=== PATIENT | female | born 1970 | race African-American/Black ===

== ENCOUNTER 2017-07-31 16:23 | Emergency (ER) | payer OTHER ==
[~2017-07-31] VITALS: Ht 165.1 cm; Wt 72.0 kg
[~2017-07-31 16:23] MED LIST: AMIT25TA9 PO; ASPI-1158 PO; ATOR10TA PO; BENA20TA77 PO; GABA-533 PO; INSU3INS6 SUBCUT; PROT40 PO; TRAM150C25 PO
[2017-07-31 22:09] LABS: BASOPHILS % 0.9 % (0.0-2.0); EOSINOPHILS % 1.7 % (0.0-5.0); HEMATOCRIT. 33.5 % (36.0-48.0); HEMOGLOBIN. 11.6 g/dL (12.0-16.0); LYMPHOCYTES % 57.1 % (20.0-50.0); MEAN CORPUSCULAR VOLUME 86.6 fL (81.0-99.0); MEAN PLATELET VOLUME 7.4 fl (7.4-10.4); MONOCYTES % 3.8 % (2.0-8.0); NEUTROPHILS % 36.5 % (40.0-76.0); PLATELET 377 x1000/uL (130-400); RED BLOOD CELL COUNT 3.86 mill/uL (4.2-5.4); RED CELL DISTRIBUTION WIDTH 12.1 % (11.6-14.6)
[2017-07-31 22:12] LABS: CLARITY URINE CLEAR (CLEAR); COLOR URINE YELLOW (YELLOW); KETONES URINE NEGATIVE (NEGATIVE); LEUKOCYTE ESTERASE URINE NEGATIVE (NEGATIVE); NITRITE URINE NEGATIVE (NEGATIVE); OCCULT BLOOD URINE 1+ (NEGATIVE); PH URINE 5.5 (4.5-8.0); PROTEIN URINE TRACE (NEGATIVE); SPECIFIC GRAVITY URINE 1.032 (1.005-1.030); UROBILINOGEN URINE 0.2 E.U./dL (0.2-1.0)
[2017-07-31 22:14] LABS: CHLORIDE 94 mEq/L (98-107)
[2017-07-31 22:19] LABS: ETHANOL BLOOD < 10 mg/dL
[2017-07-31 22:23] LABS: BETA HYDROXYBUTYRATE 0.2 mMol/L (0.0-0.3)
[2017-07-31 22:29] LABS: *AMPHETAMINES SCREEN URINE NEGATIVE (NEGATIVE); *BARBITURATES SCREEN URINE NEGATIVE (NEGATIVE); *BENZODIAZEPINES SCREEN URINE NEGATIVE (NEGATIVE); *COCAINE SCREEN URINE NEGATIVE (NEGATIVE); CANNABINOID URINE SCREEN NEGATIVE (NEGATIVE); METHADONE URINE SCREEN NEGATIVE (NEGATIVE); OPIATES URINE SCREEN NEGATIVE (NEGATIVE); PHENCYCLIDINE URINE SCREEN NEGATIVE (NEGATIVE)
[2017-07-31] MEDS ORDERED: SODIUM CHLORIDE 0.9% 1,000 ML IV ONE (22:45)
[2017-07-31] MEDS ORDERED: INSULIN REGULAR (HUMULIN R) 300UNITS/3ML SUBCUT ONE (22:45)
[2017-08-01] MEDS ORDERED: CLONIDINE 0.2MG TABLET PO ONE (01:45)
[2017-08-01] MEDS ORDERED: IBUPROFEN 600MG TABLET PO ONE (01:45)
[2017-08-01 03:00] VITALS: BP 180/80
== END 2017-08-01 03:00 | disposition home or self-care (01) ==
LOC: ER 18:44
DX: E11.65 Type 2 diabetes mellitus with hyperglycemia (principal); M79.671 Pain in right foot; R26.2 Difficulty in walking, not elsewhere classified; R05 Cough; I10 Essential (primary) hypertension; Z79.4 Long term (current) use of insulin; Z79.82 Long term (current) use of aspirin; Z79.899 Other long term (current) drug therapy
CPT/HCPCS: 36415; 70450; 71045; 80053; 80305; 81003; 82010; 82962; 85025; 96360; 96372; 99285; G0482; J1815; J7030; Z7610

== ENCOUNTER 2017-11-09 07:19 | Inpatient (IN) | payer OTHER ==
[~2017-11-09] VITALS: Ht 165.1 cm; Wt 77.6 kg
[~2017-11-09 07:19] MED LIST changes: -BENA20TA77 PO
[2017-11-09] MEDS ORDERED: MORPHINE SULFATE 4 MG/ML CPJ (NOT FOR IM USE) IV STA (08:19)
[2017-11-09] MEDS ORDERED: ONDANSETRON HCL 4MG/2ML VIAL IV STA (08:19)
[2017-11-09 08:45] LABS: BASOPHILS % 0.7 % (0.0-2.0); EOSINOPHILS % 0.3 % (0.0-5.0); HEMATOCRIT. 37.6 % (36.0-48.0); HEMOGLOBIN. 12.8 g/dL (12.0-16.0); LYMPHOCYTES % 32.8 % (20.0-50.0); MEAN CORPUSCULAR HEMOGLOBIN 29.6 pg (28.0-32.0); MEAN CORPUSCULAR VOLUME 86.7 fL (81.0-99.0); MEAN PLATELET VOLUME 7.4 fl (7.4-10.4); MONOCYTES % 3.9 % (2.0-8.0); NEUTROPHILS % 62.3 % (40.0-76.0); PLATELET 355 x1000/uL (130-400); RED BLOOD CELL COUNT 4.34 mill/uL (4.2-5.4); RED CELL DISTRIBUTION WIDTH 13.4 % (11.6-14.6)
[2017-11-09 08:51] LABS: CHLORIDE 98 mEq/L (98-107)
[2017-11-09 08:54] LABS: PARTIAL THROMBOPLASTIN TIME 23.4 sec (23.4-31.0); PROTHROMBIN TIME 10.8 sec (9.4-11.6)
[2017-11-09 09:05] LABS: CLARITY URINE CLEAR (CLEAR); COLOR URINE YELLOW (YELLOW); KETONES URINE 2+ (NEGATIVE); LEUKOCYTE ESTERASE URINE NEGATIVE (NEGATIVE); NITRITE URINE NEGATIVE (NEGATIVE); OCCULT BLOOD URINE 3+ (NEGATIVE); PH URINE 6.5 (4.5-8.0); PROTEIN URINE 3+ (NEGATIVE); SPECIFIC GRAVITY URINE 1.025 (1.005-1.030); UROBILINOGEN URINE 0.2 E.U./dL (0.2-1.0)
[2017-11-09] MEDS ORDERED: IOHEXOL-300 100 ML BOTTLE ONE (10:46)
[2017-11-09] MEDS ORDERED: LEVOFLOXACIN 500MG PREMIX 100 ML IV ONE (11:15)
[2017-11-09] MEDS ORDERED: METRONIDAZOLE 500 MG PREMIX 100 ML IV ONE (11:15)
[2017-11-09] MEDS ORDERED: HYDROCODONE/ACETAMINOPHEN 5/325MG TABLET PO PRN (11:45)
[2017-11-09] MEDS ORDERED: AMITRIPTYLINE 25MG TABLET PO PRN (11:45)
[2017-11-09] MEDS ORDERED: DEXTROSE 50% WATER 50ML SYRINGE IV PRN (11:45)
[2017-11-09] MEDS ORDERED: NIFEDIPINE XL 30MG TAB PO SCH (11:59)
[2017-11-09] MEDS: CLONIDINE 0.1MG TABLET PO PRN (12:12)
[2017-11-09] MEDS ORDERED: LABETALOL 5MG/ML SYR 20 MG/4 ML SYRINGE IV NR (14:15)
[2017-11-09 16:00] VITALS: BP 117/94
[2017-11-09 16:15] VITALS: BP 117/94
[2017-11-09] MEDS ORDERED: METOCLOPRAMIDE HCL 10MG/2ML VIAL IV SCH (18:00)
[2017-11-09] MEDS: BLOOD SUGAR DIAGNOSTIC STRIP TEST SCH ×2 (18:12→23:00)
[2017-11-09] MEDS: INSULIN LISPRO 100 UNITS/ML SUBCUT SCH ×2 (18:36→23:09)
[2017-11-09 20:00] VITALS: BP 146/83
[2017-11-09] MEDS: ATORVASTATIN CALCIUM 10MG TABLET PO SCH (22:55)
[2017-11-09] MEDS: NIFEDIPINE XL 60MG TAB PO SCH (22:56)
[2017-11-09] MEDS: HYDRALAZINE HCL 50MG TABLET PO SCH (22:57)
[2017-11-09] MEDS: ACETAMINOPHEN 325MG TABLET PO PRN (23:05)
[2017-11-10 04:00] VITALS: BP 121/74
[2017-11-10] MEDS: HYDRALAZINE HCL 50MG TABLET PO SCH ×3 (06:01→21:29)
[2017-11-10] MEDS: ONDANSETRON HCL 4MG/2ML VIAL IV PRN ×2 (06:09→15:58)
[2017-11-10 07:00] LABS: BASOPHILS % 0.3 % (0.0-2.0); EOSINOPHILS % 1.2 % (0.0-5.0); HEMATOCRIT. 34.8 % (36.0-48.0); HEMOGLOBIN. 11.9 g/dL (12.0-16.0); LYMPHOCYTES % 45.1 % (20.0-50.0); MEAN CORPUSCULAR HEMOGLOBIN 29.3 pg (28.0-32.0); MEAN CORPUSCULAR VOLUME 86.1 fL (81.0-99.0); MEAN PLATELET VOLUME 7.7 fl (7.4-10.4); MONOCYTES % 7.5 % (2.0-8.0); NEUTROPHILS % 45.9 % (40.0-76.0); PLATELET 350 x1000/uL (130-400); RED BLOOD CELL COUNT 4.04 mill/uL (4.2-5.4); RED CELL DISTRIBUTION WIDTH 13.2 % (11.6-14.6)
[2017-11-10] MEDS: BLOOD SUGAR DIAGNOSTIC STRIP TEST SCH ×4 (07:20→21:32)
[2017-11-10 08:00] VITALS: BP 142/80
[2017-11-10] MEDS: INSULIN LISPRO 100 UNITS/ML SUBCUT SCH ×4 (08:42→21:44)
[2017-11-10] MEDS: PANTOPRAZOLE 40MG DR TABLET PO SCH (08:58)
[2017-11-10] MEDS: NIFEDIPINE XL 60MG TAB PO SCH ×2 (08:58→21:30)
[2017-11-10 11:21] VITALS: BP 131/68
[2017-11-10] MEDS: MORPHINE SULFATE 4 MG/ML CPJ (NOT FOR IM USE) IV PRN ×2 (11:24→21:16)
[2017-11-10] MEDS: GABAPENTIN 400MG CAPSULE PO PRN (11:29)
[2017-11-10] MEDS ORDERED: POTASSIUM CHLORIDE INJ 40 MEQ in DEXT 5% WATER 500 ML IV ONE (12:45)
[2017-11-10] MEDS: DEXT 5%/0.45% NACL 1000ML 1,000 ML IV SCH ×2 (15:58→23:05)
[2017-11-10 16:00] VITALS: BP 140/77
[2017-11-10] MEDS: KCL 20MEQ/100ML PREMIX 100 ML IV SCH ×2 (16:02→18:13)
[2017-11-10 20:00] VITALS: BP 108/65
[2017-11-10] MEDS: ATORVASTATIN CALCIUM 10MG TABLET PO SCH (21:28)
[2017-11-11] VITALS: BP 110/66
[2017-11-11] MEDS: ONDANSETRON HCL 4MG/2ML VIAL IV PRN (03:29)
[2017-11-11 04:00] VITALS: BP 106/63
[2017-11-11] MEDS: HYDRALAZINE HCL 50MG TABLET PO SCH ×3 (06:00→22:25)
[2017-11-11] MEDS: BLOOD SUGAR DIAGNOSTIC STRIP TEST SCH ×4 (07:48→21:00)
[2017-11-11 08:30] VITALS: BP 120/61
[2017-11-11] MEDS: INSULIN LISPRO 100 UNITS/ML SUBCUT SCH ×4 (08:34→20:51)
[2017-11-11] MEDS: PANTOPRAZOLE 40MG DR TABLET PO SCH (08:36)
[2017-11-11] MEDS: NIFEDIPINE XL 60MG TAB PO SCH ×2 (08:36→20:50)
[2017-11-11] MEDS: DEXT 5%/0.45% NACL 1000ML 1,000 ML IV SCH ×2 (08:37→20:51)
[2017-11-11 12:46] LABS: CREATINE KINASE 57 IU/L (26-192)
[2017-11-11] MEDS: METOCLOPRAMIDE HCL 10MG/2ML VIAL IV SCH ×2 (13:31→18:33)
[2017-11-11 20:00] VITALS: BP 128/66
[2017-11-11] MEDS: ATORVASTATIN CALCIUM 10MG TABLET PO SCH (20:50)
[2017-11-11] MEDS ORDERED: INSULIN GLARGINE UD 100 UNITS/ML SYR SUBCUT SCH (22:00)
[2017-11-12] VITALS: BP 125/57
[2017-11-12] MEDS: METOCLOPRAMIDE HCL 10MG/2ML VIAL IV SCH ×5 (00:22→23:44)
[2017-11-12 04:00] VITALS: BP 135/73
[2017-11-12] MEDS: DEXT 5%/0.45% NACL 1000ML 1,000 ML IV SCH ×3 (04:57→23:44)
[2017-11-12] MEDS: HYDRALAZINE HCL 50MG TABLET PO SCH ×3 (05:48→22:04)
[2017-11-12 06:45] LABS: BASOPHILS % 0.2 % (0.0-2.0); EOSINOPHILS % 0.2 % (0.0-5.0); HEMATOCRIT. 30.6 % (36.0-48.0); HEMOGLOBIN. 10.5 g/dL (12.0-16.0); LYMPHOCYTES % 27.4 % (20.0-50.0); MEAN CORPUSCULAR VOLUME 87.4 fL (81.0-99.0); MEAN PLATELET VOLUME 7.6 fl (7.4-10.4); MONOCYTES % 6.8 % (2.0-8.0); NEUTROPHILS % 65.4 % (40.0-76.0); PLATELET 354 x1000/uL (130-400); RED BLOOD CELL COUNT 3.51 mill/uL (4.2-5.4); RED CELL DISTRIBUTION WIDTH 13.1 % (11.6-14.6)
[2017-11-12 07:47] LABS: PHOSPHORUS 4.3 mg/dL (2.5-4.9)
[2017-11-12] MEDS: BLOOD SUGAR DIAGNOSTIC STRIP TEST SCH ×4 (07:56→20:44)
[2017-11-12 08:00] VITALS: BP 144/78
[2017-11-12] MEDS ORDERED: SODIUM BICARBONATE 4% (2.4MEQ) 5ML VIAL IV ONE (09:10)
[2017-11-12] MEDS ORDERED: LIDOCAINE HCL/PF 1% 10 MG/ML 5ML VIAL ONE (09:10)
[2017-11-12] MEDS: FAMOTIDINE 20MG TABLET PO SCH (11:21)
[2017-11-12] MEDS: NIFEDIPINE XL 60MG TAB PO SCH ×2 (11:21→20:44)
[2017-11-12] MEDS: INSULIN LISPRO 100 UNITS/ML SUBCUT SCH ×6 (11:25→20:45)
[2017-11-12] MEDS: GABAPENTIN 400MG CAPSULE PO PRN (11:28)
[2017-11-12 12:00] VITALS: BP 133/73
[2017-11-12 12:22] LABS: INR 1.1; PROTHROMBIN TIME 11.1 sec (9.4-11.6)
[2017-11-12 12:39] LABS: HEPATITIS B SURFACE AB < 3.1 mIU/mL
[2017-11-12 12:49] LABS: HEPATITIS B SURFACE ANTIGEN NEGATIVE
[2017-11-12 13:18] LABS: HEPATITIS B CORE AB IGM NEGATIVE
[2017-11-12 13:19] LABS: HEPATITIS A AB IGM NEGATIVE (NEGATIVE)
[2017-11-12 16:00] VITALS: BP 140/79
[2017-11-12] MEDS: MORPHINE SULFATE 4 MG/ML CPJ (NOT FOR IM USE) IV PRN (17:52)
[2017-11-12 20:00] VITALS: BP 137/76
[2017-11-12] MEDS: ATORVASTATIN CALCIUM 10MG TABLET PO SCH (20:43)
[2017-11-12] MEDS: INSULIN GLARGINE UD 100 UNITS/ML SYR SUBCUT SCH (22:07)
[2017-11-13 04:00] VITALS: BP 125/62
[2017-11-13] MEDS: ACETAMINOPHEN 325MG TABLET PO PRN (05:33)
[2017-11-13] MEDS: METOCLOPRAMIDE HCL 10MG/2ML VIAL IV SCH ×4 (06:11→23:01)
[2017-11-13] MEDS: HYDRALAZINE HCL 50MG TABLET PO SCH ×3 (06:12→21:03)
[2017-11-13 07:29] LABS: BASOPHILS % 0.2 % (0.0-2.0); EOSINOPHILS % 0.2 % (0.0-5.0); HEMATOCRIT. 30.2 % (36.0-48.0); HEMOGLOBIN. 10.2 g/dL (12.0-16.0); LYMPHOCYTES % 31.8 % (20.0-50.0); MEAN CORPUSCULAR HEMOGLOBIN 29.6 pg (28.0-32.0); MEAN PLATELET VOLUME 7.6 fl (7.4-10.4); MONOCYTES % 7.8 % (2.0-8.0); PLATELET 307 x1000/uL (130-400); RED BLOOD CELL COUNT 3.43 mill/uL (4.2-5.4); RED CELL DISTRIBUTION WIDTH 13.2 % (11.6-14.6)
[2017-11-13] MEDS: BLOOD SUGAR DIAGNOSTIC STRIP TEST SCH ×4 (07:40→21:02)
[2017-11-13 08:00] VITALS: BP 131/76
[2017-11-13 08:32] LABS: PHOSPHORUS 3.2 mg/dL (2.5-4.9)
[2017-11-13] MEDS: NIFEDIPINE XL 60MG TAB PO SCH ×2 (08:42→20:53)
[2017-11-13] MEDS: FAMOTIDINE 20MG TABLET PO SCH (08:42)
[2017-11-13] MEDS: INSULIN LISPRO 100 UNITS/ML SUBCUT SCH ×7 (08:50→21:00)
[2017-11-13 12:00] VITALS: BP 123/70
[2017-11-13] MEDS ORDERED: BISACODYL 10MG SUPP PR PRN (13:15)
[2017-11-13] MEDS ORDERED: NA PHOS,M-B/NA PHOS,DI-BA ENEMA 118ML PR PRN (13:15)
[2017-11-13] MEDS: DEXT 5%/0.45% NACL 1000ML 1,000 ML IV SCH (13:37)
[2017-11-13 16:00] VITALS: BP 135/79
[2017-11-13] MEDS ORDERED: SORBITOL 70% SOLN 30ML PO NR ×2 (16:00→20:00)
[2017-11-13 17:06] LABS: ANTI-NUCLEAR ANTIBODIES DIRECT Negative (Negative)
[2017-11-13 20:00] VITALS: BP 130/70
[2017-11-13] MEDS: ONDANSETRON HCL 4MG/2ML VIAL IV PRN (20:14)
[2017-11-13] MEDS: MORPHINE SULFATE 4 MG/ML CPJ (NOT FOR IM USE) IV PRN (20:14)
[2017-11-13] MEDS: ATORVASTATIN CALCIUM 10MG TABLET PO SCH (20:53)
[2017-11-13] MEDS: INSULIN GLARGINE UD 100 UNITS/ML SYR SUBCUT SCH (21:03)
[2017-11-14] VITALS: BP 140/80
[2017-11-14 04:00] VITALS: BP 136/75
[2017-11-14] MEDS: HYDRALAZINE HCL 50MG TABLET PO SCH (06:00)
[2017-11-14] MEDS: BLOOD SUGAR DIAGNOSTIC STRIP TEST SCH ×4 (06:03→21:05)
[2017-11-14] MEDS: INSULIN LISPRO 100 UNITS/ML SUBCUT SCH ×6 (06:03→21:05)
[2017-11-14] MEDS: METOCLOPRAMIDE HCL 10MG/2ML VIAL IV SCH ×4 (06:07→23:59)
[2017-11-14] MEDS: FAMOTIDINE 20MG TABLET PO SCH (06:07)
[2017-11-14 06:15] LABS: COMPLEMENT C3 124 mg/dL (82-167)
[2017-11-14 06:36] LABS: BASOPHILS % 0.5 % (0.0-2.0); EOSINOPHILS % 0.2 % (0.0-5.0); HEMATOCRIT. 30.8 % (36.0-48.0); HEMOGLOBIN. 10.5 g/dL (12.0-16.0); LYMPHOCYTES % 27.6 % (20.0-50.0); MEAN CORPUSCULAR HEMOGLOBIN 30.1 pg (28.0-32.0); MEAN PLATELET VOLUME 7.7 fl (7.4-10.4); NEUTROPHILS % 65.7 % (40.0-76.0); PLATELET 331 x1000/uL (130-400); RED BLOOD CELL COUNT 3.49 mill/uL (4.2-5.4)
[2017-11-14 06:40] LABS: PARTIAL THROMBOPLASTIN TIME 24.7 sec (23.4-31.0); PROTHROMBIN TIME 10.8 sec (9.4-11.6)
[2017-11-14] MEDS ORDERED: NA PHOS,M-B/NA PHOS,DI-BA ENEMA 118ML PR NR (07:00)
[2017-11-14 08:00] VITALS: BP 157/83
[2017-11-14] MEDS: NIFEDIPINE XL 60MG TAB PO SCH ×2 (08:54→21:04)
[2017-11-14] MEDS ORDERED: POTASSIUM CHLORIDE 20MEQ TABLET SR PO NR (09:30)
[2017-11-14 12:00] VITALS: BP 161/83
[2017-11-14] MEDS ORDERED: MIDAZOLAM HCL 5 MG/5 ML VIAL ONE (12:11)
[2017-11-14] MEDS ORDERED: FENTANYL CITRATE/PF 50MCG/ML 2ML VIAL ONE (12:11)
[2017-11-14] MEDS ORDERED: SIMETHICONE 40 MG/0.6 ML 30ML ONE (12:11)
[2017-11-14] MEDS: HYDRALAZINE HCL 25MG TABLET PO SCH ×2 (13:58→21:05)
[2017-11-14] MEDS: GABAPENTIN 400MG CAPSULE PO PRN (14:05)
[2017-11-14] MEDS: DEXT 5%/0.45% NACL 1000ML 1,000 ML IV SCH (15:28)
[2017-11-14 16:00] VITALS: BP 169/84
[2017-11-14] MEDS: ACETAMINOPHEN 325MG TABLET PO PRN (18:05)
[2017-11-14] MEDS: CLONIDINE 0.1MG TABLET PO PRN (18:44)
[2017-11-14 20:00] VITALS: BP 162/84
[2017-11-14] MEDS: ATORVASTATIN CALCIUM 10MG TABLET PO SCH (21:04)
[2017-11-14] MEDS: INSULIN GLARGINE UD 100 UNITS/ML SYR SUBCUT SCH (21:06)
[2017-11-14 22:43] LABS: CLARITY URINE CLEAR (CLEAR); COLOR URINE YELLOW (YELLOW); KETONES URINE NEGATIVE (NEGATIVE); LEUKOCYTE ESTERASE URINE NEGATIVE (NEGATIVE); NITRITE URINE NEGATIVE (NEGATIVE); OCCULT BLOOD URINE NEGATIVE (NEGATIVE); PH URINE 7.5 (4.5-8.0); PROTEIN URINE 2+ (NEGATIVE); SPECIFIC GRAVITY URINE 1.011 (1.005-1.030); UROBILINOGEN URINE 0.2 E.U./dL (0.2-1.0)
[2017-11-15] VITALS: BP 122/65
[2017-11-15 03:57] VITALS: BP 116/69
[2017-11-15] MEDS: HYDRALAZINE HCL 25MG TABLET PO SCH ×3 (05:48→22:00)
[2017-11-15] MEDS: METOCLOPRAMIDE HCL 10MG/2ML VIAL IV SCH ×3 (05:48→18:01)
[2017-11-15] MEDS: ACETAMINOPHEN 325MG TABLET PO PRN (06:01)
[2017-11-15 06:08] LABS: BASOPHILS % 0.5 % (0.0-2.0); EOSINOPHILS % 1.7 % (0.0-5.0); HEMATOCRIT. 30.2 % (36.0-48.0); HEMOGLOBIN. 10.6 g/dL (12.0-16.0); LYMPHOCYTES % 46.5 % (20.0-50.0); MEAN CORPUSCULAR HEMOGLOBIN 30.3 pg (28.0-32.0); MEAN CORPUSCULAR VOLUME 86.5 fL (81.0-99.0); MONOCYTES % 8.1 % (2.0-8.0); NEUTROPHILS % 43.2 % (40.0-76.0); PLATELET 330 x1000/uL (130-400); RED CELL DISTRIBUTION WIDTH 12.9 % (11.6-14.6)
[2017-11-15] MEDS: BLOOD SUGAR DIAGNOSTIC STRIP TEST SCH ×4 (07:40→21:09)
[2017-11-15 08:00] VITALS: BP 132/76
[2017-11-15] MEDS: DEXT 5%/0.45% NACL 1000ML 1,000 ML IV SCH ×2 (08:00→18:00)
[2017-11-15] MEDS: INSULIN LISPRO 100 UNITS/ML SUBCUT SCH ×4 (08:10→21:00)
[2017-11-15] MEDS: GABAPENTIN 400MG CAPSULE PO PRN ×2 (09:28→14:53)
[2017-11-15] MEDS: NIFEDIPINE XL 60MG TAB PO SCH ×2 (09:29→21:09)
[2017-11-15] MEDS: FAMOTIDINE 20MG TABLET PO SCH (09:30)
[2017-11-15 12:00] VITALS: BP 132/82
[2017-11-15] MEDS ORDERED: POTASSIUM CHLORIDE 20MEQ TABLET SR PO NR (14:00)
[2017-11-15 16:00] VITALS: BP 150/85
[2017-11-15 20:00] VITALS: BP 113/67
[2017-11-15] MEDS: ATORVASTATIN CALCIUM 10MG TABLET PO SCH (21:09)
[2017-11-15] MEDS: INSULIN GLARGINE UD 100 UNITS/ML SYR SUBCUT SCH (21:12)
[2017-11-16] VITALS: BP 116/71
[2017-11-16] MEDS: DEXT 5%/0.45% NACL 1000ML 1,000 ML IV SCH (03:59)
[2017-11-16 04:00] VITALS: BP 139/85
[2017-11-16] MEDS: HYDRALAZINE HCL 25MG TABLET PO SCH ×2 (05:43→14:40)
[2017-11-16] MEDS: METOCLOPRAMIDE HCL 10MG/2ML VIAL IV SCH ×4 (05:44→18:00)
[2017-11-16] MEDS: ACETAMINOPHEN 325MG TABLET PO PRN (05:47)
[2017-11-16] MEDS: GABAPENTIN 400MG CAPSULE PO PRN (05:47)
[2017-11-16] MEDS: BLOOD SUGAR DIAGNOSTIC STRIP TEST SCH ×3 (07:40→16:34)
[2017-11-16 08:00] VITALS: BP 151/86
[2017-11-16] MEDS: NIFEDIPINE XL 60MG TAB PO SCH (08:54)
[2017-11-16] MEDS: FAMOTIDINE 20MG TABLET PO SCH (08:54)
[2017-11-16] MEDS: INSULIN LISPRO 100 UNITS/ML SUBCUT SCH ×3 (08:55→18:34)
[2017-11-16 12:00] VITALS: BP 129/65
[2017-11-16] MEDS ORDERED: NIFE60TA64 PO (12:42)
[2017-11-16] MEDS ORDERED: HYDR-4134 PO (12:42)
[2017-11-16] MEDS ORDERED: LANTUSUD SUBCUT (12:42)
[2017-11-16 14:51] VITALS: BP 126/95
[2017-11-16 16:14] VITALS: BP 126/68
== END 2017-11-16 19:03 | disposition home or self-care (01) | DRG 248 ==
LOC: ER 07:19 → 6EST 12:00 → ENRESERV 12:20 → 6EST 18:00 → 7WST 11-11 14:31
PROVIDERS: ADMIT Family Medicine; ATTEND Family Medicine
PROC: 5A1D70Z Performance of Urinary Filtration, Intermittent, Less than 6 Hours Per Day (ICD-10-PCS; principal; 2017-11-12)
PROC: 02HV33Z Insertion of Infusion Device into Superior Vena Cava, Percutaneous Approach (ICD-10-PCS; 2017-11-12)
PROC: B5181ZA Fluoroscopy of Superior Vena Cava using Low Osmolar Contrast, Guidance (ICD-10-PCS; 2017-11-12)
PROC: 5A1D70Z Performance of Urinary Filtration, Intermittent, Less than 6 Hours Per Day (ICD-10-PCS; 2017-11-14)
DX: A04.9 Bacterial intestinal infection, unspecified (principal); N17.1 Acute kidney failure with acute cortical necrosis; I13.2 Hypertensive heart and chronic kidney disease with heart failure and with stage 5 chronic kidney disease, or end stage renal disease; K31.84 Gastroparesis; E11.21 Type 2 diabetes mellitus with diabetic nephropathy; E11.40 Type 2 diabetes mellitus with diabetic neuropathy, unspecified; E44.1 Mild protein-calorie malnutrition; I50.32 Chronic diastolic (congestive) heart failure; E11.22 Type 2 diabetes mellitus with diabetic chronic kidney disease; K21.9 Gastro-esophageal reflux disease without esophagitis; E11.43 Type 2 diabetes mellitus with diabetic autonomic (poly)neuropathy; E78.5 Hyperlipidemia, unspecified; E86.0 Dehydration; D25.9 Leiomyoma of uterus, unspecified; E87.6 Hypokalemia; N18.6 End stage renal disease; K76.0 Fatty (change of) liver, not elsewhere classified; D64.9 Anemia, unspecified; Z82.49 Family history of ischemic heart disease and other diseases of the circulatory system; Z83.3 Family history of diabetes mellitus; Z90.49 Acquired absence of other specified parts of digestive tract; Z99.2 Dependence on renal dialysis
CPT/HCPCS: 36415; 36556; 71045; 74177; 76770; 76937; 77001; 80048; 80053; 80076; 81003; 82150; 82550; 82962; 83036; 83690; 83735; 83880; 84100; 84145; 84484; 85025; 85610; 85730; 86038; 86160; 86705; 86706; 86709; 86803; 87040; 87340; 88305; C1752; C1893; J1642; J1815; J1956; J2250; J2270; J2405; J2765; J3010; J3480; J3490; J7030; J7040; Q9967; A4315

== ENCOUNTER 2018-08-14 13:04 | Emergency (ER) | payer OTHER ==
[~2018-08-14] VITALS: Ht 165.1 cm; Wt 68.0 kg
[~2018-08-14 13:04] MED LIST changes: +HYDR-4134 PO; -INSU3INS6 SUBCUT; +LANTUSUD SUBCUT; +NIFE60TA64 PO
[2018-08-14 13:11] VITALS: BP 164/98
[2018-08-14] MEDS ORDERED: CARV6.2548 PO (13:18)
== END 2018-08-14 16:14 | disposition left against medical advice (07) ==
LOC: ER 13:04
DX: Z53.21 Procedure and treatment not carried out due to patient leaving prior to being seen by health care provider (principal); R07.9 Chest pain, unspecified; R55 Syncope and collapse
CPT/HCPCS: 82962; 93005

== ENCOUNTER 2018-08-14 16:06 | Emergency (ER) | payer OTHER ==
[~2018-08-14] VITALS: Ht 165.1 cm; Wt 68.0 kg
[~2018-08-14 16:06] MED LIST changes: +CARV6.2548 PO
[2018-08-14 16:15] VITALS: BP 168/92
== END 2018-08-14 19:45 | disposition left against medical advice (07) ==
LOC: ER 16:06
DX: Z53.21 Procedure and treatment not carried out due to patient leaving prior to being seen by health care provider (principal)

== ENCOUNTER 2018-09-12 21:20 | Inpatient (IN) | payer OTHER ==
[~2018-09-12] VITALS: Ht 165.1 cm; Wt 73.1 kg
[2018-09-13] MEDS ORDERED: ONDANSETRON HCL 4MG/2ML INJ IV STA (00:44)
[2018-09-13 01:05] LABS: BASOPHILS % 0.8 % (0.0-2.0); EOSINOPHILS % 0.1 % (0.0-5.0); HEMATOCRIT. 32.6 % (36.0-48.0); HEMOGLOBIN. 10.8 g/dL (12.0-16.0); LYMPHOCYTES % 12.4 % (20.0-50.0); MEAN CORPUSCULAR HEMOGLOBIN 29.2 pg (28.0-32.0); MEAN CORPUSCULAR VOLUME 87.8 fL (81.0-99.0); MONOCYTES % 3.7 % (2.0-8.0); PLATELET 352 x1000/uL (130-400); RED BLOOD CELL COUNT 3.71 mill/uL (4.2-5.4); RED CELL DISTRIBUTION WIDTH 13.3 % (11.6-14.6)
[2018-09-13 01:10] LABS: CHLORIDE 104 mEq/L (98-107)
[2018-09-13] MEDS ORDERED: METOCLOPRAMIDE HCL 10MG TABLET PO ONE (01:30)
[2018-09-13] MEDS ORDERED: ASPIRIN 325MG EC TABLET PO NR (02:00)
[2018-09-13 02:24] LABS: CLARITY URINE CLOUDY (CLEAR); COLOR URINE YELLOW (YELLOW); KETONES URINE 2+ (NEGATIVE); LEUKOCYTE ESTERASE URINE 1+ (NEGATIVE); NITRITE URINE NEGATIVE (NEGATIVE); OCCULT BLOOD URINE 3+ (NEGATIVE); PH URINE 5.5 (4.5-8.0); PROTEIN URINE 3+ (NEGATIVE); SPECIFIC GRAVITY URINE 1.022 (1.005-1.030); UROBILINOGEN URINE 0.2 E.U./dL (0.2-1.0)
[2018-09-13] MEDS: SODIUM CHLORIDE 0.9% 1,000 ML IV NR ×2 (02:52→17:46)
[2018-09-13] MEDS ORDERED: CEFTRIAXONE 1 G PREMIX 50 ML IV NR (06:00)
[2018-09-13] MEDS ORDERED: CEFTRIAXONE 1 G PREMIX 50 ML IV ONE (12:15)
[2018-09-13] MEDS ORDERED: LORAZEPAM 0.5MG TABLET PO PRN (12:15)
[2018-09-13] MEDS ORDERED: ONDANSETRON HCL 4MG/2ML INJ IV PRN (12:15)
[2018-09-13] MEDS ORDERED: GABA-290 MT (12:58)
[2018-09-13] MEDS ORDERED: COR3 MT (12:59)
[2018-09-13] MEDS ORDERED: ALBU6.7H INH (13:06)
[2018-09-13] MEDS ORDERED: HYDR-4134 MT (13:06)
[2018-09-13 13:12] VITALS: BP 189/108
[2018-09-13] MEDS ORDERED: DULA0.75 SQ (14:00)
[2018-09-13] MEDS ORDERED: DILTIAZEM HCL 5MG/ML 5ML VIAL IV PRN (14:00)
[2018-09-13 14:24] LABS: *AMPHETAMINES SCREEN URINE NEGATIVE (NEGATIVE); *BARBITURATES SCREEN URINE NEGATIVE (NEGATIVE); *BENZODIAZEPINES SCREEN URINE NEGATIVE (NEGATIVE); *COCAINE SCREEN URINE NEGATIVE (NEGATIVE); METHADONE URINE SCREEN NEGATIVE (NEGATIVE); OPIATES URINE SCREEN NEGATIVE (NEGATIVE)
[2018-09-13 14:25] LABS: CANNABINOID URINE SCREEN NEGATIVE (NEGATIVE); PHENCYCLIDINE URINE SCREEN NEGATIVE (NEGATIVE)
[2018-09-13] MEDS: PANTOPRAZOLE SODIUM 40 MG/VIAL IV SCH ×2 (15:28→21:04)
[2018-09-13] MEDS: HYDRALAZINE HCL 25MG TABLET PO SCH ×2 (15:29→21:05)
[2018-09-13] MEDS: NIFEDIPINE XL 60MG TAB PO SCH (15:29)
[2018-09-13] MEDS: CARVEDILOL 6.25 MG TABLET PO SCH (15:35)
[2018-09-13 15:50] LABS: INR 1.1; PROTHROMBIN TIME 11.1 sec (9.6-11.0)
[2018-09-13 16:11] LABS: FERRITIN 164 ng/mL (10-291)
[2018-09-13 16:13] LABS: PHOSPHORUS 4.1 mg/dL (2.5-4.9)
[2018-09-13 16:15] VITALS: BP 170/92
[2018-09-13 16:18] LABS: CREATINE KINASE MB FRACTION 1.3 ng/mL (0.5-3.6)
[2018-09-13 16:23] LABS: HEPATITIS B SURFACE ANTIGEN NEGATIVE
[2018-09-13 16:32] LABS: VITAMIN B12 SERUM 972 pg/mL (211-911)
[2018-09-13 16:38] VITALS: BP 112/64
[2018-09-13 16:51] LABS: HEPATITIS A AB IGM NEGATIVE (NEGATIVE)
[2018-09-13] MEDS ORDERED: DEXTROSE 50% WATER 50ML SYRINGE IV PRN (19:30)
[2018-09-13 20:05] VITALS: BP 108/60
[2018-09-13] MEDS: BLOOD SUGAR DIAGNOSTIC STRIP TEST SCH (21:00)
[2018-09-13] MEDS: INSULIN LISPRO 100 UNITS/ML SUBCUT SCH (21:04)
[2018-09-13] MEDS: AMITRIPTYLINE 25MG TABLET PO SCH (21:04)
[2018-09-13] MEDS: INSULIN GLARGINE UD 100 UNITS/ML SYR SUBCUT SCH (21:05)
[2018-09-13] MEDS ORDERED: INSULIN GLARGINE UD 100 UNITS/ML SYR SUBCUT SCH (22:00)
[2018-09-14] VITALS (7 sets, daily range): BP systolic 87–125; BP diastolic 47–70
[2018-09-14] MEDS: HYDRALAZINE HCL 25MG TABLET PO SCH (05:33)
[2018-09-14] MEDS: BLOOD SUGAR DIAGNOSTIC STRIP TEST SCH ×4 (06:02→20:55)
[2018-09-14] MEDS: CEFTRIAXONE 1 G PREMIX 50 ML IV SCH (06:02)
[2018-09-14 07:02] LABS: BASOPHILS % 0.3 % (0.0-2.0); EOSINOPHILS % 1.1 % (0.0-5.0); HEMATOCRIT. 28.2 % (36.0-48.0); HEMOGLOBIN. 9.4 g/dL (12.0-16.0); LYMPHOCYTES % 34.5 % (20.0-50.0); MEAN CORPUSCULAR HEMOGLOBIN 29.1 pg (28.0-32.0); MEAN CORPUSCULAR VOLUME 86.9 fL (81.0-99.0); MONOCYTES % 9.1 % (2.0-8.0); PLATELET 320 x1000/uL (130-400); RED BLOOD CELL COUNT 3.24 mill/uL (4.2-5.4); RED CELL DISTRIBUTION WIDTH 12.9 % (11.6-14.6)
[2018-09-14] MEDS: INSULIN LISPRO 100 UNITS/ML SUBCUT SCH ×4 (07:50→20:54)
[2018-09-14] MEDS: CARVEDILOL 6.25 MG TABLET PO SCH (08:29)
[2018-09-14] MEDS: NIFEDIPINE XL 60MG TAB PO SCH (08:30)
[2018-09-14] MEDS: PANTOPRAZOLE SODIUM 40 MG/VIAL IV SCH ×2 (08:30→20:44)
[2018-09-14] MEDS: INSULIN GLARGINE UD 100 UNITS/ML SYR SUBCUT SCH ×2 (11:26→21:14)
[2018-09-14] MEDS: SODIUM CHLORIDE 0.45% 1,000 ML IV SCH ×2 (11:31→20:45)
[2018-09-14] MEDS: HYDRALAZINE HCL 50MG TABLET PO SCH ×2 (14:00→21:11)
[2018-09-14] MEDS: AMITRIPTYLINE 25MG TABLET PO SCH (20:44)
[2018-09-15] VITALS: BP 97/59
[2018-09-15 04:00] VITALS: BP 130/70
[2018-09-15] MEDS: HYDRALAZINE HCL 50MG TABLET PO SCH (05:55)
[2018-09-15] MEDS: CEFTRIAXONE 1 G PREMIX 50 ML IV SCH (06:09)
[2018-09-15 06:44] LABS: BASOPHILS % 0.6 % (0.0-2.0); EOSINOPHILS % 3.4 % (0.0-5.0); HEMOGLOBIN. 9.2 g/dL (12.0-16.0); LYMPHOCYTES % 39.8 % (20.0-50.0); MEAN CORPUSCULAR HEMOGLOBIN 29.2 pg (28.0-32.0); MEAN CORPUSCULAR VOLUME 86.4 fL (81.0-99.0); MEAN PLATELET VOLUME 8.4 fl (7.4-10.4); MONOCYTES % 7.9 % (2.0-8.0); NEUTROPHILS % 48.3 % (40.0-76.0); PLATELET 292 x1000/uL (130-400); RED BLOOD CELL COUNT 3.13 mill/uL (4.2-5.4); RED CELL DISTRIBUTION WIDTH 13.1 % (11.6-14.6)
[2018-09-15] MEDS: BLOOD SUGAR DIAGNOSTIC STRIP TEST SCH ×2 (07:02→12:54)
[2018-09-15] MEDS: INSULIN LISPRO 100 UNITS/ML SUBCUT SCH ×2 (07:03→12:50)
[2018-09-15 08:00] VITALS: BP 142/79
[2018-09-15] MEDS: CARVEDILOL 6.25 MG TABLET PO SCH (09:33)
[2018-09-15] MEDS: PANTOPRAZOLE SODIUM 40 MG/VIAL IV SCH ×2 (09:33→21:02)
[2018-09-15] MEDS: NIFEDIPINE XL 60MG TAB PO SCH (09:33)
[2018-09-15] MEDS: SODIUM CHLORIDE 0.45% 1,000 ML IV SCH ×2 (09:34→21:18)
[2018-09-15] MEDS: GUAIFENESIN-DM 200MG-20MG/10ML UDC PO PRN ×2 (10:43→21:13)
[2018-09-15] MEDS: INSULIN GLARGINE UD 100 UNITS/ML SYR SUBCUT SCH ×2 (10:49→21:39)
[2018-09-15] MEDS: IPRATROPIUM/ALBUTEROL 0.5-3(2.5)MG/3ML NEB INH PRN ×2 (10:56→14:34)
[2018-09-15 12:00] VITALS: BP 130/76
[2018-09-15 16:00] VITALS: BP 125/71
[2018-09-15 20:00] VITALS: BP 125/66
[2018-09-15] MEDS: AMITRIPTYLINE 25MG TABLET PO SCH (21:02)
[2018-09-15] MEDS: CARVEDILOL 12.5MG TABLET PO SCH (21:04)
[2018-09-16] VITALS: BP 168/100
[2018-09-16 04:00] VITALS: BP 118/71
[2018-09-16] MEDS: SODIUM CHLORIDE 0.45% 1,000 ML IV SCH ×3 (05:55→23:27)
[2018-09-16 06:25] LABS: BASOPHILS % 0.5 % (0.0-2.0); EOSINOPHILS % 2.3 % (0.0-5.0); HEMATOCRIT. 27.5 % (36.0-48.0); HEMOGLOBIN. 9.3 g/dL (12.0-16.0); LYMPHOCYTES % 40.4 % (20.0-50.0); MEAN CORPUSCULAR HEMOGLOBIN 29.1 pg (28.0-32.0); MEAN CORPUSCULAR VOLUME 86.1 fL (81.0-99.0); MEAN PLATELET VOLUME 7.9 fl (7.4-10.4); MONOCYTES % 9.3 % (2.0-8.0); NEUTROPHILS % 47.5 % (40.0-76.0); PLATELET 316 x1000/uL (130-400); RED BLOOD CELL COUNT 3.19 mill/uL (4.2-5.4); RED CELL DISTRIBUTION WIDTH 12.9 % (11.6-14.6)
[2018-09-16] MEDS: INSULIN LISPRO 100 UNITS/ML SUBCUT SCH ×4 (07:50→20:45)
[2018-09-16 08:00] VITALS: BP 106/61
[2018-09-16] MEDS: BLOOD SUGAR DIAGNOSTIC STRIP TEST SCH ×4 (08:14→20:45)
[2018-09-16] MEDS ORDERED: POTASSIUM CHLORIDE 20MEQ TABLET SR PO NR (08:30)
[2018-09-16] MEDS: CEFTRIAXONE 1 G PREMIX 50 ML IV SCH (08:39)
[2018-09-16] MEDS: PANTOPRAZOLE SODIUM 40 MG/VIAL IV SCH ×2 (08:39→21:14)
[2018-09-16] MEDS: CARVEDILOL 12.5MG TABLET PO SCH ×2 (08:49→21:14)
[2018-09-16] MEDS: NIFEDIPINE XL 60MG TAB PO SCH (08:50)
[2018-09-16] MEDS: INSULIN GLARGINE UD 100 UNITS/ML SYR SUBCUT SCH ×2 (10:29→21:15)
[2018-09-16 12:00] VITALS: BP 119/70
[2018-09-16 16:00] VITALS: BP 154/77
[2018-09-16 20:13] VITALS: BP 169/91
[2018-09-16] MEDS: AMITRIPTYLINE 25MG TABLET PO SCH (21:14)
[2018-09-16] MEDS ORDERED: HYDROCODONE/ACETAMINOPHEN 5/325MG TABLET PO PRN (23:30)
[2018-09-16] MEDS ORDERED: ACETAMINOPHEN 325MG TABLET PO PRN (23:30)
[2018-09-17] VITALS (7 sets, daily range): BP systolic 116–169; BP diastolic 65–90
[2018-09-17] MEDS: IPRATROPIUM/ALBUTEROL 0.5-3(2.5)MG/3ML NEB INH PRN (01:39)
[2018-09-17 05:13] LABS: HIV SCREEN 4G Non Reactive (Non Reactive)
[2018-09-17 06:24] LABS: BASOPHILS % 0.5 % (0.0-2.0); EOSINOPHILS % 2.4 % (0.0-5.0); HEMATOCRIT. 26.7 % (36.0-48.0); HEMOGLOBIN. 8.9 g/dL (12.0-16.0); LYMPHOCYTES % 49.4 % (20.0-50.0); MEAN CORPUSCULAR HEMOGLOBIN 28.7 pg (28.0-32.0); MEAN CORPUSCULAR VOLUME 86.4 fL (81.0-99.0); MEAN PLATELET VOLUME 7.6 fl (7.4-10.4); MONOCYTES % 11.4 % (2.0-8.0); NEUTROPHILS % 36.3 % (40.0-76.0); PLATELET 360 x1000/uL (130-400); RED BLOOD CELL COUNT 3.09 mill/uL (4.2-5.4); RED CELL DISTRIBUTION WIDTH 12.8 % (11.6-14.6)
[2018-09-17] MEDS: BLOOD SUGAR DIAGNOSTIC STRIP TEST SCH ×4 (06:25→21:18)
[2018-09-17] MEDS: CEFTRIAXONE 1 G PREMIX 50 ML IV SCH (06:25)
[2018-09-17] MEDS: INSULIN LISPRO 100 UNITS/ML SUBCUT SCH ×4 (07:50→21:00)
[2018-09-17] MEDS: CARVEDILOL 12.5MG TABLET PO SCH (09:17)
[2018-09-17] MEDS: PANTOPRAZOLE SODIUM 40 MG/VIAL IV SCH ×2 (09:18→21:19)
[2018-09-17] MEDS: NIFEDIPINE XL 60MG TAB PO SCH (09:18)
[2018-09-17] MEDS: SODIUM CHLORIDE 0.45% 1,000 ML IV SCH ×2 (09:18→18:31)
[2018-09-17] MEDS: INSULIN GLARGINE UD 100 UNITS/ML SYR SUBCUT SCH ×2 (09:29→21:19)
[2018-09-17] MEDS: GUAIFENESIN-DM 200MG-20MG/10ML UDC PO PRN (12:21)
[2018-09-17] MEDS: CARVEDILOL 25MG TABLET PO SCH (21:19)
[2018-09-17] MEDS: AMITRIPTYLINE 25MG TABLET PO SCH (21:19)
[2018-09-18 04:01] VITALS: BP 118/61
[2018-09-18] MEDS: SODIUM CHLORIDE 0.45% 1,000 ML IV SCH (04:37)
[2018-09-18] MEDS: CEFTRIAXONE 1 G PREMIX 50 ML IV SCH (06:13)
[2018-09-18] MEDS: BLOOD SUGAR DIAGNOSTIC STRIP TEST SCH ×2 (06:33→12:20)
[2018-09-18 07:22] LABS: BASOPHILS % 0.6 % (0.0-2.0); EOSINOPHILS % 2.1 % (0.0-5.0); HEMATOCRIT. 26.1 % (36.0-48.0); HEMOGLOBIN. 8.7 g/dL (12.0-16.0); LYMPHOCYTES % 48.5 % (20.0-50.0); MEAN CORPUSCULAR HEMOGLOBIN 28.9 pg (28.0-32.0); MEAN CORPUSCULAR VOLUME 86.8 fL (81.0-99.0); MEAN PLATELET VOLUME 7.9 fl (7.4-10.4); MONOCYTES % 9.5 % (2.0-8.0); NEUTROPHILS % 39.3 % (40.0-76.0); PLATELET 371 x1000/uL (130-400); RED BLOOD CELL COUNT 3.01 mill/uL (4.2-5.4); RED CELL DISTRIBUTION WIDTH 13.4 % (11.6-14.6)
[2018-09-18] MEDS: INSULIN LISPRO 100 UNITS/ML SUBCUT SCH ×2 (07:50→12:50)
[2018-09-18 08:00] VITALS: BP 166/90
[2018-09-18] MEDS: PANTOPRAZOLE SODIUM 40 MG/VIAL IV SCH (09:36)
[2018-09-18] MEDS: CARVEDILOL 25MG TABLET PO SCH (09:36)
[2018-09-18] MEDS: NIFEDIPINE XL 60MG TAB PO SCH (09:37)
[2018-09-18] MEDS: INSULIN GLARGINE UD 100 UNITS/ML SYR SUBCUT SCH (09:46)
[2018-09-18 13:46] VITALS: BP 145/73
== END 2018-09-18 14:44 | disposition home or self-care (01) | DRG 720 ==
LOC: ER 21:20 → 6WST 09-13 01:56 → ENRESERV 09-13 11:05
PROVIDERS: ADMIT Internal Medicine; ATTEND Internal Medicine
DX: A41.9 Sepsis, unspecified organism (principal); N17.0 Acute kidney failure with tubular necrosis; K92.0 Hematemesis; E11.22 Type 2 diabetes mellitus with diabetic chronic kidney disease; I95.9 Hypotension, unspecified; E87.5 Hyperkalemia; E11.40 Type 2 diabetes mellitus with diabetic neuropathy, unspecified; I13.0 Hypertensive heart and chronic kidney disease with heart failure and stage 1 through stage 4 chronic kidney disease, or unspecified chronic kidney disease; I50.32 Chronic diastolic (congestive) heart failure; E11.65 Type 2 diabetes mellitus with hyperglycemia; D50.9 Iron deficiency anemia, unspecified; N39.0 Urinary tract infection, site not specified; K76.0 Fatty (change of) liver, not elsewhere classified; D18.09 Hemangioma of other sites; E78.5 Hyperlipidemia, unspecified; G47.00 Insomnia, unspecified; K91.1 Postgastric surgery syndromes; Y83.8 Other surgical procedures as the cause of abnormal reaction of the patient, or of later complication, without mention of misadventure at the time of the procedure; N18.3 Chronic kidney disease, stage 3 (moderate); R79.1 Abnormal coagulation profile; R74.0 Nonspecific elevation of levels of transaminase and lactic acid dehydrogenase [LDH]; R18.8 Other ascites; R80.9 Proteinuria, unspecified; R82.4 Acetonuria; R81 Glycosuria; I27.21 Secondary pulmonary arterial hypertension; J20.8 Acute bronchitis due to other specified organisms; I08.3 Combined rheumatic disorders of mitral, aortic and tricuspid valves; Y92.89 Other specified places as the place of occurrence of the external cause; Z79.4 Long term (current) use of insulin; Z79.82 Long term (current) use of aspirin; Z98.51 Tubal ligation status; Z79.899 Other long term (current) drug therapy; Z90.49 Acquired absence of other specified parts of digestive tract
CPT/HCPCS: 36415; 71045; 76700; 78582; 80048; 80061; 80076; 80305; 81025; 82550; 82553; 82607; 82728; 82746; 82962; 83036; 83540; 83550; 83735; 83880; 84100; 84132; 84443; 84484; 84702; 85379; 86705; 86709; 86803; 87340; 87389; 93005; 93306; 94640; 96365; 99285; A9558; C9113; J0696; J1815; J2405; J3490; J7620; J8597

== ENCOUNTER 2019-02-12 16:33 | Inpatient (IN) | payer MEDICAID ==
[~2019-02-12] VITALS: Ht 165.1 cm; Wt 64.0 kg
[~2019-02-12 16:33] MED LIST changes: +ALBU6.7H INH; -CARV6.2548 PO; +COR3 PO; +DOCU250C14 PO; +DULA0.75 SQ; +GABA-290 MT; -GABA-533 PO; +METO5TAB94 MT; +SUCR1TAB30 PO
[2019-02-12] MEDS ORDERED: ENALAPRIL 2.5MG/2ML VIAL 2ML IV ONE (17:15)
[2019-02-12] MEDS ORDERED: ONDANSETRON HCL 4MG/2ML INJ IV STA (17:27)
[2019-02-12] MEDS ORDERED: MORPHINE SULFATE 4 MG/ML CPJ (NOT FOR IM USE) IV STA (17:27)
[2019-02-12] MEDS ORDERED: FAMOTIDINE 20MG/2ML VIAL IV STA (17:27)
[2019-02-12] MEDS ORDERED: LABETALOL 5MG/ML SYR 20 MG/4 ML SYRINGE IV ONE (17:30)
[2019-02-12 17:56] LABS: HEMATOCRIT. 30.8 % (36.0-48.0); HEMOGLOBIN. 10.2 g/dL (12.0-16.0); MEAN CORPUSCULAR HEMOGLOBIN 28.3 pg (28.0-32.0); MEAN CORPUSCULAR VOLUME 84.9 fL (81.0-99.0); MEAN PLATELET VOLUME 7.3 fl (7.4-10.4); RED BLOOD CELL COUNT 3.63 mill/uL (4.2-5.4); RED CELL DISTRIBUTION WIDTH 17.7 % (11.6-14.6)
[2019-02-12 18:03] LABS: CHLORIDE 111 mEq/L (98-107)
[2019-02-12 18:06] LABS: HCG SCREEN NEGATIVE
[2019-02-12 18:35] LABS: PLATELET 357 x1000/uL (130-400)
[2019-02-12 18:38] LABS: PLATELET ESTIMATE NORMAL
[2019-02-12 18:54] LABS: COLOR URINE YELLOW (YELLOW); KETONES URINE TRACE (NEGATIVE); LEUKOCYTE ESTERASE URINE 1+ (NEGATIVE); NITRITE URINE NEGATIVE (NEGATIVE); OCCULT BLOOD URINE TRACE (NEGATIVE); PH URINE 6.5 (4.5-8.0); PROTEIN URINE 3+ (NEGATIVE); SPECIFIC GRAVITY URINE 1.016 (1.005-1.030); UROBILINOGEN URINE 0.2 E.U./dL (0.2-1.0)
[2019-02-12 18:55] LABS: CLARITY URINE HAZY (CLEAR)
[2019-02-12 19:07] LABS: *AMPHETAMINES SCREEN URINE NEGATIVE (NEGATIVE); *BARBITURATES SCREEN URINE NEGATIVE (NEGATIVE); *BENZODIAZEPINES SCREEN URINE NEGATIVE (NEGATIVE); *COCAINE SCREEN URINE NEGATIVE (NEGATIVE)
[2019-02-12 19:08] LABS: CANNABINOID URINE SCREEN NEGATIVE (NEGATIVE); METHADONE URINE SCREEN NEGATIVE (NEGATIVE); OPIATES URINE SCREEN NEGATIVE (NEGATIVE); PHENCYCLIDINE URINE SCREEN NEGATIVE (NEGATIVE)
[2019-02-12] MEDS ORDERED: HYDRALAZINE 20MG/ML VIAL IV ONE (20:15)
[2019-02-12] MEDS ORDERED: CEFTRIAXONE 1 G PREMIX 50 ML IV SCH (21:45)
[2019-02-12] MEDS ORDERED: IPRATROPIUM/ALBUTEROL 0.5-3(2.5)MG/3ML NEB NEB PRN (21:45)
[2019-02-12] MEDS ORDERED: ACETAMINOPHEN 325MG TABLET PO PRN (21:45)
[2019-02-12] MEDS ORDERED: ONDANSETRON HCL 4MG/2ML INJ IV PRN (21:45)
[2019-02-12 23:30] VITALS: BP 194/106
[2019-02-13] MEDS: MORPHINE SULFATE 2 MG/ML CPJ (NOT FOR IM USE) IV PRN ×4 (00:43→21:12)
[2019-02-13] MEDS: HYDRALAZINE 20MG/ML VIAL IV PRN ×3 (01:08→15:58)
[2019-02-13 01:41] LABS: CREATINE KINASE MB FRACTION 1.6 ng/mL (0.5-3.6)
[2019-02-13] MEDS: SODIUM CHLORIDE 0.9% 1,000 ML IV SCH ×2 (01:57→15:39)
[2019-02-13] MEDS: CEFTRIAXONE 1 G PREMIX 50 ML IV SCH (01:57)
[2019-02-13] MEDS ORDERED: DEXTROSE 50% WATER 50ML SYRINGE IV PRN (04:15)
[2019-02-13 06:00] VITALS: BP 177/85
[2019-02-13] MEDS: OMEPRAZOLE 20MG CAPSULE EXTENDED RELEASE PO SCH (06:03)
[2019-02-13] MEDS: BLOOD SUGAR DIAGNOSTIC STRIP TEST SCH ×4 (06:27→21:11)
[2019-02-13 07:22] LABS: BASOPHILS % 0.5 % (0.0-2.0); HEMATOCRIT. 27.2 % (36.0-48.0); HEMOGLOBIN. 9.1 g/dL (12.0-16.0); LYMPHOCYTES % 30.9 % (20.0-50.0); MEAN CORPUSCULAR HEMOGLOBIN 28.2 pg (28.0-32.0); MEAN CORPUSCULAR VOLUME 84.6 fL (81.0-99.0); MEAN PLATELET VOLUME 7.1 fl (7.4-10.4); MONOCYTES % 6.8 % (2.0-8.0); NEUTROPHILS % 60.8 % (40.0-76.0); PLATELET 339 x1000/uL (130-400); RED BLOOD CELL COUNT 3.21 mill/uL (4.2-5.4); RED CELL DISTRIBUTION WIDTH 17.2 % (11.6-14.6)
[2019-02-13 07:42] LABS: CHLORIDE 112 mEq/L (98-107)
[2019-02-13] MEDS: INSULIN LISPRO 100 UNITS/ML SUBCUT SCH ×4 (07:50→21:00)
[2019-02-13 07:56] LABS: CREATINE KINASE 133 IU/L (26-192)
[2019-02-13 07:57] LABS: CREATINE KINASE MB FRACTION 1.4 ng/mL (0.5-3.6)
[2019-02-13 08:33] VITALS: BP 176/90
[2019-02-13] MEDS: ENOXAPARIN 40MG/0.4ML SYR SUBCUT SCH (09:43)
[2019-02-13 11:48] VITALS: BP 141/104
[2019-02-13] MEDS ORDERED: AMITRIPTYLINE 25MG TABLET PO PRN (15:45)
[2019-02-13 15:46] VITALS: BP 211/109
[2019-02-13] MEDS ORDERED: POTASSIUM CHLORIDE INJ 40 MEQ in DEXT 5% WATER 250 ML IV SCH (17:00)
[2019-02-13] MEDS: SUCRALFATE 1G TABLET PO SCH ×2 (17:31→19:10)
[2019-02-13] MEDS: METOCLOPRAMIDE HCL 10MG/2ML VIAL IV SCH ×2 (17:47→21:11)
[2019-02-13] MEDS: HYDRALAZINE HCL 25MG TABLET PO SCH (21:10)
[2019-02-13] MEDS: ATORVASTATIN CALCIUM 10MG TABLET PO SCH (21:10)
[2019-02-13] MEDS: CARVEDILOL 3.125 MG TABLET PO SCH (21:10)
[2019-02-13] MEDS: NIFEDIPINE XL 60MG TAB PO SCH (21:11)
[2019-02-13] MEDS: INSULIN GLARGINE UD 100 UNITS/ML SYR SUBCUT SCH (21:12)
[2019-02-13] MEDS ORDERED: METOCLOPRAMIDE HCL 10MG/2ML VIAL IV SCH (22:00)
[2019-02-13] MEDS ORDERED: MAGNESIUM 2 G PREMIX 50 ML IV NR (23:59)
[2019-02-14 00:07] VITALS: BP 165/85
[2019-02-14] MEDS: METHYLPREDNISOLONE SOD SUCC 40 MG/ML VIAL IV SCH ×2 (00:07→22:33)
[2019-02-14] MEDS: ALBUMIN HUMAN 12.5GM/50ML (25%) IV SCH ×4 (00:07→18:10)
[2019-02-14] MEDS: MESALAMINE 400 MG CAPSULE.DR PO SCH ×4 (00:07→18:10)
[2019-02-14] MEDS: DEXT 5%/0.45% NACL 1000ML 1,000 ML IV SCH ×2 (00:08→22:33)
[2019-02-14] MEDS: CEFTRIAXONE 1 G PREMIX 50 ML IV SCH (01:59)
[2019-02-14 04:00] VITALS: BP 164/89
[2019-02-14] MEDS: HYDRALAZINE HCL 25MG TABLET PO SCH ×3 (05:32→22:33)
[2019-02-14] MEDS: SUCRALFATE 1G TABLET PO SCH ×4 (06:20→21:52)
[2019-02-14] MEDS: OMEPRAZOLE 20MG CAPSULE EXTENDED RELEASE PO SCH (06:20)
[2019-02-14] MEDS: BLOOD SUGAR DIAGNOSTIC STRIP TEST SCH ×4 (06:21→21:35)
[2019-02-14] MEDS ORDERED: FUROSEMIDE 20MG/2ML VIAL IVP SCH (06:30)
[2019-02-14 07:05] LABS: CHLORIDE 110 mEq/L (98-107)
[2019-02-14 07:11] LABS: TOTAL IRON BINDING CAPACITY 245 ug/dL (250-450)
[2019-02-14 07:17] LABS: HEMATOCRIT. 28.4 % (36.0-48.0); HEMOGLOBIN. 9.9 g/dL (12.0-16.0); MEAN CORPUSCULAR HEMOGLOBIN 29.4 pg (28.0-32.0); MEAN CORPUSCULAR VOLUME 84.3 fL (81.0-99.0); MEAN PLATELET VOLUME 7.1 fl (7.4-10.4); PLATELET 341 x1000/uL (130-400); RED BLOOD CELL COUNT 3.37 mill/uL (4.2-5.4); RED CELL DISTRIBUTION WIDTH 17.1 % (11.6-14.6)
[2019-02-14 07:18] LABS: C REACTIVE PROTEIN QUANT 2.9 mg/L (0.0-3.0)
[2019-02-14 08:22] VITALS: BP 90/62
[2019-02-14] MEDS: NIFEDIPINE XL 60MG TAB PO SCH ×2 (09:00→21:52)
[2019-02-14] MEDS: ASPIRIN 81MG EC TABLET PO SCH (09:32)
[2019-02-14] MEDS: CARVEDILOL 3.125 MG TABLET PO SCH ×2 (09:33→21:52)
[2019-02-14] MEDS: INSULIN LISPRO 100 UNITS/ML SUBCUT SCH ×4 (09:56→21:00)
[2019-02-14] MEDS: ENOXAPARIN 40MG/0.4ML SYR SUBCUT SCH (09:59)
[2019-02-14 11:57] VITALS: BP 131/66
[2019-02-14] MEDS: MORPHINE SULFATE 2 MG/ML CPJ (NOT FOR IM USE) IV PRN (12:36)
[2019-02-14 13:57] LABS: PLATELET ESTIMATE NORMAL
[2019-02-14 16:15] VITALS: BP 127/64
[2019-02-14] MEDS: FERROUS SULFATE 325MG TABLET PO SCH (18:20)
[2019-02-14] MEDS ORDERED: DIPHENHYDRAMINE 50MG/ML VIAL IV PRN (18:45)
[2019-02-14 20:00] VITALS: BP 116/59
[2019-02-14] MEDS: ATORVASTATIN CALCIUM 10MG TABLET PO SCH (21:52)
[2019-02-14] MEDS: INSULIN GLARGINE UD 100 UNITS/ML SYR SUBCUT SCH (22:34)
[2019-02-15] VITALS: BP 114/62
[2019-02-15] MEDS: MORPHINE SULFATE 2 MG/ML CPJ (NOT FOR IM USE) IV PRN ×2 (01:49→12:46)
[2019-02-15] MEDS: CEFTRIAXONE 1 G PREMIX 50 ML IV SCH (03:03)
[2019-02-15] MEDS: HYDRALAZINE HCL 25MG TABLET PO SCH ×2 (05:44→14:16)
[2019-02-15] MEDS: BLOOD SUGAR DIAGNOSTIC STRIP TEST SCH ×4 (07:20→21:00)
[2019-02-15 08:00] VITALS: BP 120/66
[2019-02-15 08:24] LABS: BASOPHILS % 0.1 % (0.0-2.0); HEMATOCRIT. 26.9 % (36.0-48.0); HEMOGLOBIN. 8.9 g/dL (12.0-16.0); LYMPHOCYTES % 23.1 % (20.0-50.0); MEAN CORPUSCULAR HEMOGLOBIN 28.2 pg (28.0-32.0); MEAN CORPUSCULAR VOLUME 84.9 fL (81.0-99.0); MEAN PLATELET VOLUME 7.4 fl (7.4-10.4); NEUTROPHILS % 74.8 % (40.0-76.0); PLATELET 317 x1000/uL (130-400); RED BLOOD CELL COUNT 3.16 mill/uL (4.2-5.4); RED CELL DISTRIBUTION WIDTH 17.2 % (11.6-14.6)
[2019-02-15 08:26] LABS: CHLORIDE 107 mEq/L (98-107)
[2019-02-15 08:35] LABS: PHOSPHORUS 4.1 mg/dL (2.5-4.9)
[2019-02-15 08:37] LABS: CREATINE KINASE 76 IU/L (26-192)
[2019-02-15] MEDS: NIFEDIPINE XL 60MG TAB PO SCH ×2 (09:40→21:00)
[2019-02-15] MEDS: MESALAMINE 400 MG CAPSULE.DR PO SCH ×3 (09:40→18:31)
[2019-02-15] MEDS: OMEPRAZOLE 20MG CAPSULE EXTENDED RELEASE PO SCH (09:40)
[2019-02-15] MEDS: ASPIRIN 81MG EC TABLET PO SCH (09:41)
[2019-02-15] MEDS: CARVEDILOL 3.125 MG TABLET PO SCH ×2 (09:41→22:10)
[2019-02-15] MEDS: FERROUS SULFATE 325MG TABLET PO SCH ×3 (09:41→18:31)
[2019-02-15] MEDS: SUCRALFATE 1G TABLET PO SCH ×4 (09:42→22:55)
[2019-02-15] MEDS: ENOXAPARIN 40MG/0.4ML SYR SUBCUT SCH (09:43)
[2019-02-15] MEDS: INSULIN LISPRO 100 UNITS/ML SUBCUT SCH ×3 (09:44→17:50)
[2019-02-15] MEDS: SODIUM CHLORIDE 0.9% 1,000 ML IV SCH (12:55)
[2019-02-15] MEDS ORDERED: TRAMADOL 50MG TABLET PO PRN (14:45)
[2019-02-15] MEDS: HYDROCODONE/APAP 7.5/325MG 1 TAB TABLET PO PRN ×2 (16:00→22:57)
[2019-02-15 20:26] VITALS: BP 104/62
[2019-02-15] MEDS: INSULIN GLARGINE UD 100 UNITS/ML SYR SUBCUT SCH (22:30)
[2019-02-15] MEDS: ATORVASTATIN CALCIUM 10MG TABLET PO SCH (22:57)
[2019-02-15] MEDS: HYDRALAZINE 20MG/ML VIAL IV PRN (23:04)
[2019-02-16 00:33] VITALS: BP 112/61
[2019-02-16 04:00] VITALS: BP 118/64
[2019-02-16 06:26] LABS: PHOSPHORUS 3.6 mg/dL (2.5-4.9)
[2019-02-16 06:36] LABS: BASOPHILS % 0.2 % (0.0-2.0); EOSINOPHILS % 0.1 % (0.0-5.0); HEMATOCRIT. 28.2 % (36.0-48.0); HEMOGLOBIN. 9.4 g/dL (12.0-16.0); LYMPHOCYTES % 21.3 % (20.0-50.0); MEAN CORPUSCULAR HEMOGLOBIN 28.2 pg (28.0-32.0); MEAN CORPUSCULAR VOLUME 84.1 fL (81.0-99.0); MEAN PLATELET VOLUME 7.4 fl (7.4-10.4); MONOCYTES % 1.5 % (2.0-8.0); NEUTROPHILS % 76.9 % (40.0-76.0); PLATELET 350 x1000/uL (130-400); RED BLOOD CELL COUNT 3.35 mill/uL (4.2-5.4); RED CELL DISTRIBUTION WIDTH 17.2 % (11.6-14.6)
[2019-02-16] MEDS: BLOOD SUGAR DIAGNOSTIC STRIP TEST SCH ×2 (07:20→12:11)
[2019-02-16 08:00] VITALS: BP 134/68
[2019-02-16] MEDS: SUCRALFATE 1G TABLET PO SCH ×2 (08:35→12:26)
[2019-02-16] MEDS: CARVEDILOL 3.125 MG TABLET PO SCH (08:35)
[2019-02-16] MEDS: MESALAMINE 400 MG CAPSULE.DR PO SCH ×2 (08:35→12:26)
[2019-02-16] MEDS: FERROUS SULFATE 325MG TABLET PO SCH ×2 (08:36→12:26)
[2019-02-16] MEDS: OMEPRAZOLE 20MG CAPSULE EXTENDED RELEASE PO SCH (08:36)
[2019-02-16] MEDS: NIFEDIPINE XL 60MG TAB PO SCH (08:36)
[2019-02-16] MEDS: ASPIRIN 81MG EC TABLET PO SCH (08:37)
[2019-02-16] MEDS: INSULIN LISPRO 100 UNITS/ML SUBCUT SCH ×2 (08:43→12:11)
[2019-02-16] MEDS ORDERED: ENOXAPARIN 30MG/0.3ML SYR SUBCUT SCH (09:00)
[2019-02-16] MEDS ORDERED: P20 MT (09:55)
[2019-02-16] MEDS ORDERED: MESA400C PO (09:55)
[2019-02-16 12:00] VITALS: BP 112/61
[2019-02-16] MEDS ORDERED: PRED5TAB MT (12:22)
[2019-02-16] MEDS ORDERED: PRED10TA MT (12:22)
[2019-02-16] MEDS: SODIUM CHLORIDE 0.9% 1,000 ML IV SCH (12:28)
[2019-02-16 13:41] VITALS: BP_SYST 112; BP_SYST 129; BP_DIAS 61; BP_DIAS 69
[2019-02-16] MEDS: HYDROCODONE/APAP 7.5/325MG 1 TAB TABLET PO PRN (13:51)
[2019-02-16 15:00] VITALS: BP 129/69
[2019-02-16] MEDS: HYDRALAZINE HCL 25MG TABLET PO SCH (15:02)
== END 2019-02-16 16:01 | disposition home or self-care (01) | DRG 245 ==
LOC: ER 16:33 → 6WST 18:39 → EDBEDREQ 18:43 → EDBEDREQTM 18:43 → ENRESERV 20:34
PROVIDERS: ADMIT Internal Medicine; ATTEND Nurse Practitioner Family
DX: K50.90 Crohn's disease, unspecified, without complications (principal); E11.22 Type 2 diabetes mellitus with diabetic chronic kidney disease; I27.20 Pulmonary hypertension, unspecified; E44.0 Moderate protein-calorie malnutrition; K31.84 Gastroparesis; E11.43 Type 2 diabetes mellitus with diabetic autonomic (poly)neuropathy; I13.0 Hypertensive heart and chronic kidney disease with heart failure and stage 1 through stage 4 chronic kidney disease, or unspecified chronic kidney disease; I50.9 Heart failure, unspecified; E86.0 Dehydration; D64.9 Anemia, unspecified; E87.6 Hypokalemia; N18.3 Chronic kidney disease, stage 3 (moderate); E78.5 Hyperlipidemia, unspecified; K31.9 Disease of stomach and duodenum, unspecified; N39.0 Urinary tract infection, site not specified; R59.0 Localized enlarged lymph nodes; D25.9 Leiomyoma of uterus, unspecified; K52.9 Noninfective gastroenteritis and colitis, unspecified; I16.0 Hypertensive urgency; G89.29 Other chronic pain; Z79.899 Other long term (current) drug therapy; Z79.4 Long term (current) use of insulin; Z79.82 Long term (current) use of aspirin; Z90.49 Acquired absence of other specified parts of digestive tract; Z83.3 Family history of diabetes mellitus; Z82.49 Family history of ischemic heart disease and other diseases of the circulatory system; Z98.51 Tubal ligation status; Z68.23 Body mass index [BMI] 23.0-23.9, adult
CPT/HCPCS: 36415; 71045; 76770; 80048; 80305; 81003; 82550; 82553; 82728; 82962; 83540; 83550; 83735; 83880; 84100; 84484; 84703; 85651; 86140; 93005; 93970; 99291; J0360; J0696; J1200; J1650; J1815; J1940; J2270; J2405; J2765; J2920; J3475; J3480; J3490; J7030; J7060; P9047

== ENCOUNTER 2019-02-24 14:41 | Inpatient (IN) | payer MEDICAID ==
[~2019-02-24] VITALS: Ht 165.1 cm; Wt 59.4 kg
[~2019-02-24 14:41] MED LIST changes: +MESA400C PO; +PRED10TA MT; +PRED5TAB MT
[2019-02-24] MEDS ORDERED: ONDANSETRON HCL 4MG/2ML INJ IV STA (15:51)
[2019-02-24] MEDS ORDERED: SODIUM CHLORIDE 0.9% 1,000 ML IV ONE (15:51)
[2019-02-24] MEDS ORDERED: MORPHINE SULFATE 4 MG/ML CPJ (NOT FOR IM USE) IV STA (15:51)
[2019-02-24 16:27] LABS: EOSINOPHILS % 0.2 % (0.0-5.0); HEMATOCRIT. 30.1 % (36.0-48.0); HEMOGLOBIN. 10.1 g/dL (12.0-16.0); LYMPHOCYTES % 33.9 % (20.0-50.0); MEAN CORPUSCULAR VOLUME 83.3 fL (81.0-99.0); MEAN PLATELET VOLUME 7.5 fl (7.4-10.4); MONOCYTES % 8.2 % (2.0-8.0); NEUTROPHILS % 56.7 % (40.0-76.0); PLATELET 382 x1000/uL (130-400); RED BLOOD CELL COUNT 3.62 mill/uL (4.2-5.4); RED CELL DISTRIBUTION WIDTH 16.8 % (11.6-14.6)
[2019-02-24 16:27] LABS: CLARITY URINE TURBID (CLEAR); COLOR URINE YELLOW (YELLOW); KETONES URINE 1+ (NEGATIVE); LEUKOCYTE ESTERASE URINE 2+ (NEGATIVE); NITRITE URINE NEGATIVE (NEGATIVE); OCCULT BLOOD URINE 2+ (NEGATIVE); PROTEIN URINE 4+ (NEGATIVE); SPECIFIC GRAVITY URINE 1.021 (1.005-1.030); UROBILINOGEN URINE 0.2 E.U./dL (0.2-1.0)
[2019-02-24] MEDS ORDERED: LABETALOL 5MG/ML SYR 20 MG/4 ML SYRINGE IV ONE (16:30)
[2019-02-24 16:33] LABS: CHLORIDE 107 mEq/L (98-107); INR 1.1; PROTHROMBIN TIME 11.6 sec (9.6-11.0)
[2019-02-24] MEDS ORDERED: LORAZEPAM 0.5MG TABLET PO PRN (20:15)
[2019-02-24] MEDS ORDERED: IPRATROPIUM/ALBUTEROL 0.5-3(2.5)MG/3ML NEB HHN PRN (20:15)
[2019-02-24] MEDS ORDERED: DOCUSATE SODIUM 100MG CAPSULE PO PRN (20:15)
[2019-02-24] MEDS ORDERED: ACETAMINOPHEN 325MG TABLET PO PRN (20:15)
[2019-02-24] MEDS: AMLODIPINE 10MG TABLET PO SCH (20:43)
[2019-02-24 21:19] LABS: *AMPHETAMINES SCREEN URINE NEGATIVE (NEGATIVE); *BARBITURATES SCREEN URINE NEGATIVE (NEGATIVE); *BENZODIAZEPINES SCREEN URINE NEGATIVE (NEGATIVE); *COCAINE SCREEN URINE NEGATIVE (NEGATIVE)
[2019-02-24 21:20] LABS: CANNABINOID URINE SCREEN NEGATIVE (NEGATIVE); METHADONE URINE SCREEN NEGATIVE (NEGATIVE); OPIATES URINE SCREEN NEGATIVE (NEGATIVE); PHENCYCLIDINE URINE SCREEN NEGATIVE (NEGATIVE)
[2019-02-24 22:00] VITALS: BP 188/113
[2019-02-24 22:05] VITALS: BP 200/107
[2019-02-24] MEDS: CLONIDINE 0.1MG TABLET PO PRN (22:16)
[2019-02-24] MEDS: HYDROCODONE/ACETAMINOPHEN 5/325MG TABLET PO PRN (22:16)
[2019-02-25] VITALS: BP 184/98
[2019-02-25] MEDS ORDERED: DEXTROSE 50% WATER 50ML SYRINGE IV PRN (01:45)
[2019-02-25 04:00] VITALS: BP 156/82
[2019-02-25 06:45] LABS: BASOPHILS % 0.8 % (0.0-2.0); EOSINOPHILS % 0.8 % (0.0-5.0); HEMATOCRIT. 26.3 % (36.0-48.0); HEMOGLOBIN. 8.8 g/dL (12.0-16.0); LYMPHOCYTES % 39.9 % (20.0-50.0); MEAN PLATELET VOLUME 7.4 fl (7.4-10.4); MONOCYTES % 10.2 % (2.0-8.0); NEUTROPHILS % 48.3 % (40.0-76.0); PLATELET 289 x1000/uL (130-400); RED BLOOD CELL COUNT 3.13 mill/uL (4.2-5.4); RED CELL DISTRIBUTION WIDTH 16.7 % (11.6-14.6)
[2019-02-25] MEDS: BLOOD SUGAR DIAGNOSTIC STRIP TEST SCH ×4 (06:54→21:48)
[2019-02-25] MEDS: INSULIN LISPRO 100 UNITS/ML SUBCUT SCH ×4 (07:50→21:50)
[2019-02-25] MEDS: AMLODIPINE 10MG TABLET PO SCH (08:40)
[2019-02-25] MEDS: HYDROCODONE/ACETAMINOPHEN 5/325MG TABLET PO PRN ×3 (08:41→21:47)
[2019-02-25] MEDS: ONDANSETRON HCL 4MG/2ML INJ IV PRN (08:42)
[2019-02-25 12:00] VITALS: BP 165/92
[2019-02-25] MEDS: CLONIDINE 0.1MG TABLET PO PRN (12:53)
[2019-02-25] MEDS: SODIUM CHLORIDE 0.9% 1,000 ML IV SCH (14:37)
[2019-02-25 16:00] VITALS: BP 141/86
[2019-02-25 20:00] VITALS: BP 145/76
[2019-02-26] VITALS: BP 134/78
[2019-02-26 04:00] VITALS: BP 172/93
[2019-02-26] MEDS: CLONIDINE 0.1MG TABLET PO PRN (06:47)
[2019-02-26] MEDS: SODIUM CHLORIDE 0.9% 1,000 ML IV SCH (06:48)
[2019-02-26] MEDS: BLOOD SUGAR DIAGNOSTIC STRIP TEST SCH ×4 (06:48→21:27)
[2019-02-26] MEDS: INSULIN LISPRO 100 UNITS/ML SUBCUT SCH ×4 (07:50→21:00)
[2019-02-26 08:00] VITALS: BP 169/80
[2019-02-26] MEDS: AMLODIPINE 10MG TABLET PO SCH (08:45)
[2019-02-26 12:00] VITALS: BP 174/85
[2019-02-26 15:56] LABS: BASOPHILS % 0.8 % (0.0-2.0); EOSINOPHILS % 1.2 % (0.0-5.0); HEMATOCRIT. 26.6 % (36.0-48.0); HEMOGLOBIN. 8.9 g/dL (12.0-16.0); LYMPHOCYTES % 28.4 % (20.0-50.0); MEAN CORPUSCULAR HEMOGLOBIN 27.7 pg (28.0-32.0); MEAN CORPUSCULAR VOLUME 83.2 fL (81.0-99.0); MEAN PLATELET VOLUME 7.4 fl (7.4-10.4); MONOCYTES % 7.1 % (2.0-8.0); NEUTROPHILS % 62.5 % (40.0-76.0); PLATELET 306 x1000/uL (130-400)
[2019-02-26 16:00] VITALS: BP 159/88
[2019-02-26] MEDS: HYDROCODONE/ACETAMINOPHEN 5/325MG TABLET PO PRN ×2 (18:40→23:45)
[2019-02-26 20:00] VITALS: BP 157/88
[2019-02-26] MEDS: NITROFURANTOIN 100MG M/M CAPSULE PO SCH (21:28)
[2019-02-27] VITALS: BP 144/80
[2019-02-27 04:00] VITALS: BP 151/82
[2019-02-27] MEDS: BLOOD SUGAR DIAGNOSTIC STRIP TEST SCH ×3 (07:20→18:19)
[2019-02-27 07:52] VITALS: BP 155/83
[2019-02-27] MEDS: INSULIN LISPRO 100 UNITS/ML SUBCUT SCH ×3 (08:52→17:50)
[2019-02-27] MEDS: NITROFURANTOIN 100MG M/M CAPSULE PO SCH (08:53)
[2019-02-27] MEDS: AMLODIPINE 10MG TABLET PO SCH (08:54)
[2019-02-27 11:38] VITALS: BP 164/86
[2019-02-27] MEDS: SODIUM CHLORIDE 0.9% 1,000 ML IV SCH (12:19)
[2019-02-27 15:32] VITALS: BP 170/93
[2019-02-27] MEDS: ONDANSETRON HCL 4MG/2ML INJ IV PRN (18:25)
[2019-02-27 18:44] VITALS: BP 168/88
[2019-02-27] MEDS: CLONIDINE 0.1MG TABLET PO PRN (19:05)
== END 2019-02-27 19:10 | disposition home or self-care (01) | DRG 245 ==
LOC: ER 14:41 → 6WST 18:05 → EDBEDREQ 18:08 → ENRESERV 20:33
PROVIDERS: ADMIT Internal Medicine; ATTEND Internal Medicine
DX: K50.90 Crohn's disease, unspecified, without complications (principal); E11.22 Type 2 diabetes mellitus with diabetic chronic kidney disease; N17.9 Acute kidney failure, unspecified; E11.65 Type 2 diabetes mellitus with hyperglycemia; I50.9 Heart failure, unspecified; N18.3 Chronic kidney disease, stage 3 (moderate); I13.0 Hypertensive heart and chronic kidney disease with heart failure and stage 1 through stage 4 chronic kidney disease, or unspecified chronic kidney disease; E11.43 Type 2 diabetes mellitus with diabetic autonomic (poly)neuropathy; B95.5 Unspecified streptococcus as the cause of diseases classified elsewhere; K31.84 Gastroparesis; N39.0 Urinary tract infection, site not specified; D64.9 Anemia, unspecified; E78.5 Hyperlipidemia, unspecified; Z79.4 Long term (current) use of insulin; Z79.899 Other long term (current) drug therapy; Z90.49 Acquired absence of other specified parts of digestive tract; Z98.51 Tubal ligation status; Z79.82 Long term (current) use of aspirin
CPT/HCPCS: 36415; 71045; 74176; 80048; 80305; 81003; 82962; 83605; 83880; 84484; 87186; 93005; 99285; J1815; J2270; J2405; J3490; J7030

== ENCOUNTER 2019-03-02 17:08 | Inpatient (IN) | payer MEDICAID ==
[~2019-03-02] VITALS: Ht 165.1 cm; Wt 64.4 kg
[2019-03-02] MEDS ORDERED: METOCLOPRAMIDE HCL 10MG/2ML VIAL IV STA (19:05)
[2019-03-02] MEDS ORDERED: SODIUM CHLORIDE 0.9% 1,000 ML IV ONE ×2 (19:05→22:30)
[2019-03-02] MEDS ORDERED: ONDANSETRON HCL 4MG/2ML INJ IV STA (19:05)
[2019-03-02 19:19] LABS: BASOPHILS % 0.5 % (0.0-2.0); EOSINOPHILS % 0.6 % (0.0-5.0); HEMATOCRIT. 29.7 % (36.0-48.0); HEMOGLOBIN. 9.8 g/dL (12.0-16.0); MEAN CORPUSCULAR HEMOGLOBIN 27.6 pg (28.0-32.0); MEAN CORPUSCULAR VOLUME 83.5 fL (81.0-99.0); MEAN PLATELET VOLUME 7.6 fl (7.4-10.4); MONOCYTES % 4.2 % (2.0-8.0); NEUTROPHILS % 67.7 % (40.0-76.0); PLATELET 362 x1000/uL (130-400); RED BLOOD CELL COUNT 3.56 mill/uL (4.2-5.4); RED CELL DISTRIBUTION WIDTH 16.8 % (11.6-14.6)
[2019-03-02 19:26] LABS: CHLORIDE 107 mEq/L (98-107)
[2019-03-02 19:28] LABS: CLARITY URINE CLEAR (CLEAR); COLOR URINE YELLOW (YELLOW); KETONES URINE 1+ (NEGATIVE); LEUKOCYTE ESTERASE URINE NEGATIVE (NEGATIVE); NITRITE URINE NEGATIVE (NEGATIVE); OCCULT BLOOD URINE 1+ (NEGATIVE); PROTEIN URINE 3+ (NEGATIVE); SPECIFIC GRAVITY URINE 1.016 (1.005-1.030); UROBILINOGEN URINE 0.2 E.U./dL (0.2-1.0)
[2019-03-02] MEDS ORDERED: KETOROLAC 15MG/ML VIAL IV ONE (22:30)
[2019-03-02] MEDS ORDERED: LABETALOL HCL 20MG/4ML CARPUJECT IV ONE (22:30)
[2019-03-02] MEDS ORDERED: PROCHLORPERAZINE 10MG/2ML VIAL IM ONE (22:30)
[2019-03-03] VITALS (7 sets, daily range): BP systolic 105–180; BP diastolic 57–98
[2019-03-03] MEDS ORDERED: LABETALOL HCL 20MG/4ML CARPUJECT IV ONE (00:15)
[2019-03-03] MEDS ORDERED: HYDRALAZINE 20MG/ML VIAL IV ONE (01:15)
[2019-03-03] MEDS ORDERED: ONDANSETRON HCL 4MG/2ML INJ IV PRN (04:45)
[2019-03-03] MEDS: HYDRALAZINE 20MG/ML VIAL IV PRN ×2 (05:22→12:09)
[2019-03-03] MEDS: HYDROCODONE/ACETAMINOPHEN 5/325MG TABLET PO PRN (05:23)
[2019-03-03 05:54] LABS: BASOPHILS % 0.4 % (0.0-2.0); EOSINOPHILS % 0.1 % (0.0-5.0); HEMATOCRIT. 25.4 % (36.0-48.0); HEMOGLOBIN. 8.6 g/dL (12.0-16.0); LYMPHOCYTES % 15.8 % (20.0-50.0); MEAN CORPUSCULAR HEMOGLOBIN 28.3 pg (28.0-32.0); MEAN CORPUSCULAR VOLUME 83.4 fL (81.0-99.0); MEAN PLATELET VOLUME 7.1 fl (7.4-10.4); NEUTROPHILS % 78.7 % (40.0-76.0); PLATELET 284 x1000/uL (130-400); RED BLOOD CELL COUNT 3.04 mill/uL (4.2-5.4); RED CELL DISTRIBUTION WIDTH 16.8 % (11.6-14.6)
[2019-03-03] MEDS: CLONIDINE 0.1MG TABLET PO PRN (07:00)
[2019-03-03] MEDS ORDERED: POTASSIUM CHLORIDE 20MEQ TABLET SR PO SCH (07:30)
[2019-03-03] MEDS ORDERED: DEXTROSE 50% WATER 50ML SYRINGE IV PRN (07:30)
[2019-03-03] MEDS ORDERED: INSULIN GLARGINE UD 100 UNITS/ML SYR SUBCUT ONE (08:00)
[2019-03-03] MEDS: CARVEDILOL 3.125 MG TABLET PO SCH ×2 (08:17→21:00)
[2019-03-03] MEDS: ASPIRIN 81MG EC TABLET PO SCH (08:18)
[2019-03-03] MEDS: PANTOPRAZOLE 40MG DR TABLET PO SCH (08:18)
[2019-03-03] MEDS: NIFEDIPINE XL 60MG TAB PO SCH ×2 (08:18→21:00)
[2019-03-03] MEDS: PREDNISONE 5MG TABLET PO SCH (08:18)
[2019-03-03] MEDS: INSULIN LISPRO 100 UNITS/ML SUBCUT SCH ×4 (08:21→21:00)
[2019-03-03] MEDS: BLOOD SUGAR DIAGNOSTIC STRIP TEST SCH ×3 (12:03→20:23)
[2019-03-03] MEDS: SUCRALFATE 1G TABLET PO SCH ×3 (12:08→21:31)
[2019-03-03] MEDS: METOCLOPRAMIDE HCL 10MG/2ML VIAL IV SCH ×2 (12:09→17:06)
[2019-03-03] MEDS: MESALAMINE 400 MG CAPSULE.DR PO SCH ×2 (12:51→17:45)
[2019-03-03] MEDS ORDERED: FUROSEMIDE 40MG TABLET PO SCH (13:30)
[2019-03-03] MEDS: GABAPENTIN 300MG CAPSULE PO SCH ×2 (14:02→21:31)
[2019-03-03] MEDS: HYDRALAZINE HCL 25MG TABLET PO SCH ×2 (14:02→21:21)
[2019-03-03] MEDS: ATORVASTATIN CALCIUM 10MG TABLET PO SCH (21:31)
[2019-03-03] MEDS: INSULIN GLARGINE UD 100 UNITS/ML SYR SUBCUT SCH (21:34)
[2019-03-04] VITALS: BP 123/68
[2019-03-04] MEDS: METOCLOPRAMIDE HCL 10MG/2ML VIAL IV SCH ×4 (00:47→18:04)
[2019-03-04 04:00] VITALS: BP 106/58
[2019-03-04] MEDS: HYDRALAZINE HCL 25MG TABLET PO SCH (05:08)
[2019-03-04] MEDS: GABAPENTIN 300MG CAPSULE PO SCH ×3 (05:44→21:07)
[2019-03-04] MEDS: SUCRALFATE 1G TABLET PO SCH ×4 (05:45→21:07)
[2019-03-04] MEDS: BLOOD SUGAR DIAGNOSTIC STRIP TEST SCH ×4 (06:03→21:00)
[2019-03-04] MEDS: INSULIN LISPRO 100 UNITS/ML SUBCUT SCH ×4 (06:22→21:00)
[2019-03-04 06:24] LABS: BASOPHILS % 0.5 % (0.0-2.0); EOSINOPHILS % 1.2 % (0.0-5.0); HEMATOCRIT. 25.9 % (36.0-48.0); HEMOGLOBIN. 8.7 g/dL (12.0-16.0); LYMPHOCYTES % 54.4 % (20.0-50.0); MEAN CORPUSCULAR HEMOGLOBIN 28.2 pg (28.0-32.0); MEAN CORPUSCULAR VOLUME 84.3 fL (81.0-99.0); MEAN PLATELET VOLUME 6.9 fl (7.4-10.4); NEUTROPHILS % 35.9 % (40.0-76.0); PLATELET 250 x1000/uL (130-400); RED BLOOD CELL COUNT 3.07 mill/uL (4.2-5.4); RED CELL DISTRIBUTION WIDTH 16.8 % (11.6-14.6)
[2019-03-04 08:00] VITALS: BP_SYST 111; BP_SYST 113; BP_DIAS 53; BP_DIAS 70
[2019-03-04] MEDS: ASPIRIN 81MG EC TABLET PO SCH (08:47)
[2019-03-04] MEDS: PANTOPRAZOLE 40MG DR TABLET PO SCH (08:47)
[2019-03-04] MEDS: PREDNISONE 5MG TABLET PO SCH (08:47)
[2019-03-04] MEDS: MESALAMINE 400 MG CAPSULE.DR PO SCH ×3 (08:47→18:04)
[2019-03-04] MEDS: CARVEDILOL 3.125 MG TABLET PO SCH (08:49)
[2019-03-04] MEDS: NIFEDIPINE XL 60MG TAB PO SCH (08:50)
[2019-03-04 12:00] VITALS: BP 123/68
[2019-03-04 16:00] VITALS: BP 162/80
[2019-03-04 16:21] LABS: CREATINE KINASE 92 IU/L (26-192)
[2019-03-04 20:00] VITALS: BP 157/84
[2019-03-04] MEDS: ATORVASTATIN CALCIUM 10MG TABLET PO SCH (21:07)
[2019-03-04] MEDS: INSULIN GLARGINE UD 100 UNITS/ML SYR SUBCUT SCH (21:10)
[2019-03-05] VITALS: BP 176/95
[2019-03-05] MEDS: METOCLOPRAMIDE HCL 10MG/2ML VIAL IV SCH ×4 (00:16→18:28)
[2019-03-05] MEDS: LABETALOL 5MG/ML SYR 20 MG/4 ML SYRINGE IV PRN ×2 (01:36→13:14)
[2019-03-05 04:00] VITALS: BP 170/94
[2019-03-05] MEDS: BLOOD SUGAR DIAGNOSTIC STRIP TEST SCH ×4 (06:03→21:44)
[2019-03-05] MEDS: GABAPENTIN 300MG CAPSULE PO SCH ×3 (06:17→21:45)
[2019-03-05] MEDS: INSULIN LISPRO 100 UNITS/ML SUBCUT SCH ×4 (06:18→21:00)
[2019-03-05] MEDS: MESALAMINE 400 MG CAPSULE.DR PO SCH ×3 (06:18→18:28)
[2019-03-05] MEDS: SUCRALFATE 1G TABLET PO SCH ×4 (06:18→21:45)
[2019-03-05 07:26] LABS: BASOPHILS % 0.4 % (0.0-2.0); EOSINOPHILS % 1.5 % (0.0-5.0); HEMATOCRIT. 26.1 % (36.0-48.0); HEMOGLOBIN. 8.8 g/dL (12.0-16.0); LYMPHOCYTES % 50.6 % (20.0-50.0); MEAN CORPUSCULAR HEMOGLOBIN 28.2 pg (28.0-32.0); MEAN CORPUSCULAR VOLUME 83.8 fL (81.0-99.0); MEAN PLATELET VOLUME 7.2 fl (7.4-10.4); MONOCYTES % 7.8 % (2.0-8.0); NEUTROPHILS % 39.7 % (40.0-76.0); PLATELET 269 x1000/uL (130-400); RED BLOOD CELL COUNT 3.12 mill/uL (4.2-5.4); RED CELL DISTRIBUTION WIDTH 16.7 % (11.6-14.6)
[2019-03-05 08:00] VITALS: BP 167/92
[2019-03-05] MEDS ORDERED: POTASSIUM CHLORIDE 20MEQ TABLET SR PO NR (09:00)
[2019-03-05] MEDS: ASPIRIN 81MG EC TABLET PO SCH (10:16)
[2019-03-05] MEDS: FAMOTIDINE 20MG TABLET PO SCH (10:16)
[2019-03-05] MEDS: PREDNISONE 5MG TABLET PO SCH (10:16)
[2019-03-05 12:00] VITALS: BP 173/92
[2019-03-05 16:00] VITALS: BP 177/93
[2019-03-05] MEDS ORDERED: HYDRALAZINE 20MG/ML VIAL IV NR (17:00)
[2019-03-05 20:00] VITALS: BP 144/74
[2019-03-05] MEDS: ATORVASTATIN CALCIUM 10MG TABLET PO SCH (21:45)
[2019-03-05] MEDS: INSULIN GLARGINE UD 100 UNITS/ML SYR SUBCUT SCH (21:46)
[2019-03-05] MEDS: HYDROCODONE/ACETAMINOPHEN 5/325MG TABLET PO PRN (21:49)
[2019-03-06] VITALS (9 sets, daily range): BP systolic 120–177; BP diastolic 73–96
[2019-03-06] MEDS: METOCLOPRAMIDE HCL 10MG/2ML VIAL IV SCH ×4 (03:48→17:01)
[2019-03-06] MEDS: GABAPENTIN 300MG CAPSULE PO SCH ×2 (06:24→13:07)
[2019-03-06] MEDS: MESALAMINE 400 MG CAPSULE.DR PO SCH ×3 (06:24→16:57)
[2019-03-06] MEDS: BLOOD SUGAR DIAGNOSTIC STRIP TEST SCH ×3 (06:25→16:25)
[2019-03-06] MEDS: SUCRALFATE 1G TABLET PO SCH ×3 (06:25→16:57)
[2019-03-06] MEDS: INSULIN LISPRO 100 UNITS/ML SUBCUT SCH ×3 (06:25→16:25)
[2019-03-06 06:29] LABS: HEMATOCRIT. 25.8 % (36.0-48.0); HEMOGLOBIN. 8.6 g/dL (12.0-16.0); MEAN CORPUSCULAR HEMOGLOBIN 28.1 pg (28.0-32.0); MEAN CORPUSCULAR VOLUME 84.3 fL (81.0-99.0); MEAN PLATELET VOLUME 7.3 fl (7.4-10.4); PLATELET 274 x1000/uL (130-400); RED BLOOD CELL COUNT 3.06 mill/uL (4.2-5.4); RED CELL DISTRIBUTION WIDTH 16.7 % (11.6-14.6)
[2019-03-06] MEDS ORDERED: NIFEDIPINE XL 60MG TAB PO SCH (09:00)
[2019-03-06] MEDS ORDERED: CARVEDILOL 6.25 MG TABLET PO SCH (09:00)
[2019-03-06] MEDS: PREDNISONE 5MG TABLET PO SCH (09:08)
[2019-03-06] MEDS: ASPIRIN 81MG EC TABLET PO SCH (09:08)
[2019-03-06] MEDS: FAMOTIDINE 20MG TABLET PO SCH (09:08)
[2019-03-06] MEDS ORDERED: POTASSIUM CHLORIDE 20MEQ TABLET SR PO NR (09:30)
[2019-03-06 10:18] LABS: PLATELET ESTIMATE NORMAL
[2019-03-06] MEDS: CLONIDINE 0.1MG TABLET PO PRN (13:04)
[2019-03-06] MEDS ORDERED: HYDRALAZINE HCL 25MG TABLET PO SCH (14:00)
== END 2019-03-06 19:06 | disposition home or self-care (01) | DRG 48 ==
LOC: ER 17:08 → EDBEDREQ 22:25 → EDBEDREQTM 22:25 → ENRESERV 23:16 → CANRESERV 23:16 → EDBEDREQSVC 03-03 00:11 → EDBEDREQTM 03-03 00:19 → EDBEDREQDT 03-03 00:19 → ENRESERV 03-03 00:27 → 5WST 03-03 01:57
PROVIDERS: ADMIT Internal Medicine; ATTEND Internal Medicine
DX: E11.43 Type 2 diabetes mellitus with diabetic autonomic (poly)neuropathy (principal); N17.0 Acute kidney failure with tubular necrosis; E11.22 Type 2 diabetes mellitus with diabetic chronic kidney disease; I27.20 Pulmonary hypertension, unspecified; I13.0 Hypertensive heart and chronic kidney disease with heart failure and stage 1 through stage 4 chronic kidney disease, or unspecified chronic kidney disease; I95.9 Hypotension, unspecified; I50.22 Chronic systolic (congestive) heart failure; K50.90 Crohn's disease, unspecified, without complications; K31.84 Gastroparesis; N18.3 Chronic kidney disease, stage 3 (moderate); G47.00 Insomnia, unspecified; R00.0 Tachycardia, unspecified; R80.9 Proteinuria, unspecified; R31.9 Hematuria, unspecified; I35.1 Nonrheumatic aortic (valve) insufficiency; D64.9 Anemia, unspecified; E78.5 Hyperlipidemia, unspecified; E87.6 Hypokalemia; I16.1 Hypertensive emergency; Z87.440 Personal history of urinary (tract) infections; Z90.49 Acquired absence of other specified parts of digestive tract; Z98.51 Tubal ligation status; Z79.4 Long term (current) use of insulin; Z79.899 Other long term (current) drug therapy; Z79.82 Long term (current) use of aspirin
CPT/HCPCS: 36415; 76770; 80048; 81003; 82550; 82570; 82962; 83036; 84156; 93005; 96374; 99285; J0360; J0780; J1815; J1885; J2405; J2765; J3490; J7030; J7512

== ENCOUNTER 2019-04-26 19:44 | Inpatient (IN) | payer MEDICAID ==
[~2019-04-26] VITALS: Ht 165.1 cm; Wt 66.7 kg
[~2019-04-26 19:44] MED LIST changes: -AMIT25TA9 PO; -COR3 PO; -DULA0.75 SQ; +FURO-152 MT; +HYDR-4134 MT; +INSU100C6 SQ; +NIFE60TA64 MT; -NIFE60TA64 PO; +POTA-9 MT; -PRED10TA MT; -PRED5TAB MT; -TRAM150C25 PO
[2019-04-26 21:13] LABS: CHLORIDE 114 mEq/L (98-107)
[2019-04-26 21:20] LABS: BASOPHILS % 0.6 % (0.0-2.0); HEMATOCRIT. 29.2 % (36.0-48.0); HEMOGLOBIN. 9.4 g/dL (12.0-16.0); LYMPHOCYTES % 17.5 % (20.0-50.0); MEAN CORPUSCULAR HEMOGLOBIN 27.5 pg (28.0-32.0); MEAN CORPUSCULAR VOLUME 86.1 fL (81.0-99.0); MEAN PLATELET VOLUME 7.5 fl (7.4-10.4); MONOCYTES % 2.8 % (2.0-8.0); NEUTROPHILS % 79.1 % (40.0-76.0); PLATELET 378 x1000/uL (130-400); RED CELL DISTRIBUTION WIDTH 17.6 % (11.6-14.6)
[2019-04-26] MEDS ORDERED: ONDANSETRON HCL 4MG/2ML INJ IV STA (21:27)
[2019-04-26] MEDS ORDERED: SODIUM CHLORIDE 0.9% 1,000 ML IV ONE (21:27)
[2019-04-26] MEDS ORDERED: ASPIRIN 325MG EC TABLET PO ONE (23:30)
[2019-04-27] MEDS ORDERED: ACETAMINOPHEN 325MG TABLET PO PRN (02:00)
[2019-04-27] MEDS ORDERED: ONDANSETRON HCL 4MG/2ML INJ IV PRN (02:00)
[2019-04-27] MEDS ORDERED: MAGNESIUM/ALUMINUM HYDROXIDE/SIMETHICONE 30ML UDC PO PRN (02:00)
[2019-04-27] MEDS: CLONIDINE 0.1MG TABLET PO PRN ×2 (02:11→08:39)
[2019-04-27] MEDS: SODIUM CHLORIDE 0.9% 1,000 ML IV SCH ×2 (02:25→10:10)
[2019-04-27] MEDS ORDERED: HYDRALAZINE 20MG/ML VIAL IV ONE (05:30)
[2019-04-27 06:03] LABS: CREATINE KINASE 216 IU/L (26-192)
[2019-04-27] MEDS: HYDROCODONE/ACETAMINOPHEN 5/325MG TABLET PO PRN ×2 (07:30→17:34)
[2019-04-27] MEDS ORDERED: ASPIRIN 81MG EC TABLET PO SCH (09:00)
[2019-04-27 09:10] VITALS: BP 200/100
[2019-04-27 12:00] VITALS: BP 199/115
[2019-04-27] MEDS ORDERED: DEXTROSE 50% WATER 50ML SYRINGE IV PRN (12:30)
[2019-04-27 12:35] LABS: CLARITY URINE CLEAR (CLEAR); COLOR URINE YELLOW (YELLOW); KETONES URINE TRACE (NEGATIVE); LEUKOCYTE ESTERASE URINE TRACE (NEGATIVE); NITRITE URINE NEGATIVE (NEGATIVE); OCCULT BLOOD URINE 1+ (NEGATIVE); PH URINE 5.5 (4.5-8.0); PROTEIN URINE 3+ (NEGATIVE); SPECIFIC GRAVITY URINE 1.019 (1.005-1.030); UROBILINOGEN URINE 0.2 E.U./dL (0.2-1.0)
[2019-04-27 12:54] LABS: *AMPHETAMINES SCREEN URINE NEGATIVE (NEGATIVE)
[2019-04-27 12:55] LABS: *BARBITURATES SCREEN URINE NEGATIVE (NEGATIVE); *BENZODIAZEPINES SCREEN URINE NEGATIVE (NEGATIVE); *COCAINE SCREEN URINE NEGATIVE (NEGATIVE); METHADONE URINE SCREEN NEGATIVE (NEGATIVE); OPIATES URINE SCREEN NEGATIVE (NEGATIVE); PHENCYCLIDINE URINE SCREEN NEGATIVE (NEGATIVE)
[2019-04-27 12:56] LABS: CANNABINOID URINE SCREEN NEGATIVE (NEGATIVE)
[2019-04-27] MEDS ORDERED: MAGNESIUM 2 G PREMIX 50 ML IV NR (13:00)
[2019-04-27] MEDS: SUCRALFATE 1G TABLET PO SCH ×3 (13:32→21:49)
[2019-04-27] MEDS: METOCLOPRAMIDE HCL 5MG TABLET PO SCH ×3 (13:32→21:49)
[2019-04-27] MEDS: MESALAMINE 400 MG CAPSULE.DR PO SCH ×2 (13:33→17:34)
[2019-04-27] MEDS: NIFEDIPINE XL 60MG TAB PO SCH (13:33)
[2019-04-27] MEDS: PANTOPRAZOLE 40MG DR TABLET PO SCH (13:33)
[2019-04-27] MEDS: INSULIN LISPRO 100 UNITS/ML SUBCUT SCH ×5 (13:36→21:00)
[2019-04-27] MEDS: INSULIN GLARGINE UD 100 UNITS/ML SYR SUBCUT SCH ×2 (13:38→22:00)
[2019-04-27] MEDS: BLOOD SUGAR DIAGNOSTIC STRIP TEST SCH ×3 (13:39→21:00)
[2019-04-27] MEDS: HYDRALAZINE HCL 25MG TABLET PO SCH ×2 (13:49→21:49)
[2019-04-27] MEDS: GABAPENTIN 300MG CAPSULE PO SCH ×2 (13:49→21:49)
[2019-04-27 16:00] VITALS: BP 161/89
[2019-04-27 20:00] VITALS: BP 108/66
[2019-04-28] VITALS: BP 91/55
[2019-04-28 04:00] VITALS: BP 106/61
[2019-04-28] MEDS: HYDRALAZINE HCL 25MG TABLET PO SCH ×3 (06:00→21:28)
[2019-04-28] MEDS: SUCRALFATE 1G TABLET PO SCH ×4 (06:15→21:28)
[2019-04-28] MEDS: GABAPENTIN 300MG CAPSULE PO SCH ×3 (06:15→21:28)
[2019-04-28] MEDS: BLOOD SUGAR DIAGNOSTIC STRIP TEST SCH ×4 (06:16→21:08)
[2019-04-28] MEDS: INSULIN LISPRO 100 UNITS/ML SUBCUT SCH ×7 (07:20→21:29)
[2019-04-28 07:24] LABS: HEMATOCRIT. 27.1 % (36.0-48.0); HEMOGLOBIN. 8.7 g/dL (12.0-16.0); MEAN CORPUSCULAR HEMOGLOBIN 27.5 pg (28.0-32.0); MEAN CORPUSCULAR VOLUME 85.9 fL (81.0-99.0); MEAN PLATELET VOLUME 7.5 fl (7.4-10.4); PLATELET 348 x1000/uL (130-400); RED BLOOD CELL COUNT 3.16 mill/uL (4.2-5.4); RED CELL DISTRIBUTION WIDTH 17.5 % (11.6-14.6)
[2019-04-28 08:00] VITALS: BP 107/67
[2019-04-28] MEDS: NIFEDIPINE XL 60MG TAB PO SCH (09:00)
[2019-04-28] MEDS: PANTOPRAZOLE 40MG DR TABLET PO SCH (09:20)
[2019-04-28] MEDS: METOCLOPRAMIDE HCL 5MG TABLET PO SCH ×4 (09:20→21:28)
[2019-04-28] MEDS: MESALAMINE 400 MG CAPSULE.DR PO SCH ×3 (09:21→18:38)
[2019-04-28 10:26] LABS: PLATELET ESTIMATE NORMAL
[2019-04-28 12:00] VITALS: BP 144/84
[2019-04-28 16:00] VITALS: BP 102/56
[2019-04-28 20:14] VITALS: BP 122/64
[2019-04-28] MEDS: MORPHINE SULFATE 2 MG/ML CPJ (NOT FOR IM USE) IV PRN (20:18)
[2019-04-28] MEDS: INSULIN GLARGINE UD 100 UNITS/ML SYR SUBCUT SCH (21:29)
[2019-04-29] VITALS: BP 113/68
[2019-04-29] MEDS: MORPHINE SULFATE 2 MG/ML CPJ (NOT FOR IM USE) IV PRN ×3 (00:25→21:01)
[2019-04-29 04:00] VITALS: BP 105/66
[2019-04-29] MEDS: HYDRALAZINE HCL 25MG TABLET PO SCH ×3 (05:39→21:01)
[2019-04-29] MEDS: GABAPENTIN 300MG CAPSULE PO SCH ×3 (05:40→21:00)
[2019-04-29] MEDS: BLOOD SUGAR DIAGNOSTIC STRIP TEST SCH ×4 (06:20→20:32)
[2019-04-29] MEDS: SUCRALFATE 1G TABLET PO SCH ×4 (06:20→21:00)
[2019-04-29] MEDS: INSULIN LISPRO 100 UNITS/ML SUBCUT SCH ×7 (07:08→20:32)
[2019-04-29 08:00] VITALS: BP 90/57
[2019-04-29] MEDS: METOCLOPRAMIDE HCL 5MG TABLET PO SCH ×4 (09:11→21:00)
[2019-04-29] MEDS: PANTOPRAZOLE 40MG DR TABLET PO SCH (09:11)
[2019-04-29] MEDS: NIFEDIPINE XL 60MG TAB PO SCH ×2 (09:11→09:13)
[2019-04-29] MEDS: MESALAMINE 400 MG CAPSULE.DR PO SCH ×3 (09:12→18:41)
[2019-04-29 11:39] LABS: BASOPHILS % 0.4 % (0.0-2.0); EOSINOPHILS % 1.6 % (0.0-5.0); HEMATOCRIT. 29.6 % (36.0-48.0); HEMOGLOBIN. 9.3 g/dL (12.0-16.0); LYMPHOCYTES % 38.2 % (20.0-50.0); MEAN CORPUSCULAR HEMOGLOBIN 27.3 pg (28.0-32.0); MEAN CORPUSCULAR VOLUME 86.6 fL (81.0-99.0); MEAN PLATELET VOLUME 7.5 fl (7.4-10.4); MONOCYTES % 8.8 % (2.0-8.0); PLATELET 368 x1000/uL (130-400); RED BLOOD CELL COUNT 3.41 mill/uL (4.2-5.4); RED CELL DISTRIBUTION WIDTH 17.9 % (11.6-14.6)
[2019-04-29 12:00] VITALS: BP 117/77
[2019-04-29 15:35] VITALS: BP 134/74
[2019-04-29] MEDS: DOCUSATE SODIUM 100MG CAPSULE PO PRN (18:41)
[2019-04-29 20:00] VITALS: BP 145/84
[2019-04-29] MEDS: INSULIN GLARGINE UD 100 UNITS/ML SYR SUBCUT SCH (21:01)
[2019-04-30] VITALS: BP 148/85
[2019-04-30] MEDS: MORPHINE SULFATE 2 MG/ML CPJ (NOT FOR IM USE) IV PRN ×3 (02:04→20:56)
[2019-04-30 04:00] VITALS: BP 148/76
[2019-04-30] MEDS: GABAPENTIN 300MG CAPSULE PO SCH ×3 (06:00→20:59)
[2019-04-30] MEDS: HYDRALAZINE HCL 25MG TABLET PO SCH ×3 (06:00→20:58)
[2019-04-30] MEDS: SUCRALFATE 1G TABLET PO SCH ×4 (06:22→20:58)
[2019-04-30] MEDS: BLOOD SUGAR DIAGNOSTIC STRIP TEST SCH ×4 (06:22→21:20)
[2019-04-30 07:34] LABS: BASOPHILS % 0.3 % (0.0-2.0); EOSINOPHILS % 1.7 % (0.0-5.0); HEMATOCRIT. 27.3 % (36.0-48.0); HEMOGLOBIN. 8.8 g/dL (12.0-16.0); LYMPHOCYTES % 22.2 % (20.0-50.0); MEAN CORPUSCULAR HEMOGLOBIN 27.5 pg (28.0-32.0); MEAN CORPUSCULAR VOLUME 85.4 fL (81.0-99.0); MEAN PLATELET VOLUME 7.5 fl (7.4-10.4); MONOCYTES % 6.9 % (2.0-8.0); NEUTROPHILS % 68.9 % (40.0-76.0); PLATELET 348 x1000/uL (130-400); RED CELL DISTRIBUTION WIDTH 17.5 % (11.6-14.6)
[2019-04-30] MEDS: INSULIN LISPRO 100 UNITS/ML SUBCUT SCH ×4 (07:46→21:20)
[2019-04-30 08:00] VITALS: BP 173/103
[2019-04-30] MEDS: MESALAMINE 400 MG CAPSULE.DR PO SCH ×3 (08:16→17:31)
[2019-04-30] MEDS: CLONIDINE 0.1MG TABLET PO PRN ×2 (08:17→15:33)
[2019-04-30] MEDS: METOCLOPRAMIDE HCL 5MG TABLET PO SCH ×4 (09:03→20:58)
[2019-04-30] MEDS: PANTOPRAZOLE 40MG DR TABLET PO SCH (09:03)
[2019-04-30 09:08] LABS: SACCHAROMYCES CEREVISIAE IGG 40.7 Units (0.0-24.9); SACCHAROMYCES CEREVISIAE IGM 39.6 Units (0.0-24.9)
[2019-04-30] MEDS: DOCUSATE SODIUM 100MG CAPSULE PO PRN (09:43)
[2019-04-30] MEDS: SODIUM CHLORIDE 0.45% 1,000 ML IV SCH (10:29)
[2019-04-30] MEDS ORDERED: NIFEDIPINE XL 60MG TAB PO NR (10:30)
[2019-04-30 12:30] VITALS: BP 178/88
[2019-04-30] MEDS: HYDRALAZINE 20MG/ML VIAL IV PRN (12:48)
[2019-04-30] MEDS: CITRIC ACID/SODIUM CITRATE SOLN 30ML UDC PO SCH ×2 (13:34→16:56)
[2019-04-30 16:23] VITALS: BP 154/84
[2019-04-30] MEDS: INSULIN GLARGINE UD 100 UNITS/ML SYR SUBCUT SCH (21:24)
[2019-05-01] VITALS: BP 143/98
[2019-05-01] MEDS: MORPHINE SULFATE 2 MG/ML CPJ (NOT FOR IM USE) IV PRN ×4 (01:07→21:56)
[2019-05-01 04:00] VITALS: BP 155/79
[2019-05-01] MEDS: GABAPENTIN 300MG CAPSULE PO SCH ×3 (05:44→21:55)
[2019-05-01] MEDS: SUCRALFATE 1G TABLET PO SCH ×4 (05:44→21:54)
[2019-05-01] MEDS: HYDRALAZINE HCL 25MG TABLET PO SCH ×3 (05:44→21:54)
[2019-05-01] MEDS: INSULIN LISPRO 100 UNITS/ML SUBCUT SCH ×4 (07:50→21:00)
[2019-05-01] MEDS: BLOOD SUGAR DIAGNOSTIC STRIP TEST SCH ×4 (07:50→21:54)
[2019-05-01 08:00] VITALS: BP 150/75
[2019-05-01] MEDS: METOCLOPRAMIDE HCL 5MG TABLET PO SCH ×4 (08:30→21:55)
[2019-05-01] MEDS: NIFEDIPINE XL 60MG TAB PO SCH (08:31)
[2019-05-01] MEDS: PANTOPRAZOLE 40MG DR TABLET PO SCH (08:31)
[2019-05-01] MEDS: CITRIC ACID/SODIUM CITRATE SOLN 30ML UDC PO SCH ×3 (08:31→17:21)
[2019-05-01] MEDS: MESALAMINE 400 MG CAPSULE.DR PO SCH ×3 (08:31→17:20)
[2019-05-01 09:15] LABS: BASOPHILS % 0.5 % (0.0-2.0); HEMATOCRIT. 28.6 % (36.0-48.0); HEMOGLOBIN. 9.2 g/dL (12.0-16.0); LYMPHOCYTES % 34.9 % (20.0-50.0); MEAN CORPUSCULAR HEMOGLOBIN 27.3 pg (28.0-32.0); MEAN PLATELET VOLUME 7.6 fl (7.4-10.4); MONOCYTES % 8.4 % (2.0-8.0); NEUTROPHILS % 53.2 % (40.0-76.0); PLATELET 356 x1000/uL (130-400); RED BLOOD CELL COUNT 3.37 mill/uL (4.2-5.4); RED CELL DISTRIBUTION WIDTH 17.6 % (11.6-14.6)
[2019-05-01 12:00] VITALS: BP 143/85
[2019-05-01 14:07] LABS: ATYPICAL pANCA <1:20 titer (Neg:<1:20)
[2019-05-01] MEDS: SODIUM CHLORIDE 0.45% 1,000 ML IV SCH (15:05)
[2019-05-01 16:00] VITALS: BP_SYST 143; BP_SYST 144; BP_DIAS 75; BP_DIAS 78
[2019-05-01 20:00] VITALS: BP 142/74
[2019-05-01] MEDS: INSULIN GLARGINE UD 100 UNITS/ML SYR SUBCUT SCH (21:55)
[2019-05-02] VITALS: BP 135/68
[2019-05-02] MEDS: SODIUM CHLORIDE 0.45% 1,000 ML IV SCH ×2 (02:02→22:00)
[2019-05-02 04:00] VITALS: BP 124/63
[2019-05-02] MEDS: GABAPENTIN 300MG CAPSULE PO SCH ×3 (05:25→21:16)
[2019-05-02] MEDS: HYDRALAZINE HCL 25MG TABLET PO SCH ×3 (05:26→21:16)
[2019-05-02] MEDS: SUCRALFATE 1G TABLET PO SCH ×4 (06:18→21:16)
[2019-05-02] MEDS: BLOOD SUGAR DIAGNOSTIC STRIP TEST SCH ×5 (06:33→21:17)
[2019-05-02 06:55] LABS: BASOPHILS % 0.3 % (0.0-2.0); EOSINOPHILS % 2.8 % (0.0-5.0); HEMATOCRIT. 26.7 % (36.0-48.0); HEMOGLOBIN. 8.7 g/dL (12.0-16.0); LYMPHOCYTES % 35.8 % (20.0-50.0); MEAN CORPUSCULAR HEMOGLOBIN 27.8 pg (28.0-32.0); MEAN CORPUSCULAR VOLUME 84.9 fL (81.0-99.0); MEAN PLATELET VOLUME 7.4 fl (7.4-10.4); MONOCYTES % 8.8 % (2.0-8.0); NEUTROPHILS % 52.3 % (40.0-76.0); PLATELET 362 x1000/uL (130-400); RED BLOOD CELL COUNT 3.15 mill/uL (4.2-5.4); RED CELL DISTRIBUTION WIDTH 17.7 % (11.6-14.6)
[2019-05-02] MEDS: INSULIN LISPRO 100 UNITS/ML SUBCUT SCH ×4 (07:50→21:16)
[2019-05-02 08:38] VITALS: BP 143/66
[2019-05-02] MEDS: MESALAMINE 400 MG CAPSULE.DR PO SCH ×3 (09:31→17:57)
[2019-05-02] MEDS: CITRIC ACID/SODIUM CITRATE SOLN 30ML UDC PO SCH ×3 (09:31→17:56)
[2019-05-02] MEDS: NIFEDIPINE XL 60MG TAB PO SCH (09:32)
[2019-05-02] MEDS: METOCLOPRAMIDE HCL 5MG TABLET PO SCH ×4 (09:32→21:16)
[2019-05-02] MEDS: PANTOPRAZOLE 40MG DR TABLET PO SCH (09:32)
[2019-05-02] MEDS: MORPHINE SULFATE 2 MG/ML CPJ (NOT FOR IM USE) IV PRN ×3 (09:33→23:43)
[2019-05-02 12:15] VITALS: BP 159/77
[2019-05-02 16:09] VITALS: BP 143/68
[2019-05-02 20:00] VITALS: BP 126/69
[2019-05-02] MEDS: INSULIN GLARGINE UD 100 UNITS/ML SYR SUBCUT SCH (21:53)
[2019-05-03] VITALS: BP 127/69
[2019-05-03 04:00] VITALS: BP 137/66
[2019-05-03] MEDS: MORPHINE SULFATE 2 MG/ML CPJ (NOT FOR IM USE) IV PRN ×3 (04:28→17:43)
[2019-05-03] MEDS: HYDRALAZINE HCL 25MG TABLET PO SCH ×3 (06:06→21:08)
[2019-05-03] MEDS: BLOOD SUGAR DIAGNOSTIC STRIP TEST SCH ×4 (06:06→20:33)
[2019-05-03] MEDS: GABAPENTIN 300MG CAPSULE PO SCH ×3 (06:06→21:06)
[2019-05-03] MEDS: SUCRALFATE 1G TABLET PO SCH ×4 (06:06→21:07)
[2019-05-03] MEDS: INSULIN LISPRO 100 UNITS/ML SUBCUT SCH ×4 (07:43→20:33)
[2019-05-03 08:00] VITALS: BP 143/68
[2019-05-03] MEDS: CITRIC ACID/SODIUM CITRATE SOLN 30ML UDC PO SCH ×3 (09:31→17:35)
[2019-05-03] MEDS: PANTOPRAZOLE 40MG DR TABLET PO SCH (09:31)
[2019-05-03] MEDS: NIFEDIPINE XL 60MG TAB PO SCH (09:31)
[2019-05-03] MEDS: MESALAMINE 400 MG CAPSULE.DR PO SCH ×3 (09:31→17:35)
[2019-05-03] MEDS: METOCLOPRAMIDE HCL 5MG TABLET PO SCH ×4 (09:32→21:06)
[2019-05-03 12:00] VITALS: BP 140/74
[2019-05-03] MEDS: IPRATROPIUM/ALBUTEROL 0.5-3(2.5)MG/3ML NEB NEB PRN (12:52)
[2019-05-03 16:00] VITALS: BP 142/72
[2019-05-03] MEDS: SODIUM CHLORIDE 0.45% 1,000 ML IV SCH (17:35)
[2019-05-03 17:45] LABS: INR 1.1; PROTHROMBIN TIME 10.9 sec (9.6-11.0)
[2019-05-03 20:46] VITALS: BP 114/67
[2019-05-03] MEDS: INSULIN GLARGINE UD 100 UNITS/ML SYR SUBCUT SCH (21:08)
[2019-05-04 00:35] VITALS: BP 117/68
[2019-05-04] MEDS: IPRATROPIUM/ALBUTEROL 0.5-3(2.5)MG/3ML NEB NEB PRN (03:51)
[2019-05-04 04:00] VITALS: BP 132/77
[2019-05-04] MEDS: BLOOD SUGAR DIAGNOSTIC STRIP TEST SCH ×4 (05:37→20:32)
[2019-05-04] MEDS: HYDRALAZINE HCL 25MG TABLET PO SCH ×3 (05:42→21:05)
[2019-05-04] MEDS: SUCRALFATE 1G TABLET PO SCH ×4 (05:43→20:30)
[2019-05-04] MEDS: GABAPENTIN 300MG CAPSULE PO SCH ×3 (05:43→21:05)
[2019-05-04 07:21] LABS: EOSINOPHILS % 2.2 % (0.0-5.0); HEMATOCRIT. 27.3 % (36.0-48.0); HEMOGLOBIN. 8.6 g/dL (12.0-16.0); LYMPHOCYTES % 27.8 % (20.0-50.0); MEAN CORPUSCULAR VOLUME 85.4 fL (81.0-99.0); MEAN PLATELET VOLUME 7.3 fl (7.4-10.4); MONOCYTES % 11.1 % (2.0-8.0); NEUTROPHILS % 57.9 % (40.0-76.0); PLATELET 423 x1000/uL (130-400); RED CELL DISTRIBUTION WIDTH 17.8 % (11.6-14.6)
[2019-05-04] MEDS: INSULIN LISPRO 100 UNITS/ML SUBCUT SCH ×4 (07:50→20:31)
[2019-05-04] MEDS: MESALAMINE 400 MG CAPSULE.DR PO SCH ×3 (07:50→16:35)
[2019-05-04 08:33] VITALS: BP 149/74
[2019-05-04] MEDS: NIFEDIPINE XL 60MG TAB PO SCH ×2 (08:53→13:38)
[2019-05-04] MEDS: CITRIC ACID/SODIUM CITRATE SOLN 30ML UDC PO SCH ×3 (08:53→16:35)
[2019-05-04] MEDS: PANTOPRAZOLE 40MG DR TABLET PO SCH ×2 (08:53→13:38)
[2019-05-04] MEDS: METOCLOPRAMIDE HCL 5MG TABLET PO SCH ×4 (08:53→20:30)
[2019-05-04] MEDS ORDERED: SODIUM BICARBONATE 4% (2.4MEQ) 5ML VIAL IV ONE (09:55)
[2019-05-04 11:40] VITALS: BP 169/95
[2019-05-04] MEDS ORDERED: FUROSEMIDE 40MG/4ML VIAL IVP SCH (14:15)
[2019-05-04] MEDS ORDERED: SODIUM CHLORIDE 0.45% 1,000 ML IV SCH (15:30)
[2019-05-04 20:00] VITALS: BP 155/88
[2019-05-04] MEDS: MORPHINE SULFATE 2 MG/ML CPJ (NOT FOR IM USE) IV PRN (20:30)
[2019-05-04 20:32] VITALS: BP 142/81
[2019-05-04] MEDS: INSULIN GLARGINE UD 100 UNITS/ML SYR SUBCUT SCH (21:31)
[2019-05-05] VITALS: BP 144/88
[2019-05-05] MEDS: MORPHINE SULFATE 2 MG/ML CPJ (NOT FOR IM USE) IV PRN ×4 (00:02→20:57)
[2019-05-05 04:00] VITALS: BP 150/85
[2019-05-05] MEDS: GABAPENTIN 300MG CAPSULE PO SCH ×3 (05:53→22:23)
[2019-05-05] MEDS: SUCRALFATE 1G TABLET PO SCH ×4 (05:54→20:55)
[2019-05-05] MEDS: HYDRALAZINE HCL 25MG TABLET PO SCH ×3 (05:54→22:24)
[2019-05-05] MEDS: BLOOD SUGAR DIAGNOSTIC STRIP TEST SCH ×4 (05:54→20:50)
[2019-05-05 06:08] LABS: BASOPHILS % 0.5 % (0.0-2.0); EOSINOPHILS % 2.3 % (0.0-5.0); HEMATOCRIT. 26.3 % (36.0-48.0); HEMOGLOBIN. 8.4 g/dL (12.0-16.0); MEAN CORPUSCULAR HEMOGLOBIN 27.1 pg (28.0-32.0); MEAN CORPUSCULAR VOLUME 85.3 fL (81.0-99.0); MEAN PLATELET VOLUME 7.3 fl (7.4-10.4); MONOCYTES % 12.3 % (2.0-8.0); NEUTROPHILS % 56.9 % (40.0-76.0); PLATELET 410 x1000/uL (130-400); RED BLOOD CELL COUNT 3.09 mill/uL (4.2-5.4); RED CELL DISTRIBUTION WIDTH 17.9 % (11.6-14.6)
[2019-05-05] MEDS: INSULIN LISPRO 100 UNITS/ML SUBCUT SCH ×4 (07:50→20:56)
[2019-05-05 08:00] VITALS: BP 159/80
[2019-05-05] MEDS: FUROSEMIDE 40MG/4ML VIAL IVP SCH (09:41)
[2019-05-05] MEDS: CITRIC ACID/SODIUM CITRATE SOLN 30ML UDC PO SCH (09:41)
[2019-05-05] MEDS: METOCLOPRAMIDE HCL 5MG TABLET PO SCH ×4 (09:42→20:55)
[2019-05-05] MEDS: PANTOPRAZOLE 40MG DR TABLET PO SCH (09:42)
[2019-05-05] MEDS: MESALAMINE 400 MG CAPSULE.DR PO SCH ×3 (09:42→18:05)
[2019-05-05] MEDS: NIFEDIPINE XL 60MG TAB PO SCH (09:42)
[2019-05-05 12:00] VITALS: BP 144/61
[2019-05-05 16:00] VITALS: BP 141/89
[2019-05-05 20:51] VITALS: BP 140/84
[2019-05-05] MEDS: INSULIN GLARGINE UD 100 UNITS/ML SYR SUBCUT SCH (22:24)
[2019-05-06 00:34] VITALS: BP 133/70
[2019-05-06 04:00] VITALS: BP 132/75
[2019-05-06] MEDS: HYDRALAZINE HCL 25MG TABLET PO SCH (05:59)
[2019-05-06] MEDS: GABAPENTIN 300MG CAPSULE PO SCH ×3 (05:59→21:38)
[2019-05-06] MEDS: BLOOD SUGAR DIAGNOSTIC STRIP TEST SCH ×4 (06:36→21:39)
[2019-05-06] MEDS: SUCRALFATE 1G TABLET PO SCH ×4 (06:52→21:38)
[2019-05-06] MEDS: INSULIN LISPRO 100 UNITS/ML SUBCUT SCH ×4 (07:50→21:40)
[2019-05-06 08:00] VITALS: BP 159/92
[2019-05-06 08:18] LABS: BASOPHILS % 0.5 % (0.0-2.0); HEMOGLOBIN. 8.5 g/dL (12.0-16.0); LYMPHOCYTES % 18.3 % (20.0-50.0); MEAN CORPUSCULAR HEMOGLOBIN 26.8 pg (28.0-32.0); MEAN CORPUSCULAR VOLUME 85.4 fL (81.0-99.0); MEAN PLATELET VOLUME 7.2 fl (7.4-10.4); MONOCYTES % 11.5 % (2.0-8.0); NEUTROPHILS % 68.7 % (40.0-76.0); PLATELET 420 x1000/uL (130-400); RED BLOOD CELL COUNT 3.16 mill/uL (4.2-5.4); RED CELL DISTRIBUTION WIDTH 17.6 % (11.6-14.6)
[2019-05-06] MEDS: PANTOPRAZOLE 40MG DR TABLET PO SCH (09:26)
[2019-05-06] MEDS: METOCLOPRAMIDE HCL 5MG TABLET PO SCH ×4 (09:26→21:38)
[2019-05-06] MEDS: NIFEDIPINE XL 60MG TAB PO SCH (09:26)
[2019-05-06] MEDS: FUROSEMIDE 40MG/4ML VIAL IVP SCH (09:27)
[2019-05-06] MEDS: MESALAMINE 400 MG CAPSULE.DR PO SCH ×3 (09:27→18:09)
[2019-05-06] MEDS: MORPHINE SULFATE 2 MG/ML CPJ (NOT FOR IM USE) IV PRN ×2 (11:23→21:44)
[2019-05-06] MEDS ORDERED: DIPHENHYDRAMINE 50MG/ML VIAL IV NR (11:30)
[2019-05-06] MEDS ORDERED: METHYLPREDNISOLONE SOD SUCC 125 MG/2 ML VIAL IV NR (11:30)
[2019-05-06 12:00] VITALS: BP 167/86
[2019-05-06] MEDS ORDERED: HYDRALAZINE HCL 50MG TABLET PO NR (14:00)
[2019-05-06 16:00] VITALS: BP 150/80
[2019-05-06 20:23] VITALS: BP 160/84
[2019-05-06] MEDS: HYDRALAZINE HCL 100MG TABLET PO SCH (21:41)
[2019-05-06] MEDS: INSULIN GLARGINE UD 100 UNITS/ML SYR SUBCUT SCH (22:24)
[2019-05-07 00:36] VITALS: BP 125/66
[2019-05-07 04:00] VITALS: BP 155/80
[2019-05-07 06:28] LABS: BASOPHILS % 0.1 % (0.0-2.0); HEMATOCRIT. 24.8 % (36.0-48.0); HEMOGLOBIN. 8.1 g/dL (12.0-16.0); LYMPHOCYTES % 10.8 % (20.0-50.0); MEAN CORPUSCULAR HEMOGLOBIN 27.2 pg (28.0-32.0); MEAN CORPUSCULAR VOLUME 83.7 fL (81.0-99.0); MEAN PLATELET VOLUME 7.4 fl (7.4-10.4); MONOCYTES % 2.6 % (2.0-8.0); NEUTROPHILS % 86.5 % (40.0-76.0); PLATELET 404 x1000/uL (130-400); RED BLOOD CELL COUNT 2.96 mill/uL (4.2-5.4); RED CELL DISTRIBUTION WIDTH 17.4 % (11.6-14.6)
[2019-05-07] MEDS: GABAPENTIN 300MG CAPSULE PO SCH ×3 (06:48→21:25)
[2019-05-07] MEDS: SUCRALFATE 1G TABLET PO SCH ×4 (06:48→21:26)
[2019-05-07] MEDS: BLOOD SUGAR DIAGNOSTIC STRIP TEST SCH ×4 (06:48→21:24)
[2019-05-07] MEDS: HYDRALAZINE HCL 100MG TABLET PO SCH ×3 (06:48→21:25)
[2019-05-07 08:00] VITALS: BP 160/89
[2019-05-07] MEDS ORDERED: DIPHENHYDRAMINE 50MG/ML VIAL IV PRN (09:00)
[2019-05-07] MEDS: CLONIDINE 0.1MG TABLET PO SCH ×2 (10:15→18:35)
[2019-05-07] MEDS: MESALAMINE 400 MG CAPSULE.DR PO SCH ×3 (10:17→17:57)
[2019-05-07] MEDS: PANTOPRAZOLE 40MG DR TABLET PO SCH (10:18)
[2019-05-07] MEDS: CLONIDINE 0.1MG TABLET PO PRN (10:19)
[2019-05-07] MEDS: METOCLOPRAMIDE HCL 5MG TABLET PO SCH ×4 (10:20→21:25)
[2019-05-07] MEDS: METHYLPREDNISOLONE SOD SUCC 40 MG/ML VIAL IV SCH ×2 (10:21→17:57)
[2019-05-07] MEDS: FUROSEMIDE 40MG/4ML VIAL IVP SCH (10:21)
[2019-05-07] MEDS: INSULIN LISPRO 100 UNITS/ML SUBCUT SCH ×4 (10:24→21:23)
[2019-05-07 12:00] VITALS: BP 145/80
[2019-05-07 16:00] VITALS: BP 155/84
[2019-05-07 20:00] VITALS: BP 154/94
[2019-05-07] MEDS: INSULIN GLARGINE UD 100 UNITS/ML SYR SUBCUT SCH (21:24)
[2019-05-07] MEDS: MORPHINE SULFATE 2 MG/ML CPJ (NOT FOR IM USE) IV PRN (21:38)
[2019-05-08] VITALS (7 sets, daily range): BP systolic 150–206; BP diastolic 70–112
[2019-05-08] MEDS: METHYLPREDNISOLONE SOD SUCC 40 MG/ML VIAL IV SCH ×3 (01:16→18:43)
[2019-05-08] MEDS: CLONIDINE 0.1MG TABLET PO PRN ×2 (01:17→20:41)
[2019-05-08] MEDS: HYDRALAZINE HCL 100MG TABLET PO SCH ×3 (06:46→21:27)
[2019-05-08] MEDS: GABAPENTIN 300MG CAPSULE PO SCH ×3 (06:46→21:24)
[2019-05-08] MEDS: SUCRALFATE 1G TABLET PO SCH ×4 (06:46→21:25)
[2019-05-08] MEDS: INSULIN LISPRO 100 UNITS/ML SUBCUT SCH ×4 (06:51→22:07)
[2019-05-08] MEDS: BLOOD SUGAR DIAGNOSTIC STRIP TEST SCH ×4 (06:52→21:52)
[2019-05-08 07:33] LABS: BASOPHILS % 0.2 % (0.0-2.0); HEMOGLOBIN. 8.8 g/dL (12.0-16.0); LYMPHOCYTES % 8.9 % (20.0-50.0); MEAN CORPUSCULAR HEMOGLOBIN 27.5 pg (28.0-32.0); MEAN CORPUSCULAR VOLUME 83.9 fL (81.0-99.0); MEAN PLATELET VOLUME 7.5 fl (7.4-10.4); NEUTROPHILS % 89.9 % (40.0-76.0); PLATELET 428 x1000/uL (130-400); RED BLOOD CELL COUNT 3.21 mill/uL (4.2-5.4); RED CELL DISTRIBUTION WIDTH 17.3 % (11.6-14.6)
[2019-05-08] MEDS: METOCLOPRAMIDE HCL 5MG TABLET PO SCH ×4 (09:08→21:25)
[2019-05-08] MEDS: PANTOPRAZOLE 40MG DR TABLET PO SCH (09:08)
[2019-05-08] MEDS: MESALAMINE 400 MG CAPSULE.DR PO SCH ×3 (09:08→18:43)
[2019-05-08] MEDS: CLONIDINE 0.1MG TABLET PO SCH (09:09)
[2019-05-08] MEDS: MORPHINE SULFATE 2 MG/ML CPJ (NOT FOR IM USE) IV PRN ×2 (10:05→20:41)
[2019-05-08] MEDS ORDERED: CLONIDINE 0.2MG TABLET PO SCH (10:45)
[2019-05-08] MEDS: HYDRALAZINE 20MG/ML VIAL IV PRN (12:21)
[2019-05-08] MEDS: FUROSEMIDE 40MG/4ML VIAL IVP SCH ×2 (14:50→21:25)
[2019-05-08] MEDS: IPRATROPIUM/ALBUTEROL 0.5-3(2.5)MG/3ML NEB NEB PRN (15:07)
[2019-05-08] MEDS ORDERED: NA PHOS,M-B/NA PHOS,DI-BA ENEMA 118ML PR PRN (16:15)
[2019-05-08] MEDS ORDERED: SORBITOL 70% SOLN 30ML PO NR (16:15)
[2019-05-08] MEDS ORDERED: FUROSEMIDE 40MG/4ML VIAL IVP SCH (17:15)
[2019-05-08] MEDS: CLONIDINE 0.2MG TABLET PO SCH (21:25)
[2019-05-08] MEDS: INSULIN GLARGINE UD 100 UNITS/ML SYR SUBCUT SCH (22:07)
[2019-05-09] VITALS (7 sets, daily range): BP systolic 186–202; BP diastolic 84–98
[2019-05-09] MEDS: HYDRALAZINE 20MG/ML VIAL IV PRN ×4 (00:10→18:57)
[2019-05-09] MEDS: METHYLPREDNISOLONE SOD SUCC 40 MG/ML VIAL IV SCH ×3 (02:13→17:16)
[2019-05-09] MEDS: CLONIDINE 0.2MG TABLET PO SCH ×2 (05:45→12:55)
[2019-05-09] MEDS: HYDRALAZINE HCL 100MG TABLET PO SCH ×2 (05:45→12:55)
[2019-05-09] MEDS: GABAPENTIN 300MG CAPSULE PO SCH ×2 (05:45→12:56)
[2019-05-09] MEDS: BLOOD SUGAR DIAGNOSTIC STRIP TEST SCH ×3 (07:03→17:04)
[2019-05-09] MEDS: FUROSEMIDE 40MG/4ML VIAL IVP SCH ×2 (07:04→17:16)
[2019-05-09] MEDS: SUCRALFATE 1G TABLET PO SCH ×3 (07:05→17:16)
[2019-05-09 07:16] LABS: HEMATOCRIT. 28.6 % (36.0-48.0); HEMOGLOBIN. 9.4 g/dL (12.0-16.0); MEAN CORPUSCULAR HEMOGLOBIN 27.7 pg (28.0-32.0); MEAN CORPUSCULAR VOLUME 84.3 fL (81.0-99.0); MEAN PLATELET VOLUME 7.7 fl (7.4-10.4); PLATELET 447 x1000/uL (130-400); RED BLOOD CELL COUNT 3.39 mill/uL (4.2-5.4); RED CELL DISTRIBUTION WIDTH 17.3 % (11.6-14.6)
[2019-05-09] MEDS: MESALAMINE 400 MG CAPSULE.DR PO SCH ×3 (08:37→17:16)
[2019-05-09] MEDS: PANTOPRAZOLE 40MG DR TABLET PO SCH (08:37)
[2019-05-09] MEDS: METOCLOPRAMIDE HCL 5MG TABLET PO SCH ×3 (08:37→17:16)
[2019-05-09] MEDS: INSULIN LISPRO 100 UNITS/ML SUBCUT SCH ×3 (08:38→17:31)
[2019-05-09] MEDS: MORPHINE SULFATE 2 MG/ML CPJ (NOT FOR IM USE) IV PRN (08:43)
[2019-05-09 12:15] LABS: PLATELET ESTIMATE SLIGHTLY INCREASED
[2019-05-09] MEDS ORDERED: CLONIDINE 0.2MG TABLET PO NR (16:00)
[2019-05-09] MEDS: CLONIDINE 0.1MG TABLET PO PRN (20:03)
== END 2019-05-09 20:40 | DRG 469 ==
LOC: ER 22:11 → 6WST 23:15 → ENRESERV 04-27 02:34 → 6WST 04-27 09:40
PROVIDERS: ADMIT Internal Medicine; ATTEND Internal Medicine
DX: N17.9 Acute kidney failure, unspecified (principal); J96.00 Acute respiratory failure, unspecified whether with hypoxia or hypercapnia; I50.43 Acute on chronic combined systolic (congestive) and diastolic (congestive) heart failure; J91.8 Pleural effusion in other conditions classified elsewhere; E11.22 Type 2 diabetes mellitus with diabetic chronic kidney disease; E83.42 Hypomagnesemia; I08.3 Combined rheumatic disorders of mitral, aortic and tricuspid valves; E11.65 Type 2 diabetes mellitus with hyperglycemia; I13.0 Hypertensive heart and chronic kidney disease with heart failure and stage 1 through stage 4 chronic kidney disease, or unspecified chronic kidney disease; E87.2 Acidosis; N18.3 Chronic kidney disease, stage 3 (moderate); R18.8 Other ascites; E11.43 Type 2 diabetes mellitus with diabetic autonomic (poly)neuropathy; I27.20 Pulmonary hypertension, unspecified; I16.1 Hypertensive emergency; R16.0 Hepatomegaly, not elsewhere classified; K76.0 Fatty (change of) liver, not elsewhere classified; D64.9 Anemia, unspecified; E78.5 Hyperlipidemia, unspecified; E87.6 Hypokalemia; J44.9 Chronic obstructive pulmonary disease, unspecified; N39.0 Urinary tract infection, site not specified; K31.89 Other diseases of stomach and duodenum; K31.84 Gastroparesis; I25.118 Atherosclerotic heart disease of native coronary artery with other forms of angina pectoris; K21.9 Gastro-esophageal reflux disease without esophagitis; I42.9 Cardiomyopathy, unspecified; K50.90 Crohn's disease, unspecified, without complications; K59.00 Constipation, unspecified; T78.3XXA Angioneurotic edema, initial encounter; Z79.4 Long term (current) use of insulin; Z79.899 Other long term (current) drug therapy; Z90.49 Acquired absence of other specified parts of digestive tract; Z98.51 Tubal ligation status
CPT/HCPCS: 36415; 71045; 74018; 76604; 76705; 80048; 80061; 80305; 81003; 82270; 82550; 82553; 82570; 82962; 83735; 83880; 84156; 84443; 84484; 86141; 86256; 86671; 87015; 87045; 87427; 87449; 87804; 89055; 92610; 93005; 93970; 93971; 97162; 99285; C1893; J0360; J1200; J1815; J1940; J2270; J2405; J2920; J2930; J3475; J3490; J7030; J7040; J7620; J8597

== ENCOUNTER 2019-07-10 14:04 | Inpatient (IN) | payer MEDICAID ==
[~2019-07-10] VITALS: Ht 165.1 cm; Wt 68.9 kg
[~2019-07-10 14:04] MED LIST changes: -ALBU6.7H INH; +ALBU6.7H11 INH; +COR6 PO; -GABA-290 MT; +GABA-529 PO; -HYDR-4134 MT; -HYDR-4134 PO; +HYDR-4135 PO; -NIFE60TA64 MT
[2019-07-10 15:46] LABS: BASOPHILS % 0.7 % (0.0-2.0); EOSINOPHILS % 0.6 % (0.0-5.0); HEMATOCRIT. 26.3 % (36.0-48.0); HEMOGLOBIN. 8.4 g/dL (12.0-16.0); LYMPHOCYTES % 31.3 % (20.0-50.0); MEAN CORPUSCULAR VOLUME 84.6 fL (81.0-99.0); MONOCYTES % 6.5 % (2.0-8.0); NEUTROPHILS % 60.9 % (40.0-76.0); PLATELET 330 x1000/uL (130-400); RED CELL DISTRIBUTION WIDTH 19.6 % (11.6-14.6)
[2019-07-10 15:51] LABS: CHLORIDE 111 mEq/L (98-107)
[2019-07-10 15:55] LABS: ETHANOL BLOOD < 10 mg/dL
[2019-07-10 16:02] LABS: CLARITY URINE CLEAR (CLEAR); COLOR URINE YELLOW (YELLOW); KETONES URINE NEGATIVE (NEGATIVE); LEUKOCYTE ESTERASE URINE NEGATIVE (NEGATIVE); NITRITE URINE NEGATIVE (NEGATIVE); OCCULT BLOOD URINE 1+ (NEGATIVE); PH URINE 5.5 (4.5-8.0); PROTEIN URINE 4+ (NEGATIVE)
[2019-07-10 16:20] LABS: *AMPHETAMINES SCREEN URINE NEGATIVE (NEGATIVE); *BARBITURATES SCREEN URINE NEGATIVE (NEGATIVE)
[2019-07-10 16:21] LABS: *BENZODIAZEPINES SCREEN URINE NEGATIVE (NEGATIVE); *COCAINE SCREEN URINE NEGATIVE (NEGATIVE); CANNABINOID URINE SCREEN NEGATIVE (NEGATIVE); METHADONE URINE SCREEN NEGATIVE (NEGATIVE); OPIATES URINE SCREEN NEGATIVE (NEGATIVE)
[2019-07-10 16:22] LABS: PHENCYCLIDINE URINE SCREEN NEGATIVE (NEGATIVE)
[2019-07-11] MEDS ORDERED: ONDANSETRON HCL 4MG/2ML INJ IV ONE (00:15)
[2019-07-11] MEDS ORDERED: MORPHINE SULFATE 4 MG/ML CPJ (NOT FOR IM USE) IV ONE (00:15)
[2019-07-11] MEDS ORDERED: CLONIDINE 0.2MG TABLET PO ONE (00:15)
[2019-07-11] MEDS ORDERED: FUROSEMIDE 20MG/2ML VIAL IVP ONE (02:45)
[2019-07-11] MEDS ORDERED: HYDRALAZINE 20MG/ML VIAL IV ONE (03:00)
[2019-07-11] MEDS ORDERED: DIPHENHYDRAMINE 50MG/ML VIAL IV PRN (07:45)
[2019-07-11] MEDS ORDERED: ONDANSETRON HCL 4MG/2ML INJ IV PRN (07:45)
[2019-07-11] MEDS ORDERED: HYDRALAZINE 20MG/ML VIAL IV PRN ×2 (08:30→10:04)
[2019-07-11] MEDS: CLONIDINE 0.1MG TABLET PO PRN ×2 (08:33→21:11)
[2019-07-11 10:00] VITALS: BP 153/91
[2019-07-11] MEDS: MORPHINE SULFATE 2 MG/ML CPJ (NOT FOR IM USE) IV PRN ×2 (11:06→21:51)
[2019-07-11 11:45] VITALS: BP 153/91
[2019-07-11] MEDS: SODIUM CHLORIDE 0.9% 1,000 ML IV SCH (12:36)
[2019-07-11 16:00] VITALS: BP 145/78
[2019-07-11] MEDS ORDERED: ALBUTEROL 6.7GM HFA INHALER INH SCH (17:00)
[2019-07-11] MEDS ORDERED: ALBUTEROL (0.083%) 2.5MG/3ML NEB HHN PRN (17:30)
[2019-07-11] MEDS: DOCUSATE SODIUM 250MG CAPSULE PO SCH (18:00)
[2019-07-11] MEDS: INSULIN LISPRO 100 UNITS/ML SUBCUT SCH ×2 (18:28→22:28)
[2019-07-11] MEDS: METOCLOPRAMIDE HCL 5MG TABLET PO SCH ×2 (18:30→21:10)
[2019-07-11] MEDS: SUCRALFATE 1G TABLET PO SCH ×2 (18:30→21:10)
[2019-07-11] MEDS: MESALAMINE 400 MG CAPSULE.DR PO SCH (18:30)
[2019-07-11 20:00] VITALS: BP 181/96
[2019-07-11] MEDS: CARVEDILOL 6.25 MG TABLET PO SCH (21:10)
[2019-07-11] MEDS: HYDRALAZINE HCL 50MG TABLET PO SCH (21:10)
[2019-07-11] MEDS: GABAPENTIN 100MG CAPSULE PO SCH (21:10)
[2019-07-11] MEDS: BLOOD SUGAR DIAGNOSTIC STRIP TEST SCH (21:11)
[2019-07-11] MEDS: ATORVASTATIN CALCIUM 10MG TABLET PO SCH (21:13)
[2019-07-11] MEDS ORDERED: LOPERAMIDE HCL 2MG CAPSULE PO PRN (21:15)
[2019-07-11] MEDS ORDERED: INSULIN GLARGINE UD 100 UNITS/ML SYR SUBCUT SCH (22:00)
[2019-07-12] VITALS: BP 136/78
[2019-07-12 04:00] VITALS: BP 146/77
[2019-07-12] MEDS: MORPHINE SULFATE 2 MG/ML CPJ (NOT FOR IM USE) IV PRN ×2 (04:37→17:24)
[2019-07-12] MEDS: HYDRALAZINE HCL 50MG TABLET PO SCH ×3 (05:21→22:06)
[2019-07-12] MEDS: BLOOD SUGAR DIAGNOSTIC STRIP TEST SCH ×4 (05:22→21:00)
[2019-07-12] MEDS: GABAPENTIN 100MG CAPSULE PO SCH ×3 (05:22→22:05)
[2019-07-12] MEDS: INSULIN LISPRO 100 UNITS/ML SUBCUT SCH ×8 (05:28→21:00)
[2019-07-12 07:06] LABS: BASOPHILS % 0.5 % (0.0-2.0); EOSINOPHILS % 1.7 % (0.0-5.0); HEMOGLOBIN. 8.7 g/dL (12.0-16.0); LYMPHOCYTES % 32.2 % (20.0-50.0); MEAN CORPUSCULAR HEMOGLOBIN 27.5 pg (28.0-32.0); MEAN CORPUSCULAR VOLUME 85.3 fL (81.0-99.0); MEAN PLATELET VOLUME 7.4 fl (7.4-10.4); NEUTROPHILS % 57.6 % (40.0-76.0); PLATELET 315 x1000/uL (130-400); RED BLOOD CELL COUNT 3.17 mill/uL (4.2-5.4); RED CELL DISTRIBUTION WIDTH 19.4 % (11.6-14.6)
[2019-07-12 07:22] LABS: CHLORIDE 110 mEq/L (98-107)
[2019-07-12 07:29] LABS: LDL CHOLESTEROL 37 mg/dL (5-100)
[2019-07-12 07:31] LABS: HDL CHOLESTEROL 41 mg/dL (40-59)
[2019-07-12 08:00] VITALS: BP 138/77
[2019-07-12] MEDS: DOCUSATE SODIUM 250MG CAPSULE PO SCH ×2 (09:00→17:00)
[2019-07-12] MEDS: SODIUM CHLORIDE 0.9% 1,000 ML IV SCH (09:55)
[2019-07-12] MEDS: ASPIRIN 81MG EC TABLET PO SCH (09:58)
[2019-07-12] MEDS: SUCRALFATE 1G TABLET PO SCH ×3 (09:58→17:30)
[2019-07-12] MEDS: PANTOPRAZOLE 40MG DR TABLET PO SCH (09:58)
[2019-07-12] MEDS: MESALAMINE 400 MG CAPSULE.DR PO SCH ×3 (09:59→17:29)
[2019-07-12] MEDS: FUROSEMIDE 20MG TABLET PO SCH (09:59)
[2019-07-12] MEDS: POTASSIUM CHLORIDE 10MEQ TABLET SR PO SCH (09:59)
[2019-07-12] MEDS: METOCLOPRAMIDE HCL 5MG TABLET PO SCH ×4 (09:59→22:04)
[2019-07-12] MEDS: CARVEDILOL 6.25 MG TABLET PO SCH ×2 (10:00→22:04)
[2019-07-12 12:00] VITALS: BP 126/73
[2019-07-12 16:00] VITALS: BP 136/84
[2019-07-12] MEDS: DEXTROSE 50% WATER 50ML SYRINGE IV PRN (17:12)
[2019-07-12 20:00] VITALS: BP 142/72
[2019-07-12] MEDS: INSULIN GLARGINE UD 100 UNITS/ML SYR SUBCUT SCH (22:00)
[2019-07-12] MEDS: ATORVASTATIN CALCIUM 10MG TABLET PO SCH (22:04)
[2019-07-13] VITALS: BP 134/76
[2019-07-13] MEDS: SUCRALFATE 1G TABLET PO SCH ×5 (00:41→20:18)
[2019-07-13] MEDS: MORPHINE SULFATE 2 MG/ML CPJ (NOT FOR IM USE) IV PRN ×2 (01:44→20:05)
[2019-07-13] MEDS: SODIUM CHLORIDE 0.9% 1,000 ML IV SCH ×2 (03:00→23:00)
[2019-07-13 04:00] VITALS: BP 137/77
[2019-07-13] MEDS: HYDRALAZINE HCL 50MG TABLET PO SCH ×3 (05:38→21:28)
[2019-07-13] MEDS: GABAPENTIN 100MG CAPSULE PO SCH ×3 (05:39→21:28)
[2019-07-13] MEDS: DEXTROSE 50% WATER 50ML SYRINGE IV PRN (05:46)
[2019-07-13] MEDS: BLOOD SUGAR DIAGNOSTIC STRIP TEST SCH ×4 (05:51→20:18)
[2019-07-13] MEDS: INSULIN LISPRO 100 UNITS/ML SUBCUT SCH ×7 (05:52→20:18)
[2019-07-13 08:00] VITALS: BP 117/56
[2019-07-13] MEDS: PANTOPRAZOLE 40MG DR TABLET PO SCH (08:59)
[2019-07-13] MEDS: METOCLOPRAMIDE HCL 5MG TABLET PO SCH ×4 (08:59→20:06)
[2019-07-13] MEDS: DOCUSATE SODIUM 250MG CAPSULE PO SCH ×2 (09:00→16:11)
[2019-07-13] MEDS: ASPIRIN 81MG EC TABLET PO SCH (09:04)
[2019-07-13] MEDS: POTASSIUM CHLORIDE 10MEQ TABLET SR PO SCH (09:04)
[2019-07-13] MEDS: MESALAMINE 400 MG CAPSULE.DR PO SCH ×3 (09:05→17:13)
[2019-07-13] MEDS: FUROSEMIDE 20MG TABLET PO SCH (09:05)
[2019-07-13] MEDS: CARVEDILOL 6.25 MG TABLET PO SCH ×2 (09:06→20:06)
[2019-07-13] MEDS: INSULIN GLARGINE UD 100 UNITS/ML SYR SUBCUT SCH ×2 (09:11→21:28)
[2019-07-13 11:35] VITALS: BP 123/68
[2019-07-13 15:36] VITALS: BP 126/72
[2019-07-13 16:28] LABS: TOTAL IRON BINDING CAPACITY 371 ug/dL (250-450)
[2019-07-13 17:02] LABS: FOLIC ACID (FOLATE) SERUM 18.4 ng/mL (>5.38)
[2019-07-13 20:00] VITALS: BP 151/82
[2019-07-13] MEDS: ATORVASTATIN CALCIUM 10MG TABLET PO SCH (20:18)
[2019-07-14] VITALS: BP 157/84
[2019-07-14 04:00] VITALS: BP 164/87
[2019-07-14] MEDS: HYDRALAZINE HCL 50MG TABLET PO SCH ×2 (06:03→13:21)
[2019-07-14] MEDS: GABAPENTIN 100MG CAPSULE PO SCH ×3 (06:03→21:35)
[2019-07-14 06:22] LABS: BASOPHILS % 0.4 % (0.0-2.0); EOSINOPHILS % 1.6 % (0.0-5.0); HEMATOCRIT. 28.4 % (36.0-48.0); HEMOGLOBIN. 9.1 g/dL (12.0-16.0); LYMPHOCYTES % 35.6 % (20.0-50.0); MEAN CORPUSCULAR HEMOGLOBIN 27.2 pg (28.0-32.0); MEAN CORPUSCULAR VOLUME 84.9 fL (81.0-99.0); MEAN PLATELET VOLUME 7.4 fl (7.4-10.4); MONOCYTES % 9.6 % (2.0-8.0); NEUTROPHILS % 52.8 % (40.0-76.0); PLATELET 325 x1000/uL (130-400); RED BLOOD CELL COUNT 3.34 mill/uL (4.2-5.4); RED CELL DISTRIBUTION WIDTH 19.4 % (11.6-14.6)
[2019-07-14] MEDS: BLOOD SUGAR DIAGNOSTIC STRIP TEST SCH ×4 (07:00→21:00)
[2019-07-14] MEDS: INSULIN LISPRO 100 UNITS/ML SUBCUT SCH ×7 (07:40→21:00)
[2019-07-14 07:47] VITALS: BP 167/89
[2019-07-14] MEDS: DOCUSATE SODIUM 250MG CAPSULE PO SCH ×2 (08:05→16:29)
[2019-07-14] MEDS: PANTOPRAZOLE 40MG DR TABLET PO SCH (08:14)
[2019-07-14] MEDS: FUROSEMIDE 20MG TABLET PO SCH (08:14)
[2019-07-14] MEDS: METOCLOPRAMIDE HCL 5MG TABLET PO SCH ×4 (08:14→21:34)
[2019-07-14] MEDS: ASPIRIN 81MG EC TABLET PO SCH (08:14)
[2019-07-14] MEDS: SUCRALFATE 1G TABLET PO SCH ×4 (08:14→21:45)
[2019-07-14] MEDS: MESALAMINE 400 MG CAPSULE.DR PO SCH ×3 (08:14→17:29)
[2019-07-14] MEDS: CARVEDILOL 6.25 MG TABLET PO SCH ×2 (08:14→21:36)
[2019-07-14] MEDS: INSULIN GLARGINE UD 100 UNITS/ML SYR SUBCUT SCH ×2 (09:40→22:08)
[2019-07-14 11:30] VITALS: BP 152/71
[2019-07-14] MEDS: MORPHINE SULFATE 2 MG/ML CPJ (NOT FOR IM USE) IV PRN ×2 (11:40→22:24)
[2019-07-14 16:17] VITALS: BP 154/70
[2019-07-14] MEDS: SODIUM CHLORIDE 0.9% 1,000 ML IV SCH (18:20)
[2019-07-14 20:00] VITALS: BP 175/92
[2019-07-14] MEDS: ATORVASTATIN CALCIUM 10MG TABLET PO SCH (21:33)
[2019-07-14] MEDS: HYDRALAZINE HCL 100MG TABLET PO SCH (21:36)
[2019-07-15] VITALS: BP 159/79
[2019-07-15 04:00] VITALS: BP 177/85
[2019-07-15] MEDS: HYDRALAZINE HCL 100MG TABLET PO SCH ×2 (05:43→13:33)
[2019-07-15] MEDS: CLONIDINE 0.1MG TABLET PO PRN (05:43)
[2019-07-15] MEDS: GABAPENTIN 100MG CAPSULE PO SCH ×2 (05:44→13:33)
[2019-07-15] MEDS: BLOOD SUGAR DIAGNOSTIC STRIP TEST SCH ×2 (07:05→13:15)
[2019-07-15] MEDS: SUCRALFATE 1G TABLET PO SCH ×2 (07:11→12:02)
[2019-07-15 07:15] LABS: BASOPHILS % 0.3 % (0.0-2.0); EOSINOPHILS % 1.2 % (0.0-5.0); HEMATOCRIT. 27.9 % (36.0-48.0); HEMOGLOBIN. 8.9 g/dL (12.0-16.0); LYMPHOCYTES % 32.7 % (20.0-50.0); MEAN PLATELET VOLUME 7.2 fl (7.4-10.4); MONOCYTES % 10.1 % (2.0-8.0); NEUTROPHILS % 55.7 % (40.0-76.0); PLATELET 348 x1000/uL (130-400); RED BLOOD CELL COUNT 3.32 mill/uL (4.2-5.4); RED CELL DISTRIBUTION WIDTH 19.4 % (11.6-14.6)
[2019-07-15 08:00] VITALS: BP 129/63
[2019-07-15] MEDS: INSULIN LISPRO 100 UNITS/ML SUBCUT SCH ×4 (08:10→13:10)
[2019-07-15] MEDS: FUROSEMIDE 20MG TABLET PO SCH (09:06)
[2019-07-15] MEDS: ASPIRIN 81MG EC TABLET PO SCH (09:06)
[2019-07-15] MEDS: MESALAMINE 400 MG CAPSULE.DR PO SCH ×2 (09:06→13:25)
[2019-07-15] MEDS: PANTOPRAZOLE 40MG DR TABLET PO SCH (09:06)
[2019-07-15] MEDS: DOCUSATE SODIUM 250MG CAPSULE PO SCH (09:06)
[2019-07-15] MEDS: METOCLOPRAMIDE HCL 5MG TABLET PO SCH ×2 (09:06→13:26)
[2019-07-15] MEDS: CARVEDILOL 6.25 MG TABLET PO SCH (09:07)
[2019-07-15] MEDS: MORPHINE SULFATE 2 MG/ML CPJ (NOT FOR IM USE) IV PRN (09:45)
[2019-07-15] MEDS: INSULIN GLARGINE UD 100 UNITS/ML SYR SUBCUT SCH (10:34)
[2019-07-15 12:00] VITALS: BP 150/84
[2019-07-15] MEDS ORDERED: SODIUM POLYSTYRENE SULFONATE 15 G/60 ML BOT PO NR (12:00)
[2019-07-15] MEDS: DEXTROSE 50% WATER 50ML SYRINGE IV PRN (12:03)
[2019-07-15] MEDS ORDERED: INSU100C6 SQ (14:22)
[2019-07-15] MEDS ORDERED: LANTUSUD SUBCUT (14:22)
[2019-07-15] MEDS ORDERED: INSU100V40 SUBCUT (14:32)
[2019-07-15] MEDS ORDERED: INSU100I28 SQ (14:32)
[2019-07-15 15:52] VITALS: BP 159/77
[2019-07-15 22:18] LABS: HEPATITIS B SURFACE ANTIGEN NEGATIVE
[2019-07-15 22:43] LABS: HEPATITIS A AB IGM NEGATIVE (NEGATIVE)
[2019-07-24] MEDS ORDERED: HYDR-4135 MT (00:28)
[2019-08-11] MEDS ORDERED: FURO40TA5 MT (11:25)
[2019-11-03] MEDS ORDERED: FLUC100T PO (14:30)
[2019-11-03] MEDS ORDERED: HYDR-4001 MT (15:32)
== END 2019-07-15 17:36 | disposition home or self-care (01) | DRG 245 ==
LOC: ER 14:04 → 7WST 07-11 02:51 → ENRESERV 07-11 08:16
PROVIDERS: ADMIT Internal Medicine; ATTEND Internal Medicine
DX: K50.90 Crohn's disease, unspecified, without complications (principal); I50.23 Acute on chronic systolic (congestive) heart failure; N17.9 Acute kidney failure, unspecified; J91.8 Pleural effusion in other conditions classified elsewhere; E11.22 Type 2 diabetes mellitus with diabetic chronic kidney disease; E83.42 Hypomagnesemia; I27.20 Pulmonary hypertension, unspecified; E11.65 Type 2 diabetes mellitus with hyperglycemia; K31.84 Gastroparesis; E11.43 Type 2 diabetes mellitus with diabetic autonomic (poly)neuropathy; K31.9 Disease of stomach and duodenum, unspecified; I13.0 Hypertensive heart and chronic kidney disease with heart failure and stage 1 through stage 4 chronic kidney disease, or unspecified chronic kidney disease; D25.9 Leiomyoma of uterus, unspecified; I16.0 Hypertensive urgency; I35.1 Nonrheumatic aortic (valve) insufficiency; R16.0 Hepatomegaly, not elsewhere classified; R18.8 Other ascites; E80.6 Other disorders of bilirubin metabolism; I20.8 Other forms of angina pectoris; E87.1 Hypo-osmolality and hyponatremia; D50.9 Iron deficiency anemia, unspecified; E78.5 Hyperlipidemia, unspecified; K76.0 Fatty (change of) liver, not elsewhere classified; N18.9 Chronic kidney disease, unspecified; Z90.49 Acquired absence of other specified parts of digestive tract; Z79.4 Long term (current) use of insulin; Z79.899 Other long term (current) drug therapy; Z98.51 Tubal ligation status; Z79.82 Long term (current) use of aspirin
CPT/HCPCS: 36415; 71045; 74176; 76700; 80048; 80053; 80061; 80305; 80320; 81003; 82270; 82607; 82728; 82746; 82962; 83540; 83550; 84484; 85025; 86705; 86709; 86803; 87340; 93005; 93970; 96374; 99291; J0360; J1815; J1940; J2270; J2405; J8597; G0480

== ENCOUNTER 2019-08-18 11:59 | Emergency (ER) | payer MEDICAID ==
[~2019-08-18] VITALS: Ht 165.1 cm; Wt 80.0 kg
[~2019-08-18 11:59] MED LIST changes: -FURO-152 MT; +FURO40TA5 MT; -INSU100C6 SQ; +INSU100V40 SUBCUT
[2019-08-18] MEDS ORDERED: ONDANSETRON HCL 4MG/2ML INJ IV STA (12:41)
[2019-08-18] MEDS ORDERED: MORPHINE SULFATE 4 MG/ML CPJ (NOT FOR IM USE) IV STA (12:41)
[2019-08-18 13:07] LABS: BASOPHILS % 0.9 % (0.0-2.0); EOSINOPHILS % 0.3 % (0.0-5.0); HEMATOCRIT. 24.7 % (36.0-48.0); HEMOGLOBIN. 7.8 g/dL (12.0-16.0); LYMPHOCYTES % 31.6 % (20.0-50.0); MEAN CORPUSCULAR HEMOGLOBIN 26.7 pg (28.0-32.0); MEAN CORPUSCULAR VOLUME 84.8 fL (81.0-99.0); MEAN PLATELET VOLUME 7.4 fl (7.4-10.4); MONOCYTES % 11.5 % (2.0-8.0); NEUTROPHILS % 55.7 % (40.0-76.0); PLATELET 368 x1000/uL (130-400); RED BLOOD CELL COUNT 2.91 mill/uL (4.2-5.4); RED CELL DISTRIBUTION WIDTH 20.9 % (11.6-14.6)
[2019-08-18 13:15] LABS: CHLORIDE 111 mEq/L (98-107); INR 1.2
[2019-08-18 14:09] VITALS: BP 188/92
== END 2019-08-18 14:17 | disposition home or self-care (01) ==
LOC: ER 11:59
DX: R10.32 Left lower quadrant pain (principal); R19.7 Diarrhea, unspecified; R30.0 Dysuria
CPT/HCPCS: 36415; 74176; 80053; 83690; 85025; 85610; 96374; 96375; 99284; J2270; J2405

== ENCOUNTER 2019-08-27 15:33 | Inpatient (IN) | payer MEDICAID ==
[~2019-08-27] VITALS: Ht 165.1 cm; Wt 73.0 kg
[2019-08-27] MEDS ORDERED: KETOROLAC 30MG/ML VIAL IV STA (17:07)
[2019-08-27] MEDS ORDERED: FAMOTIDINE 20MG/2ML VIAL IV STA (17:07)
[2019-08-27] MEDS ORDERED: MORPHINE SULFATE 4 MG/ML CPJ (NOT FOR IM USE) IV STA (17:07)
[2019-08-27] MEDS ORDERED: ONDANSETRON HCL 4MG/2ML INJ IV STA (17:07)
[2019-08-27] MEDS ORDERED: SODIUM CHLORIDE 0.9% 1,000 ML IV ONE (17:07)
[2019-08-27 17:47] LABS: BASOPHILS % 0.4 % (0.0-2.0); EOSINOPHILS % 0.5 % (0.0-5.0); HEMATOCRIT. 28.2 % (36.0-48.0); HEMOGLOBIN. 8.7 g/dL (12.0-16.0); LYMPHOCYTES % 21.6 % (20.0-50.0); MEAN CORPUSCULAR HEMOGLOBIN 26.2 pg (28.0-32.0); MEAN CORPUSCULAR VOLUME 84.4 fL (81.0-99.0); MEAN PLATELET VOLUME 7.2 fl (7.4-10.4); MONOCYTES % 7.2 % (2.0-8.0); NEUTROPHILS % 70.3 % (40.0-76.0); PLATELET 408 x1000/uL (130-400); RED BLOOD CELL COUNT 3.34 mill/uL (4.2-5.4); RED CELL DISTRIBUTION WIDTH 21.4 % (11.6-14.6)
[2019-08-27 17:50] LABS: CHLORIDE 111 mEq/L (98-107)
[2019-08-27 17:53] LABS: INR 1.3; PROTHROMBIN TIME 13.9 sec (9.6-11.0)
[2019-08-27 17:54] LABS: ETHANOL BLOOD < 10 mg/dL
[2019-08-27] MEDS ORDERED: NITROGLYCERIN OINT 1GM/INCH UDPKT TD ONE (20:00)
[2019-08-27] MEDS ORDERED: HYDRALAZINE 20MG/ML VIAL IV PRN ×2 (21:30→21:45)
[2019-08-27 21:37] LABS: CLARITY URINE CLOUDY (CLEAR); COLOR URINE DK YELLOW (YELLOW); KETONES URINE NEGATIVE (NEGATIVE); LEUKOCYTE ESTERASE URINE NEGATIVE (NEGATIVE); NITRITE URINE NEGATIVE (NEGATIVE); OCCULT BLOOD URINE TRACE (NEGATIVE); PH URINE 5.5 (4.5-8.0); PROTEIN URINE 3+ (NEGATIVE); SPECIFIC GRAVITY URINE 1.022 (1.005-1.030)
[2019-08-27] MEDS: MORPHINE SULFATE 2 MG/ML CPJ (NOT FOR IM USE) IV PRN (21:43)
[2019-08-27] MEDS: ONDANSETRON HCL 4MG/2ML INJ IV PRN (21:44)
[2019-08-27 21:56] LABS: *AMPHETAMINES SCREEN URINE NEGATIVE (NEGATIVE); *BARBITURATES SCREEN URINE NEGATIVE (NEGATIVE); *BENZODIAZEPINES SCREEN URINE NEGATIVE (NEGATIVE); *COCAINE SCREEN URINE NEGATIVE (NEGATIVE)
[2019-08-27 21:57] LABS: CANNABINOID URINE SCREEN NEGATIVE (NEGATIVE); METHADONE URINE SCREEN NEGATIVE (NEGATIVE); OPIATES URINE SCREEN PRESUMTIVE POSITIVE (NEGATIVE); PHENCYCLIDINE URINE SCREEN NEGATIVE (NEGATIVE)
[2019-08-27] MEDS ORDERED: ACETAMINOPHEN 325MG TABLET PO PRN (23:00)
[2019-08-27] MEDS ORDERED: IPRATROPIUM/ALBUTEROL 0.5-3(2.5)MG/3ML NEB NEB PRN (23:00)
[2019-08-27] MEDS ORDERED: ONDANSETRON HCL 4MG/2ML INJ IV PRN (23:00)
[2019-08-27] MEDS ORDERED: MAGNESIUM/ALUMINUM HYDROXIDE/SIMETHICONE 30ML UDC PO PRN (23:00)
[2019-08-27 23:27] VITALS: BP 155/78
[2019-08-28] VITALS: BP 170/90
[2019-08-28] MEDS ORDERED: CEFTRIAXONE 1 G PREMIX 50 ML IV SCH
[2019-08-28] MEDS: CLONIDINE 0.1MG TABLET PO PRN (01:04)
[2019-08-28] MEDS: METRONIDAZOLE 500 MG PREMIX 100 ML IV SCH ×2 (01:05→08:23)
[2019-08-28] MEDS: MORPHINE SULFATE 2 MG/ML CPJ (NOT FOR IM USE) IV PRN ×4 (02:23→22:48)
[2019-08-28] MEDS ORDERED: DEXTROSE 50% WATER 50ML SYRINGE IV PRN (03:00)
[2019-08-28 04:00] VITALS: BP 135/77
[2019-08-28 06:27] LABS: LDL CHOLESTEROL 29 mg/dL (5-100)
[2019-08-28 06:29] LABS: HDL CHOLESTEROL 36 mg/dL (40-59)
[2019-08-28 06:30] LABS: CREATINE KINASE MB FRACTION 3.3 ng/mL (0.5-3.6)
[2019-08-28 06:33] LABS: CREATINE KINASE 85 IU/L (26-192)
[2019-08-28] MEDS: BLOOD SUGAR DIAGNOSTIC STRIP TEST SCH ×4 (06:47→21:43)
[2019-08-28] MEDS: INSULIN LISPRO 100 UNITS/ML SUBCUT SCH ×6 (06:47→21:00)
[2019-08-28 06:54] LABS: BASOPHILS % 0.3 % (0.0-2.0); EOSINOPHILS % 0.8 % (0.0-5.0); HEMATOCRIT. 23.8 % (36.0-48.0); HEMOGLOBIN. 7.6 g/dL (12.0-16.0); LYMPHOCYTES % 30.9 % (20.0-50.0); MEAN CORPUSCULAR HEMOGLOBIN 27.1 pg (28.0-32.0); MEAN CORPUSCULAR VOLUME 84.5 fL (81.0-99.0); MEAN PLATELET VOLUME 7.3 fl (7.4-10.4); MONOCYTES % 9.5 % (2.0-8.0); NEUTROPHILS % 58.5 % (40.0-76.0); PLATELET 336 x1000/uL (130-400); RED BLOOD CELL COUNT 2.82 mill/uL (4.2-5.4)
[2019-08-28 08:00] VITALS: BP 141/83
[2019-08-28 12:00] VITALS: BP 159/93
[2019-08-28] MEDS ORDERED: CARVEDILOL 6.25 MG TABLET PO SCH (12:00)
[2019-08-28] MEDS: SUCRALFATE 1G TABLET PO SCH ×3 (12:20→21:42)
[2019-08-28] MEDS: ASPIRIN 81MG EC TABLET PO SCH (12:20)
[2019-08-28] MEDS: FUROSEMIDE 40MG/4ML VIAL IV SCH ×2 (12:20→17:24)
[2019-08-28] MEDS: PANTOPRAZOLE 40MG DR TABLET PO SCH (12:21)
[2019-08-28] MEDS: METOCLOPRAMIDE HCL 5MG TABLET PO SCH ×3 (12:21→21:43)
[2019-08-28] MEDS: MESALAMINE 400 MG CAPSULE.DR PO SCH ×2 (12:21→17:24)
[2019-08-28] MEDS: GABAPENTIN 100MG CAPSULE PO SCH ×2 (13:49→21:44)
[2019-08-28] MEDS: VERAPAMIL HCL 80 MG TABLET PO SCH ×2 (13:49→21:43)
[2019-08-28] MEDS: HYDRALAZINE HCL 50MG TABLET PO SCH ×2 (13:49→21:44)
[2019-08-28 15:19] LABS: CREATINE KINASE 82 IU/L (26-192)
[2019-08-28 15:21] LABS: CREATINE KINASE MB FRACTION 3.1 ng/mL (0.5-3.6)
[2019-08-28 16:00] VITALS: BP 104/70
[2019-08-28] MEDS: ONDANSETRON HCL 4MG/2ML INJ IV PRN (17:24)
[2019-08-28 18:57] LABS: TOTAL IRON BINDING CAPACITY 335 ug/dL (250-450)
[2019-08-28 19:39] LABS: FERRITIN 56 ng/mL (10-291)
[2019-08-28 19:46] LABS: VITAMIN B12 SERUM 1090 pg/mL (211-911)
[2019-08-28] MEDS: ATORVASTATIN CALCIUM 10MG TABLET PO SCH (21:42)
[2019-08-28 22:00] VITALS: BP 117/69
[2019-08-29] VITALS (8 sets, daily range): BP systolic 101–135; BP diastolic 62–83
[2019-08-29] MEDS: VERAPAMIL HCL 80 MG TABLET PO SCH ×3 (06:00→21:30)
[2019-08-29] MEDS: SUCRALFATE 1G TABLET PO SCH ×4 (06:21→21:29)
[2019-08-29] MEDS: PANTOPRAZOLE 40MG DR TABLET PO SCH (06:21)
[2019-08-29] MEDS: GABAPENTIN 100MG CAPSULE PO SCH ×3 (06:21→21:23)
[2019-08-29] MEDS: HYDRALAZINE HCL 50MG TABLET PO SCH ×3 (06:23→21:23)
[2019-08-29] MEDS: BLOOD SUGAR DIAGNOSTIC STRIP TEST SCH ×4 (06:25→21:23)
[2019-08-29] MEDS: INSULIN LISPRO 100 UNITS/ML SUBCUT SCH ×7 (06:25→21:00)
[2019-08-29 06:53] LABS: BASOPHILS % 0.3 % (0.0-2.0); EOSINOPHILS % 0.7 % (0.0-5.0); HEMATOCRIT. 25.4 % (36.0-48.0); HEMOGLOBIN. 7.9 g/dL (12.0-16.0); LYMPHOCYTES % 23.2 % (20.0-50.0); MEAN CORPUSCULAR HEMOGLOBIN 26.3 pg (28.0-32.0); MEAN CORPUSCULAR VOLUME 84.5 fL (81.0-99.0); MEAN PLATELET VOLUME 7.6 fl (7.4-10.4); MONOCYTES % 8.7 % (2.0-8.0); NEUTROPHILS % 67.1 % (40.0-76.0); PLATELET 349 x1000/uL (130-400); RED BLOOD CELL COUNT 3.01 mill/uL (4.2-5.4); RED CELL DISTRIBUTION WIDTH 20.8 % (11.6-14.6)
[2019-08-29 08:07] LABS: PHOSPHORUS 3.8 mg/dL (2.5-4.9)
[2019-08-29] MEDS: MESALAMINE 400 MG CAPSULE.DR PO SCH ×3 (09:23→17:22)
[2019-08-29] MEDS: FUROSEMIDE 40MG/4ML VIAL IV SCH ×2 (09:23→17:22)
[2019-08-29] MEDS: METOCLOPRAMIDE HCL 5MG TABLET PO SCH ×4 (09:24→21:20)
[2019-08-29] MEDS: METOLAZONE 5MG TABLET PO SCH (09:24)
[2019-08-29] MEDS: INSULIN GLARGINE UD 100 UNITS/ML SYR SUBCUT SCH (09:24)
[2019-08-29] MEDS: ASPIRIN 81MG EC TABLET PO SCH (09:24)
[2019-08-29] MEDS: MORPHINE SULFATE 2 MG/ML CPJ (NOT FOR IM USE) IV PRN ×2 (11:02→21:24)
[2019-08-29] MEDS ORDERED: MAGNESIUM 4 G PREMIX 100 ML IV NR (13:00)
[2019-08-29] MEDS: IRON SUCROSE COMPLEX 100 MG/5 ML ML IV SCH (13:46)
[2019-08-29] MEDS: ATORVASTATIN CALCIUM 10MG TABLET PO SCH (21:23)
[2019-08-30] VITALS: BP 134/76
[2019-08-30 04:00] VITALS: BP 151/79
[2019-08-30] MEDS: VERAPAMIL HCL 80 MG TABLET PO SCH ×2 (06:06→13:47)
[2019-08-30] MEDS: PANTOPRAZOLE 40MG DR TABLET PO SCH (06:06)
[2019-08-30] MEDS: GABAPENTIN 100MG CAPSULE PO SCH ×2 (06:06→13:47)
[2019-08-30] MEDS: SUCRALFATE 1G TABLET PO SCH ×2 (06:06→12:08)
[2019-08-30] MEDS: HYDRALAZINE HCL 50MG TABLET PO SCH (06:07)
[2019-08-30] MEDS: INSULIN LISPRO 100 UNITS/ML SUBCUT SCH ×4 (06:08→12:07)
[2019-08-30] MEDS: BLOOD SUGAR DIAGNOSTIC STRIP TEST SCH ×2 (06:08→12:07)
[2019-08-30 07:32] LABS: BASOPHILS % 0.3 % (0.0-2.0); EOSINOPHILS % 0.5 % (0.0-5.0); HEMATOCRIT. 25.4 % (36.0-48.0); HEMOGLOBIN. 8.1 g/dL (12.0-16.0); LYMPHOCYTES % 15.7 % (20.0-50.0); MEAN CORPUSCULAR HEMOGLOBIN 26.9 pg (28.0-32.0); MEAN CORPUSCULAR VOLUME 83.9 fL (81.0-99.0); MEAN PLATELET VOLUME 7.4 fl (7.4-10.4); MONOCYTES % 9.1 % (2.0-8.0); NEUTROPHILS % 74.4 % (40.0-76.0); PLATELET 382 x1000/uL (130-400); RED BLOOD CELL COUNT 3.03 mill/uL (4.2-5.4); RED CELL DISTRIBUTION WIDTH 20.5 % (11.6-14.6)
[2019-08-30 08:00] VITALS: BP 167/89
[2019-08-30] MEDS: IRON SUCROSE COMPLEX 100 MG/5 ML ML IV SCH (08:30)
[2019-08-30] MEDS: METOLAZONE 5MG TABLET PO SCH (08:31)
[2019-08-30] MEDS: METOCLOPRAMIDE HCL 5MG TABLET PO SCH ×2 (08:31→12:08)
[2019-08-30] MEDS: MESALAMINE 400 MG CAPSULE.DR PO SCH ×2 (08:31→12:08)
[2019-08-30] MEDS: FUROSEMIDE 40MG/4ML VIAL IV SCH (08:31)
[2019-08-30] MEDS: ASPIRIN 81MG EC TABLET PO SCH (08:38)
[2019-08-30] MEDS: MORPHINE SULFATE 2 MG/ML CPJ (NOT FOR IM USE) IV PRN (08:39)
[2019-08-30] MEDS: CLONIDINE 0.1MG TABLET PO PRN (09:01)
[2019-08-30] MEDS: INSULIN GLARGINE UD 100 UNITS/ML SYR SUBCUT SCH (09:02)
[2019-08-30 12:00] VITALS: BP 126/72
[2019-08-30] MEDS ORDERED: HYDRALAZINE HCL 100MG TABLET PO SCH (12:15)
[2019-08-30] MEDS ORDERED: METO5TAB7 PO (13:04)
[2019-08-30] MEDS ORDERED: HYDR100T26 PO (13:04)
[2019-08-30 14:04] VITALS: BP 126/72
[2019-08-30 16:00] VITALS: BP 103/61
[2019-08-31] MEDS ORDERED: FAMOTIDINE 20MG TABLET PO SCH (09:00)
[2019-09-01 09:06] LABS: FOLATE HEMATOCRIT 28.4 % (34.0-46.6)
[2019-09-02 13:10] LABS: FOLATE RBC 2074 ng/mL (>498)
== END 2019-08-30 16:30 | disposition home or self-care (01) | DRG 245 ==
LOC: ER 15:33 → 5WST 19:56 → EDBEDREQTM 19:58 → EDBEDREQ 19:58 → ENRESERV 20:42 → UNDODISIN 08-30 15:50
PROVIDERS: ADMIT Internal Medicine; ATTEND Internal Medicine
DX: K50.90 Crohn's disease, unspecified, without complications (principal); I50.23 Acute on chronic systolic (congestive) heart failure; E11.22 Type 2 diabetes mellitus with diabetic chronic kidney disease; I27.20 Pulmonary hypertension, unspecified; K31.84 Gastroparesis; E11.43 Type 2 diabetes mellitus with diabetic autonomic (poly)neuropathy; I31.3 Pericardial effusion (noninflammatory); I13.0 Hypertensive heart and chronic kidney disease with heart failure and stage 1 through stage 4 chronic kidney disease, or unspecified chronic kidney disease; R16.0 Hepatomegaly, not elsewhere classified; R18.8 Other ascites; D50.9 Iron deficiency anemia, unspecified; E78.5 Hyperlipidemia, unspecified; E87.6 Hypokalemia; I16.1 Hypertensive emergency; K76.0 Fatty (change of) liver, not elsewhere classified; N18.9 Chronic kidney disease, unspecified; I35.1 Nonrheumatic aortic (valve) insufficiency; K31.9 Disease of stomach and duodenum, unspecified; R82.71 Bacteriuria; D25.9 Leiomyoma of uterus, unspecified; Z98.51 Tubal ligation status; Z90.49 Acquired absence of other specified parts of digestive tract; Z79.4 Long term (current) use of insulin; Z79.84 Long term (current) use of oral hypoglycemic drugs; Z79.82 Long term (current) use of aspirin; Z79.899 Other long term (current) drug therapy
CPT/HCPCS: 36415; 71045; 74176; 80048; 80053; 80061; 80076; 80305; 80320; 81003; 82270; 82550; 82553; 82607; 82728; 82747; 82962; 83036; 83540; 83550; 83735; 83880; 84100; 84484; 85014; 85025; 87015; 87045; 87427; 87449; 87493; 89055; 93005; 99285; J0360; J0696; J1815; J1885; J1940; J2270; J2405; J3475; J3490; J7030; J8597; G0480

== ENCOUNTER 2019-09-17 20:12 | Emergency (ER) | payer MEDICAID ==
[~2019-09-17] VITALS: Ht 165.1 cm; Wt 65.3 kg
[~2019-09-17 20:12] MED LIST changes: -COR6 PO; -HYDR-4135 PO; +HYDR100T26 PO; +METO5TAB7 PO
[2019-09-17] MEDS ORDERED: SODIUM CHLORIDE 0.9% 1,000 ML IV ONE (21:51)
[2019-09-17] MEDS ORDERED: KETOROLAC 30MG/ML VIAL IV STA (21:51)
[2019-09-17] MEDS ORDERED: ONDANSETRON HCL 4MG/2ML INJ IV STA (21:51)
[2019-09-17 22:33] LABS: BASOPHILS % 0.6 % (0.0-2.0); EOSINOPHILS % 0.6 % (0.0-5.0); HEMATOCRIT. 29.1 % (36.0-48.0); HEMOGLOBIN. 9.3 g/dL (12.0-16.0); LYMPHOCYTES % 30.6 % (20.0-50.0); MEAN CORPUSCULAR HEMOGLOBIN 27.1 pg (28.0-32.0); MEAN CORPUSCULAR VOLUME 85.4 fL (81.0-99.0); MEAN PLATELET VOLUME 7.1 fl (7.4-10.4); NEUTROPHILS % 59.2 % (40.0-76.0); PLATELET 330 x1000/uL (130-400); RED BLOOD CELL COUNT 3.41 mill/uL (4.2-5.4); RED CELL DISTRIBUTION WIDTH 21.3 % (11.6-14.6)
[2019-09-17 22:38] LABS: CHLORIDE 105 mEq/L (98-107)
[2019-09-18] MEDS ORDERED: CLONIDINE 0.1MG TABLET PO SCH (00:15)
[2019-09-18 00:20] VITALS: BP 195/101
== END 2019-09-18 01:23 | disposition home or self-care (01) ==
LOC: ER 20:12
DX: R10.84 Generalized abdominal pain (principal); R11.2 Nausea with vomiting, unspecified; I11.0 Hypertensive heart disease with heart failure; I50.9 Heart failure, unspecified; E11.9 Type 2 diabetes mellitus without complications; Z90.49 Acquired absence of other specified parts of digestive tract; Z98.51 Tubal ligation status; Z79.82 Long term (current) use of aspirin; Z79.899 Other long term (current) drug therapy
CPT/HCPCS: 36415; 74022; 80053; 83690; 83880; 84484; 85025; 93005; 96361; 96374; 96375; 99285; J1885; J2405; J7030

== ENCOUNTER 2019-10-16 10:58 | Emergency (ER) | payer MEDICAID, OTHER ==
[~2019-10-16] VITALS: Ht 165.1 cm; Wt 85.0 kg
[2019-10-16] MEDS ORDERED: ONDANSETRON HCL 4MG/2ML INJ IV STA ×2 (12:37→16:00)
[2019-10-16] MEDS ORDERED: KETOROLAC 30MG/ML VIAL IV STA (12:37)
[2019-10-16] MEDS ORDERED: HYDRALAZINE 20MG/ML VIAL IV ONE ×2 (12:45→16:15)
[2019-10-16 12:47] LABS: BASOPHILS % 0.4 % (0.0-2.0); EOSINOPHILS % 0.1 % (0.0-5.0); HEMOGLOBIN. 10.1 g/dL (12.0-16.0); LYMPHOCYTES % 25.9 % (20.0-50.0); MEAN CORPUSCULAR HEMOGLOBIN 27.4 pg (28.0-32.0); MEAN CORPUSCULAR VOLUME 84.4 fL (81.0-99.0); MEAN PLATELET VOLUME 7.3 fl (7.4-10.4); MONOCYTES % 4.9 % (2.0-8.0); NEUTROPHILS % 68.7 % (40.0-76.0); PLATELET 531 x1000/uL (130-400); RED BLOOD CELL COUNT 3.68 mill/uL (4.2-5.4); RED CELL DISTRIBUTION WIDTH 20.1 % (11.6-14.6)
[2019-10-16 12:48] LABS: CHLORIDE 112 mEq/L (98-107)
[2019-10-16 12:51] LABS: INR 1.2; PROTHROMBIN TIME 13.3 sec (9.6-11.0)
[2019-10-16 12:53] LABS: ETHANOL BLOOD < 10 mg/dL
[2019-10-16] MEDS ORDERED: FUROSEMIDE 40MG/4ML VIAL IV ONE (14:45)
[2019-10-16] MEDS ORDERED: ASPIRIN 81MG TABLET PO ONE (14:45)
[2019-10-16] MEDS ORDERED: MORPHINE SULFATE 4 MG/ML CPJ (NOT FOR IM USE) IV STA (16:00)
[2019-10-16] MEDS ORDERED: NITROGLYCERIN 0.4MG TABLET SL SL ONE (16:45)
[2019-10-16] MEDS ORDERED: FUROSEMIDE 40MG/4ML VIAL IVP ONE (16:45)
[2019-10-16 19:59] VITALS: BP 156/94
[2019-11-03] MEDS ORDERED: FLUC100T PO (14:30)
[2019-11-03] MEDS ORDERED: HYDR-4001 MT (15:32)
== END 2019-10-16 20:40 | disposition short-term general hospital (02) ==
LOC: ER 10:58
DX: I11.0 Hypertensive heart disease with heart failure (principal); I50.9 Heart failure, unspecified; R10.33 Periumbilical pain; E11.9 Type 2 diabetes mellitus without complications; I10 Essential (primary) hypertension; Z79.82 Long term (current) use of aspirin; Z79.4 Long term (current) use of insulin; Z79.899 Other long term (current) drug therapy
CPT/HCPCS: 36415; 71045; 74176; 80053; 80320; 82962; 83690; 84484; 85025; 85610; 93005; 96374; 96375; 96376; 99285; J0360; J1885; J1940; J2270; J2405; Z7610; G0480

== ENCOUNTER 2019-11-23 18:04 | Inpatient (IN) | payer OTHER ==
[~2019-11-23] VITALS: Ht 165.1 cm; Wt 71.2 kg
[~2019-11-23 18:04] MED LIST changes: +HYDR-4001 MT
[2019-11-23] MEDS ORDERED: ONDANSETRON HCL 4MG/2ML INJ IV STA ×2 (21:57→22:41)
[2019-11-23] MEDS ORDERED: MORPHINE SULFATE 4 MG/ML CPJ (NOT FOR IM USE) IV STA (22:41)
[2019-11-23 23:01] LABS: BASOPHILS % 1.4 % (0.0-2.0); EOSINOPHILS % 0.7 % (0.0-5.0); HEMATOCRIT. 28.2 % (36.0-48.0); HEMOGLOBIN. 9.4 g/dL (12.0-16.0); LYMPHOCYTES % 22.1 % (20.0-50.0); MEAN CORPUSCULAR HEMOGLOBIN 27.9 pg (28.0-32.0); MEAN CORPUSCULAR VOLUME 83.8 fL (81.0-99.0); MEAN PLATELET VOLUME 7.3 fl (7.4-10.4); MONOCYTES % 7.1 % (2.0-8.0); NEUTROPHILS % 68.7 % (40.0-76.0); PLATELET 448 x1000/uL (130-400); RED BLOOD CELL COUNT 3.36 mill/uL (4.2-5.4); RED CELL DISTRIBUTION WIDTH 20.3 % (11.6-14.6)
[2019-11-23 23:03] LABS: CHLORIDE 106 mEq/L (98-107)
[2019-11-24] MEDS ORDERED: HYDRALAZINE HCL 50MG TABLET PO ONE (00:15)
[2019-11-24] MEDS: ASPIRIN 325MG EC TABLET PO NR ×2 (00:42→00:49)
[2019-11-24] MEDS: FUROSEMIDE 40MG/4ML VIAL IVP NR ×2 (00:42→00:49)
[2019-11-24] MEDS ORDERED: KETOROLAC 15MG/ML VIAL IV ONE (02:30)
[2019-11-24 11:26] LABS: TOTAL IRON BINDING CAPACITY 119 ug/dL (250-450)
[2019-11-24] MEDS ORDERED: ONDANSETRON HCL 4MG/2ML INJ IV PRN (16:30)
[2019-11-24] MEDS ORDERED: DOCUSATE SODIUM 100MG CAPSULE PO PRN (16:30)
[2019-11-24] MEDS ORDERED: ACETAMINOPHEN 325MG TABLET PO PRN (16:30)
[2019-11-24] MEDS ORDERED: IPRATROPIUM/ALBUTEROL 0.5-3(2.5)MG/3ML NEB HHN PRN (16:30)
[2019-11-24] MEDS ORDERED: HYDROCODONE/ACETAMINOPHEN 5/325MG TABLET PO PRN (16:30)
[2019-11-24] MEDS: PANTOPRAZOLE 40MG DR TABLET PO SCH (17:05)
[2019-11-24] MEDS: METOCLOPRAMIDE HCL 5MG TABLET PO SCH ×2 (17:05→21:37)
[2019-11-24] MEDS: FUROSEMIDE 40MG/4ML VIAL IVP SCH (17:05)
[2019-11-24] MEDS: METOLAZONE 5MG TABLET PO SCH (17:05)
[2019-11-24] MEDS: MESALAMINE 400 MG CAPSULE.DR PO SCH (17:05)
[2019-11-24] MEDS: SUCRALFATE 1G TABLET PO SCH ×2 (17:05→22:05)
[2019-11-24] MEDS: INSULIN LISPRO 100 UNITS/ML SUBCUT SCH (17:50)
[2019-11-24] MEDS: HYDRALAZINE HCL 100MG TABLET PO SCH (21:50)
[2019-11-24] MEDS: ATORVASTATIN CALCIUM 10MG TABLET PO SCH (21:50)
[2019-11-24] MEDS: GABAPENTIN 100MG CAPSULE PO SCH (22:05)
[2019-11-24] MEDS: MORPHINE SULFATE 2 MG/ML CPJ (NOT FOR IM USE) IV PRN (23:31)
[2019-11-25 05:22] LABS: EOSINOPHILS % 0.8 % (0.0-5.0); HEMATOCRIT. 27.3 % (36.0-48.0); LYMPHOCYTES % 22.7 % (20.0-50.0); MEAN CORPUSCULAR HEMOGLOBIN 27.5 pg (28.0-32.0); MEAN CORPUSCULAR VOLUME 84.1 fL (81.0-99.0); MEAN PLATELET VOLUME 7.1 fl (7.4-10.4); NEUTROPHILS % 66.5 % (40.0-76.0); PLATELET 403 x1000/uL (130-400); RED BLOOD CELL COUNT 3.25 mill/uL (4.2-5.4); RED CELL DISTRIBUTION WIDTH 19.9 % (11.6-14.6)
[2019-11-25] MEDS ORDERED: INSULIN GLARGINE UD 100 UNITS/ML SYR SUBCUT SCH (09:00)
[2019-11-25] MEDS: GABAPENTIN 100MG CAPSULE PO SCH ×3 (11:14→21:20)
[2019-11-25] MEDS: MESALAMINE 400 MG CAPSULE.DR PO SCH ×3 (11:15→18:05)
[2019-11-25] MEDS: SUCRALFATE 1G TABLET PO SCH ×4 (11:15→21:20)
[2019-11-25] MEDS: PANTOPRAZOLE 40MG DR TABLET PO SCH (11:16)
[2019-11-25] MEDS: FUROSEMIDE 40MG/4ML VIAL IVP SCH (11:16)
[2019-11-25] MEDS: HYDRALAZINE HCL 100MG TABLET PO SCH ×2 (11:16→18:06)
[2019-11-25] MEDS: METOLAZONE 5MG TABLET PO SCH (11:19)
[2019-11-25] MEDS: METOCLOPRAMIDE HCL 5MG TABLET PO SCH ×4 (11:20→21:20)
[2019-11-25] MEDS: INSULIN LISPRO 100 UNITS/ML SUBCUT SCH ×3 (11:30→21:00)
[2019-11-25] MEDS: MORPHINE SULFATE 2 MG/ML CPJ (NOT FOR IM USE) IV PRN ×3 (11:48→21:54)
[2019-11-25 13:30] VITALS: BP 172/86
[2019-11-25] MEDS ORDERED: AMLODIPINE 5MG TABLET PO SCH (14:15)
[2019-11-25 16:00] VITALS: BP 148/81
[2019-11-25] MEDS ORDERED: INSULIN GLARGINE UD 100 UNITS/ML SYR SUBCUT NR (16:00)
[2019-11-25] MEDS: NIFEDIPINE XL 60MG TAB PO SCH (16:14)
[2019-11-25] MEDS ORDERED: DEXTROSE 50% WATER 50ML SYRINGE IV PRN (19:30)
[2019-11-25 20:00] VITALS: BP 139/74
[2019-11-25] MEDS ORDERED: IRON SUCROSE COMPLEX 100 MG/5 ML ML IV SCH (20:30)
[2019-11-25] MEDS: BLOOD SUGAR DIAGNOSTIC STRIP TEST SCH (20:51)
[2019-11-25] MEDS: ATORVASTATIN CALCIUM 10MG TABLET PO SCH (21:20)
[2019-11-25] MEDS: LORAZEPAM 0.5MG TABLET PO PRN (21:20)
[2019-11-26] VITALS: BP 102/50
[2019-11-26 04:00] VITALS: BP_SYST 104; BP_SYST 139; BP_DIAS 52; BP_DIAS 85
[2019-11-26] MEDS: BLOOD SUGAR DIAGNOSTIC STRIP TEST SCH ×4 (05:38→20:47)
[2019-11-26] MEDS: GABAPENTIN 100MG CAPSULE PO SCH ×3 (05:55→21:17)
[2019-11-26] MEDS: PANTOPRAZOLE 40MG DR TABLET PO SCH (05:56)
[2019-11-26] MEDS: SUCRALFATE 1G TABLET PO SCH ×4 (05:56→20:48)
[2019-11-26] MEDS: INSULIN LISPRO 100 UNITS/ML SUBCUT SCH ×7 (06:26→21:00)
[2019-11-26 08:00] VITALS: BP 92/60
[2019-11-26] MEDS: HYDRALAZINE HCL 100MG TABLET PO SCH (09:00)
[2019-11-26] MEDS: NIFEDIPINE XL 60MG TAB PO SCH (09:00)
[2019-11-26] MEDS: MESALAMINE 400 MG CAPSULE.DR PO SCH ×3 (09:04→16:59)
[2019-11-26] MEDS: METOCLOPRAMIDE HCL 5MG TABLET PO SCH ×4 (09:04→20:48)
[2019-11-26] MEDS: FUROSEMIDE 40MG/4ML VIAL IVP SCH (09:05)
[2019-11-26] MEDS: METOLAZONE 5MG TABLET PO SCH (09:08)
[2019-11-26 12:00] VITALS: BP 108/62
[2019-11-26] MEDS: HYDRALAZINE HCL 50MG TABLET PO SCH ×2 (13:05→21:25)
[2019-11-26] MEDS: MORPHINE SULFATE 2 MG/ML CPJ (NOT FOR IM USE) IV PRN ×2 (13:10→21:45)
[2019-11-26] MEDS: INSULIN GLARGINE UD 100 UNITS/ML SYR SUBCUT SCH (13:15)
[2019-11-26 16:00] VITALS: BP 120/75
[2019-11-26 20:00] VITALS: BP 122/71
[2019-11-26] MEDS: ATORVASTATIN CALCIUM 10MG TABLET PO SCH (20:48)
[2019-11-26] MEDS: LORAZEPAM 0.5MG TABLET PO PRN (21:17)
[2019-11-27] VITALS: BP 121/67
[2019-11-27 04:00] VITALS: BP 118/70
[2019-11-27] MEDS: BLOOD SUGAR DIAGNOSTIC STRIP TEST SCH ×4 (06:13→19:43)
[2019-11-27] MEDS: INSULIN LISPRO 100 UNITS/ML SUBCUT SCH ×7 (06:13→21:36)
[2019-11-27] MEDS: SUCRALFATE 1G TABLET PO SCH ×4 (06:24→21:33)
[2019-11-27] MEDS: HYDRALAZINE HCL 50MG TABLET PO SCH ×3 (06:24→21:33)
[2019-11-27] MEDS: PANTOPRAZOLE 40MG DR TABLET PO SCH (06:24)
[2019-11-27] MEDS: GABAPENTIN 100MG CAPSULE PO SCH ×3 (06:24→21:33)
[2019-11-27 08:00] VITALS: BP 145/72
[2019-11-27] MEDS: METOCLOPRAMIDE HCL 5MG TABLET PO SCH ×4 (08:34→21:33)
[2019-11-27] MEDS: NIFEDIPINE XL 60MG TAB PO SCH (08:34)
[2019-11-27] MEDS: FUROSEMIDE 40MG/4ML VIAL IVP SCH (08:34)
[2019-11-27] MEDS: METOLAZONE 5MG TABLET PO SCH (08:34)
[2019-11-27] MEDS: MESALAMINE 400 MG CAPSULE.DR PO SCH ×3 (08:34→17:11)
[2019-11-27 09:56] LABS: BASOPHILS % 0.6 % (0.0-2.0); EOSINOPHILS % 1.2 % (0.0-5.0); HEMATOCRIT. 28.3 % (36.0-48.0); HEMOGLOBIN. 9.4 g/dL (12.0-16.0); LYMPHOCYTES % 28.5 % (20.0-50.0); MEAN CORPUSCULAR HEMOGLOBIN 28.2 pg (28.0-32.0); MEAN CORPUSCULAR VOLUME 84.3 fL (81.0-99.0); MONOCYTES % 8.3 % (2.0-8.0); NEUTROPHILS % 61.4 % (40.0-76.0); PLATELET 430 x1000/uL (130-400); RED BLOOD CELL COUNT 3.35 mill/uL (4.2-5.4); RED CELL DISTRIBUTION WIDTH 19.7 % (11.6-14.6)
[2019-11-27] MEDS: INSULIN GLARGINE UD 100 UNITS/ML SYR SUBCUT SCH (10:18)
[2019-11-27 12:00] VITALS: BP 153/83
[2019-11-27 16:00] VITALS: BP 124/66
[2019-11-27] MEDS: MORPHINE SULFATE 2 MG/ML CPJ (NOT FOR IM USE) IV PRN ×2 (16:16→21:42)
[2019-11-27 20:00] VITALS: BP 115/67
[2019-11-27] MEDS: ATORVASTATIN CALCIUM 10MG TABLET PO SCH (21:33)
[2019-11-28] VITALS: BP 120/70
[2019-11-28 04:00] VITALS: BP 111/68
[2019-11-28] MEDS: BLOOD SUGAR DIAGNOSTIC STRIP TEST SCH ×4 (06:23→20:19)
[2019-11-28] MEDS: SUCRALFATE 1G TABLET PO SCH ×4 (06:33→21:03)
[2019-11-28] MEDS: HYDRALAZINE HCL 50MG TABLET PO SCH ×3 (06:33→21:04)
[2019-11-28] MEDS: GABAPENTIN 100MG CAPSULE PO SCH ×3 (06:33→21:03)
[2019-11-28] MEDS: PANTOPRAZOLE 40MG DR TABLET PO SCH (06:33)
[2019-11-28] MEDS: INSULIN LISPRO 100 UNITS/ML SUBCUT SCH ×7 (06:40→21:00)
[2019-11-28 08:00] VITALS: BP 139/77
[2019-11-28] MEDS: METOCLOPRAMIDE HCL 5MG TABLET PO SCH ×4 (08:40→21:04)
[2019-11-28] MEDS: NIFEDIPINE XL 60MG TAB PO SCH (08:40)
[2019-11-28] MEDS: INSULIN GLARGINE UD 100 UNITS/ML SYR SUBCUT SCH (10:09)
[2019-11-28] MEDS: MORPHINE SULFATE 2 MG/ML CPJ (NOT FOR IM USE) IV PRN (10:11)
[2019-11-28 12:00] VITALS: BP 133/76
[2019-11-28 12:33] LABS: CREATINE KINASE 93 IU/L (26-192)
[2019-11-28 19:00] VITALS: BP 111/64
[2019-11-28 19:20] LABS: CLARITY URINE CLEAR (CLEAR); COLOR URINE YELLOW (YELLOW); KETONES URINE NEGATIVE (NEGATIVE); LEUKOCYTE ESTERASE URINE 2+ (NEGATIVE); NITRITE URINE NEGATIVE (NEGATIVE); OCCULT BLOOD URINE NEGATIVE (NEGATIVE); PROTEIN URINE 2+ (NEGATIVE); SPECIFIC GRAVITY URINE 1.018 (1.005-1.030); UROBILINOGEN URINE 0.2 E.U./dL (0.2-1.0)
[2019-11-28 20:00] VITALS: BP 109/69
[2019-11-28 20:34] LABS: BASOPHILS % 1.1 % (0.0-2.0); EOSINOPHILS % 0.9 % (0.0-5.0); HEMATOCRIT. 28.5 % (36.0-48.0); HEMOGLOBIN. 9.2 g/dL (12.0-16.0); LYMPHOCYTES % 24.1 % (20.0-50.0); MEAN CORPUSCULAR HEMOGLOBIN 27.3 pg (28.0-32.0); MEAN CORPUSCULAR VOLUME 84.9 fL (81.0-99.0); MEAN PLATELET VOLUME 7.5 fl (7.4-10.4); MONOCYTES % 9.4 % (2.0-8.0); NEUTROPHILS % 64.5 % (40.0-76.0); PLATELET 432 x1000/uL (130-400); RED BLOOD CELL COUNT 3.35 mill/uL (4.2-5.4); RED CELL DISTRIBUTION WIDTH 20.1 % (11.6-14.6)
[2019-11-28] MEDS: ATORVASTATIN CALCIUM 10MG TABLET PO SCH (21:03)
[2019-11-28] MEDS: LORAZEPAM 0.5MG TABLET PO PRN (22:39)
[2019-11-29] VITALS: BP 111/61
[2019-11-29] MEDS: MORPHINE SULFATE 2 MG/ML CPJ (NOT FOR IM USE) IV PRN ×2 (00:17→19:51)
[2019-11-29 04:00] VITALS: BP 107/65
[2019-11-29] MEDS: HYDRALAZINE HCL 50MG TABLET PO SCH ×3 (05:35→21:52)
[2019-11-29] MEDS: BLOOD SUGAR DIAGNOSTIC STRIP TEST SCH ×4 (06:01→20:34)
[2019-11-29] MEDS: INSULIN LISPRO 100 UNITS/ML SUBCUT SCH ×7 (06:31→20:34)
[2019-11-29 06:52] LABS: BASOPHILS % 0.7 % (0.0-2.0); HEMOGLOBIN. 8.9 g/dL (12.0-16.0); LYMPHOCYTES % 28.6 % (20.0-50.0); MEAN CORPUSCULAR HEMOGLOBIN 27.8 pg (28.0-32.0); MEAN PLATELET VOLUME 7.4 fl (7.4-10.4); NEUTROPHILS % 59.7 % (40.0-76.0); PLATELET 444 x1000/uL (130-400); RED BLOOD CELL COUNT 3.21 mill/uL (4.2-5.4); RED CELL DISTRIBUTION WIDTH 19.7 % (11.6-14.6)
[2019-11-29 08:00] VITALS: BP 123/66
[2019-11-29] MEDS: PANTOPRAZOLE 40MG DR TABLET PO SCH (09:03)
[2019-11-29] MEDS: SUCRALFATE 1G TABLET PO SCH ×4 (09:03→20:34)
[2019-11-29] MEDS: METOCLOPRAMIDE HCL 5MG TABLET PO SCH ×4 (09:03→20:34)
[2019-11-29] MEDS: NIFEDIPINE XL 60MG TAB PO SCH (09:03)
[2019-11-29] MEDS: INSULIN GLARGINE UD 100 UNITS/ML SYR SUBCUT SCH (10:11)
[2019-11-29 12:00] VITALS: BP 128/73
[2019-11-29] MEDS: GABAPENTIN 100MG CAPSULE PO SCH ×2 (14:25→21:52)
[2019-11-29 14:57] LABS: CLARITY URINE CLEAR (CLEAR); COLOR URINE YELLOW (YELLOW); KETONES URINE NEGATIVE (NEGATIVE); LEUKOCYTE ESTERASE URINE TRACE (NEGATIVE); NITRITE URINE NEGATIVE (NEGATIVE); OCCULT BLOOD URINE NEGATIVE (NEGATIVE); PROTEIN URINE 2+ (NEGATIVE); SPECIFIC GRAVITY URINE 1.017 (1.005-1.030); UROBILINOGEN URINE 0.2 E.U./dL (0.2-1.0)
[2019-11-29 16:00] VITALS: BP 114/69
[2019-11-29 20:00] VITALS: BP 117/70
[2019-11-29] MEDS: ATORVASTATIN CALCIUM 10MG TABLET PO SCH (20:34)
[2019-11-30] VITALS: BP 99/56
[2019-11-30 04:00] VITALS: BP 118/68
[2019-11-30] MEDS: GABAPENTIN 100MG CAPSULE PO SCH ×3 (05:47→21:07)
[2019-11-30] MEDS: HYDRALAZINE HCL 50MG TABLET PO SCH ×3 (05:47→21:07)
[2019-11-30] MEDS: BLOOD SUGAR DIAGNOSTIC STRIP TEST SCH ×4 (06:36→20:36)
[2019-11-30] MEDS: INSULIN LISPRO 100 UNITS/ML SUBCUT SCH ×7 (06:36→20:36)
[2019-11-30 08:00] VITALS: BP 137/74
[2019-11-30] MEDS: METOCLOPRAMIDE HCL 5MG TABLET PO SCH ×4 (09:26→20:36)
[2019-11-30] MEDS: NIFEDIPINE XL 60MG TAB PO SCH (09:26)
[2019-11-30] MEDS: SUCRALFATE 1G TABLET PO SCH ×4 (09:26→20:36)
[2019-11-30 09:52] LABS: HEMATOCRIT 26.5 % (36.0-48.0); HEMOGLOBIN 8.8 g/dL (12.0-16.0); MEAN CORPUSCULAR HEMOGLOBIN 27.9 pg (28.0-32.0); MEAN CORPUSCULAR VOLUME 83.8 fL (81.0-99.0); PLATELET 420 x1000/uL (130-400); RED BLOOD CELL COUNT 3.16 mill/uL (4.2-5.4)
[2019-11-30 09:57] LABS: PHOSPHORUS 4.7 mg/dL (2.5-4.9)
[2019-11-30] MEDS: INSULIN GLARGINE UD 100 UNITS/ML SYR SUBCUT SCH (10:13)
[2019-11-30 12:00] VITALS: BP 134/78
[2019-11-30 16:00] VITALS: BP 120/68
[2019-11-30 20:00] VITALS: BP 109/64
[2019-11-30] MEDS: ATORVASTATIN CALCIUM 10MG TABLET PO SCH (20:36)
[2019-12-01] VITALS: BP 121/62
[2019-12-01 04:00] VITALS: BP 111/59
[2019-12-01] MEDS: GABAPENTIN 100MG CAPSULE PO SCH ×3 (06:00→21:09)
[2019-12-01] MEDS: HYDRALAZINE HCL 50MG TABLET PO SCH ×3 (06:00→21:09)
[2019-12-01 06:10] LABS: HEMATOCRIT 25.2 % (36.0-48.0); HEMOGLOBIN 8.4 g/dL (12.0-16.0); MEAN CORPUSCULAR HEMOGLOBIN 27.7 pg (28.0-32.0); MEAN CORPUSCULAR VOLUME 83.7 fL (81.0-99.0); PLATELET 378 x1000/uL (130-400); RED BLOOD CELL COUNT 3.01 mill/uL (4.2-5.4); RED CELL DISTRIBUTION WIDTH 20.1 % (11.6-14.6)
[2019-12-01] MEDS: INSULIN LISPRO 100 UNITS/ML SUBCUT SCH ×8 (07:10→21:10)
[2019-12-01] MEDS: SUCRALFATE 1G TABLET PO SCH ×4 (07:10→20:53)
[2019-12-01 08:00] VITALS: BP 137/75
[2019-12-01] MEDS: BLOOD SUGAR DIAGNOSTIC STRIP TEST SCH ×4 (08:01→20:52)
[2019-12-01] MEDS: NIFEDIPINE XL 60MG TAB PO SCH (09:00)
[2019-12-01] MEDS: METOCLOPRAMIDE HCL 5MG TABLET PO SCH ×4 (09:00→20:53)
[2019-12-01 09:22] LABS: INR 1.1
[2019-12-01] MEDS ORDERED: LIDOCAINE HCL 1% 20ML VIAL (Pyxis) INJ ONE (09:36)
[2019-12-01] MEDS ORDERED: SODIUM BICARBONATE 4% (2.4MEQ) 5ML VIAL IV ONE (09:36)
[2019-12-01] MEDS ORDERED: HEPARIN 1000 UNITS/ML 10ML ONE (09:36)
[2019-12-01] MEDS: INSULIN GLARGINE UD 100 UNITS/ML SYR SUBCUT SCH (11:03)
[2019-12-01 12:00] VITALS: BP 163/89
[2019-12-01 16:00] VITALS: BP 165/75
[2019-12-01 20:00] VITALS: BP 165/79
[2019-12-01] MEDS: ATORVASTATIN CALCIUM 10MG TABLET PO SCH (20:53)
[2019-12-01] MEDS: MORPHINE SULFATE 2 MG/ML CPJ (NOT FOR IM USE) IV PRN ×2 (21:08)
[2019-12-02] VITALS: BP 165/79
[2019-12-02] MEDS: MORPHINE SULFATE 2 MG/ML CPJ (NOT FOR IM USE) IV PRN ×3 (01:13→20:36)
[2019-12-02 04:00] VITALS: BP 143/70
[2019-12-02] MEDS: BLOOD SUGAR DIAGNOSTIC STRIP TEST SCH ×4 (05:44→21:04)
[2019-12-02] MEDS: INSULIN LISPRO 100 UNITS/ML SUBCUT SCH ×7 (05:45→21:14)
[2019-12-02] MEDS: GABAPENTIN 100MG CAPSULE PO SCH ×3 (06:06→21:04)
[2019-12-02] MEDS: HYDRALAZINE HCL 50MG TABLET PO SCH ×3 (06:06→21:04)
[2019-12-02 06:32] LABS: HEPATITIS B SURFACE AB 3.4 mIU/mL
[2019-12-02 06:43] LABS: HEPATITIS B SURFACE ANTIGEN NEGATIVE
[2019-12-02 07:12] LABS: HEPATITIS A AB IGM NEGATIVE (NEGATIVE)
[2019-12-02 07:57] VITALS: BP 146/67
[2019-12-02] MEDS: SUCRALFATE 1G TABLET PO SCH ×3 (08:13→20:36)
[2019-12-02] MEDS: METOCLOPRAMIDE HCL 5MG TABLET PO SCH ×3 (08:14→20:36)
[2019-12-02] MEDS: NIFEDIPINE XL 60MG TAB PO SCH (08:14)
[2019-12-02] MEDS: INSULIN GLARGINE UD 100 UNITS/ML SYR SUBCUT SCH (10:19)
[2019-12-02 12:00] VITALS: BP 150/74
[2019-12-02 20:00] VITALS: BP 109/67
[2019-12-02] MEDS: ATORVASTATIN CALCIUM 10MG TABLET PO SCH (20:36)
[2019-12-03] VITALS: BP 113/65
[2019-12-03 04:00] VITALS: BP 123/61
[2019-12-03] MEDS: HYDRALAZINE HCL 50MG TABLET PO SCH ×3 (06:18→21:08)
[2019-12-03] MEDS: INSULIN LISPRO 100 UNITS/ML SUBCUT SCH ×7 (06:18→21:07)
[2019-12-03] MEDS: SUCRALFATE 1G TABLET PO SCH ×4 (06:18→20:19)
[2019-12-03] MEDS: BLOOD SUGAR DIAGNOSTIC STRIP TEST SCH ×4 (06:18→21:03)
[2019-12-03] MEDS: GABAPENTIN 100MG CAPSULE PO SCH ×3 (06:18→21:08)
[2019-12-03 07:36] LABS: HEMATOCRIT. 24.7 % (36.0-48.0); HEMOGLOBIN. 8.1 g/dL (12.0-16.0); MEAN CORPUSCULAR HEMOGLOBIN 27.3 pg (28.0-32.0); MEAN CORPUSCULAR VOLUME 83.6 fL (81.0-99.0); MEAN PLATELET VOLUME 7.3 fl (7.4-10.4); PLATELET 333 x1000/uL (130-400); RED BLOOD CELL COUNT 2.95 mill/uL (4.2-5.4); RED CELL DISTRIBUTION WIDTH 19.8 % (11.6-14.6)
[2019-12-03 07:50] VITALS: BP 136/77
[2019-12-03] MEDS: NIFEDIPINE XL 60MG TAB PO SCH (08:44)
[2019-12-03] MEDS: METOCLOPRAMIDE HCL 5MG TABLET PO SCH ×4 (08:50→20:19)
[2019-12-03] MEDS: INSULIN GLARGINE UD 100 UNITS/ML SYR SUBCUT SCH (10:58)
[2019-12-03 12:00] VITALS: BP 139/73
[2019-12-03] MEDS ORDERED: HEPARIN SODIUM 1,000 UNIT/1ML VIAL IV NR (14:00)
[2019-12-03] MEDS: MORPHINE SULFATE 2 MG/ML CPJ (NOT FOR IM USE) IV PRN ×2 (15:34→20:19)
[2019-12-03 16:43] LABS: PLATELET ESTIMATE NORMAL
[2019-12-03 20:00] VITALS: BP 164/83
[2019-12-03] MEDS: ATORVASTATIN CALCIUM 10MG TABLET PO SCH (20:20)
[2019-12-04] VITALS: BP 137/64
[2019-12-04] MEDS: MORPHINE SULFATE 2 MG/ML CPJ (NOT FOR IM USE) IV PRN ×4 (01:17→21:40)
[2019-12-04 04:00] VITALS: BP 130/60
[2019-12-04 06:06] LABS: HEMATOCRIT. 24.9 % (36.0-48.0); HEMOGLOBIN. 8.3 g/dL (12.0-16.0); MEAN CORPUSCULAR HEMOGLOBIN 28.1 pg (28.0-32.0); MEAN CORPUSCULAR VOLUME 83.9 fL (81.0-99.0); MEAN PLATELET VOLUME 7.1 fl (7.4-10.4); PLATELET 345 x1000/uL (130-400); RED BLOOD CELL COUNT 2.96 mill/uL (4.2-5.4); RED CELL DISTRIBUTION WIDTH 19.7 % (11.6-14.6)
[2019-12-04] MEDS: HYDRALAZINE HCL 50MG TABLET PO SCH ×3 (06:16→21:00)
[2019-12-04] MEDS: GABAPENTIN 100MG CAPSULE PO SCH ×3 (06:16→21:00)
[2019-12-04] MEDS: SUCRALFATE 1G TABLET PO SCH ×4 (06:16→21:01)
[2019-12-04] MEDS: INSULIN LISPRO 100 UNITS/ML SUBCUT SCH ×7 (06:17→21:00)
[2019-12-04] MEDS: BLOOD SUGAR DIAGNOSTIC STRIP TEST SCH ×4 (06:17→20:08)
[2019-12-04 08:00] VITALS: BP 133/66
[2019-12-04] MEDS: METOCLOPRAMIDE HCL 5MG TABLET PO SCH ×4 (08:17→21:08)
[2019-12-04] MEDS: NIFEDIPINE XL 60MG TAB PO SCH (08:17)
[2019-12-04 09:37] LABS: PLATELET ESTIMATE NORMAL
[2019-12-04] MEDS: INSULIN GLARGINE UD 100 UNITS/ML SYR SUBCUT SCH (10:27)
[2019-12-04 12:00] VITALS: BP 117/63
[2019-12-04 20:00] VITALS: BP 112/58
[2019-12-04] MEDS: ATORVASTATIN CALCIUM 10MG TABLET PO SCH (21:01)
[2019-12-05] VITALS: BP 125/63
[2019-12-05 04:00] VITALS: BP 121/71
[2019-12-05] MEDS: GABAPENTIN 100MG CAPSULE PO SCH ×2 (06:30→13:02)
[2019-12-05] MEDS: SUCRALFATE 1G TABLET PO SCH ×2 (06:30→12:57)
[2019-12-05] MEDS: HYDRALAZINE HCL 50MG TABLET PO SCH ×2 (06:30→13:02)
[2019-12-05] MEDS: BLOOD SUGAR DIAGNOSTIC STRIP TEST SCH ×2 (06:31→12:57)
[2019-12-05] MEDS: INSULIN LISPRO 100 UNITS/ML SUBCUT SCH ×4 (07:10→12:40)
[2019-12-05 08:00] VITALS: BP 125/63
[2019-12-05] MEDS: METOCLOPRAMIDE HCL 5MG TABLET PO SCH ×2 (09:12→13:02)
[2019-12-05] MEDS: NIFEDIPINE XL 60MG TAB PO SCH (09:12)
[2019-12-05] MEDS: INSULIN GLARGINE UD 100 UNITS/ML SYR SUBCUT SCH (10:42)
[2019-12-05] MEDS ORDERED: HYDR-4135 PO (11:25)
[2019-12-05] MEDS ORDERED: NIFE-32 PO (11:25)
[2019-12-05 12:00] VITALS: BP 133/96
[2019-12-05 13:30] VITALS: BP 133/96
[2019-12-06 04:10] LABS: OVA & PARASITE EXAM Final report (.)
[2020-01-24] MEDS ORDERED: HYDR-4135 PO (12:11)
[2020-01-24] MEDS ORDERED: DILT60TA35 PO (12:11)
== END 2019-12-05 15:07 | disposition home or self-care (01) | DRG 48 ==
LOC: ER 18:04 → MICUSO 11-24 06:28 → EDBEDREQTM 11-24 06:34 → EDBEDREQDT 11-24 06:34 → EDBEDREQ 11-24 06:34 → 7WST 11-25 13:46 → 8WST 11-26 11:04
PROVIDERS: ADMIT Internal Medicine; ATTEND Internal Medicine
PROC: 02H633Z Insertion of Infusion Device into Right Atrium, Percutaneous Approach (ICD-10-PCS; principal; 2019-12-01)
PROC: 5A1D70Z Performance of Urinary Filtration, Intermittent, Less than 6 Hours Per Day (ICD-10-PCS; 2019-12-01)
PROC: 5A1D70Z Performance of Urinary Filtration, Intermittent, Less than 6 Hours Per Day (ICD-10-PCS; 2019-12-03)
DX: E11.43 Type 2 diabetes mellitus with diabetic autonomic (poly)neuropathy (principal); K31.9 Disease of stomach and duodenum, unspecified; K50.918 Crohn's disease, unspecified, with other complication; E11.40 Type 2 diabetes mellitus with diabetic neuropathy, unspecified; K52.9 Noninfective gastroenteritis and colitis, unspecified; I50.23 Acute on chronic systolic (congestive) heart failure; E11.22 Type 2 diabetes mellitus with diabetic chronic kidney disease; R18.8 Other ascites; N18.3 Chronic kidney disease, stage 3 (moderate); I27.20 Pulmonary hypertension, unspecified; I13.0 Hypertensive heart and chronic kidney disease with heart failure and stage 1 through stage 4 chronic kidney disease, or unspecified chronic kidney disease; D25.9 Leiomyoma of uterus, unspecified; D50.9 Iron deficiency anemia, unspecified; D63.8 Anemia in other chronic diseases classified elsewhere; I16.1 Hypertensive emergency; K86.89 Other specified diseases of pancreas; K76.9 Liver disease, unspecified; K59.00 Constipation, unspecified; K21.9 Gastro-esophageal reflux disease without esophagitis; I35.1 Nonrheumatic aortic (valve) insufficiency; R16.0 Hepatomegaly, not elsewhere classified; E78.5 Hyperlipidemia, unspecified; I31.3 Pericardial effusion (noninflammatory); K31.84 Gastroparesis; R07.89 Other chest pain; I36.1 Nonrheumatic tricuspid (valve) insufficiency; N17.0 Acute kidney failure with tubular necrosis; Z20.828 Contact with and (suspected) exposure to other viral communicable diseases; G89.29 Other chronic pain; E87.1 Hypo-osmolality and hyponatremia; I95.9 Hypotension, unspecified; I42.9 Cardiomyopathy, unspecified; E44.0 Moderate protein-calorie malnutrition; Z79.4 Long term (current) use of insulin; Z90.49 Acquired absence of other specified parts of digestive tract; Z98.51 Tubal ligation status; Z79.891 Long term (current) use of opiate analgesic; Z79.82 Long term (current) use of aspirin; Z79.899 Other long term (current) drug therapy; Z87.440 Personal history of urinary (tract) infections; Z68.26 Body mass index [BMI] 26.0-26.9, adult
CPT/HCPCS: 36415; 71045; 74176; 76770; 76937; 77001; 80048; 80053; 81003; 82270; 82533; 82550; 82575; 82728; 82962; 83036; 83540; 83550; 83880; 83935; 83937; 84100; 84300; 84443; 84484; 85025; 85027; 86705; 86706; 86709; 86803; 87015; 87045; 87177; 87209; 87340; 87427; 87449; 89055; 93005; 93306; 96374; 96375; 96376; 99285; C1752; J1644; J1815; J1885; J1940; J2270; J2405; J3490; J8597; U0003-CS

== ENCOUNTER 2019-12-15 14:28 | Inpatient (IN) | payer OTHER ==
[~2019-12-15] VITALS: Ht 165.1 cm; Wt 61.2 kg
[~2019-12-15 14:28] MED LIST changes: -FURO40TA5 MT; +HYDR-4135 PO; -HYDR100T26 PO; -MESA400C PO; -METO5TAB7 PO; +NIFE-32 PO; -POTA-9 MT
[2019-12-15] MEDS ORDERED: MORPHINE SULFATE 4 MG/ML CPJ (NOT FOR IM USE) IV STA (14:54)
[2019-12-15] MEDS ORDERED: ONDANSETRON HCL 4MG/2ML INJ IV STA (14:54)
[2019-12-15 15:25] LABS: BASOPHILS % 0.5 % (0.0-2.0); EOSINOPHILS % 0.7 % (0.0-5.0); HEMATOCRIT. 32.8 % (36.0-48.0); HEMOGLOBIN. 10.3 g/dL (12.0-16.0); LYMPHOCYTES % 21.2 % (20.0-50.0); MEAN CORPUSCULAR HEMOGLOBIN 26.9 pg (28.0-32.0); MEAN CORPUSCULAR VOLUME 85.6 fL (81.0-99.0); MEAN PLATELET VOLUME 7.8 fl (7.4-10.4); MONOCYTES % 5.5 % (2.0-8.0); NEUTROPHILS % 72.1 % (40.0-76.0); PLATELET 160 x1000/uL (130-400); RED BLOOD CELL COUNT 3.84 mill/uL (4.2-5.4); RED CELL DISTRIBUTION WIDTH 18.8 % (11.6-14.6)
[2019-12-15 15:26] LABS: CHLORIDE 110 mEq/L (98-107)
[2019-12-15 15:28] LABS: INR 1.1; PROTHROMBIN TIME 11.9 sec (9.6-11.0)
[2019-12-15 17:34] LABS: CLARITY URINE CLOUDY (CLEAR); COLOR URINE YELLOW (YELLOW); KETONES URINE TRACE (NEGATIVE); LEUKOCYTE ESTERASE URINE 1+ (NEGATIVE); NITRITE URINE NEGATIVE (NEGATIVE); OCCULT BLOOD URINE 1+ (NEGATIVE); PH URINE 5.5 (4.5-8.0); PROTEIN URINE 3+ (NEGATIVE)
[2019-12-15] MEDS ORDERED: MORPHINE SULFATE 4 MG/ML CPJ (NOT FOR IM USE) IV ONE (18:30)
[2019-12-15] MEDS ORDERED: CEFTRIAXONE 1 G PREMIX 50 ML IV ONE (18:45)
[2019-12-15] MEDS ORDERED: HYDRALAZINE 20MG/ML VIAL IV ONE (21:00)
[2019-12-15] MEDS: MORPHINE SULFATE 2 MG/ML CPJ (NOT FOR IM USE) IV PRN (22:42)
[2019-12-16] MEDS: MORPHINE SULFATE 2 MG/ML CPJ (NOT FOR IM USE) IV PRN ×3 (03:27→14:32)
[2019-12-16] MEDS: CLONIDINE 0.1MG TABLET PO PRN (06:27)
[2019-12-16] MEDS ORDERED: HYDRALAZINE 20MG/ML VIAL IV SCH (08:30)
[2019-12-16 12:55] VITALS: BP 144/84
[2019-12-16 13:00] VITALS: BP 144/84
[2019-12-16] MEDS ORDERED: ONDANSETRON HCL 4MG/2ML INJ IV PRN (13:00)
[2019-12-16] MEDS ORDERED: CARV3.1242 MT (13:35)
[2019-12-16] MEDS ORDERED: PRO1 MT (13:35)
[2019-12-16] MEDS: AMLODIPINE 10MG TABLET PO SCH (14:28)
[2019-12-16] MEDS: MESALAMINE 400 MG CAPSULE.DR PO SCH ×2 (14:29→18:47)
[2019-12-16 16:00] VITALS: BP 113/65
[2019-12-16 20:00] VITALS: BP 108/67
[2019-12-16] MEDS ORDERED: CEFTRIAXONE 1 G PREMIX 50 ML IV SCH (20:30)
[2019-12-16] MEDS: CEFTRIAXONE 1,000 MG in DEXTROSE 5% WATER 50 ML IV SCH (22:10)
[2019-12-17] VITALS: BP 145/79
[2019-12-17] MEDS: MORPHINE SULFATE 2 MG/ML CPJ (NOT FOR IM USE) IV PRN ×4 (00:17→21:59)
[2019-12-17 04:00] VITALS: BP 139/81
[2019-12-17 08:00] VITALS: BP 138/79
[2019-12-17 08:14] LABS: BASOPHILS % 0.6 % (0.0-2.0); EOSINOPHILS % 1.7 % (0.0-5.0); HEMATOCRIT. 27.3 % (36.0-48.0); HEMOGLOBIN. 8.7 g/dL (12.0-16.0); LYMPHOCYTES % 26.6 % (20.0-50.0); MEAN CORPUSCULAR HEMOGLOBIN 27.2 pg (28.0-32.0); MEAN CORPUSCULAR VOLUME 85.1 fL (81.0-99.0); MEAN PLATELET VOLUME 7.3 fl (7.4-10.4); MONOCYTES % 10.5 % (2.0-8.0); NEUTROPHILS % 60.6 % (40.0-76.0); PLATELET 377 x1000/uL (130-400); RED BLOOD CELL COUNT 3.21 mill/uL (4.2-5.4)
[2019-12-17 08:46] LABS: CREATINE KINASE 81 IU/L (26-192)
[2019-12-17] MEDS: SODIUM CHLORIDE 0.45% 1,000 ML IV SCH (09:19)
[2019-12-17] MEDS: AMLODIPINE 10MG TABLET PO SCH (09:19)
[2019-12-17 12:00] VITALS: BP 168/93
[2019-12-17] MEDS: CLONIDINE 0.1MG TABLET PO PRN (12:52)
[2019-12-17 16:00] VITALS: BP 16/91
[2019-12-17] MEDS ORDERED: HYDRALAZINE HCL 50MG TABLET PO NR (18:30)
[2019-12-17 20:00] VITALS: BP_SYST 122; BP_SYST 141; BP_DIAS 77; BP_DIAS 80
[2019-12-17] MEDS: CEFTRIAXONE 1,000 MG in DEXTROSE 5% WATER 50 ML IV SCH (20:46)
[2019-12-17] MEDS: HYDRALAZINE HCL 25MG TABLET PO SCH (21:30)
[2019-12-18] VITALS: BP 143/75
[2019-12-18 04:00] VITALS: BP 135/77
[2019-12-18] MEDS: MORPHINE SULFATE 2 MG/ML CPJ (NOT FOR IM USE) IV PRN ×3 (05:35→21:34)
[2019-12-18 06:53] LABS: BASOPHILS % 0.4 % (0.0-2.0); EOSINOPHILS % 1.6 % (0.0-5.0); HEMATOCRIT. 27.8 % (36.0-48.0); LYMPHOCYTES % 32.4 % (20.0-50.0); MEAN CORPUSCULAR HEMOGLOBIN 27.1 pg (28.0-32.0); MEAN PLATELET VOLUME 7.2 fl (7.4-10.4); MONOCYTES % 9.8 % (2.0-8.0); NEUTROPHILS % 55.8 % (40.0-76.0); PLATELET 413 x1000/uL (130-400); RED BLOOD CELL COUNT 3.31 mill/uL (4.2-5.4); RED CELL DISTRIBUTION WIDTH 18.8 % (11.6-14.6)
[2019-12-18 08:00] VITALS: BP 156/81
[2019-12-18] MEDS: SODIUM CHLORIDE 0.45% 1,000 ML IV SCH ×2 (08:30→23:35)
[2019-12-18] MEDS: AMLODIPINE 10MG TABLET PO SCH (08:30)
[2019-12-18] MEDS: HYDRALAZINE HCL 25MG TABLET PO SCH (08:30)
[2019-12-18 12:00] VITALS: BP 177/90
[2019-12-18] MEDS: CLONIDINE 0.1MG TABLET PO PRN (14:25)
[2019-12-18 16:00] VITALS: BP 149/81
[2019-12-18] MEDS: HYDRALAZINE HCL 100MG TABLET PO SCH (17:48)
[2019-12-18 20:00] VITALS: BP 124/70
[2019-12-18] MEDS ORDERED: HYDRALAZINE HCL 25MG TABLET PO SCH (21:00)
[2019-12-18] MEDS: CEFTRIAXONE 1,000 MG in DEXTROSE 5% WATER 50 ML IV SCH (21:21)
[2019-12-19] VITALS: BP 140/74
[2019-12-19] MEDS: HYDRALAZINE HCL 100MG TABLET PO SCH ×3 (01:03→19:45)
[2019-12-19 04:00] VITALS: BP 147/84
[2019-12-19] MEDS: MORPHINE SULFATE 2 MG/ML CPJ (NOT FOR IM USE) IV PRN ×3 (04:02→20:35)
[2019-12-19 07:11] LABS: BASOPHILS % 0.5 % (0.0-2.0); EOSINOPHILS % 1.2 % (0.0-5.0); HEMATOCRIT. 27.9 % (36.0-48.0); HEMOGLOBIN. 9.1 g/dL (12.0-16.0); LYMPHOCYTES % 26.1 % (20.0-50.0); MEAN CORPUSCULAR HEMOGLOBIN 27.5 pg (28.0-32.0); MEAN CORPUSCULAR VOLUME 84.3 fL (81.0-99.0); MONOCYTES % 8.6 % (2.0-8.0); NEUTROPHILS % 63.6 % (40.0-76.0); PLATELET 447 x1000/uL (130-400); RED BLOOD CELL COUNT 3.31 mill/uL (4.2-5.4); RED CELL DISTRIBUTION WIDTH 19.1 % (11.6-14.6)
[2019-12-19 08:00] VITALS: BP 144/80
[2019-12-19] MEDS: AMLODIPINE 10MG TABLET PO SCH (09:14)
[2019-12-19 12:00] VITALS: BP 147/73
[2019-12-19] MEDS: SODIUM CHLORIDE 0.45% 1,000 ML IV SCH (12:37)
[2019-12-19 16:00] VITALS: BP 152/74
[2019-12-19 20:00] VITALS: BP 162/87
[2019-12-19] MEDS: CEFTRIAXONE 1,000 MG in DEXTROSE 5% WATER 50 ML IV SCH (20:34)
[2019-12-20] VITALS: BP 154/82
[2019-12-20] MEDS: HYDRALAZINE HCL 100MG TABLET PO SCH ×2 (01:17→09:19)
[2019-12-20] MEDS: SODIUM CHLORIDE 0.45% 1,000 ML IV SCH (01:18)
[2019-12-20 04:00] VITALS: BP 155/78
[2019-12-20] MEDS: MORPHINE SULFATE 2 MG/ML CPJ (NOT FOR IM USE) IV PRN ×2 (06:57→13:05)
[2019-12-20 08:00] VITALS: BP 150/77
[2019-12-20] MEDS: AMLODIPINE 10MG TABLET PO SCH (09:20)
[2019-12-20 10:18] LABS: INR 1.1; PARTIAL THROMBOPLASTIN TIME 31.8 sec (23.4-31.0); PROTHROMBIN TIME 11.8 sec (9.6-11.0)
[2019-12-20] MEDS ORDERED: LIDOCAINE HCL 1% 20ML VIAL (Pyxis) INJ ONE (11:11)
[2019-12-20] MEDS ORDERED: SODIUM BICARBONATE 4% (2.4MEQ) 5ML VIAL IV ONE (11:11)
[2019-12-20 12:00] VITALS: BP 141/72
[2019-12-20 12:40] VITALS: BP 141/72
[2019-12-20 13:05] VITALS: BP 141/72
[2020-01-24] MEDS ORDERED: HYDR-4135 PO (12:11)
[2020-01-24] MEDS ORDERED: DILT60TA35 PO (12:11)
== END 2019-12-20 15:01 | disposition home or self-care (01) | DRG 469 ==
LOC: ER 14:28 → EDBEDREQTM 19:16 → EDBEDREQSVC 19:16 → EDBEDREQ 19:16 → 6EST 20:21 → EDBEDREQ 20:27 → EDBEDREQSVC 20:27 → EDBEDREQTM 20:27 → ENRESERV 12-16 11:26
PROVIDERS: ADMIT Internal Medicine; ATTEND Internal Medicine
PROC: 0W9G3ZZ Drainage of Peritoneal Cavity, Percutaneous Approach (ICD-10-PCS; principal; 2019-12-20)
DX: N17.9 Acute kidney failure, unspecified (principal); K50.90 Crohn's disease, unspecified, without complications; E43 Unspecified severe protein-calorie malnutrition; I27.20 Pulmonary hypertension, unspecified; D64.9 Anemia, unspecified; E87.8 Other disorders of electrolyte and fluid balance, not elsewhere classified; K21.9 Gastro-esophageal reflux disease without esophagitis; N18.9 Chronic kidney disease, unspecified; R18.8 Other ascites; E11.40 Type 2 diabetes mellitus with diabetic neuropathy, unspecified; R16.0 Hepatomegaly, not elsewhere classified; I13.0 Hypertensive heart and chronic kidney disease with heart failure and stage 1 through stage 4 chronic kidney disease, or unspecified chronic kidney disease; E11.22 Type 2 diabetes mellitus with diabetic chronic kidney disease; E87.1 Hypo-osmolality and hyponatremia; I42.9 Cardiomyopathy, unspecified; I50.22 Chronic systolic (congestive) heart failure; K76.9 Liver disease, unspecified; Z99.2 Dependence on renal dialysis; Z90.49 Acquired absence of other specified parts of digestive tract; Z88.8 Allergy status to other drugs, medicaments and biological substances; Z79.82 Long term (current) use of aspirin; Z79.4 Long term (current) use of insulin; Z79.899 Other long term (current) drug therapy; Z68.22 Body mass index [BMI] 22.0-22.9, adult
CPT/HCPCS: 36415; 49083; 74176; 80048; 80053; 81003; 82550; 84315; 85025; 93005; 96374; 97162; 97166; 99285; J0360; J0696; J2270; J2405; J3490; J7060

== ENCOUNTER 2019-12-29 10:12 | Emergency (ER) | payer OTHER ==
[~2019-12-29] VITALS: Ht 165.1 cm; Wt 64.0 kg
[~2019-12-29 10:12] MED LIST changes: -ASPI-1158 PO; +CARV3.1242 MT; +PRO1 MT
[2019-12-29 11:29] LABS: BASOPHILS % 0.9 % (0.0-2.0); EOSINOPHILS % 0.5 % (0.0-5.0); HEMOGLOBIN. 8.8 g/dL (12.0-16.0); LYMPHOCYTES % 23.3 % (20.0-50.0); MEAN CORPUSCULAR HEMOGLOBIN 27.1 pg (28.0-32.0); MEAN CORPUSCULAR VOLUME 83.3 fL (81.0-99.0); MEAN PLATELET VOLUME 7.1 fl (7.4-10.4); NEUTROPHILS % 67.3 % (40.0-76.0); PLATELET 416 x1000/uL (130-400); RED BLOOD CELL COUNT 3.24 mill/uL (4.2-5.4); RED CELL DISTRIBUTION WIDTH 18.6 % (11.6-14.6)
[2019-12-29] MEDS ORDERED: MORPHINE SULFATE 4 MG/ML CPJ (NOT FOR IM USE) IV ONE ×2 (11:30→14:30)
[2019-12-29] MEDS ORDERED: ONDANSETRON HCL 4MG/2ML INJ IV ONE ×2 (11:30→14:30)
[2019-12-29 11:34] LABS: CHLORIDE 116 mEq/L (98-107)
[2019-12-29 12:07] LABS: CLARITY URINE HAZY (CLEAR); COLOR URINE YELLOW (YELLOW); KETONES URINE NEGATIVE (NEGATIVE); LEUKOCYTE ESTERASE URINE TRACE (NEGATIVE); NITRITE URINE NEGATIVE (NEGATIVE); OCCULT BLOOD URINE NEGATIVE (NEGATIVE); PH URINE 5.5 (4.5-8.0); PROTEIN URINE 2+ (NEGATIVE); SPECIFIC GRAVITY URINE 1.012 (1.005-1.030)
[2019-12-29 15:30] VITALS: BP 190/100
[2020-01-24] MEDS ORDERED: HYDR-4135 PO (12:11)
[2020-01-24] MEDS ORDERED: DILT60TA35 PO (12:11)
== END 2019-12-29 16:38 | disposition home or self-care (01) ==
LOC: ER 10:12
DX: K70.31 Alcoholic cirrhosis of liver with ascites (principal); F10.20 Alcohol dependence, uncomplicated; Y90.9 Presence of alcohol in blood, level not specified
CPT/HCPCS: 36415; 80053; 81003; 84157; 85025; 87070; 87205; 89050; 93005; 96374; 96375; 96376; 99285; J2270; J2405

== ENCOUNTER 2020-01-03 13:10 | Emergency (ER) | payer OTHER ==
[~2020-01-03] VITALS: Ht 165.1 cm; Wt 64.0 kg
[2020-01-03] MEDS ORDERED: ONDANSETRON HCL 4MG/2ML INJ IV STA (13:58)
[2020-01-03] MEDS ORDERED: MORPHINE SULFATE 4 MG/ML CPJ (NOT FOR IM USE) IV STA (13:58)
[2020-01-03] MEDS ORDERED: FAMOTIDINE 20MG/2ML VIAL IV STA (13:58)
[2020-01-03 14:19] LABS: CLARITY URINE CLEAR (CLEAR); COLOR URINE YELLOW (YELLOW); KETONES URINE NEGATIVE (NEGATIVE); LEUKOCYTE ESTERASE URINE 1+ (NEGATIVE); NITRITE URINE NEGATIVE (NEGATIVE); OCCULT BLOOD URINE 1+ (NEGATIVE); PROTEIN URINE 3+ (NEGATIVE); SPECIFIC GRAVITY URINE 1.019 (1.005-1.030)
[2020-01-03 14:34] LABS: *AMPHETAMINES SCREEN URINE NEGATIVE (NEGATIVE)
[2020-01-03 14:35] LABS: *BARBITURATES SCREEN URINE NEGATIVE (NEGATIVE); *BENZODIAZEPINES SCREEN URINE NEGATIVE (NEGATIVE); *COCAINE SCREEN URINE NEGATIVE (NEGATIVE); METHADONE URINE SCREEN NEGATIVE (NEGATIVE); OPIATES URINE SCREEN PRESUMTIVE POSITIVE (NEGATIVE)
[2020-01-03 14:36] LABS: CANNABINOID URINE SCREEN NEGATIVE (NEGATIVE); PHENCYCLIDINE URINE SCREEN NEGATIVE (NEGATIVE)
[2020-01-03 14:45] LABS: EOSINOPHILS % 1.1 % (0.0-5.0); HEMATOCRIT. 30.7 % (36.0-48.0); HEMOGLOBIN. 9.8 g/dL (12.0-16.0); LYMPHOCYTES % 28.6 % (20.0-50.0); MEAN CORPUSCULAR HEMOGLOBIN 27.4 pg (28.0-32.0); MEAN CORPUSCULAR VOLUME 85.5 fL (81.0-99.0); MEAN PLATELET VOLUME 7.1 fl (7.4-10.4); MONOCYTES % 6.3 % (2.0-8.0); PLATELET 366 x1000/uL (130-400); RED BLOOD CELL COUNT 3.59 mill/uL (4.2-5.4); RED CELL DISTRIBUTION WIDTH 19.7 % (11.6-14.6)
[2020-01-03 14:51] LABS: CHLORIDE 112 mEq/L (98-107)
[2020-01-03] MEDS ORDERED: HYDRALAZINE 20MG/ML VIAL IV ONE (15:00)
[2020-01-03 17:00] VITALS: BP 160/85
== END 2020-01-03 17:00 | disposition home or self-care (01) ==
LOC: ER 13:10
DX: R10.0 Acute abdomen (principal); R11.10 Vomiting, unspecified; I12.9 Hypertensive chronic kidney disease with stage 1 through stage 4 chronic kidney disease, or unspecified chronic kidney disease; N18.3 Chronic kidney disease, stage 3 (moderate); D25.9 Leiomyoma of uterus, unspecified; R18.8 Other ascites; K74.60 Unspecified cirrhosis of liver; I31.3 Pericardial effusion (noninflammatory)
CPT/HCPCS: 36415; 74176; 80053; 80305; 81003; 83690; 85025; 93005; 96374; 96375; 99285; J0360; J2270; J2405; J3490

== ENCOUNTER 2020-01-06 13:42 | Inpatient (IN) | payer OTHER ==
[~2020-01-06] VITALS: Ht 165.1 cm; Wt 74.1 kg
[2020-01-06] MEDS ORDERED: ONDANSETRON HCL 4MG/2ML INJ IV ONE (15:00)
[2020-01-06 15:42] LABS: BASOPHILS % 0.6 % (0.0-2.0); EOSINOPHILS % 0.9 % (0.0-5.0); HEMATOCRIT. 29.7 % (36.0-48.0); HEMOGLOBIN. 9.5 g/dL (12.0-16.0); LYMPHOCYTES % 32.5 % (20.0-50.0); MEAN CORPUSCULAR HEMOGLOBIN 27.6 pg (28.0-32.0); MEAN PLATELET VOLUME 6.9 fl (7.4-10.4); MONOCYTES % 6.3 % (2.0-8.0); NEUTROPHILS % 59.7 % (40.0-76.0); PLATELET 372 x1000/uL (130-400); RED BLOOD CELL COUNT 3.45 mill/uL (4.2-5.4); RED CELL DISTRIBUTION WIDTH 20.7 % (11.6-14.6)
[2020-01-06 15:49] LABS: CHLORIDE 114 mEq/L (98-107)
[2020-01-06 15:52] LABS: INR 1.2; PROTHROMBIN TIME 12.4 sec (9.6-11.0)
[2020-01-06 16:12] LABS: CLARITY URINE CLOUDY (CLEAR); COLOR URINE YELLOW (YELLOW); KETONES URINE NEGATIVE (NEGATIVE); LEUKOCYTE ESTERASE URINE 2+ (NEGATIVE); NITRITE URINE NEGATIVE (NEGATIVE); OCCULT BLOOD URINE 2+ (NEGATIVE); PROTEIN URINE 3+ (NEGATIVE); SPECIFIC GRAVITY URINE 1.019 (1.005-1.030)
[2020-01-06] MEDS ORDERED: HYDRALAZINE 20MG/ML VIAL IV ONE ×2 (16:30→18:30)
[2020-01-06] MEDS ORDERED: CLONIDINE 0.2MG TABLET PO PRN (20:15)
[2020-01-06] MEDS ORDERED: HYDRALAZINE 20MG/ML VIAL IV PRN (21:15)
[2020-01-06] MEDS ORDERED: ONDANSETRON HCL 4MG/2ML INJ IV PRN (21:15)
[2020-01-06] MEDS: MORPHINE SULFATE 2 MG/ML CPJ (NOT FOR IM USE) IV PRN (22:00)
[2020-01-06 22:51] VITALS: BP 180/94
[2020-01-07] VITALS (7 sets, daily range): BP systolic 94–192; BP diastolic 53–103
[2020-01-07] MEDS ORDERED: CLONIDINE 0.2MG TABLET PO PRN
[2020-01-07] MEDS ORDERED: ONDANSETRON HCL 4MG/2ML INJ IV PRN
[2020-01-07] MEDS ORDERED: DOCUSATE SODIUM 250MG CAPSULE PO PRN (00:30)
[2020-01-07] MEDS ORDERED: IPRATROPIUM/ALBUTEROL 0.5-3(2.5)MG/3ML NEB HHN PRN (00:30)
[2020-01-07] MEDS ORDERED: DEXTROSE 50% WATER 50ML SYRINGE IV PRN (00:30)
[2020-01-07] MEDS: MORPHINE SULFATE 2 MG/ML CPJ (NOT FOR IM USE) IV PRN ×3 (01:12→09:48)
[2020-01-07] MEDS: GABAPENTIN 100MG CAPSULE PO SCH ×3 (06:01→21:19)
[2020-01-07] MEDS: HYDRALAZINE HCL 50MG TABLET PO SCH ×3 (06:01→20:51)
[2020-01-07 06:10] LABS: BASOPHILS % 0.6 % (0.0-2.0); EOSINOPHILS % 0.4 % (0.0-5.0); HEMATOCRIT. 28.1 % (36.0-48.0); LYMPHOCYTES % 23.4 % (20.0-50.0); MEAN CORPUSCULAR HEMOGLOBIN 27.6 pg (28.0-32.0); MEAN CORPUSCULAR VOLUME 86.1 fL (81.0-99.0); MEAN PLATELET VOLUME 7.2 fl (7.4-10.4); NEUTROPHILS % 69.6 % (40.0-76.0); PLATELET 316 x1000/uL (130-400); RED BLOOD CELL COUNT 3.26 mill/uL (4.2-5.4)
[2020-01-07 06:13] LABS: INR 1.2; PARTIAL THROMBOPLASTIN TIME 29.3 sec (23.4-31.0); PROTHROMBIN TIME 12.4 sec (9.6-11.0)
[2020-01-07] MEDS: BLOOD SUGAR DIAGNOSTIC STRIP TEST SCH ×4 (06:26→21:40)
[2020-01-07] MEDS: INSULIN LISPRO 100 UNITS/ML SUBCUT SCH ×4 (07:50→21:00)
[2020-01-07] MEDS ORDERED: LIDOCAINE HCL 1% 20ML VIAL (Pyxis) INJ ONE (08:33)
[2020-01-07] MEDS ORDERED: SODIUM BICARBONATE 4% (2.4MEQ) 5ML VIAL IV ONE (08:33)
[2020-01-07] MEDS: PANTOPRAZOLE SODIUM 40 MG/VIAL IV SCH (09:47)
[2020-01-07] MEDS: NIFEDIPINE XL 60MG TAB PO SCH (09:47)
[2020-01-07] MEDS: CARVEDILOL 3.125 MG TABLET PO SCH ×2 (09:47→20:51)
[2020-01-07] MEDS ORDERED: HYDROCODONE/ACETAMINOPHEN 5/325MG TABLET PO PRN ×2 (12:00)
[2020-01-07] MEDS ORDERED: TRAMADOL 50MG TABLET PO PRN (13:45)
[2020-01-07] MEDS ORDERED: ATORVASTATIN CALCIUM 10MG TABLET PO SCH (21:00)
[2020-01-08 04:47] VITALS: BP 114/61
[2020-01-08] MEDS: HYDRALAZINE HCL 50MG TABLET PO SCH (06:32)
[2020-01-08] MEDS: GABAPENTIN 100MG CAPSULE PO SCH (06:32)
[2020-01-08] MEDS: BLOOD SUGAR DIAGNOSTIC STRIP TEST SCH (06:33)
[2020-01-08] MEDS: INSULIN LISPRO 100 UNITS/ML SUBCUT SCH (07:35)
[2020-01-08 08:20] VITALS: BP 128/65
[2020-01-08] MEDS: NIFEDIPINE XL 60MG TAB PO SCH (08:39)
[2020-01-08] MEDS: PANTOPRAZOLE SODIUM 40 MG/VIAL IV SCH (08:39)
[2020-01-08] MEDS: CARVEDILOL 3.125 MG TABLET PO SCH (08:40)
[2020-01-08 09:45] VITALS: BP 128/65
== END 2020-01-08 11:00 | disposition home or self-care (01) ==
LOC: ER 14:10 → 6WST 17:55 → ENRESERV 20:19
PROVIDERS: ADMIT Internal Medicine; ATTEND Internal Medicine
PROC: 0W9G3ZZ Drainage of Peritoneal Cavity, Percutaneous Approach (ICD-10-PCS; principal; 2020-01-07)
DX: K74.60 Unspecified cirrhosis of liver (principal); I16.0 Hypertensive urgency; I13.0 Hypertensive heart and chronic kidney disease with heart failure and stage 1 through stage 4 chronic kidney disease, or unspecified chronic kidney disease; I27.20 Pulmonary hypertension, unspecified; E11.22 Type 2 diabetes mellitus with diabetic chronic kidney disease; D64.9 Anemia, unspecified; R18.8 Other ascites; N18.9 Chronic kidney disease, unspecified; N17.9 Acute kidney failure, unspecified; K50.90 Crohn's disease, unspecified, without complications; K21.9 Gastro-esophageal reflux disease without esophagitis; I50.9 Heart failure, unspecified; J44.9 Chronic obstructive pulmonary disease, unspecified; E11.42 Type 2 diabetes mellitus with diabetic polyneuropathy; Z88.8 Allergy status to other drugs, medicaments and biological substances; Z79.899 Other long term (current) drug therapy
CPT/HCPCS: 36415; 49083; 80048; 80053; 80061; 81003; 82962; 83036; 85025; 93005; 96374; 99285; C9113; J0360; J2270; J2405; J3490

== ENCOUNTER 2020-01-13 06:20 | Inpatient (IN) | payer OTHER ==
[~2020-01-13] VITALS: Ht 165.1 cm; Wt 66.7 kg
[2020-01-13] MEDS ORDERED: ONDANSETRON HCL 4MG/2ML INJ IV STA (07:15)
[2020-01-13] MEDS ORDERED: MORPHINE SULFATE 4 MG/ML CPJ (NOT FOR IM USE) IV STA (07:15)
[2020-01-13 07:28] LABS: CHLORIDE 111 mEq/L (98-107)
[2020-01-13 07:38] LABS: BASOPHILS % 0.8 % (0.0-2.0); EOSINOPHILS % 0.2 % (0.0-5.0); HEMATOCRIT. 33.1 % (36.0-48.0); HEMOGLOBIN. 10.8 g/dL (12.0-16.0); LYMPHOCYTES % 25.3 % (20.0-50.0); MEAN CORPUSCULAR HEMOGLOBIN 27.9 pg (28.0-32.0); MEAN CORPUSCULAR VOLUME 85.3 fL (81.0-99.0); MEAN PLATELET VOLUME 7.1 fl (7.4-10.4); MONOCYTES % 4.6 % (2.0-8.0); NEUTROPHILS % 69.1 % (40.0-76.0); PLATELET 404 x1000/uL (130-400); RED BLOOD CELL COUNT 3.88 mill/uL (4.2-5.4); RED CELL DISTRIBUTION WIDTH 20.2 % (11.6-14.6)
[2020-01-13 07:54] LABS: INR 1.1; PROTHROMBIN TIME 11.9 sec (9.6-11.0)
[2020-01-13] MEDS ORDERED: MORPHINE SULFATE 2 MG/ML CPJ (NOT FOR IM USE) IV ONE (11:15)
[2020-01-13] MEDS ORDERED: HYDRALAZINE 20MG/ML VIAL IV ONE (11:15)
[2020-01-13 12:11] LABS: CLARITY URINE CLOUDY (CLEAR); COLOR URINE YELLOW (YELLOW); KETONES URINE 1+ (NEGATIVE); LEUKOCYTE ESTERASE URINE NEGATIVE (NEGATIVE); NITRITE URINE NEGATIVE (NEGATIVE); OCCULT BLOOD URINE 1+ (NEGATIVE); PH URINE 5.5 (4.5-8.0); PROTEIN URINE 4+ (NEGATIVE); SPECIFIC GRAVITY URINE 1.019 (1.005-1.030); UROBILINOGEN URINE 0.2 E.U./dL (0.2-1.0)
[2020-01-13] MEDS ORDERED: ACETAMINOPHEN 325MG TABLET PO PRN (14:15)
[2020-01-13] MEDS ORDERED: CEFTRIAXONE 1 G PREMIX 50 ML IV NR (14:15)
[2020-01-13] MEDS ORDERED: DIPHENHYDRAMINE 50MG/ML VIAL IV PRN (14:15)
[2020-01-13] MEDS ORDERED: CLONIDINE 0.1MG TABLET PO PRN (14:15)
[2020-01-13] MEDS ORDERED: DILTIAZEM HCL 5MG/ML 5ML VIAL IV PRN (14:45)
[2020-01-13 15:04] LABS: PHOSPHORUS 3.9 mg/dL (2.5-4.9)
[2020-01-13 15:40] VITALS: BP 193/103
[2020-01-13 16:00] VITALS: BP 193/103
[2020-01-13] MEDS ORDERED: CEFTRIAXONE 1,000 MG in DEXTROSE 5% WATER 50 ML IV NR (18:00)
[2020-01-13] MEDS: DILTIAZEM HCL 60MG TABLET PO SCH ×2 (18:12→23:26)
[2020-01-13] MEDS: MORPHINE SULFATE 2 MG/ML CPJ (NOT FOR IM USE) IV PRN (18:29)
[2020-01-13 20:00] VITALS: BP 183/94
[2020-01-13] MEDS ORDERED: DEXTROSE 50% WATER 50ML SYRINGE IV PRN (20:45)
[2020-01-13] MEDS: BLOOD SUGAR DIAGNOSTIC STRIP TEST SCH (20:54)
[2020-01-13] MEDS: INSULIN LISPRO 100 UNITS/ML SUBCUT SCH (20:54)
[2020-01-13] MEDS: ONDANSETRON HCL 4MG/2ML INJ IV PRN (20:55)
[2020-01-13] MEDS: CLONIDINE 0.1MG TABLET PO SCH (21:01)
[2020-01-14] MEDS: MORPHINE SULFATE 2 MG/ML CPJ (NOT FOR IM USE) IV PRN ×4 (00:07→19:17)
[2020-01-14 00:08] VITALS: BP 165/83
[2020-01-14 04:00] VITALS: BP 160/73
[2020-01-14] MEDS: DILTIAZEM HCL 60MG TABLET PO SCH (05:26)
[2020-01-14] MEDS: CLONIDINE 0.1MG TABLET PO SCH ×4 (05:27→21:19)
[2020-01-14] MEDS: INSULIN LISPRO 100 UNITS/ML SUBCUT SCH ×4 (06:23→20:56)
[2020-01-14] MEDS: BLOOD SUGAR DIAGNOSTIC STRIP TEST SCH ×5 (06:23→21:19)
[2020-01-14 06:58] LABS: BASOPHILS % 0.7 % (0.0-2.0); EOSINOPHILS % 2.6 % (0.0-5.0); HEMATOCRIT. 27.1 % (36.0-48.0); HEMOGLOBIN. 8.9 g/dL (12.0-16.0); LYMPHOCYTES % 28.6 % (20.0-50.0); MEAN CORPUSCULAR VOLUME 84.9 fL (81.0-99.0); MEAN PLATELET VOLUME 6.9 fl (7.4-10.4); MONOCYTES % 10.4 % (2.0-8.0); NEUTROPHILS % 57.7 % (40.0-76.0); PLATELET 286 x1000/uL (130-400); RED BLOOD CELL COUNT 3.19 mill/uL (4.2-5.4); RED CELL DISTRIBUTION WIDTH 20.1 % (11.6-14.6)
[2020-01-14 07:01] LABS: CHLORIDE 109 mEq/L (98-107)
[2020-01-14 07:16] LABS: HDL CHOLESTEROL 47 mg/dL (40-59)
[2020-01-14 07:17] LABS: LDL CHOLESTEROL 56 mg/dL (5-100)
[2020-01-14 08:00] VITALS: BP 156/83
[2020-01-14] MEDS: FUROSEMIDE 40MG/4ML VIAL IV SCH (09:15)
[2020-01-14 12:00] VITALS: BP 156/2
[2020-01-14] MEDS: DILTIAZEM HCL 90MG TABLET PO SCH ×3 (12:43→23:32)
[2020-01-14] MEDS: CEFTRIAXONE 1,000 MG in DEXTROSE 5% WATER 50 ML IV SCH (12:57)
[2020-01-14] MEDS ORDERED: CEFTRIAXONE 1,000 MG in DEXTROSE 5% WATER 50 ML IV SCH (13:00)
[2020-01-14 16:00] VITALS: BP 131/66
[2020-01-14 20:38] VITALS: BP 133/68
[2020-01-15] VITALS (7 sets, daily range): BP systolic 108–186; BP diastolic 60–94
[2020-01-15] MEDS: MORPHINE SULFATE 2 MG/ML CPJ (NOT FOR IM USE) IV PRN ×4 (00:59→19:12)
[2020-01-15] MEDS: DILTIAZEM HCL 90MG TABLET PO SCH ×3 (05:57→18:11)
[2020-01-15] MEDS: CLONIDINE 0.1MG TABLET PO SCH (05:57)
[2020-01-15] MEDS: BLOOD SUGAR DIAGNOSTIC STRIP TEST SCH ×4 (05:57→21:03)
[2020-01-15] MEDS: INSULIN LISPRO 100 UNITS/ML SUBCUT SCH ×4 (05:57→21:12)
[2020-01-15 06:39] LABS: BASOPHILS % 0.5 % (0.0-2.0); EOSINOPHILS % 2.7 % (0.0-5.0); HEMATOCRIT. 29.2 % (36.0-48.0); HEMOGLOBIN. 9.6 g/dL (12.0-16.0); LYMPHOCYTES % 31.9 % (20.0-50.0); MEAN CORPUSCULAR HEMOGLOBIN 28.1 pg (28.0-32.0); MEAN CORPUSCULAR VOLUME 85.1 fL (81.0-99.0); MEAN PLATELET VOLUME 7.1 fl (7.4-10.4); NEUTROPHILS % 53.9 % (40.0-76.0); PLATELET 312 x1000/uL (130-400); RED BLOOD CELL COUNT 3.43 mill/uL (4.2-5.4); RED CELL DISTRIBUTION WIDTH 19.5 % (11.6-14.6)
[2020-01-15] MEDS: FUROSEMIDE 40MG/4ML VIAL IV SCH (08:56)
[2020-01-15] MEDS ORDERED: POTASSIUM CHLORIDE 20MEQ/PACKET PO NR (12:30)
[2020-01-15] MEDS: CEFTRIAXONE 1,000 MG in DEXTROSE 5% WATER 50 ML IV SCH (12:46)
[2020-01-15] MEDS: CLONIDINE 0.2MG TABLET PO SCH ×2 (14:14→21:04)
[2020-01-16] VITALS: BP 105/55
[2020-01-16] MEDS: MORPHINE SULFATE 2 MG/ML CPJ (NOT FOR IM USE) IV PRN ×2 (01:16→06:49)
[2020-01-16 03:58] VITALS: BP 109/58
[2020-01-16] MEDS: DILTIAZEM HCL 90MG TABLET PO SCH ×3 (05:31→12:21)
[2020-01-16] MEDS: CLONIDINE 0.2MG TABLET PO SCH (05:31)
[2020-01-16] MEDS: INSULIN LISPRO 100 UNITS/ML SUBCUT SCH ×2 (05:32→12:06)
[2020-01-16] MEDS: BLOOD SUGAR DIAGNOSTIC STRIP TEST SCH ×2 (05:32→12:06)
[2020-01-16 07:28] LABS: BASOPHILS % 0.4 % (0.0-2.0); EOSINOPHILS % 1.8 % (0.0-5.0); HEMATOCRIT. 29.8 % (36.0-48.0); HEMOGLOBIN. 9.8 g/dL (12.0-16.0); LYMPHOCYTES % 35.7 % (20.0-50.0); MEAN CORPUSCULAR VOLUME 85.7 fL (81.0-99.0); MEAN PLATELET VOLUME 7.3 fl (7.4-10.4); MONOCYTES % 13.5 % (2.0-8.0); NEUTROPHILS % 48.6 % (40.0-76.0); PLATELET 323 x1000/uL (130-400); RED BLOOD CELL COUNT 3.48 mill/uL (4.2-5.4); RED CELL DISTRIBUTION WIDTH 19.6 % (11.6-14.6)
[2020-01-16] MEDS: ONDANSETRON HCL 4MG/2ML INJ IV PRN (09:06)
[2020-01-16] MEDS ORDERED: ONDA4TAB11 PO (10:52)
[2020-01-16] MEDS ORDERED: DILT90TA2 PO (10:52)
[2020-01-16] MEDS ORDERED: CLON0.2T12 PO (10:52)
[2020-01-16 11:16] VITALS: BP 146/75
[2020-01-16 13:10] VITALS: BP 175/99
[2020-01-24] MEDS ORDERED: DILT60TA35 PO (12:11)
[2020-01-24] MEDS ORDERED: HYDR-4135 PO (12:11)
== END 2020-01-16 15:00 | disposition home or self-care (01) | DRG 245 ==
LOC: ER 06:20 → 6WST 12:31 → EDBEDREQ 12:45 → ENRESERV 13:52
PROVIDERS: ADMIT Internal Medicine; ATTEND Internal Medicine
DX: K50.90 Crohn's disease, unspecified, without complications (principal); I16.0 Hypertensive urgency; N39.0 Urinary tract infection, site not specified; E11.22 Type 2 diabetes mellitus with diabetic chronic kidney disease; Z99.2 Dependence on renal dialysis; I31.3 Pericardial effusion (noninflammatory); I27.20 Pulmonary hypertension, unspecified; I42.9 Cardiomyopathy, unspecified; N18.3 Chronic kidney disease, stage 3 (moderate); I13.2 Hypertensive heart and chronic kidney disease with heart failure and with stage 5 chronic kidney disease, or end stage renal disease; K21.9 Gastro-esophageal reflux disease without esophagitis; R18.8 Other ascites; I08.3 Combined rheumatic disorders of mitral, aortic and tricuspid valves; I25.10 Atherosclerotic heart disease of native coronary artery without angina pectoris; Z79.899 Other long term (current) drug therapy; Z90.49 Acquired absence of other specified parts of digestive tract; Z88.8 Allergy status to other drugs, medicaments and biological substances; Z79.4 Long term (current) use of insulin; I50.32 Chronic diastolic (congestive) heart failure
CPT/HCPCS: 36415; 71045; 74176; 76700; 80048; 80053; 80061; 81003; 82962; 83036; 83735; 83880; 84100; 84443; 84484; 85025; 93005; 93970; 96374; 99285; J0360; J0696; J1815; J1940; J2270; J2405; J3490; J7060

== ENCOUNTER 2020-02-02 21:51 | Inpatient (IN) | payer OTHER ==
[~2020-02-02] VITALS: Ht 162.6 cm; Wt 68.5 kg
[~2020-02-02 21:51] MED LIST changes: -CARV3.1242 MT; +DILT60TA35 PO; -NIFE-32 PO; +ONDA4TAB11 PO; -PRO1 MT
[2020-02-02] MEDS ORDERED: SODIUM CHLORIDE 0.9% 1,000 ML IV ONE (22:27)
[2020-02-02] MEDS ORDERED: IBUPROFEN 600MG TABLET PO ONE (23:45)
[2020-02-02] MEDS ORDERED: MORPHINE SULFATE 4 MG/ML CPJ (NOT FOR IM USE) IV ONE (23:45)
[2020-02-02] MEDS ORDERED: ONDANSETRON HCL 4MG/2ML INJ IV ONE (23:45)
[2020-02-03 00:13] LABS: BASOPHILS % 0.5 % (0.0-2.0); HEMATOCRIT. 29.6 % (36.0-48.0); HEMOGLOBIN. 9.6 g/dL (12.0-16.0); LYMPHOCYTES % 17.5 % (20.0-50.0); MEAN CORPUSCULAR HEMOGLOBIN 28.7 pg (28.0-32.0); MEAN CORPUSCULAR VOLUME 87.9 fL (81.0-99.0); MEAN PLATELET VOLUME 7.6 fl (7.4-10.4); MONOCYTES % 6.2 % (2.0-8.0); NEUTROPHILS % 75.8 % (40.0-76.0); PLATELET 387 x1000/uL (130-400); RED BLOOD CELL COUNT 3.37 mill/uL (4.2-5.4); RED CELL DISTRIBUTION WIDTH 19.4 % (11.6-14.6)
[2020-02-03 00:23] LABS: INR 1.2; PARTIAL THROMBOPLASTIN TIME 26.8 sec (23.4-31.0); PROTHROMBIN TIME 12.7 sec (9.6-11.0)
[2020-02-03 00:29] LABS: CHLORIDE 112 mEq/L (98-107)
[2020-02-03] MEDS ORDERED: PIPERACILLIN/TAZ 3.375G PREMIX 50 ML IV ONE (02:30)
[2020-02-03] MEDS ORDERED: CLONIDINE 0.2MG TABLET PO ONE (02:45)
[2020-02-03] MEDS ORDERED: MORPHINE SULFATE 4 MG/ML CPJ (NOT FOR IM USE) IV ONE (03:15)
[2020-02-03] MEDS ORDERED: TRAMADOL 50MG TABLET PO PRN (08:45)
[2020-02-03] MEDS ORDERED: ACETAMINOPHEN 325MG TABLET PO PRN (08:45)
[2020-02-03] MEDS ORDERED: DEXTROSE 50% WATER 50ML SYRINGE IV PRN (08:45)
[2020-02-03] MEDS: CLONIDINE 0.1MG TABLET PO PRN (09:33)
[2020-02-03 12:00] VITALS: BP 153/78
[2020-02-03] MEDS: BLOOD SUGAR DIAGNOSTIC STRIP TEST SCH ×3 (12:14→21:31)
[2020-02-03] MEDS: INSULIN LISPRO 100 UNITS/ML SUBCUT SCH ×3 (12:24→21:00)
[2020-02-03] MEDS ORDERED: SODIUM BICARBONATE 4% (2.4MEQ) 5ML VIAL IV ONE (13:24)
[2020-02-03] MEDS ORDERED: LIDOCAINE HCL 1% 20ML VIAL (Pyxis) INJ ONE (13:24)
[2020-02-03 15:24] VITALS: BP 143/84
[2020-02-03 16:00] VITALS: BP_SYST 137; BP_SYST 139; BP_DIAS 72; BP_DIAS 79
[2020-02-03] MEDS: SODIUM CHLORIDE 0.45% 1,000 ML IV SCH (16:12)
[2020-02-03 20:00] VITALS: BP 156/80
[2020-02-03] MEDS: HYDROCODONE/ACETAMINOPHEN 5/325MG TABLET PO PRN (21:37)
[2020-02-04] VITALS (7 sets, daily range): BP systolic 148–179; BP diastolic 71–87
[2020-02-04] MEDS: SODIUM CHLORIDE 0.45% 1,000 ML IV SCH (05:05)
[2020-02-04] MEDS: BLOOD SUGAR DIAGNOSTIC STRIP TEST SCH ×4 (06:17→21:01)
[2020-02-04] MEDS: INSULIN LISPRO 100 UNITS/ML SUBCUT SCH ×4 (06:17→21:00)
[2020-02-04] MEDS: ONDANSETRON HCL 4MG/2ML INJ IV PRN ×3 (06:19→21:39)
[2020-02-04] MEDS: HYDROCODONE/ACETAMINOPHEN 5/325MG TABLET PO PRN ×2 (06:21→21:40)
[2020-02-04] MEDS: CLONIDINE 0.1MG TABLET PO PRN ×2 (06:30→14:51)
[2020-02-04 06:34] LABS: BASOPHILS % 0.3 % (0.0-2.0); EOSINOPHILS % 1.2 % (0.0-5.0); HEMATOCRIT. 27.7 % (36.0-48.0); LYMPHOCYTES % 28.3 % (20.0-50.0); MEAN CORPUSCULAR HEMOGLOBIN 28.3 pg (28.0-32.0); MEAN CORPUSCULAR VOLUME 87.5 fL (81.0-99.0); MEAN PLATELET VOLUME 7.7 fl (7.4-10.4); MONOCYTES % 7.3 % (2.0-8.0); NEUTROPHILS % 62.9 % (40.0-76.0); PLATELET 283 x1000/uL (130-400); RED BLOOD CELL COUNT 3.16 mill/uL (4.2-5.4); RED CELL DISTRIBUTION WIDTH 19.2 % (11.6-14.6)
[2020-02-04] MEDS: AMLODIPINE 10MG TABLET PO SCH (09:17)
[2020-02-04] MEDS ORDERED: MORPHINE SULFATE 2 MG/ML CPJ (NOT FOR IM USE) IV NR (12:00)
[2020-02-04] MEDS ORDERED: HYDRALAZINE HCL 50MG TABLET PO NR (15:30)
[2020-02-04] MEDS ORDERED: HYDRALAZINE HCL 50MG TABLET PO SCH (21:00)
[2020-02-05] VITALS: BP 144/73
[2020-02-05] MEDS: SODIUM CHLORIDE 0.45% 1,000 ML IV SCH (00:29)
[2020-02-05] MEDS: HYDROCODONE/ACETAMINOPHEN 5/325MG TABLET PO PRN (02:18)
[2020-02-05 04:00] VITALS: BP 132/85
[2020-02-05] MEDS: BLOOD SUGAR DIAGNOSTIC STRIP TEST SCH ×3 (06:15→16:42)
[2020-02-05] MEDS: INSULIN LISPRO 100 UNITS/ML SUBCUT SCH ×3 (06:16→16:45)
[2020-02-05 08:00] VITALS: BP 161/74
[2020-02-05] MEDS: AMLODIPINE 10MG TABLET PO SCH (08:28)
[2020-02-05] MEDS: HYDRALAZINE HCL 100MG TABLET PO SCH ×2 (09:13→18:10)
[2020-02-05 12:00] VITALS: BP 146/67
[2020-02-05] MEDS ORDERED: OXYCODONE HCL/ACETAMINOPHEN 5/325MG TABLET PO NR (12:00)
[2020-02-05] MEDS ORDERED: OXYCODONE HCL/ACETAMINOPHEN 5/325MG TABLET PO SCH (13:30)
[2020-02-05 16:00] VITALS: BP 118/59
[2020-02-05] MEDS ORDERED: OXYC-515 MT (16:17)
[2020-02-05 16:33] VITALS: BP 118/59
[2020-02-05] MEDS: ONDANSETRON HCL 4MG/2ML INJ IV PRN (18:50)
== END 2020-02-05 18:55 | disposition home or self-care (01) | DRG 249 ==
LOC: ER 21:51 → 5WST 02-03 03:36 → EDBEDREQ 02-03 03:40 → EDBEDREQDT 02-03 03:40 → EDBEDREQTM 02-03 03:40 → ENRESERV 02-03 07:28
PROVIDERS: ADMIT Internal Medicine; ATTEND Internal Medicine
PROC: 0W9G3ZZ Drainage of Peritoneal Cavity, Percutaneous Approach (ICD-10-PCS; principal; 2020-02-03)
DX: K52.9 Noninfective gastroenteritis and colitis, unspecified (principal); K74.60 Unspecified cirrhosis of liver; E11.43 Type 2 diabetes mellitus with diabetic autonomic (poly)neuropathy; N18.9 Chronic kidney disease, unspecified; E11.22 Type 2 diabetes mellitus with diabetic chronic kidney disease; I13.0 Hypertensive heart and chronic kidney disease with heart failure and stage 1 through stage 4 chronic kidney disease, or unspecified chronic kidney disease; R18.8 Other ascites; I50.9 Heart failure, unspecified; K50.90 Crohn's disease, unspecified, without complications; K31.84 Gastroparesis; E44.1 Mild protein-calorie malnutrition; N17.9 Acute kidney failure, unspecified; E87.8 Other disorders of electrolyte and fluid balance, not elsewhere classified; G89.29 Other chronic pain; D64.9 Anemia, unspecified; F10.21 Alcohol dependence, in remission; I31.3 Pericardial effusion (noninflammatory); Z90.49 Acquired absence of other specified parts of digestive tract; Z68.25 Body mass index [BMI] 25.0-25.9, adult; Z76.5 Malingerer [conscious simulation]; Z88.8 Allergy status to other drugs, medicaments and biological substances; Z79.899 Other long term (current) drug therapy; Z79.1 Long term (current) use of non-steroidal anti-inflammatories (NSAID)
CPT/HCPCS: 36415; 49083; 71045; 74176; 80048; 80053; 82962; 84484; 85025; 93005; 99285; J1815; J2270; J2405; J2543; J3490; J7030

== ENCOUNTER 2020-02-06 13:21 | Emergency (ER) | payer OTHER ==
[~2020-02-06] VITALS: Ht 165.1 cm; Wt 63.9 kg
[~2020-02-06 13:21] MED LIST changes: +OXYC-515 MT
[2020-02-06] MEDS ORDERED: ONDANSETRON HCL 4MG/2ML INJ IV ONE (15:15)
[2020-02-06] MEDS ORDERED: KETOROLAC 30MG/ML VIAL IV ONE (15:15)
[2020-02-06 15:38] LABS: BASOPHILS % 0.2 % (0.0-2.0); EOSINOPHILS % 0.2 % (0.0-5.0); HEMATOCRIT. 34.9 % (36.0-48.0); HEMOGLOBIN. 11.4 g/dL (12.0-16.0); LYMPHOCYTES % 16.5 % (20.0-50.0); MEAN CORPUSCULAR HEMOGLOBIN 28.1 pg (28.0-32.0); MEAN CORPUSCULAR VOLUME 85.7 fL (81.0-99.0); MEAN PLATELET VOLUME 7.2 fl (7.4-10.4); MONOCYTES % 5.5 % (2.0-8.0); NEUTROPHILS % 77.6 % (40.0-76.0); PLATELET 447 x1000/uL (130-400); RED BLOOD CELL COUNT 4.07 mill/uL (4.2-5.4); RED CELL DISTRIBUTION WIDTH 18.7 % (11.6-14.6)
[2020-02-06 15:41] LABS: CHLORIDE 103 mEq/L (98-107)
[2020-02-06] MEDS ORDERED: SODIUM CHLORIDE 0.9% 1,000 ML IV ONE (15:46)
[2020-02-06 15:51] LABS: INR 1.1; PROTHROMBIN TIME 11.8 sec (9.6-11.0)
[2020-02-06] MEDS ORDERED: MORPHINE SULFATE 4 MG/ML CPJ (NOT FOR IM USE) IV ONE ×2 (16:00→17:15)
[2020-02-06 16:49] LABS: CLARITY URINE CLOUDY (CLEAR); COLOR URINE YELLOW (YELLOW); KETONES URINE TRACE (NEGATIVE); LEUKOCYTE ESTERASE URINE 1+ (NEGATIVE); NITRITE URINE NEGATIVE (NEGATIVE); OCCULT BLOOD URINE NEGATIVE (NEGATIVE); PH URINE 5.5 (4.5-8.0); PROTEIN URINE 2+ (NEGATIVE); SPECIFIC GRAVITY URINE 1.015 (1.005-1.030); UROBILINOGEN URINE 0.2 E.U./dL (0.2-1.0)
[2020-02-06] MEDS ORDERED: LEVOFLOXACIN 750MG PREMIX 150 ML IV ONE (18:15)
[2020-02-06] MEDS ORDERED: CLONIDINE 0.1MG TABLET PO ONE (19:30)
[2020-02-06 19:55] VITALS: BP 179/85
== END 2020-02-06 21:11 | disposition short-term general hospital (02) ==
LOC: ER 13:21 → CANBEDREQ 22:19
DX: R11.2 Nausea with vomiting, unspecified (principal); I11.0 Hypertensive heart disease with heart failure; I50.9 Heart failure, unspecified; Z90.49 Acquired absence of other specified parts of digestive tract; Z79.899 Other long term (current) drug therapy
CPT/HCPCS: 36415; 74176; 80053; 81003; 83690; 85025; 85610; 93005; 96361; 96374; 96375; 96376; 99285; J1885; J1956; J2270; J2405; J7030

== ENCOUNTER 2020-03-25 11:05 | Emergency (ER) | payer OTHER ==
[~2020-03-25] VITALS: Ht 165.1 cm; Wt 61.0 kg
[2020-03-25] MEDS ORDERED: OXYCODONE HCL/ACETAMINOPHEN 5/325MG TABLET PO ONE (12:30)
[2020-03-25 12:34] LABS: EOSINOPHILS % 0.7 % (0.0-5.0); HEMATOCRIT. 21.4 % (36.0-48.0); HEMOGLOBIN. 7.1 g/dL (12.0-16.0); LYMPHOCYTES % 18.5 % (20.0-50.0); MEAN CORPUSCULAR HEMOGLOBIN 31.1 pg (28.0-32.0); MEAN CORPUSCULAR VOLUME 94.2 fL (81.0-99.0); MEAN PLATELET VOLUME 7.3 fl (7.4-10.4); MONOCYTES % 7.7 % (2.0-8.0); NEUTROPHILS % 72.1 % (40.0-76.0); PLATELET 367 x1000/uL (130-400); RED BLOOD CELL COUNT 2.27 mill/uL (4.2-5.4)
[2020-03-25 12:39] LABS: CHLORIDE 113 mEq/L (98-107)
[2020-03-25 12:40] LABS: INR 1.2; PROTHROMBIN TIME 12.2 sec (9.6-11.0)
[2020-03-25 12:58] LABS: PLATELET ESTIMATE NORMAL
[2020-03-25] MEDS ORDERED: MORPHINE SULFATE 4 MG/ML CPJ (NOT FOR IM USE) IV ONE ×2 (13:15→16:45)
[2020-03-25 13:37] LABS: BG BASE EXCESS -9.6 mmol/L (-2.0-2.0); BG CARBOXYHEMOGLOBIN 0.5 % (0.5-1.5); BG DEOXYHEMOGLOBIN 2.1 % (0.0-5.0); BG HCO3 ACT 14.6 mmol/L (22.0-26.0); BG METHEMOGLOBIN 0.3 % (0.0-1.5); BG OXYGEN SATURATION 97.9 % (92.0-98.5); BG OXYHEMOGLOBIN 97.1 % (94.0-97.0); BG PCO2 25.6 mmHg (35.0-45.0); BG PH 7.375 (7.350-7.450); BG PO2 117.6 mmHg (75.0-100.0); BG SAMPLE SITE RIGHT RADIAL; BG TOTAL HEMOGLOBIN 6.8 g/dL (12.0-18.0); BG VENT MODE ROOM AIR
[2020-03-25] MEDS ORDERED: LIDOCAINE HCL 1% 20ML VIAL (Pyxis) INJ ONE (13:47)
[2020-03-25] MEDS ORDERED: SODIUM BICARBONATE 4% (2.4MEQ) 5ML VIAL IV ONE (13:48)
[2020-03-25 18:26] VITALS: BP 156/90
== END 2020-03-25 19:15 | disposition short-term general hospital (02) ==
LOC: ER 11:05
DX: R18.8 Other ascites (principal); E87.2 Acidosis; I13.2 Hypertensive heart and chronic kidney disease with heart failure and with stage 5 chronic kidney disease, or end stage renal disease; E11.22 Type 2 diabetes mellitus with diabetic chronic kidney disease; N18.6 End stage renal disease; I50.9 Heart failure, unspecified; Z79.84 Long term (current) use of oral hypoglycemic drugs; K72.90 Hepatic failure, unspecified without coma
CPT/HCPCS: 36415; 36600; 49083; 71045; 73552; 80053; 82375; 82805; 83605; 83690; 85025; 85610; 87040; 87070; 87075; 87205; 87426; 89050; 93005; 96374; 96376; 99285; J2270; J3490; Z7610

== ENCOUNTER 2020-04-08 10:12 | Emergency (ER) | payer OTHER ==
[~2020-04-08] VITALS: Ht 165.1 cm; Wt 62.0 kg
[2020-04-08] MEDS ORDERED: FAMOTIDINE 20MG/2ML VIAL IV STA (10:27)
[2020-04-08] MEDS ORDERED: ONDANSETRON HCL 4MG/2ML INJ IV STA (10:27)
[2020-04-08] MEDS ORDERED: MORPHINE SULFATE 4 MG/ML CPJ (NOT FOR IM USE) IV STA (10:27)
[2020-04-08 11:11] LABS: BASOPHILS % 0.7 % (0.0-2.0); EOSINOPHILS % 0.3 % (0.0-5.0); HEMATOCRIT. 31.4 % (36.0-48.0); HEMOGLOBIN. 10.1 g/dL (12.0-16.0); LYMPHOCYTES % 12.6 % (20.0-50.0); MEAN CORPUSCULAR HEMOGLOBIN 31.1 pg (28.0-32.0); MEAN CORPUSCULAR VOLUME 96.2 fL (81.0-99.0); MEAN PLATELET VOLUME 7.4 fl (7.4-10.4); MONOCYTES % 3.6 % (2.0-8.0); NEUTROPHILS % 82.8 % (40.0-76.0); PLATELET 386 x1000/uL (130-400); RED BLOOD CELL COUNT 3.27 mill/uL (4.2-5.4); RED CELL DISTRIBUTION WIDTH 19.7 % (11.6-14.6)
[2020-04-08 11:17] LABS: CHLORIDE 114 mEq/L (98-107)
[2020-04-08 11:21] LABS: ETHANOL BLOOD < 10 mg/dL; INR 1.2; PROTHROMBIN TIME 12.3 sec (9.6-11.0)
[2020-04-08] MEDS ORDERED: FUROSEMIDE 20MG/2ML VIAL IVP ONE (11:45)
[2020-04-08] MEDS ORDERED: SODIUM BICARBONATE 8.4% 1 MEQ/ML 50ML SYR IV ONE (12:30)
[2020-04-08 14:52] LABS: CLARITY URINE CLEAR (CLEAR); COLOR URINE YELLOW (YELLOW); KETONES URINE TRACE (NEGATIVE); LEUKOCYTE ESTERASE URINE NEGATIVE (NEGATIVE); NITRITE URINE NEGATIVE (NEGATIVE); OCCULT BLOOD URINE TRACE (NEGATIVE); PH URINE 5.5 (4.5-8.0); PROTEIN URINE 3+ (NEGATIVE); SPECIFIC GRAVITY URINE 1.018 (1.005-1.030)
[2020-04-08] MEDS ORDERED: HYDRALAZINE HCL 100MG TABLET PO ONE (15:00)
[2020-04-08 15:33] LABS: *AMPHETAMINES SCREEN URINE NEGATIVE (NEGATIVE); *BARBITURATES SCREEN URINE NEGATIVE (NEGATIVE); *BENZODIAZEPINES SCREEN URINE NEGATIVE (NEGATIVE); *COCAINE SCREEN URINE NEGATIVE (NEGATIVE)
[2020-04-08 15:34] LABS: CANNABINOID URINE SCREEN NEGATIVE (NEGATIVE); METHADONE URINE SCREEN NEGATIVE (NEGATIVE); OPIATES URINE SCREEN PRESUMTIVE POSITIVE (NEGATIVE); PHENCYCLIDINE URINE SCREEN NEGATIVE (NEGATIVE)
[2020-04-08] MEDS ORDERED: LABETALOL 5MG/ML SYR 20 MG/4 ML SYRINGE IV ONE (16:00)
[2020-04-08] MEDS ORDERED: LORAZEPAM 2MG/ML CPJ IV ONE (16:00)
[2020-04-08 16:11] VITALS: BP 222/107
== END 2020-04-08 16:35 | disposition short-term general hospital (02) ==
LOC: ER 10:12 → CANBEDREQ 14:22 → ER 16:35
DX: R10.0 Acute abdomen (principal); R11.10 Vomiting, unspecified; I13.0 Hypertensive heart and chronic kidney disease with heart failure and stage 1 through stage 4 chronic kidney disease, or unspecified chronic kidney disease; I50.43 Acute on chronic combined systolic (congestive) and diastolic (congestive) heart failure; E87.2 Acidosis; E11.22 Type 2 diabetes mellitus with diabetic chronic kidney disease; N18.9 Chronic kidney disease, unspecified; N17.9 Acute kidney failure, unspecified; Z79.4 Long term (current) use of insulin; Z79.899 Other long term (current) drug therapy
CPT/HCPCS: 36415; 71045; 74176; 80053; 80305; 80320; 81003; 83690; 83880; 84484; 85025; 85610; 93005; 96374; 96375; 99285; J1940; J2060; J2270; J2405; J3490; G0480

== ENCOUNTER 2020-04-14 16:19 | Emergency (ER) | payer OTHER ==
[~2020-04-14] VITALS: Ht 165.1 cm; Wt 61.0 kg
[2020-04-14] MEDS ORDERED: ONDANSETRON HCL 4MG/2ML INJ IV STA (16:44)
[2020-04-14 18:27] LABS: BASOPHILS % 0.6 % (0.0-2.0); HEMATOCRIT. 31.2 % (36.0-48.0); HEMOGLOBIN. 10.1 g/dL (12.0-16.0); LYMPHOCYTES % 20.4 % (20.0-50.0); MEAN CORPUSCULAR VOLUME 95.6 fL (81.0-99.0); MEAN PLATELET VOLUME 7.4 fl (7.4-10.4); MONOCYTES % 5.8 % (2.0-8.0); NEUTROPHILS % 72.2 % (40.0-76.0); PLATELET 338 x1000/uL (130-400); RED BLOOD CELL COUNT 3.26 mill/uL (4.2-5.4); RED CELL DISTRIBUTION WIDTH 18.8 % (11.6-14.6)
[2020-04-14 18:34] LABS: CHLORIDE 112 mEq/L (98-107)
[2020-04-14 18:47] LABS: INR 1.1; PROTHROMBIN TIME 11.7 sec (9.6-11.0)
[2020-04-14] MEDS ORDERED: MORPHINE SULFATE 4 MG/ML CPJ (NOT FOR IM USE) IV ONE (20:45)
[2020-04-14] MEDS ORDERED: FUROSEMIDE 40MG/4ML VIAL IVP ONE (21:30)
[2020-04-14] MEDS ORDERED: HYDRALAZINE HCL 25MG TABLET PO ONE (23:00)
[2020-04-15 01:43] VITALS: BP 197/118
== END 2020-04-15 02:07 | disposition home or self-care (01) ==
LOC: ER 16:19 → CANBEDREQ 04-15 02:16
DX: R18.8 Other ascites (principal); K74.60 Unspecified cirrhosis of liver; I13.0 Hypertensive heart and chronic kidney disease with heart failure and stage 1 through stage 4 chronic kidney disease, or unspecified chronic kidney disease; I50.9 Heart failure, unspecified; E11.22 Type 2 diabetes mellitus with diabetic chronic kidney disease; N18.9 Chronic kidney disease, unspecified; Z79.4 Long term (current) use of insulin
CPT/HCPCS: 36415; 80053; 83690; 83880; 84484; 85025; 85610; 87426; 93005; 96374; 96375; 99285; J1940; J2270; J2405

== ENCOUNTER 2022-04-13 08:57 | Inpatient (IN) | payer OTHER ==
[~2022-04-13] VITALS: Ht 165.1 cm; Wt 61.2 kg
[~2022-04-13 08:57] MED LIST changes: -ALBU6.7H11 INH; +ALBU6.7H15 INH; -OXYC-515 MT; +OXYC1TAB12 MT
[2022-04-13 10:50] LABS: BASOPHILS % 0.4 % (0.0-2.0); EOSINOPHILS % 0.1 % (0.0-5.0); HEMATOCRIT. 29.2 % (36.0-48.0); HEMOGLOBIN. 9.6 g/dL (12.0-16.0); LYMPHOCYTES % 16.5 % (20.0-50.0); MEAN CORPUSCULAR HEMOGLOBIN 32.2 pg (28.0-32.0); MEAN CORPUSCULAR VOLUME 97.8 fL (81.0-99.0); MEAN PLATELET VOLUME 6.5 fl (7.4-10.4); MONOCYTES % 6.3 % (2.0-8.0); NEUTROPHILS % 76.7 % (40.0-76.0); PLATELET 304 x1000/uL (130-400); RED BLOOD CELL COUNT 2.99 mill/uL (4.2-5.4); RED CELL DISTRIBUTION WIDTH 17.2 % (11.6-14.6)
[2022-04-13 11:03] LABS: CHLORIDE 108 mEq/L (98-107)
[2022-04-13 11:07] LABS: INR 1.2; PROTHROMBIN TIME 12.4 sec (9.6-11.0)
[2022-04-13 11:25] LABS: HCG SCREEN NEGATIVE
[2022-04-13 11:55] LABS: BG CARBOXYHEMOGLOBIN 1.1 % (0.5-1.5); BG DEOXYHEMOGLOBIN 3.8 % (0.0-5.0); BG FRACTION INSPIRED OXYGEN 21; BG HCO3 ACT 22.3 mmol/L (22.0-26.0); BG OXYGEN SATURATION 96.2 % (92.0-98.5); BG OXYHEMOGLOBIN 95.1 % (94.0-97.0); BG PCO2 31.7 mmHg (35.0-45.0); BG PH 7.465 (7.350-7.450); BG SAMPLE SITE RIGHT RADIAL; BG TOTAL HEMOGLOBIN 9.7 g/dL (12.0-18.0); BG VENT MODE ROOM AIR
[2022-04-13] MEDS ORDERED: SODIUM CHLORIDE 0.9% 250 ML IV ONE (12:00)
[2022-04-13] MEDS ORDERED: FAMOTIDINE 20MG/2ML VIAL IV NR (12:00)
[2022-04-13] MEDS ORDERED: ONDANSETRON HCL 4MG/2ML INJ IV NR (12:00)
[2022-04-13] MEDS: MORPHINE SULFATE 2 MG/ML CPJ (NOT FOR IM USE) IV NR ×2 (12:32→19:25)
[2022-04-13] MEDS ORDERED: DILTIAZEM HCL 5MG/ML 5ML VIAL IV ONE (15:45)
[2022-04-13 17:45] VITALS: BP 202/92
[2022-04-13] MEDS ORDERED: DEXTROSE 50% WATER 50ML SYRINGE IV PRN (19:00)
[2022-04-13] MEDS ORDERED: ONDANSETRON HCL 4MG/2ML INJ IV PRN (19:00)
[2022-04-13] MEDS: HYDRALAZINE 20MG/ML VIAL IV PRN (19:25)
[2022-04-13 20:00] VITALS: BP 137/54
[2022-04-13] MEDS ORDERED: ACETAMINOPHEN 325MG TABLET PO PRN (20:45)
[2022-04-13] MEDS ORDERED: INSULIN LISPRO 100 UNITS/ML SUBCUT SCH (21:00)
[2022-04-13] MEDS ORDERED: BLOOD SUGAR DIAGNOSTIC STRIP TEST SCH (21:00)
[2022-04-13 22:00] VITALS: BP 137/54
[2022-04-14] VITALS (13 sets, daily range): BP systolic 126–188; BP diastolic 52–90
[2022-04-14] MEDS: MORPHINE SULFATE 2 MG/ML CPJ (NOT FOR IM USE) IV PRN ×5 (00:10→22:20)
[2022-04-14] MEDS ORDERED: CLONIDINE 0.1MG TABLET PO PRN (01:45)
[2022-04-14] MEDS ORDERED: ACETAMINOPHEN 325MG TABLET PO PRN ×2 (01:45)
[2022-04-14] MEDS ORDERED: DEXTROSE 50% WATER 50ML SYRINGE IV PRN (01:45)
[2022-04-14] MEDS ORDERED: DIPHENHYDRAMINE 50MG/ML VIAL IV PRN (01:45)
[2022-04-14] MEDS: SODIUM CHLORIDE 0.9% INJ 3ML FLUSH IVF SCH ×3 (06:20→21:01)
[2022-04-14] MEDS: BLOOD SUGAR DIAGNOSTIC STRIP TEST SCH ×4 (07:40→20:50)
[2022-04-14] MEDS: INSULIN LISPRO 100 UNITS/ML SUBCUT SCH ×4 (08:10→20:50)
[2022-04-14] MEDS ORDERED: LIDOCAINE HCL 1% 10 MG/ML 10ML VIAL ONE (08:34)
[2022-04-14] MEDS ORDERED: SODIUM BICARBONATE 4% (2.4MEQ) 5ML VIAL IV ONE (08:34)
[2022-04-14] MEDS: PANTOPRAZOLE SODIUM 40 MG/VIAL IV SCH (09:44)
[2022-04-14] MEDS: ONDANSETRON HCL 4MG/2ML INJ IV PRN ×2 (11:22→23:44)
[2022-04-14 11:48] LABS: HEPATITIS B SURFACE ANTIGEN NEGATIVE
[2022-04-14] MEDS: HYDRALAZINE 20MG/ML VIAL IV PRN ×2 (13:17→18:23)
[2022-04-14] MEDS: ZOLPIDEM TARTRATE 5MG TABLET PO PRN (23:53)
[2022-04-15] VITALS: BP 127/53
[2022-04-15 04:00] VITALS: BP 156/65
[2022-04-15] MEDS: MORPHINE SULFATE 2 MG/ML CPJ (NOT FOR IM USE) IV PRN ×5 (04:08→21:38)
[2022-04-15] MEDS: SODIUM CHLORIDE 0.9% INJ 3ML FLUSH IVF SCH ×3 (05:00→21:51)
[2022-04-15] MEDS: BLOOD SUGAR DIAGNOSTIC STRIP TEST SCH ×4 (07:40→21:00)
[2022-04-15 08:00] VITALS: BP 177/72
[2022-04-15] MEDS: INSULIN LISPRO 100 UNITS/ML SUBCUT SCH ×4 (08:10→21:00)
[2022-04-15] MEDS: ONDANSETRON HCL 4MG/2ML INJ IV PRN (08:44)
[2022-04-15] MEDS: PANTOPRAZOLE SODIUM 40 MG/VIAL IV SCH (08:45)
[2022-04-15] MEDS ORDERED: NALOXONE HCL 0.4MG/ML VIAL IV PRN (09:45)
[2022-04-15 12:00] VITALS: BP 165/66
[2022-04-15] MEDS ORDERED: SULFASALAZINE 500MG TABLET PO SCH (13:10)
[2022-04-15] MEDS: GABAPENTIN 100MG CAPSULE PO SCH ×2 (13:27→21:51)
[2022-04-15] MEDS: HYDRALAZINE HCL 50MG TABLET PO SCH ×2 (13:28→21:50)
[2022-04-15] MEDS: DILTIAZEM HCL 60MG TABLET PO SCH ×2 (13:29→17:27)
[2022-04-15 16:00] VITALS: BP 169/81
[2022-04-15] MEDS: SULFASALAZINE 500MG TABLET PO SCH (17:26)
[2022-04-15 20:00] VITALS: BP 147/62
[2022-04-16] VITALS (11 sets, daily range): BP systolic 111–131; BP diastolic 50–70
[2022-04-16] MEDS: ZOLPIDEM TARTRATE 5MG TABLET PO PRN
[2022-04-16] MEDS: MORPHINE SULFATE 2 MG/ML CPJ (NOT FOR IM USE) IV PRN ×3 (02:10→15:23)
[2022-04-16] MEDS: SODIUM CHLORIDE 0.9% INJ 3ML FLUSH IVF SCH ×2 (06:00→14:00)
[2022-04-16] MEDS: DILTIAZEM HCL 60MG TABLET PO SCH ×3 (06:00→12:00)
[2022-04-16] MEDS: HYDRALAZINE HCL 50MG TABLET PO SCH ×2 (06:00→14:00)
[2022-04-16] MEDS: BLOOD SUGAR DIAGNOSTIC STRIP TEST SCH ×3 (07:05→17:40)
[2022-04-16] MEDS: GABAPENTIN 100MG CAPSULE PO SCH ×2 (07:05→14:00)
[2022-04-16 07:17] LABS: BASOPHILS % 0.1 % (0.0-2.0); EOSINOPHILS % 2.4 % (0.0-5.0); HEMATOCRIT. 28.8 % (36.0-48.0); HEMOGLOBIN. 9.6 g/dL (12.0-16.0); LYMPHOCYTES % 24.7 % (20.0-50.0); MEAN CORPUSCULAR VOLUME 96.3 fL (81.0-99.0); MEAN PLATELET VOLUME 6.6 fl (7.4-10.4); MONOCYTES % 11.7 % (2.0-8.0); NEUTROPHILS % 61.1 % (40.0-76.0); PLATELET 265 x1000/uL (130-400); RED BLOOD CELL COUNT 2.99 mill/uL (4.2-5.4); RED CELL DISTRIBUTION WIDTH 16.6 % (11.6-14.6)
[2022-04-16] MEDS: INSULIN LISPRO 100 UNITS/ML SUBCUT SCH (08:10)
[2022-04-16] MEDS ORDERED: FAMOTIDINE 20MG/2ML VIAL IV SCH (09:00)
[2022-04-16] MEDS: SULFASALAZINE 500MG TABLET PO SCH ×2 (09:17→13:10)
== END 2022-04-16 18:30 | disposition home or self-care (01) | DRG 48 ==
LOC: ER 08:57 → 7WST 14:20 → EDBEDREQ 14:22 → EDBEDREQTM 14:22 → ENRESERV 15:06
PROVIDERS: ADMIT Internal Medicine; ATTEND Internal Medicine
PROC: 5A1D70Z Performance of Urinary Filtration, Intermittent, Less than 6 Hours Per Day (ICD-10-PCS; principal; 2022-04-14)
PROC: 0W9G3ZZ Drainage of Peritoneal Cavity, Percutaneous Approach (ICD-10-PCS; 2022-04-14)
PROC: 5A1D70Z Performance of Urinary Filtration, Intermittent, Less than 6 Hours Per Day (ICD-10-PCS; 2022-04-16)
DX: E11.43 Type 2 diabetes mellitus with diabetic autonomic (poly)neuropathy (principal); I13.2 Hypertensive heart and chronic kidney disease with heart failure and with stage 5 chronic kidney disease, or end stage renal disease; K70.31 Alcoholic cirrhosis of liver with ascites; I27.20 Pulmonary hypertension, unspecified; N18.6 End stage renal disease; E11.22 Type 2 diabetes mellitus with diabetic chronic kidney disease; Z20.822 Contact with and (suspected) exposure to COVID-19; D64.9 Anemia, unspecified; K31.84 Gastroparesis; K50.90 Crohn's disease, unspecified, without complications; I50.9 Heart failure, unspecified; Z90.49 Acquired absence of other specified parts of digestive tract; Z98.51 Tubal ligation status; Z99.2 Dependence on renal dialysis; Z88.8 Allergy status to other drugs, medicaments and biological substances; Z79.899 Other long term (current) drug therapy
CPT/HCPCS: 36415; 36600; 49083; 71045; 74176; 80048; 80053; 82375; 82805; 82962; 83036; 83880; 84484; 84703; 85025; 86705; 86709; 86803; 87340; 87426; 90935; 93005; 99285; C9113; J0360; J1815; J2270; J2405; J3490

== ENCOUNTER 2022-05-08 08:33 | Inpatient (IN) | payer OTHER ==
[~2022-05-08] VITALS: Ht 165.1 cm; Wt 65.3 kg
[2022-05-08 10:41] LABS: BASOPHILS % 0.7 % (0.0-2.0); EOSINOPHILS % 0.5 % (0.0-5.0); HEMOGLOBIN. 9.8 g/dL (12.0-16.0); MEAN CORPUSCULAR HEMOGLOBIN 31.9 pg (28.0-32.0); MEAN CORPUSCULAR VOLUME 97.5 fL (81.0-99.0); MONOCYTES % 8.1 % (2.0-8.0); NEUTROPHILS % 64.7 % (40.0-76.0); PLATELET 254 x1000/uL (130-400); RED BLOOD CELL COUNT 3.08 mill/uL (4.2-5.4); RED CELL DISTRIBUTION WIDTH 16.2 % (11.6-14.6)
[2022-05-08 10:42] LABS: INR 1.1; PROTHROMBIN TIME 12.1 sec (9.6-11.0)
[2022-05-08 11:10] LABS: CHLORIDE 107 mEq/L (98-107)
[2022-05-08] MEDS ORDERED: ONDANSETRON HCL 4MG/2ML INJ IV ONE (13:00)
[2022-05-08] MEDS ORDERED: FAMOTIDINE 20MG/2ML VIAL IV ONE (13:00)
[2022-05-08] MEDS ORDERED: HYDRALAZINE 20MG/ML VIAL IV ONE (16:15)
[2022-05-08] MEDS ORDERED: DILTIAZEM HCL 120MG CAPSULE ER 24HR PO ONE (16:15)
[2022-05-08] MEDS ORDERED: MORPHINE SULFATE 4 MG/ML CPJ (NOT FOR IM USE) IV ONE (16:45)
[2022-05-08] MEDS: FUROSEMIDE 40MG/4ML VIAL IVP SCH (16:51)
[2022-05-08] MEDS ORDERED: ONDANSETRON HCL 4MG/2ML INJ IV SCH (17:00)
[2022-05-08] MEDS ORDERED: FAMOTIDINE 20MG/2ML VIAL IV SCH (17:00)
[2022-05-08 21:58] LABS: HEPATITIS B SURFACE ANTIGEN NEGATIVE
[2022-05-09] VITALS (7 sets, daily range): BP systolic 129–182; BP diastolic 68–91
[2022-05-09] MEDS: HYDROCODONE/ACETAMINOPHEN 5/325MG TABLET PO PRN ×3 (02:04→17:51)
[2022-05-09] MEDS ORDERED: BLOOD SUGAR DIAGNOSTIC STRIP TEST SCH (07:40)
[2022-05-09] MEDS ORDERED: INSULIN LISPRO 100 UNITS/ML SUBCUT SCH (08:10)
[2022-05-09] MEDS ORDERED: DILTIAZEM HCL 60MG TABLET PO ONE (09:00)
[2022-05-09] MEDS: HYDRALAZINE HCL 50MG TABLET PO SCH ×3 (09:28→17:51)
[2022-05-09] MEDS: ATORVASTATIN CALCIUM 40MG TABLET PO SCH (09:28)
[2022-05-09] MEDS: FUROSEMIDE 40MG/4ML VIAL IVP SCH (14:39)
[2022-05-09] MEDS ORDERED: ONDANSETRON HCL 4MG/2ML INJ IV PRN (16:00)
[2022-05-09 16:59] LABS: GAMMA GLUTAMYL TRANSPEPTIDASE 58 IU/L (7-32); TOTAL IRON BINDING CAPACITY 212 ug/dL (250-450)
[2022-05-09] MEDS: MESALAMINE 400 MG CAPSULE.DR PO SCH (17:51)
[2022-05-09] MEDS: PANTOPRAZOLE SODIUM 40 MG/VIAL IV SCH (17:52)
[2022-05-09] MEDS: NIFEDIPINE XL 60MG TAB PO SCH (18:01)
[2022-05-09 18:34] LABS: FERRITIN 276 ng/mL (10-291)
[2022-05-09 18:40] LABS: VITAMIN B12 SERUM 426 pg/mL (211-911)
[2022-05-09] MEDS ORDERED: NALOXONE HCL 0.4MG/ML VIAL IV PRN (21:15)
[2022-05-10] MEDS: HYDROCODONE/ACETAMINOPHEN 5/325MG TABLET PO PRN ×2 (00:16→11:07)
[2022-05-10 00:41] VITALS: BP 159/78
[2022-05-10 04:00] VITALS: BP 134/68
[2022-05-10 08:00] VITALS: BP 150/70
[2022-05-10] MEDS: NIFEDIPINE XL 60MG TAB PO SCH (09:44)
[2022-05-10] MEDS: MESALAMINE 400 MG CAPSULE.DR PO SCH ×2 (09:44→13:32)
[2022-05-10] MEDS: HYDRALAZINE HCL 50MG TABLET PO SCH ×2 (09:44→13:32)
[2022-05-10] MEDS: ATORVASTATIN CALCIUM 40MG TABLET PO SCH (09:44)
[2022-05-10] MEDS: PANTOPRAZOLE SODIUM 40 MG/VIAL IV SCH (09:57)
[2022-05-10 12:00] VITALS: BP 128/75
[2022-05-10 12:40] LABS: BASOPHILS % 0.5 % (0.0-2.0); EOSINOPHILS % 3.1 % (0.0-5.0); HEMATOCRIT. 31.8 % (36.0-48.0); HEMOGLOBIN. 10.5 g/dL (12.0-16.0); LYMPHOCYTES % 26.4 % (20.0-50.0); MEAN CORPUSCULAR HEMOGLOBIN 32.6 pg (28.0-32.0); MEAN PLATELET VOLUME 7.1 fl (7.4-10.4); MONOCYTES % 10.2 % (2.0-8.0); NEUTROPHILS % 59.8 % (40.0-76.0); PLATELET 285 x1000/uL (130-400); RED BLOOD CELL COUNT 3.22 mill/uL (4.2-5.4); RED CELL DISTRIBUTION WIDTH 16.2 % (11.6-14.6)
[2022-05-10 12:51] LABS: INR 1.1; PROTHROMBIN TIME 12.1 sec (9.6-11.0)
[2022-05-10] MEDS: FUROSEMIDE 40MG/4ML VIAL IVP SCH (12:52)
[2022-05-10 13:02] VITALS: BP 150/70
== END 2022-05-10 16:32 | disposition home or self-care (01) | DRG 245 ==
LOC: ER 08:33 → 7WST 16:39 → EDBEDREQTM 16:43 → EDBEDREQ 16:43 → ENRESERV 23:01
PROVIDERS: ADMIT Internal Medicine; ATTEND Internal Medicine
PROC: 5A1D70Z Performance of Urinary Filtration, Intermittent, Less than 6 Hours Per Day (ICD-10-PCS; principal; 2022-05-09)
DX: K50.90 Crohn's disease, unspecified, without complications (principal); I13.2 Hypertensive heart and chronic kidney disease with heart failure and with stage 5 chronic kidney disease, or end stage renal disease; I31.39 Other pericardial effusion (noninflammatory); N18.6 End stage renal disease; D63.1 Anemia in chronic kidney disease; E11.22 Type 2 diabetes mellitus with diabetic chronic kidney disease; D72.819 Decreased white blood cell count, unspecified; K64.8 Other hemorrhoids; K74.60 Unspecified cirrhosis of liver; I50.9 Heart failure, unspecified; Z99.2 Dependence on renal dialysis; Z98.51 Tubal ligation status; Z90.49 Acquired absence of other specified parts of digestive tract
CPT/HCPCS: 36415; 71045; 71250; 74176; 80048; 80053; 80061; 80076; 82607; 82728; 82746; 82962; 82977; 83036; 83540; 83550; 83605; 83880; 84484; 85025; 85044; 86705; 86709; 86803; 87340; 87426; 90935; 93005; 99285; C9113; J0360; J1940; J2270; J2405; J3490

== ENCOUNTER 2022-06-18 11:23 | Emergency (ER) | payer OTHER ==
[~2022-06-18] VITALS: Ht 165.1 cm; Wt 59.0 kg
[~2022-06-18 11:23] MED LIST changes: +APIX5TAB4 PO; -LANTUSUD SUBCUT
[2022-06-18] MEDS ORDERED: ONDANSETRON HCL 4MG/2ML INJ IV ONE (14:30)
[2022-06-18] MEDS ORDERED: MORPHINE SULFATE 4 MG/ML CPJ (NOT FOR IM USE) IV ONE (14:30)
[2022-06-18] MEDS ORDERED: MORPHINE SULFATE 4 MG/ML CPJ (NOT FOR IM USE) IV NR (16:15)
[2022-06-18] MEDS ORDERED: ONDANSETRON HCL 4MG/2ML INJ IV NR (16:15)
[2022-06-18 16:19] LABS: CHLORIDE 105 mEq/L (98-107)
[2022-06-18 16:28] VITALS: BP 195/90
[2022-06-18 17:58] LABS: EOSINOPHILS % 3.8 % (0.0-5.0); HEMATOCRIT. 32.2 % (36.0-48.0); HEMOGLOBIN. 10.6 g/dL (12.0-16.0); MEAN CORPUSCULAR HEMOGLOBIN 32.6 pg (28.0-32.0); MEAN CORPUSCULAR VOLUME 99.6 fL (81.0-99.0); MEAN PLATELET VOLUME 6.2 fl (7.4-10.4); MONOCYTES % 7.4 % (2.0-8.0); NEUTROPHILS % 55.8 % (40.0-76.0); PLATELET 420 x1000/uL (130-400); RED BLOOD CELL COUNT 3.24 mill/uL (4.2-5.4); RED CELL DISTRIBUTION WIDTH 15.1 % (11.6-14.6)
== END 2022-06-18 18:56 | disposition home or self-care (01) ==
LOC: ER 11:23
DX: R10.9 Unspecified abdominal pain (principal); K50.90 Crohn's disease, unspecified, without complications; I11.0 Hypertensive heart disease with heart failure; I50.9 Heart failure, unspecified; Z79.899 Other long term (current) drug therapy; Z98.890 Other specified postprocedural states; Z98.51 Tubal ligation status; Z90.49 Acquired absence of other specified parts of digestive tract
CPT/HCPCS: 36415; 80053; 83605; 83690; 83880; 85025; 93005; 96374; 96375; 99284; J2270; J2405

== ENCOUNTER 2022-06-22 12:10 | Emergency (ER) | payer OTHER ==
[~2022-06-22] VITALS: Ht 165.1 cm; Wt 59.0 kg
[2022-06-22 16:11] LABS: BASOPHILS % 0.7 % (0.0-2.0); EOSINOPHILS % 0.4 % (0.0-5.0); HEMATOCRIT. 37.9 % (36.0-48.0); HEMOGLOBIN. 12.5 g/dL (12.0-16.0); LYMPHOCYTES % 29.3 % (20.0-50.0); MEAN CORPUSCULAR HEMOGLOBIN 32.1 pg (28.0-32.0); MEAN CORPUSCULAR VOLUME 97.5 fL (81.0-99.0); MEAN PLATELET VOLUME 6.6 fl (7.4-10.4); MONOCYTES % 5.9 % (2.0-8.0); NEUTROPHILS % 63.7 % (40.0-76.0); PLATELET 393 x1000/uL (130-400); RED BLOOD CELL COUNT 3.88 mill/uL (4.2-5.4)
[2022-06-22 16:18] LABS: CHLORIDE 98 mEq/L (98-107); INR 1.1; PROTHROMBIN TIME 11.7 sec (9.6-11.0)
[2022-06-22] MEDS ORDERED: ONDANSETRON HCL 4MG/2ML INJ IV ONE (18:15)
[2022-06-22] MEDS ORDERED: MORPHINE SULFATE 4 MG/ML CPJ (NOT FOR IM USE) IV ONE (18:15)
[2022-06-22] MEDS ORDERED: FAMOTIDINE 20MG/2ML VIAL IV ONE (18:15)
[2022-06-22] MEDS ORDERED: ASPIRIN 81MG TABLET PO ONE (19:45)
[2022-06-22] MEDS ORDERED: HYDRALAZINE 20MG/ML VIAL IV ONE (20:45)
[2022-06-23 00:02] VITALS: BP 116/53
== END 2022-06-23 00:27 | disposition short-term general hospital (02) ==
LOC: ER 12:35 → CMPBEDREQ 06-23 13:08
DX: R10.84 Generalized abdominal pain (principal); R11.2 Nausea with vomiting, unspecified; I11.0 Hypertensive heart disease with heart failure; I50.9 Heart failure, unspecified; Z99.2 Dependence on renal dialysis; Z90.49 Acquired absence of other specified parts of digestive tract; Z79.899 Other long term (current) drug therapy; Z20.822 Contact with and (suspected) exposure to COVID-19
CPT/HCPCS: 36415; 71045; 80053; 83605; 83690; 83880; 84484; 85025; 85610; 87426; 93005; 96374; 96375; 99285; C9803; J0360; J2270; J2405; J3490

== ENCOUNTER 2022-11-10 17:58 | Emergency (ER) | payer OTHER ==
[~2022-11-10] VITALS: Ht 165.1 cm; Wt 56.7 kg
[~2022-11-10 17:58] MED LIST changes: -INSU100V40 SUBCUT
[2022-11-10 18:10] VITALS: BP 186/83
[2022-11-10 18:37] LABS: BASOPHILS % 0.5 % (0.0-2.0); EOSINOPHILS % 0.8 % (0.0-5.0); HEMATOCRIT. 29.5 % (36.0-48.0); HEMOGLOBIN. 9.9 g/dL (12.0-16.0); LYMPHOCYTES % 16.3 % (20.0-50.0); MEAN CORPUSCULAR HEMOGLOBIN 32.6 pg (28.0-32.0); MEAN CORPUSCULAR VOLUME 97.4 fL (81.0-99.0); MEAN PLATELET VOLUME 6.6 fl (7.4-10.4); MONOCYTES % 10.5 % (2.0-8.0); NEUTROPHILS % 71.9 % (40.0-76.0); PLATELET 329 x1000/uL (130-400); RED BLOOD CELL COUNT 3.03 mill/uL (4.2-5.4); RED CELL DISTRIBUTION WIDTH 15.8 % (11.6-14.6)
[2022-11-10 18:46] LABS: CHLORIDE 105 mEq/L (98-107)
[2022-11-10] MEDS ORDERED: FAMOTIDINE 20MG/2ML VIAL IV STA (21:45)
[2022-11-10] MEDS ORDERED: ONDANSETRON HCL 4MG/2ML INJ IV STA (21:45)
[2022-11-10] MEDS ORDERED: MORPHINE SULFATE 4 MG/ML CPJ (NOT FOR IM USE) IV STA (21:45)
[2022-11-13] MEDS ORDERED: ASPI1TAB8 PO (04:02)
[2022-11-13] MEDS ORDERED: GABA-532 MT (04:03)
[2022-11-13] MEDS ORDERED: TIMO5DRO40 EACHEYE (14:19)
[2022-11-13] MEDS ORDERED: PRED5DRO22 RIGHTEYE (14:19)
[2022-11-13] MEDS ORDERED: METO5TAB2 PO (14:19)
[2022-11-13] MEDS ORDERED: LATA5DRO LEFTEYE (14:19)
[2022-11-13] MEDS ORDERED: SEVE800T8 MT (14:19)
[2022-11-13] MEDS ORDERED: APIX2.5T MT ×2 (14:19→14:21)
[2022-11-13] MEDS ORDERED: PANT40TA51 PO (14:19)
[2022-11-13] MEDS ORDERED: HYDR-4134 MT (14:19)
[2022-11-13] MEDS ORDERED: ATRO2DRO6 RIGHTEYE (14:19)
[2022-11-13] MEDS ORDERED: CARV12.545 PO (14:19)
[2022-11-13] MEDS ORDERED: BRIM15DR8 EACHEYE (14:19)
== END 2022-11-10 22:24 | disposition left against medical advice (07) ==
LOC: ER 18:18
DX: Z53.21 Procedure and treatment not carried out due to patient leaving prior to being seen by health care provider (principal)
CPT/HCPCS: 36415; 71045; 80053; 84484; 85025; 93005; 99281; 99285

== ENCOUNTER 2022-12-24 09:43 | Emergency (ER) | payer OTHER ==
[~2022-12-24] VITALS: Ht 165.1 cm; Wt 61.0 kg
[~2022-12-24 09:43] MED LIST changes: -ALBU6.7H15 INH; -APIX5TAB4 PO; +ASPI1TAB8 PO; -ATOR10TA PO; +ATRO2DRO6 RIGHTEYE; +BRIM15DR8 EACHEYE; +CARV12.545 PO; -DILT60TA35 PO; -DOCU250C14 PO; -GABA-529 PO; +GABA-532 MT; -HYDR-4001 MT; +HYDR-4134 MT; -HYDR-4135 PO; +LATA5DRO LEFTEYE; +METO5TAB2 PO; -METO5TAB94 MT; -ONDA4TAB11 PO; -OXYC1TAB12 MT; +PANT40TA51 PO; +PRED5DRO22 RIGHTEYE; -PROT40 PO; +SEVE800T8 MT; -SUCR1TAB30 PO; +TIMO5DRO40 EACHEYE
[2022-12-24 09:57] VITALS: O2SAT 100
[2022-12-24 11:00] LABS: BASOPHILS % 1.3 % (0.0-2.0); HEMATOCRIT. 25.6 % (36.0-48.0); HEMOGLOBIN. 8.5 g/dL (12.0-16.0); LYMPHOCYTES % 21.6 % (20.0-50.0); MEAN CORPUSCULAR HEMOGLOBIN 32.9 pg (28.0-32.0); MEAN CORPUSCULAR VOLUME 99.1 fL (81.0-99.0); MEAN PLATELET VOLUME 6.3 fl (7.4-10.4); MONOCYTES % 7.9 % (2.0-8.0); NEUTROPHILS % 68.2 % (40.0-76.0); PLATELET 315 x1000/uL (130-400); RED BLOOD CELL COUNT 2.58 mill/uL (4.2-5.4); RED CELL DISTRIBUTION WIDTH 15.5 % (11.6-14.6)
[2022-12-24] MEDS ORDERED: ONDANSETRON HCL 4MG/2ML INJ IV STA ×2 (11:06→17:28)
[2022-12-24] MEDS ORDERED: MORPHINE SULFATE 4 MG/ML CPJ (NOT FOR IM USE) IV STA ×2 (11:06→17:28)
[2022-12-24 11:14] LABS: CHLORIDE 112 mEq/L (98-107)
[2022-12-24] MEDS ORDERED: SODIUM CHLORIDE 0.9% 1,000 ML IV ONE (11:15)
[2022-12-24] MEDS: ONDANSETRON HCL 4MG/2ML INJ IV NR ×2 (14:18→14:32)
[2022-12-24] MEDS: MORPHINE SULFATE 4 MG/ML CPJ (NOT FOR IM USE) IV NR ×2 (14:18→14:32)
[2022-12-24] MEDS: DEXTROSE 50% WATER 50ML SYRINGE IV ONE ×4 (15:13→15:50)
[2022-12-25] MEDS ORDERED: MORPHINE SULFATE 4 MG/ML CPJ (NOT FOR IM USE) IV ONE
[2022-12-25 01:14] VITALS: TEMP 98.3
[2022-12-25] MEDS ORDERED: HYDRALAZINE 20MG/ML VIAL IV ONE (02:30)
[2022-12-25 03:26] VITALS: BP 146/79; PULSE 86; RESP 16
== END 2022-12-25 03:28 | disposition short-term general hospital (02) ==
LOC: ER 10:17 → SUPCPDRO 12-27 18:04
DX: R10.84 Generalized abdominal pain (principal); I12.0 Hypertensive chronic kidney disease with stage 5 chronic kidney disease or end stage renal disease; N18.6 End stage renal disease; I50.9 Heart failure, unspecified; R18.8 Other ascites; E87.70 Fluid overload, unspecified; E16.2 Hypoglycemia, unspecified; Z99.2 Dependence on renal dialysis; Z87.19 Personal history of other diseases of the digestive system; Z98.51 Tubal ligation status; Z90.49 Acquired absence of other specified parts of digestive tract; Z79.899 Other long term (current) drug therapy
CPT/HCPCS: 99285; 74176; 96374; 96361; 71045; 96375; 80053; 83880; 83690; 85025; 84484; 36415; 93005; 96376; 82962; J2405; J2270 ×2; J7030; J0360

== ENCOUNTER 2023-02-22 16:29 | Emergency (ER) | payer OTHER ==
[~2023-02-22] VITALS: Ht 165.1 cm; Wt 66.0 kg
[~2023-02-22 16:29] MED LIST changes: -BRIM15DR8 EACHEYE; -LATA5DRO LEFTEYE; +OCUFLX RIGHTEYE; -PANT40TA51 PO; -SEVE800T8 MT; +TIMO5DRO32 RIGHTEYE; -TIMO5DRO40 EACHEYE; +UBRO100T PO; +[UNRECOGNIZED DRUG - CODE] OP
[2023-02-22 16:30] VITALS: O2SAT 100
[2023-02-22 17:51] LABS: BASOPHILS % 1.2 % (0.0-2.0); EOSINOPHILS % 1.4 % (0.0-5.0); HEMATOCRIT. 27.2 % (36.0-48.0); HEMOGLOBIN. 8.7 g/dL (12.0-16.0); LYMPHOCYTES % 26.1 % (20.0-50.0); MEAN CORPUSCULAR HEMOGLOBIN 29.8 pg (28.0-32.0); MEAN CORPUSCULAR HGB CONC 31.8 g/dL (31.0-37.0); MEAN CORPUSCULAR VOLUME 93.5 fL (81.0-99.0); MEAN PLATELET VOLUME 6.4 fl (7.4-10.4); MONOCYTES % 8.5 % (2.0-8.0); NEUTROPHILS % 62.8 % (40.0-76.0); PLATELET 410 x1000/uL (130-400); RED BLOOD CELL COUNT 2.91 mill/uL (4.2-5.4); RED CELL DISTRIBUTION WIDTH 14.8 % (11.6-14.6); WHITE BLOOD COUNT 4.8 x1000/uL (4.5-11.0)
[2023-02-22 18:04] LABS: INDEX HEMOLYSI 1 (1-3); INDEX ICTERIC 1 (1-4); INDEX LIPEMIC 1 (1-3)
[2023-02-22 18:19] LABS: ALANINE AMINOTRANSFERASE 13 IU/L (13-61); ALBUMIN 3.3 g/dL (3.4-5.0); ASPARTATE AMINOTRANSFERASE 17 IU/L (15-37); BILIRUBIN TOTAL 0.7 mg/dL (0.1-1.0); CALCIUM 9.2 mg/dL (8.5-10.1); CARBON DIOXIDE 22 mEq/L (21-32); CHLORIDE 106 mEq/L (98-107); CREATININE 4.1 mg/dL (0.6-1.3); GLUCOSE 53 mg/dL (70-105); POTASSIUM 4.1 mEq/L (3.5-5.1); SODIUM 138 mEq/L (136-145); UREA NITROGEN BLOOD 28 mg/dL (7-21)
[2023-02-22] MEDS ORDERED: PANTOPRAZOLE SODIUM 40 MG/VIAL IV STA (18:22)
[2023-02-22] MEDS ORDERED: PROCHLORPERAZINE 10MG/2ML VIAL IV ONE (18:30)
[2023-02-22] MEDS ORDERED: DIPHENHYDRAMINE 50MG/ML VIAL IV ONE (18:30)
[2023-02-22] MEDS ORDERED: HYDRALAZINE 20MG/ML VIAL IV ONE (19:00)
[2023-02-22] MEDS ORDERED: CLONIDINE 0.2MG TABLET PO ONE (21:45)
[2023-02-22] MEDS ORDERED: MORPHINE SULFATE 4 MG/ML CPJ (NOT FOR IM USE) IV ONE (21:45)
[2023-02-22] MEDS ORDERED: CLONIDINE 0.1MG TABLET PO NR (22:15)
[2023-02-22] MEDS ORDERED: TOPUD MT (23:25)
[2023-02-22] MEDS ORDERED: PROT40 MT (23:25)
[2023-02-22 23:59] VITALS: BP 165/85; PULSE 89; RESP 16; TEMP 98.2
== END 2023-02-23 00:08 | disposition home or self-care (01) ==
LOC: ER 18:30
DX: R10.9 Unspecified abdominal pain (principal); I12.0 Hypertensive chronic kidney disease with stage 5 chronic kidney disease or end stage renal disease; N18.6 End stage renal disease; I50.9 Heart failure, unspecified; Z99.2 Dependence on renal dialysis; Z90.49 Acquired absence of other specified parts of digestive tract; Z98.51 Tubal ligation status; Z79.899 Other long term (current) drug therapy
CPT/HCPCS: 80053; 80320; 83690; 85025; 36415; 96374; 96375; 99285; J1200; J0360; C9113; J0780; J2270; C1893; Z7610; G0480

== ENCOUNTER 2023-02-28 11:47 | Emergency (ER) | payer OTHER ==
[~2023-02-28] VITALS: Ht 160 cm; Wt 50.0 kg
[~2023-02-28 11:47] MED LIST changes: +PROT40 MT; +TOPUD MT
[2023-02-28 12:10] VITALS: BP 232/111; PULSE 96; RESP 18; TEMP 98.7; O2SAT 100
[2023-02-28 14:01] LABS: BASOPHILS % 1.2 % (0.0-2.0); EOSINOPHILS % 0.2 % (0.0-5.0); HEMATOCRIT. 24.8 % (36.0-48.0); HEMOGLOBIN. 8.1 g/dL (12.0-16.0); LYMPHOCYTES % 22.6 % (20.0-50.0); MEAN CORPUSCULAR HEMOGLOBIN 30.2 pg (28.0-32.0); MEAN CORPUSCULAR HGB CONC 32.8 g/dL (31.0-37.0); MEAN CORPUSCULAR VOLUME 92.3 fL (81.0-99.0); MEAN PLATELET VOLUME 6.7 fl (7.4-10.4); MONOCYTES % 5.8 % (2.0-8.0); NEUTROPHILS % 70.2 % (40.0-76.0); PLATELET 374 x1000/uL (130-400); RED BLOOD CELL COUNT 2.69 mill/uL (4.2-5.4); RED CELL DISTRIBUTION WIDTH 15.3 % (11.6-14.6); WHITE BLOOD COUNT 5.7 x1000/uL (4.5-11.0)
[2023-02-28 14:11] LABS: CHLORIDE 103 mEq/L (98-107); INDEX HEMOLYSI 1 (1-3); INDEX ICTERIC 1 (1-4); INDEX LIPEMIC 1 (1-3); POTASSIUM 3.8 mEq/L (3.5-5.1); SODIUM 137 mEq/L (136-145)
[2023-02-28 14:23] LABS: ALANINE AMINOTRANSFERASE 14 IU/L (13-61); ALBUMIN 3.3 g/dL (3.4-5.0); ASPARTATE AMINOTRANSFERASE 30 IU/L (15-37); BILIRUBIN TOTAL 0.7 mg/dL (0.1-1.0); CALCIUM 8.4 mg/dL (8.5-10.1); CARBON DIOXIDE 19 mEq/L (21-32); CREATININE 4.6 mg/dL (0.6-1.3); GLUCOSE 80 mg/dL (70-105); TROPONIN I HIGH SENSITIVITY 26 ng/L (<54); UREA NITROGEN BLOOD 38 mg/dL (7-21)
[2023-02-28 18:48] LABS: CLARITY URINE TURBID (CLEAR); COLOR URINE YELLOW (YELLOW); GLUCOSE URINE NEGATIVE (NEGATIVE); KETONES URINE TRACE (NEGATIVE); LEUKOCYTE ESTERASE URINE 1+ (NEGATIVE); NITRITE URINE NEGATIVE (NEGATIVE); OCCULT BLOOD URINE 2+ (NEGATIVE); PROTEIN URINE 4+ (NEGATIVE); SPECIFIC GRAVITY URINE 1.019 (1.005-1.030); UROBILINOGEN URINE 0.2 E.U./dL (0.2-1.0)
[2023-02-28 19:51] LABS: BACTERIA URINE 4+; SQUAMOUS EPITHELIAL CELL URINE 2+ /lpf (RARE/1+)
[2023-02-28 19:52] LABS: RBC URINE 15-25 /hpf (0-2)
[2023-03-01] MEDS ORDERED: ONDA4TAB50 MT (14:14)
== END 2023-03-01 06:15 | disposition left against medical advice (07) ==
LOC: ER 11:47
DX: Z53.21 Procedure and treatment not carried out due to patient leaving prior to being seen by health care provider (principal)
CPT/HCPCS: 36415; 71045; 80053; 81003; 84484; 85025; 99281

== ENCOUNTER 2023-03-01 08:55 | Emergency (ER) | payer OTHER ==
[~2023-03-01] VITALS: Ht 152.4 cm; Wt 50.0 kg
[2023-03-01 09:22] VITALS: O2SAT 100
[2023-03-01] MEDS ORDERED: MAGNESIUM/ALUMINUM HYDROXIDE/SIMETHICONE 30ML UDC PO STA (09:32)
[2023-03-01 11:41] LABS: BASOPHILS % 1.2 % (0.0-2.0); EOSINOPHILS % 0.5 % (0.0-5.0); HEMOGLOBIN. 9.4 g/dL (12.0-16.0); LYMPHOCYTES % 16.1 % (20.0-50.0); MEAN CORPUSCULAR HEMOGLOBIN 30.6 pg (28.0-32.0); MEAN CORPUSCULAR HGB CONC 32.3 g/dL (31.0-37.0); MEAN CORPUSCULAR VOLUME 94.5 fL (81.0-99.0); MEAN PLATELET VOLUME 6.4 fl (7.4-10.4); MONOCYTES % 5.1 % (2.0-8.0); NEUTROPHILS % 77.1 % (40.0-76.0); PLATELET 407 x1000/uL (130-400); RED BLOOD CELL COUNT 3.07 mill/uL (4.2-5.4); RED CELL DISTRIBUTION WIDTH 15.7 % (11.6-14.6); WHITE BLOOD COUNT 5.7 x1000/uL (4.5-11.0)
[2023-03-01 11:56] LABS: CHLORIDE 103 mEq/L (98-107); INDEX HEMOLYSI 1 (1-3); INDEX ICTERIC 1 (1-4); INDEX LIPEMIC 1 (1-3); SODIUM 137 mEq/L (136-145)
[2023-03-01 12:12] LABS: ALANINE AMINOTRANSFERASE 17 IU/L (13-61); ALBUMIN 3.4 g/dL (3.4-5.0); ASPARTATE AMINOTRANSFERASE 27 IU/L (15-37); BILIRUBIN TOTAL 1.1 mg/dL (0.1-1.0); CALCIUM 8.2 mg/dL (8.5-10.1); CARBON DIOXIDE 21 mEq/L (21-32); CREATININE 4.6 mg/dL (0.6-1.3); GLUCOSE 65 mg/dL (70-105); PROTEIN TOTAL 8.5 g/dL (6.0-8.3); TROPONIN I HIGH SENSITIVITY 44 ng/L (<54); UREA NITROGEN BLOOD 41 mg/dL (7-21)
[2023-03-01 12:16] VITALS: BP 208/96; PULSE 98; RESP 18; TEMP 98.2
[2023-03-01] MEDS ORDERED: MAGNESIUM/ALUMINUM HYDROXIDE/SIMETHICONE 30ML UDC PO NR (13:46)
[2023-03-01] MEDS ORDERED: ONDANSETRON 4MG ODT PO ONE (14:00)
[2023-03-01] MEDS ORDERED: ONDA4TAB50 MT (14:14)
== END 2023-03-01 15:55 | disposition home or self-care (01) ==
LOC: ER 09:00
DX: I12.9 Hypertensive chronic kidney disease with stage 1 through stage 4 chronic kidney disease, or unspecified chronic kidney disease (principal); E11.22 Type 2 diabetes mellitus with diabetic chronic kidney disease; N18.9 Chronic kidney disease, unspecified; Z79.82 Long term (current) use of aspirin; Z79.899 Other long term (current) drug therapy; Z98.890 Other specified postprocedural states
CPT/HCPCS: 99285; 74176; 80053; 83690; 85025; 84484; 36415; 93005; Q0162

== ENCOUNTER 2023-03-30 10:39 | Emergency (ER) | payer OTHER ==
[~2023-03-30] VITALS: Ht 157.5 cm; Wt 61.0 kg
[~2023-03-30 10:39] MED LIST changes: +ONDA4TAB50 MT
[2023-03-30 10:57] VITALS: O2SAT 91
[2023-03-30 11:35] LABS: BASOPHILS % 0.5 % (0.0-2.0); DIFFERENTIAL COMMENT 0; HEMATOCRIT. 24.4 % (36.0-48.0); HEMOGLOBIN. 7.3 g/dL (12.0-16.0); LYMPHOCYTES % 19.3 % (20.0-50.0); MEAN CORPUSCULAR HGB CONC 29.9 g/dL (31.0-37.0); MEAN CORPUSCULAR VOLUME 100.6 fL (81.0-99.0); MEAN PLATELET VOLUME 6.5 fl (7.4-10.4); MONOCYTES % 7.5 % (2.0-8.0); NEUTROPHILS % 71.7 % (40.0-76.0); PLATELET 420 x1000/uL (130-400); RED BLOOD CELL COUNT 2.43 mill/uL (4.2-5.4); RED CELL DISTRIBUTION WIDTH 18.9 % (11.6-14.6)
[2023-03-30 11:44] LABS: CHLORIDE 114 mEq/L (98-107); INDEX HEMOLYSI 1 (1-3); INDEX ICTERIC 1 (1-4); INDEX LIPEMIC 1 (1-3); POTASSIUM 4.1 mEq/L (3.5-5.1); SODIUM 141 mEq/L (136-145)
[2023-03-30 11:54] LABS: ALANINE AMINOTRANSFERASE 35 IU/L (13-61); ALBUMIN 3.1 g/dL (3.4-5.0); ASPARTATE AMINOTRANSFERASE 18 IU/L (15-37); BILIRUBIN TOTAL 0.5 mg/dL (0.1-1.0); CARBON DIOXIDE 13 mEq/L (21-32); PROTEIN TOTAL 8.1 g/dL (6.0-8.3); TROPONIN I HIGH SENSITIVITY 33 ng/L (<54)
[2023-03-30] MEDS ORDERED: MORPHINE SULFATE 4 MG/ML CPJ (NOT FOR IM USE) IV STA (12:20)
[2023-03-30] MEDS ORDERED: ONDANSETRON HCL 4MG/2ML INJ IV STA (12:20)
[2023-03-30] MEDS ORDERED: LACTATED RINGERS 500 ML IV SCH (12:30)
[2023-03-30 12:55] LABS: CALCIUM 7.9 mg/dL (8.5-10.1); CREATININE 4.7 mg/dL (0.6-1.3); GLUCOSE 79 mg/dL (70-105); UREA NITROGEN BLOOD 66 mg/dL (7-21)
[2023-03-30 13:09] LABS: TROPONIN I HIGH SENSITIVITY 32 ng/L (<54)
[2023-03-30] MEDS ORDERED: ONDANSETRON HCL 4MG/2ML INJ IV NR (15:30)
[2023-03-30] MEDS ORDERED: MORPHINE SULFATE 4 MG/ML CPJ (NOT FOR IM USE) IV NR (15:30)
[2023-03-30] MEDS ORDERED: MORPHINE SULFATE 4 MG/ML CPJ (NOT FOR IM USE) IV ONE (19:30)
[2023-03-30] MEDS ORDERED: SODIUM BICARBONATE 8.4% 1 MEQ/ML 50ML SYR IV NR (19:30)
[2023-03-30 20:48] VITALS: BP 191/89; PULSE 87; RESP 18; TEMP 98.4
[2023-03-30] MEDS ORDERED: NITROGLYCERIN OINT 1GM/INCH UDPKT TD ONE (21:00)
[2023-03-30] MEDS ORDERED: IOHEXOL-300 100 ML BOTTLE ONE (23:18)
== END 2023-03-30 21:32 | disposition short-term general hospital (02) ==
LOC: ER 10:39 → CANBEDREQ 17:54 → ER 21:32
DX: R11.2 Nausea with vomiting, unspecified (principal); I12.0 Hypertensive chronic kidney disease with stage 5 chronic kidney disease or end stage renal disease; N18.6 End stage renal disease; D64.9 Anemia, unspecified; Z99.2 Dependence on renal dialysis; Z90.49 Acquired absence of other specified parts of digestive tract; Z98.51 Tubal ligation status; Z79.899 Other long term (current) drug therapy
CPT/HCPCS: 80053; 83690; 85025; 84484; 36415; 71045; 74177; 93005; 96374; 96375; 96376; 99285; Q9967; J2405; J3490; J2270; Z7610 ×3

== ENCOUNTER 2023-05-01 16:13 | Emergency (ER) | payer OTHER ==
[~2023-05-01] VITALS: Ht 152.4 cm; Wt 66.0 kg
[2023-05-01 16:47] VITALS: BP 169/75; PULSE 88; RESP 18; TEMP 98; O2SAT 100
[2023-05-01 17:00] LABS: BASOPHILS % 0.7 % (0.0-2.0); EOSINOPHILS % 0.6 % (0.0-5.0); HEMATOCRIT. 25.3 % (36.0-48.0); LYMPHOCYTES % 34.3 % (20.0-50.0); MEAN CORPUSCULAR HEMOGLOBIN 30.8 pg (28.0-32.0); MEAN CORPUSCULAR HGB CONC 31.5 g/dL (31.0-37.0); MEAN CORPUSCULAR VOLUME 97.6 fL (81.0-99.0); MEAN PLATELET VOLUME 7.1 fl (7.4-10.4); MONOCYTES % 7.8 % (2.0-8.0); NEUTROPHILS % 56.6 % (40.0-76.0); PLATELET 299 x1000/uL (130-400); RED BLOOD CELL COUNT 2.59 mill/uL (4.2-5.4); RED CELL DISTRIBUTION WIDTH 17.8 % (11.6-14.6); WHITE BLOOD COUNT 4.1 x1000/uL (4.5-11.0)
[2023-05-01 17:15] LABS: ALANINE AMINOTRANSFERASE < 7 IU/L (10-49); ALBUMIN 3.3 g/dL (3.2-4.8); ASPARTATE AMINOTRANSFERASE 13 IU/L (<34); BILIRUBIN TOTAL 0.5 mg/dL (0.1-1.0); CALCIUM 8.3 mg/dL (8.7-10.4); CARBON DIOXIDE 18 mEq/L (21-32); CHLORIDE 107 mEq/L (98-107); CREATININE 4.2 mg/dL (0.6-1.0); GLUCOSE 71 mg/dL (70-105); POTASSIUM 5.1 mEq/L (3.5-5.1); PROTEIN TOTAL 6.9 g/dL (6.0-8.3); SODIUM 136 mEq/L (136-145); TROPONIN I HIGH SENSITIVITY 17 ng/L (3.0-34); UREA NITROGEN BLOOD 44 mg/dL (9-23)
[2023-05-01] MEDS ORDERED: MORPHINE SULFATE 4 MG/ML CPJ (NOT FOR IM USE) IV ONE (19:30)
[2023-05-01] MEDS ORDERED: ONDANSETRON 4MG ODT PO NR (19:45)
[2023-05-01] MEDS ORDERED: POLY119P3 PO (22:03)
== END 2023-05-02 00:33 | disposition home or self-care (01) ==
LOC: ER 16:13
DX: K56.41 Fecal impaction (principal); I12.0 Hypertensive chronic kidney disease with stage 5 chronic kidney disease or end stage renal disease; N18.6 End stage renal disease; Z99.2 Dependence on renal dialysis; Z90.49 Acquired absence of other specified parts of digestive tract; Z98.51 Tubal ligation status; Z79.899 Other long term (current) drug therapy
CPT/HCPCS: 36415; 74176; 80053; 84484; 85025; 93005; 99284

== ENCOUNTER 2023-06-07 12:27 | Emergency (ER) | payer MEDICAID, OTHER ==
[~2023-06-07] VITALS: Ht 152.4 cm; Wt 50.0 kg
[~2023-06-07 12:27] MED LIST changes: -GABA-532 MT; +GABA-532 PO; -HYDR-4134 MT; +HYDR-4134 PO; +POLY119P3 PO
[2023-06-07 12:34] VITALS: PULSE 87
[2023-06-07 12:38] VITALS: BP 205/93; RESP 16; TEMP 98.5; O2SAT 100
[2023-06-07 13:54] LABS: ALANINE AMINOTRANSFERASE < 7 IU/L (10-49); ALBUMIN 3.5 g/dL (3.2-4.8); ASPARTATE AMINOTRANSFERASE 21 IU/L (<34); BILIRUBIN TOTAL 0.9 mg/dL (0.1-1.0); CALCIUM 8.8 mg/dL (8.7-10.4); CARBON DIOXIDE 21 mEq/L (21-32); CHLORIDE 105 mEq/L (98-107); CREATININE 3.3 mg/dL (0.6-1.0); GLUCOSE 67 mg/dL (70-105); POTASSIUM 3.8 mEq/L (3.5-5.1); PROTEIN TOTAL 7.4 g/dL (6.0-8.3); SODIUM 138 mEq/L (136-145); TROPONIN I HIGH SENSITIVITY 19 ng/L (3.0-34); UREA NITROGEN BLOOD 26 mg/dL (9-23)
[2023-06-07 14:07] LABS: BASOPHILS % 1.1 % (0.0-2.0); EOSINOPHILS % 1.5 % (0.0-5.0); HEMATOCRIT. 36.5 % (36.0-48.0); HEMOGLOBIN. 11.4 g/dL (12.0-16.0); LYMPHOCYTES % 20.2 % (20.0-50.0); MEAN CORPUSCULAR HEMOGLOBIN 28.7 pg (28.0-32.0); MEAN CORPUSCULAR HGB CONC 31.2 g/dL (31.0-37.0); MEAN CORPUSCULAR VOLUME 91.9 fL (81.0-99.0); MEAN PLATELET VOLUME 6.9 fl (7.4-10.4); MONOCYTES % 5.4 % (2.0-8.0); NEUTROPHILS % 71.8 % (40.0-76.0); PLATELET 354 x1000/uL (130-400); RED BLOOD CELL COUNT 3.98 mill/uL (4.2-5.4); RED CELL DISTRIBUTION WIDTH 16.3 % (11.6-14.6); WHITE BLOOD COUNT 5.2 x1000/uL (4.5-11.0)
== END 2023-06-07 13:30 | disposition left against medical advice (07) ==
LOC: ER 12:27
DX: R11.0 Nausea (principal); I49.9 Cardiac arrhythmia, unspecified; Z53.21 Procedure and treatment not carried out due to patient leaving prior to being seen by health care provider
CPT/HCPCS: 36415; 71045; 80053; 84484; 85025; 93005; 99281; 99285

== ENCOUNTER 2023-06-13 07:01 | Inpatient (IN) | payer MEDICAID ==
[~2023-06-13] VITALS: Ht 165.1 cm; Wt 52.2 kg
[2023-06-13] MEDS ORDERED: ACETAMINOPHEN 325MG TABLET PO STA (07:28)
[2023-06-13 09:36] LABS: BASOPHILS % 0.5 % (0.0-2.0); EOSINOPHILS % 0.1 % (0.0-5.0); HEMATOCRIT. 33.9 % (36.0-48.0); HEMOGLOBIN. 10.5 g/dL (12.0-16.0); LYMPHOCYTES % 12.4 % (20.0-50.0); MEAN CORPUSCULAR HEMOGLOBIN 28.7 pg (28.0-32.0); MEAN CORPUSCULAR HGB CONC 30.8 g/dL (31.0-37.0); MEAN PLATELET VOLUME 7.4 fl (7.4-10.4); PLATELET 216 x1000/uL (130-400); RED BLOOD CELL COUNT 3.64 mill/uL (4.2-5.4); RED CELL DISTRIBUTION WIDTH 16.7 % (11.6-14.6); WHITE BLOOD COUNT 8.4 x1000/uL (4.5-11.0)
[2023-06-13 09:45] LABS: INR 1.1; PROTHROMBIN TIME 11.7 sec (9.6-11.0)
[2023-06-13 10:11] LABS: ALANINE AMINOTRANSFERASE < 7 IU/L (10-49); ALBUMIN 3.6 g/dL (3.2-4.8); ASPARTATE AMINOTRANSFERASE 19 IU/L (<34); BILIRUBIN TOTAL 1.6 mg/dL (0.1-1.0); CALCIUM 8.8 mg/dL (8.7-10.4); CARBON DIOXIDE 25 mEq/L (21-32); CHLORIDE 104 mEq/L (98-107); GLUCOSE 113 mg/dL (70-105); PROTEIN TOTAL 7.8 g/dL (6.0-8.3); SODIUM 138 mEq/L (136-145)
[2023-06-13 10:19] LABS: TROPONIN I HIGH SENSITIVITY 1077 ng/L (3.0-34)
[2023-06-13 10:20] LABS: CREATININE 4.7 mg/dL (0.6-1.0); UREA NITROGEN BLOOD 32 mg/dL (9-23)
[2023-06-13] MEDS ORDERED: ENOXAPARIN 60MG/0.6ML SYR SUBCUT ONE (12:00)
[2023-06-13] MEDS ORDERED: ONDANSETRON HCL 4MG/2ML INJ IV PRN (12:45)
[2023-06-13] MEDS: ACETAMINOPHEN 325MG TABLET PO PRN (14:56)
[2023-06-13 21:00] VITALS: BP 166/69; PULSE 82; RESP 20; TEMP 97.9
[2023-06-13] MEDS: APIXABAN 5 MG TABLET PO SCH (21:53)
[2023-06-13] MEDS: METOPROLOL TARTRATE 50MG TABLET PO SCH (23:11)
[2023-06-14] VITALS (14 sets, daily range): BP systolic 100–163; BP diastolic 51–83; PULSE 68–100; RESP 14–20; TEMP 97–98.4
[2023-06-14] MEDS: PANTOPRAZOLE 40MG DR TABLET PO SCH (06:10)
[2023-06-14 06:20] LABS: BASOPHILS % 0.4 % (0.0-2.0); EOSINOPHILS % 1.1 % (0.0-5.0); HEMATOCRIT. 30.2 % (36.0-48.0); HEMOGLOBIN. 9.7 g/dL (12.0-16.0); LYMPHOCYTES % 25.1 % (20.0-50.0); MEAN CORPUSCULAR HEMOGLOBIN 28.8 pg (28.0-32.0); MEAN PLATELET VOLUME 7.7 fl (7.4-10.4); MONOCYTES % 8.2 % (2.0-8.0); NEUTROPHILS % 65.2 % (40.0-76.0); PLATELET 217 x1000/uL (130-400); RED BLOOD CELL COUNT 3.36 mill/uL (4.2-5.4); RED CELL DISTRIBUTION WIDTH 16.5 % (11.6-14.6); WHITE BLOOD COUNT 6.1 x1000/uL (4.5-11.0)
[2023-06-14 07:19] LABS: CALCIUM 8.6 mg/dL (8.7-10.4)
[2023-06-14 07:22] LABS: CREATININE 5.3 mg/dL (0.6-1.0)
[2023-06-14] MEDS: ASPIRIN 81MG TABLET PO SCH (08:16)
[2023-06-14] MEDS: APIXABAN 5 MG TABLET PO SCH ×2 (08:17→21:13)
[2023-06-14] MEDS: ISOSORBIDE MONONITRATE 60MG TABLET SR 24HR PO SCH (08:18)
[2023-06-14] MEDS: METOPROLOL TARTRATE 50MG TABLET PO SCH ×2 (08:18→21:13)
[2023-06-14] MEDS ORDERED: METOPROLOL TARTRATE 50MG TABLET PO SCH (09:30)
[2023-06-14] MEDS ORDERED: METOPROLOL TARTRATE 5MG/5ML VIAL IV NR (11:15)
[2023-06-14] MEDS: HYDROCODONE/ACETAMINOPHEN 5/325MG TABLET PO PRN ×2 (11:41→21:16)
[2023-06-14] MEDS ORDERED: LIDOCAINE HCL 1% 10 MG/ML 10ML VIAL ONE (11:49)
[2023-06-14 12:39] LABS: TROPONIN I HIGH SENSITIVITY 1524 ng/L (3.0-34)
[2023-06-14] MEDS ORDERED: NITROGLYCERIN SPRAY/4.9GM CAN TL NR (13:30)
[2023-06-14] MEDS ORDERED: NALOXONE HCL 0.4MG/ML VIAL IV PRN (16:00)
[2023-06-14 19:27] LABS: HEPATITIS A AB IGM NEGATIVE (Negative); HEPATITIS B CORE AB IGM NEGATIVE (Negative); HEPATITIS B SURFACE ANTIGEN NEGATIVE (Negative); HEPATITIS C AB NON REACTIVE (Neg) (Negative)
[2023-06-14] MEDS: ATORVASTATIN CALCIUM 40MG TABLET PO SCH (21:13)
[2023-06-14 22:23] LABS: TROPONIN I HIGH SENSITIVITY 1139 ng/L (3.0-34)
[2023-06-15] VITALS: BP 148/66; PULSE 79; RESP 20; TEMP 98
[2023-06-15 04:00] VITALS: BP 138/66; PULSE 75; RESP 20; TEMP 98.4
[2023-06-15] MEDS: PANTOPRAZOLE 40MG DR TABLET PO SCH (06:38)
[2023-06-15 08:00] VITALS: BP 178/75; PULSE 71; RESP 16; TEMP 98.1
[2023-06-15] MEDS: ISOSORBIDE MONONITRATE 60MG TABLET SR 24HR PO SCH (08:25)
[2023-06-15] MEDS: ASPIRIN 81MG TABLET PO SCH (08:26)
[2023-06-15] MEDS: METOPROLOL TARTRATE 50MG TABLET PO SCH ×2 (08:26→20:04)
[2023-06-15] MEDS: APIXABAN 5 MG TABLET PO SCH ×2 (08:26→20:04)
[2023-06-15 09:37] LABS: BASOPHILS % 0.5 % (0.0-2.0); EOSINOPHILS % 2.2 % (0.0-5.0); HEMOGLOBIN. 9.3 g/dL (12.0-16.0); MEAN CORPUSCULAR HEMOGLOBIN 28.7 pg (28.0-32.0); MEAN CORPUSCULAR HGB CONC 31.1 g/dL (31.0-37.0); MEAN CORPUSCULAR VOLUME 92.1 fL (81.0-99.0); MEAN PLATELET VOLUME 7.5 fl (7.4-10.4); MONOCYTES % 7.6 % (2.0-8.0); NEUTROPHILS % 69.7 % (40.0-76.0); PLATELET 254 x1000/uL (130-400); RED BLOOD CELL COUNT 3.25 mill/uL (4.2-5.4); RED CELL DISTRIBUTION WIDTH 16.5 % (11.6-14.6); WHITE BLOOD COUNT 6.6 x1000/uL (4.5-11.0)
[2023-06-15 12:00] VITALS: BP_SYST 167; BP_DIAS 64; BP_DIAS 78; PULSE 69; PULSE 70; RESP 18; RESP 20; TEMP 97.8; TEMP 98.1
[2023-06-15] MEDS: AMLODIPINE 10MG TABLET PO SCH (13:37)
[2023-06-15 14:29] LABS: CALCIUM 8.2 mg/dL (8.7-10.4); CREATININE 4.4 mg/dL (0.6-1.0); POTASSIUM 4.1 mEq/L (3.5-5.1)
[2023-06-15 16:00] VITALS: BP 155/71; PULSE 71; RESP 18; TEMP 98
[2023-06-15] MEDS: HYDROCODONE/ACETAMINOPHEN 5/325MG TABLET PO PRN (17:41)
[2023-06-15] MEDS ORDERED: GALC120S SQ (18:59)
[2023-06-15] MEDS ORDERED: APIX2.5T PO (18:59)
[2023-06-15] MEDS ORDERED: METH-773 PO (18:59)
[2023-06-15] MEDS ORDERED: PREG50CA PO (18:59)
[2023-06-15 19:59] VITALS: BP 159/65; PULSE 69; RESP 20; TEMP 98.4
[2023-06-15] MEDS: ATORVASTATIN CALCIUM 40MG TABLET PO SCH (20:04)
[2023-06-15] MEDS ORDERED: MELATONIN 3MG TABLET PO PRN (20:30)
[2023-06-16] VITALS (14 sets, daily range): BP systolic 114–171; BP diastolic 56–87; PULSE 65–73; RESP 14–20; TEMP 97–98.5
[2023-06-16] MEDS: PANTOPRAZOLE 40MG DR TABLET PO SCH (06:17)
[2023-06-16 06:39] LABS: BASOPHILS % 0.6 % (0.0-2.0); EOSINOPHILS % 2.3 % (0.0-5.0); HEMATOCRIT. 27.4 % (36.0-48.0); HEMOGLOBIN. 9.1 g/dL (12.0-16.0); LYMPHOCYTES % 21.3 % (20.0-50.0); MEAN CORPUSCULAR HEMOGLOBIN 29.5 pg (28.0-32.0); MEAN CORPUSCULAR HGB CONC 33.2 g/dL (31.0-37.0); MEAN CORPUSCULAR VOLUME 89.1 fL (81.0-99.0); MEAN PLATELET VOLUME 7.3 fl (7.4-10.4); MONOCYTES % 9.6 % (2.0-8.0); NEUTROPHILS % 66.2 % (40.0-76.0); PLATELET 259 x1000/uL (130-400); RED BLOOD CELL COUNT 3.08 mill/uL (4.2-5.4); RED CELL DISTRIBUTION WIDTH 15.8 % (11.6-14.6); WHITE BLOOD COUNT 6.1 x1000/uL (4.5-11.0)
[2023-06-16 06:51] LABS: CALCIUM 8.1 mg/dL (8.7-10.4); POTASSIUM 4.1 mEq/L (3.5-5.1)
[2023-06-16 07:15] LABS: CREATININE 5.5 mg/dL (0.6-1.0)
[2023-06-16] MEDS: METOPROLOL TARTRATE 50MG TABLET PO SCH ×2 (09:00→20:18)
[2023-06-16] MEDS: AMLODIPINE 10MG TABLET PO SCH (09:00)
[2023-06-16] MEDS: ASPIRIN 81MG TABLET PO SCH (09:35)
[2023-06-16] MEDS: ISOSORBIDE MONONITRATE 60MG TABLET SR 24HR PO SCH (09:36)
[2023-06-16] MEDS: APIXABAN 5 MG TABLET PO SCH ×2 (09:37→20:20)
[2023-06-16] MEDS: HYDROCODONE/ACETAMINOPHEN 5/325MG TABLET PO PRN (10:31)
[2023-06-16] MEDS: ATORVASTATIN CALCIUM 40MG TABLET PO SCH (20:18)
[2023-06-17] VITALS: BP 127/61; PULSE 70; RESP 19; TEMP 97.7
[2023-06-17 04:00] VITALS: BP 139/65; PULSE 70; RESP 18; TEMP 97.9
[2023-06-17] MEDS: PANTOPRAZOLE 40MG DR TABLET PO SCH (06:25)
[2023-06-17 08:00] VITALS: BP 149/89; PULSE 73; RESP 18; TEMP 97.4
[2023-06-17] MEDS: ISOSORBIDE MONONITRATE 60MG TABLET SR 24HR PO SCH (09:54)
[2023-06-17] MEDS: ASPIRIN 81MG TABLET PO SCH (09:54)
[2023-06-17] MEDS: METOPROLOL TARTRATE 50MG TABLET PO SCH ×2 (09:55→20:20)
[2023-06-17] MEDS: AMLODIPINE 10MG TABLET PO SCH (09:55)
[2023-06-17] MEDS: APIXABAN 5 MG TABLET PO SCH ×2 (09:56→20:20)
[2023-06-17 12:00] VITALS: BP 132/57; PULSE 69; RESP 20; TEMP 98.2
[2023-06-17 16:00] VITALS: BP 125/59; PULSE 67; RESP 20; TEMP 97.6
[2023-06-17 20:00] VITALS: BP 115/70; PULSE 99; RESP 20; TEMP 98.8
[2023-06-17] MEDS: ATORVASTATIN CALCIUM 40MG TABLET PO SCH (20:19)
[2023-06-18] VITALS: BP 140/80; PULSE 82; RESP 20; TEMP 98.6
[2023-06-18] MEDS: ACETAMINOPHEN 325MG TABLET PO PRN ×2 (02:04→11:51)
[2023-06-18 04:00] VITALS: BP 108/66; PULSE 79; RESP 20; TEMP 98.2
[2023-06-18] MEDS: PANTOPRAZOLE 40MG DR TABLET PO SCH (05:52)
[2023-06-18 08:00] VITALS: BP 140/80; PULSE 72; RESP 12; TEMP 98
[2023-06-18] MEDS: ASPIRIN 81MG TABLET PO SCH (08:57)
[2023-06-18] MEDS: APIXABAN 5 MG TABLET PO SCH (08:57)
[2023-06-18] MEDS: ISOSORBIDE MONONITRATE 60MG TABLET SR 24HR PO SCH (08:58)
[2023-06-18] MEDS: METOPROLOL TARTRATE 50MG TABLET PO SCH (08:58)
[2023-06-18] MEDS: AMLODIPINE 10MG TABLET PO SCH (08:58)
[2023-06-18 12:00] VITALS: BP 145/78; PULSE 80; RESP 12; TEMP 98
[2023-06-18 14:09] VITALS: BP 145/72; PULSE 82; TEMP 98; O2SAT 100
== END 2023-06-18 18:35 | disposition home or self-care (01) | DRG 190 ==
LOC: ER 07:01 → 5WST 11:59 → EDBEDREQ 12:02 → EDBEDREQTM 12:02 → 8WST 20:44
PROVIDERS: ADMIT Internal Medicine; ATTEND Internal Medicine
PROC: 02HV33Z Insertion of Infusion Device into Superior Vena Cava, Percutaneous Approach (ICD-10-PCS; principal; 2023-06-14)
PROC: B548ZZA Ultrasonography of Superior Vena Cava, Guidance (ICD-10-PCS; 2023-06-14)
PROC: B5181ZA Fluoroscopy of Superior Vena Cava using Low Osmolar Contrast, Guidance (ICD-10-PCS; 2023-06-14)
PROC: 5A1D70Z Performance of Urinary Filtration, Intermittent, Less than 6 Hours Per Day (ICD-10-PCS; 2023-06-14)
PROC: 5A1D70Z Performance of Urinary Filtration, Intermittent, Less than 6 Hours Per Day (ICD-10-PCS; 2023-06-16)
DX: I21.4 Non-ST elevation (NSTEMI) myocardial infarction (principal); G93.40 Encephalopathy, unspecified; I13.2 Hypertensive heart and chronic kidney disease with heart failure and with stage 5 chronic kidney disease, or end stage renal disease; E44.1 Mild protein-calorie malnutrition; N18.6 End stage renal disease; I27.20 Pulmonary hypertension, unspecified; D64.9 Anemia, unspecified; E11.22 Type 2 diabetes mellitus with diabetic chronic kidney disease; K74.60 Unspecified cirrhosis of liver; I50.9 Heart failure, unspecified; K21.9 Gastro-esophageal reflux disease without esophagitis; K50.90 Crohn's disease, unspecified, without complications; Z99.2 Dependence on renal dialysis; Z86.73 Personal history of transient ischemic attack (TIA), and cerebral infarction without residual deficits; Z91.199 Patient's noncompliance with other medical treatment and regimen due to unspecified reason; Z90.49 Acquired absence of other specified parts of digestive tract; Z91.158 Patient's noncompliance with renal dialysis for other reason; I07.1 Rheumatic tricuspid insufficiency; I37.1 Nonrheumatic pulmonary valve insufficiency; E78.5 Hyperlipidemia, unspecified; I35.1 Nonrheumatic aortic (valve) insufficiency; Z68.1 Body mass index [BMI] 19.9 or less, adult; Z79.4 Long term (current) use of insulin
CPT/HCPCS: 36415; 36573; 75571; 80048; 80053; 80061; 84484; 85025; 86705; 86706; 86709; 87340; 90935; 93005; 93306; 99285; C1725; J1650; J3490

== ENCOUNTER 2023-07-13 13:24 | Emergency (ER) | payer MEDICAID, OTHER ==
[~2023-07-13] VITALS: Ht 165.1 cm; Wt 52.3 kg
[~2023-07-13 13:24] MED LIST changes: +APIX2.5T PO; -ATRO2DRO6 RIGHTEYE; +GALC120S SQ; +METH-773 PO; -METO5TAB2 PO; -OCUFLX RIGHTEYE; -ONDA4TAB50 MT; -POLY119P3 PO; -PRED5DRO22 RIGHTEYE; +PREG50CA PO; -TIMO5DRO32 RIGHTEYE; -TOPUD MT; -[UNRECOGNIZED DRUG - CODE] OP
[2023-07-13 13:56] VITALS: BP 120/69; PULSE 75; RESP 16; TEMP 98.7; O2SAT 100
[2023-07-13 15:14] LABS: BASOPHILS % 0.6 % (0.0-2.0); EOSINOPHILS % 2.8 % (0.0-5.0); HEMATOCRIT. 27.6 % (36.0-48.0); HEMOGLOBIN. 8.7 g/dL (12.0-16.0); LYMPHOCYTES % 33.5 % (20.0-50.0); MEAN CORPUSCULAR HEMOGLOBIN 29.8 pg (28.0-32.0); MEAN CORPUSCULAR HGB CONC 31.6 g/dL (31.0-37.0); MEAN PLATELET VOLUME 6.8 fl (7.4-10.4); MONOCYTES % 4.8 % (2.0-8.0); NEUTROPHILS % 58.3 % (40.0-76.0); PLATELET 265 x1000/uL (130-400); RED BLOOD CELL COUNT 2.94 mill/uL (4.2-5.4); RED CELL DISTRIBUTION WIDTH 19.6 % (11.6-14.6); WHITE BLOOD COUNT 4.5 x1000/uL (4.5-11.0)
[2023-07-13 15:19] LABS: HCG SCREEN NEGATIVE
[2023-07-13 15:27] LABS: ALANINE AMINOTRANSFERASE < 7 IU/L (10-49); ALBUMIN 3.5 g/dL (3.2-4.8); ASPARTATE AMINOTRANSFERASE 8 IU/L (<34); BILIRUBIN TOTAL 0.3 mg/dL (0.1-1.0); CALCIUM 8.1 mg/dL (8.7-10.4); CARBON DIOXIDE 13 mEq/L (21-32); CHLORIDE 112 mEq/L (98-107); CREATININE 4.1 mg/dL (0.6-1.0); GLUCOSE 70 mg/dL (70-105); PROTEIN TOTAL 7.2 g/dL (6.0-8.3); SODIUM 135 mEq/L (136-145); UREA NITROGEN BLOOD 54 mg/dL (9-23)
== END 2023-07-13 19:14 | disposition left against medical advice (07) ==
LOC: ER 13:35
DX: R11.2 Nausea with vomiting, unspecified (principal); Z53.21 Procedure and treatment not carried out due to patient leaving prior to being seen by health care provider
CPT/HCPCS: 36415; 80053; 81003; 84703; 85025; 99281; 99283

== ENCOUNTER 2023-07-15 12:06 | Emergency (ER) | payer OTHER ==
[~2023-07-15] VITALS: Ht 154.9 cm; Wt 52.0 kg
[2023-07-15 12:21] VITALS: O2SAT 99
[2023-07-15 14:12] LABS: CLARITY URINE CLEAR (CLEAR); COLOR URINE YELLOW (YELLOW); GLUCOSE URINE NEGATIVE (NEGATIVE); KETONES URINE NEGATIVE (NEGATIVE); LEUKOCYTE ESTERASE URINE NEGATIVE (NEGATIVE); NITRITE URINE NEGATIVE (NEGATIVE); OCCULT BLOOD URINE NEGATIVE (NEGATIVE); PH URINE 5.5 (4.5-8.0); PROTEIN URINE 3+ (NEGATIVE); SPECIFIC GRAVITY URINE 1.015 (1.005-1.030); UROBILINOGEN URINE 0.2 E.U./dL (0.2-1.0)
[2023-07-15 14:22] LABS: SQUAMOUS EPITHELIAL CELL URINE 1+ /lpf (RARE/1+)
[2023-07-15 14:23] LABS: BACTERIA URINE 3+
[2023-07-15 16:52] LABS: BASOPHILS % 0.9 % (0.0-2.0); EOSINOPHILS % 1.9 % (0.0-5.0); HEMATOCRIT. 27.5 % (36.0-48.0); HEMOGLOBIN. 9.1 g/dL (12.0-16.0); LYMPHOCYTES % 23.5 % (20.0-50.0); MEAN CORPUSCULAR HEMOGLOBIN 30.5 pg (28.0-32.0); MEAN CORPUSCULAR HGB CONC 33.2 g/dL (31.0-37.0); MEAN PLATELET VOLUME 6.7 fl (7.4-10.4); MONOCYTES % 5.9 % (2.0-8.0); NEUTROPHILS % 67.8 % (40.0-76.0); PLATELET 277 x1000/uL (130-400); RED BLOOD CELL COUNT 2.99 mill/uL (4.2-5.4); RED CELL DISTRIBUTION WIDTH 19.2 % (11.6-14.6)
[2023-07-15 17:00] LABS: INR 1.1; PROTHROMBIN TIME 12.1 sec (9.6-11.0)
[2023-07-15 17:02] LABS: ALANINE AMINOTRANSFERASE < 7 IU/L (10-49); ALBUMIN 3.9 g/dL (3.2-4.8); ASPARTATE AMINOTRANSFERASE 9 IU/L (<34); BILIRUBIN TOTAL 0.5 mg/dL (0.1-1.0); CALCIUM 8.8 mg/dL (8.7-10.4); CARBON DIOXIDE 18 mEq/L (21-32); CHLORIDE 110 mEq/L (98-107); CREATININE 4.2 mg/dL (0.6-1.0); GLUCOSE 67 mg/dL (70-105); POTASSIUM 3.6 mEq/L (3.5-5.1); PROTEIN TOTAL 8.1 g/dL (6.0-8.3); SODIUM 139 mEq/L (136-145); TROPONIN I HIGH SENSITIVITY 26 ng/L (3.0-34); UREA NITROGEN BLOOD 59 mg/dL (9-23)
[2023-07-15] MEDS: CEFTRIAXONE 1GM PREMIX 50 ML IV NR (17:12)
[2023-07-15 18:00] VITALS: PULSE 85; RESP 15; TEMP 98.7
[2023-07-15] MEDS: HYDRALAZINE 20MG/ML VIAL IV ONE (19:07)
[2023-07-15 19:12] VITALS: BP 202/112
[2023-07-15] MEDS: MORPHINE SULFATE 4 MG/ML CPJ (NOT FOR IM USE) IV ONE (19:12)
[2023-07-15] MEDS: HYDRALAZINE 20MG/ML VIAL IV NR (20:21)
[2023-07-15 22:38] LABS: TROPONIN I HIGH SENSITIVITY 24 ng/L (3.0-34)
== END 2023-07-16 01:25 | disposition short-term general hospital (02) ==
LOC: ER 12:06 → EDBEDREQ 15:11 → ER 07-16 01:25 → CANBEDREQ 07-16 20:16
DX: N19 Unspecified kidney failure (principal); R11.2 Nausea with vomiting, unspecified; I11.0 Hypertensive heart disease with heart failure; I50.9 Heart failure, unspecified; Z99.2 Dependence on renal dialysis; Z90.49 Acquired absence of other specified parts of digestive tract; Z98.51 Tubal ligation status
CPT/HCPCS: 80053; 81003; 83880; 83690; 85025; 85610; 84484; 36415; 71045; 74176; 93005; 96365; 96366; 96375; 96376; 99285; J0696; J0360; J2270; Z7610

== ENCOUNTER 2023-12-04 11:00 | Emergency (ER) | payer MEDICAID, OTHER ==
[~2023-12-04] VITALS: Ht 152.4 cm; Wt 58.0 kg
[~2023-12-04 11:00] MED LIST changes: -HYDR-4134 PO; +HYDR25TA78 PO
[2023-12-04 11:07] VITALS: O2SAT 100
[2023-12-04 11:28] LABS: EOSINOPHILS % 1.8 % (0.0-5.0); HEMATOCRIT. 23.5 % (36.0-48.0); HEMOGLOBIN. 7.5 g/dL (12.0-16.0); LYMPHOCYTES % 26.5 % (20.0-50.0); MEAN CORPUSCULAR HEMOGLOBIN 27.9 pg (28.0-32.0); MEAN CORPUSCULAR HGB CONC 32.1 g/dL (31.0-37.0); MEAN CORPUSCULAR VOLUME 86.9 fL (81.0-99.0); MEAN PLATELET VOLUME 6.4 fl (7.4-10.4); MONOCYTES % 8.4 % (2.0-8.0); NEUTROPHILS % 62.3 % (40.0-76.0); PLATELET 304 x1000/uL (130-400); RED CELL DISTRIBUTION WIDTH 19.7 % (11.6-14.6); WHITE BLOOD COUNT 3.9 x1000/uL (4.5-11.0)
[2023-12-04 11:40] LABS: CHLORIDE 99 mEq/L (98-107); POTASSIUM 3.9 mEq/L (3.5-5.1); SODIUM 138 mEq/L (136-145)
[2023-12-04 11:41] LABS: CARBON DIOXIDE 26 mEq/L (21-32)
[2023-12-04 11:47] LABS: UREA NITROGEN BLOOD 42 mg/dL (9-23)
[2023-12-04 11:48] LABS: ALANINE AMINOTRANSFERASE < 7 IU/L (10-49); ASPARTATE AMINOTRANSFERASE 9 IU/L (<34)
[2023-12-04 11:49] LABS: ALBUMIN 3.4 g/dL (3.2-4.8); BILIRUBIN TOTAL 0.7 mg/dL (0.1-1.0); PHOSPHORUS 5.7 mg/dL (2.5-4.9); PROTEIN TOTAL 7.5 g/dL (6.0-8.3)
[2023-12-04 12:03] LABS: CREATININE 8.3 mg/dL (0.6-1.0); GLUCOSE 43 mg/dL (70-105)
[2023-12-04] MEDS: DEXTROSE 50% WATER 50ML SYRINGE IV ONE (13:10)
[2023-12-04] MEDS: MORPHINE SULFATE 4 MG/ML INJ (FOR IV/IM USE) IV ONE ×2 (13:39→16:43)
[2023-12-04] MEDS: LABETALOL 5MG/ML 4ML INJ IV ONE (13:39)
[2023-12-04] MEDS: ONDANSETRON HCL 4MG/2ML INJ IV ONE (13:40)
[2023-12-04] MEDS: METOCLOPRAMIDE HCL 10MG/2ML VIAL IV ONE (16:41)
[2023-12-04 21:33] VITALS: BP 137/67; PULSE 70; RESP 13; TEMP 97
== END 2023-12-04 21:42 ==
LOC: ER 11:00
DX: E16.2 Hypoglycemia, unspecified (principal); I12.0 Hypertensive chronic kidney disease with stage 5 chronic kidney disease or end stage renal disease; N18.6 End stage renal disease; R11.10 Vomiting, unspecified; R19.7 Diarrhea, unspecified; Z99.2 Dependence on renal dialysis; Z98.51 Tubal ligation status; Z90.49 Acquired absence of other specified parts of digestive tract; Z79.899 Other long term (current) drug therapy
CPT/HCPCS: 80053; 82962; 83735; 84100; 85025; 36415; 74176; 96374; 96375; 96376; 99285; J3490; J2765; J2405; J2270; Z7610

== ENCOUNTER 2024-01-22 10:34 | Inpatient (IN) | payer OTHER ==
[~2024-01-22] VITALS: Ht 152.4 cm; Wt 54.4 kg
[2024-01-22 11:40] LABS: EOSINOPHILS % 4.6 % (0.0-5.0); HEMATOCRIT. 31.4 % (36.0-48.0); LYMPHOCYTES % 18.8 % (20.0-50.0); MEAN CORPUSCULAR HEMOGLOBIN 28.9 pg (28.0-32.0); MEAN CORPUSCULAR HGB CONC 31.9 g/dL (31.0-37.0); MEAN CORPUSCULAR VOLUME 90.8 fL (81.0-99.0); MEAN PLATELET VOLUME 7.2 fl (7.4-10.4); MONOCYTES % 5.8 % (2.0-8.0); NEUTROPHILS % 69.8 % (40.0-76.0); PLATELET 197 x1000/uL (130-400); RED BLOOD CELL COUNT 3.46 mill/uL (4.2-5.4); WHITE BLOOD COUNT 5.5 x1000/uL (4.5-11.0)
[2024-01-22 11:50] LABS: CHLORIDE 102 mEq/L (98-107); SODIUM 134 mEq/L (136-145)
[2024-01-22 11:51] LABS: CARBON DIOXIDE 25 mEq/L (21-32)
[2024-01-22 11:52] LABS: CALCIUM 8.4 mg/dL (8.7-10.4)
[2024-01-22 11:57] LABS: UREA NITROGEN BLOOD 35 mg/dL (9-23)
[2024-01-22 11:58] LABS: ALANINE AMINOTRANSFERASE < 7 IU/L (10-49); ALBUMIN 3.1 g/dL (3.2-4.8); ASPARTATE AMINOTRANSFERASE 9 IU/L (<34)
[2024-01-22 11:59] LABS: BILIRUBIN DIRECT 0.2 mg/dL (<=3.0); BILIRUBIN TOTAL 0.5 mg/dL (0.1-1.0); PROTEIN TOTAL 7.2 g/dL (6.0-8.3)
[2024-01-22 12:11] LABS: CREATININE 8.7 mg/dL (0.6-1.0)
[2024-01-22] MEDS: DEXTROSE 50% WATER 50ML SYRINGE IV ONE ×2 (12:46→15:32)
[2024-01-22] MEDS: MORPHINE SULFATE 4 MG/ML INJ (FOR IV/IM USE) IV ONE (12:51)
[2024-01-22] MEDS: METOCLOPRAMIDE HCL 10MG/2ML VIAL IV ONE (12:51)
[2024-01-22 15:27] LABS: GLUCOSE 45 mg/dL (70-105)
[2024-01-22] MEDS ORDERED: MAGNESIUM/ALUMINUM HYDROXIDE/SIMETHICONE 30ML UDC PO PRN (16:00)
[2024-01-22] MEDS ORDERED: IPRATROPIUM/ALBUTEROL 0.5-3(2.5)MG/3ML NEB HHN PRN (16:00)
[2024-01-22] MEDS ORDERED: DOCUSATE SODIUM 100MG CAPSULE PO PRN (16:00)
[2024-01-22] MEDS ORDERED: ACETAMINOPHEN 325MG TABLET PO PRN ×2 (16:00)
[2024-01-22] MEDS ORDERED: GUAIFENESIN 200MG/10ML SUGAR FREE UDC PO PRN (16:00)
[2024-01-22] MEDS: IOHEXOL-300 100 ML BOTTLE ONE (17:12)
[2024-01-22] MEDS: CLONIDINE 0.1MG TABLET PO PRN (21:51)
[2024-01-22] MEDS: HYDROCODONE/ACETAMINOPHEN 5/325MG TABLET PO PRN (21:51)
[2024-01-22] MEDS: HYDRALAZINE HCL 50MG TABLET PO SCH (21:51)
[2024-01-22] MEDS: IOHEXOL-350 100 ML BOTTLE ONE (22:52)
[2024-01-22 23:00] VITALS: BP 182/113; PULSE 74; RESP 17; TEMP 36.61404; TEMP 36.6404; O2SAT 98
[2024-01-23] VITALS (15 sets, daily range): BP systolic 124–165; BP diastolic 61–87; PULSE 67–77; RESP 14–17; TEMP 36.50292–36.89184; O2SAT 94–100
[2024-01-23] MEDS: ONDANSETRON 4MG ODT PO NR (00:57)
[2024-01-23] MEDS: NITROGLYCERIN OINT 1GM/INCH UDPKT TD NR (00:57)
[2024-01-23] MEDS: GLUCAGON,HUMAN RECOMBINANT 1MG/VIAL IM NR (02:30)
[2024-01-23 06:19] LABS: CARBON DIOXIDE 27 mEq/L (21-32); CHLORIDE 101 mEq/L (98-107); POTASSIUM 4.4 mEq/L (3.5-5.1); SODIUM 136 mEq/L (136-145)
[2024-01-23 06:21] LABS: CALCIUM 8.4 mg/dL (8.7-10.4)
[2024-01-23 06:25] LABS: GLUCOSE 89 mg/dL (70-105); TRIGLYCERIDE 61 mg/dL (0-150)
[2024-01-23 06:26] LABS: BASOPHILS % 0.7 % (0.0-2.0); HEMATOCRIT. 33.6 % (36.0-48.0); HEMOGLOBIN. 10.8 g/dL (12.0-16.0); LDL CHOLESTEROL 31 mg/dL (5-100); LYMPHOCYTES % 18.4 % (20.0-50.0); MEAN CORPUSCULAR HEMOGLOBIN 29.5 pg (28.0-32.0); MEAN CORPUSCULAR HGB CONC 32.1 g/dL (31.0-37.0); MEAN CORPUSCULAR VOLUME 92.1 fL (81.0-99.0); MEAN PLATELET VOLUME 7.5 fl (7.4-10.4); MONOCYTES % 5.3 % (2.0-8.0); NEUTROPHILS % 71.6 % (40.0-76.0); PLATELET 199 x1000/uL (130-400); RED BLOOD CELL COUNT 3.65 mill/uL (4.2-5.4); RED CELL DISTRIBUTION WIDTH 17.8 % (11.6-14.6); UREA NITROGEN BLOOD 37 mg/dL (9-23); WHITE BLOOD COUNT 6.5 x1000/uL (4.5-11.0)
[2024-01-23 06:27] LABS: CHOLESTEROL 86 mg/dL (<200); HDL CHOLESTEROL 33 mg/dL (>65)
[2024-01-23 06:28] LABS: T4 FREE 0.82 ng/dL (0.89-1.76); THYROID STIMULATING HORMONE 9.79 uIU/mL (0.55-4.78)
[2024-01-23] MEDS: BLOOD SUGAR DIAGNOSTIC STRIP TEST SCH (06:53)
[2024-01-23 07:15] LABS: CLARITY URINE CLOUDY (CLEAR); COLOR URINE YELLOW (YELLOW); GLUCOSE URINE NEGATIVE (NEGATIVE); KETONES URINE NEGATIVE (NEGATIVE); LEUKOCYTE ESTERASE URINE 2+ (NEGATIVE); NITRITE URINE NEGATIVE (NEGATIVE); OCCULT BLOOD URINE NEGATIVE (NEGATIVE); PH URINE 7.5 (4.5-8.0); PROTEIN URINE 3+ (NEGATIVE); SPECIFIC GRAVITY URINE 1.019 (1.005-1.030)
[2024-01-23 07:43] LABS: HEPATITIS B SURFACE ANTIGEN NEGATIVE (Negative)
[2024-01-23 07:44] LABS: *AMPHETAMINES SCREEN URINE NEGATIVE (NEGATIVE)
[2024-01-23 07:46] LABS: SQUAMOUS EPITHELIAL CELL URINE 2+ /lpf (RARE/1+)
[2024-01-23 07:47] LABS: *BARBITURATES SCREEN URINE NEGATIVE (NEGATIVE); *BENZODIAZEPINES SCREEN URINE NEGATIVE (NEGATIVE); *COCAINE SCREEN URINE NEGATIVE (NEGATIVE); CANNABINOID URINE SCREEN NEGATIVE (NEGATIVE); ECSTASY MDMA SCREEN URINE NEGATIVE (NEGATIVE); METHADONE URINE SCREEN NEGATIVE (NEGATIVE); OPIATES URINE SCREEN PRESUMPTIVE POSITIVE (NEGATIVE); PHENCYCLIDINE URINE SCREEN NEGATIVE (NEGATIVE)
[2024-01-23 07:49] LABS: WBC URINE 15-25 /hpf (0-2)
[2024-01-23 07:50] LABS: BACTERIA URINE 3+
[2024-01-23 08:04] LABS: HEPATITIS A AB IGM NEGATIVE (Negative); HEPATITIS B CORE AB IGM NEGATIVE (Negative)
[2024-01-23 08:05] LABS: HEPATITIS C AB NON REACTIVE (Neg) (Negative)
[2024-01-23] MEDS: LIDOCAINE HCL 1% 10 MG/ML 10ML VIAL ONE (08:53)
[2024-01-23] MEDS ORDERED: DEXT 10% WATER 1,000 ML IV SCH (09:30)
[2024-01-23] MEDS: ONDANSETRON HCL 4MG/2ML INJ IV PRN (11:31)
[2024-01-23] MEDS: PANTOPRAZOLE SODIUM 40 MG/VIAL IV SCH ×2 (11:31→20:45)
[2024-01-23] MEDS: DEXTROSE 50% WATER 50ML SYRINGE IV PRN (11:32)
[2024-01-23] MEDS: DEXT 10% WATER 1,000 ML IV SCH (11:32)
[2024-01-23] MEDS ORDERED: NALOXONE HCL 0.4MG/ML VIAL IV PRN (14:15)
[2024-01-23] MEDS: APIXABAN 2.5 MG TABLET PO SCH (14:20)
[2024-01-23] MEDS: CARVEDILOL 12.5MG TABLET PO SCH (14:20)
[2024-01-23] MEDS: GABAPENTIN 300MG CAPSULE PO SCH (14:21)
[2024-01-24] VITALS (7 sets, daily range): BP systolic 114–138; BP diastolic 56–71; PULSE 64–69; RESP 12–18; TEMP 36.55848–36.83628; O2SAT 95–99
[2024-01-24 06:38] LABS: BASOPHILS % 0.8 % (0.0-2.0); EOSINOPHILS % 5.4 % (0.0-5.0); HEMATOCRIT. 29.4 % (36.0-48.0); HEMOGLOBIN. 9.5 g/dL (12.0-16.0); INR 1.3; LYMPHOCYTES % 28.5 % (20.0-50.0); MEAN CORPUSCULAR HEMOGLOBIN 29.4 pg (28.0-32.0); MEAN CORPUSCULAR HGB CONC 32.5 g/dL (31.0-37.0); MEAN CORPUSCULAR VOLUME 90.5 fL (81.0-99.0); MEAN PLATELET VOLUME 7.5 fl (7.4-10.4); MONOCYTES % 8.5 % (2.0-8.0); NEUTROPHILS % 56.8 % (40.0-76.0); PLATELET 172 x1000/uL (130-400); PROTHROMBIN TIME 14.5 sec (9.6-11.0); RED BLOOD CELL COUNT 3.25 mill/uL (4.2-5.4); RED CELL DISTRIBUTION WIDTH 17.9 % (11.6-14.6); WHITE BLOOD COUNT 4.1 x1000/uL (4.5-11.0)
[2024-01-24 06:54] LABS: CARBON DIOXIDE 28 mEq/L (21-32); CHLORIDE 102 mEq/L (98-107); POTASSIUM 3.6 mEq/L (3.5-5.1); SODIUM 136 mEq/L (136-145)
[2024-01-24 07:00] LABS: GLUCOSE 74 mg/dL (70-105); UREA NITROGEN BLOOD 26 mg/dL (9-23)
[2024-01-24 07:01] LABS: ALANINE AMINOTRANSFERASE < 7 IU/L (10-49); ALBUMIN 2.7 g/dL (3.2-4.8); ASPARTATE AMINOTRANSFERASE 8 IU/L (<34)
[2024-01-24 07:02] LABS: BILIRUBIN TOTAL 0.4 mg/dL (0.1-1.0); PROTEIN TOTAL 6.5 g/dL (6.0-8.3)
[2024-01-24 07:30] LABS: CREATININE 7.7 mg/dL (0.6-1.0)
[2024-01-24] MEDS: DIPHENHYDRAMINE 50MG CAPSULE PO NR (21:48)
[2024-01-25] VITALS (15 sets, daily range): BP systolic 116–139; BP diastolic 49–83; PULSE 64–73; RESP 15–20; TEMP 36.55848–36.83628; O2SAT 97–100
[2024-01-25 06:51] LABS: POTASSIUM 3.9 mEq/L (3.5-5.1)
[2024-01-25 06:52] LABS: CALCIUM 7.7 mg/dL (8.7-10.4)
[2024-01-25 07:24] LABS: BASOPHILS % 0.7 % (0.0-2.0); EOSINOPHILS % 5.8 % (0.0-5.0); HEMATOCRIT. 28.3 % (36.0-48.0); HEMOGLOBIN. 9.3 g/dL (12.0-16.0); MEAN CORPUSCULAR HEMOGLOBIN 29.9 pg (28.0-32.0); MEAN CORPUSCULAR VOLUME 90.9 fL (81.0-99.0); MEAN PLATELET VOLUME 7.5 fl (7.4-10.4); MONOCYTES % 7.1 % (2.0-8.0); NEUTROPHILS % 52.4 % (40.0-76.0); PLATELET 164 x1000/uL (130-400); RED BLOOD CELL COUNT 3.11 mill/uL (4.2-5.4); RED CELL DISTRIBUTION WIDTH 17.6 % (11.6-14.6); WHITE BLOOD COUNT 3.7 x1000/uL (4.5-11.0)
[2024-01-25 07:38] LABS: CREATININE 8.3 mg/dL (0.6-1.0)
[2024-01-25] MEDS ORDERED: SULF1TAB48 MT (12:58)
[2024-01-25] MEDS: CEFTRIAXONE 1GM/50ML 50 ML IV SCH (17:14)
[2024-01-25] MEDS: EPOETIN ALFA-EPBX 4,000 UNIT/ML VIAL SUBCUT SCH (21:13)
[2024-01-26] VITALS: BP 145/50; PULSE 77; RESP 20; RESP 27; TEMP 37.05852; O2SAT 98
[2024-01-26] MEDS: DIPHENHYDRAMINE 50MG CAPSULE PO PRN (02:39)
[2024-01-26 04:00] VITALS: BP 139/54; PULSE 75; RESP 14; TEMP 36.83628; O2SAT 98
[2024-01-26] MEDS: LEVOTHYROXINE SODIUM 25MCG TABLET PO SCH (06:05)
[2024-01-26 07:02] LABS: BASOPHILS % 0.4 % (0.0-2.0); HEMOGLOBIN. 8.8 g/dL (12.0-16.0); MEAN CORPUSCULAR HEMOGLOBIN 29.4 pg (28.0-32.0); MEAN CORPUSCULAR HGB CONC 32.6 g/dL (31.0-37.0); MEAN CORPUSCULAR VOLUME 90.5 fL (81.0-99.0); MEAN PLATELET VOLUME 7.5 fl (7.4-10.4); MONOCYTES % 6.3 % (2.0-8.0); NEUTROPHILS % 67.3 % (40.0-76.0); PLATELET 151 x1000/uL (130-400); RED BLOOD CELL COUNT 2.99 mill/uL (4.2-5.4); RED CELL DISTRIBUTION WIDTH 17.4 % (11.6-14.6); WHITE BLOOD COUNT 4.6 x1000/uL (4.5-11.0)
[2024-01-26 07:31] LABS: CALCIUM 7.7 mg/dL (8.7-10.4)
[2024-01-26 07:41] LABS: CREATININE 6.4 mg/dL (0.6-1.0)
[2024-01-26 08:00] VITALS: BP 126/84; PULSE 79; RESP 17; TEMP 36.9474; O2SAT 98
[2024-01-26 12:00] VITALS: BP 135/62; PULSE 72; RESP 11; TEMP 36.89184; O2SAT 97
[2024-01-26 16:00] VITALS: BP 99/84; PULSE 79; RESP 16; TEMP 36.78072; O2SAT 98
[2024-01-26] MEDS ORDERED: HYDRALAZINE 20MG/ML VIAL IV PRN (16:15)
[2024-01-26 20:00] VITALS: BP 111/56; PULSE 73; RESP 17; TEMP 36.72516; O2SAT 98
[2024-01-27] VITALS: BP 129/48; PULSE 73; RESP 19; TEMP 36.83628; O2SAT 98
[2024-01-27 04:00] VITALS: BP 132/59; PULSE 76; RESP 19; TEMP 36.9474; O2SAT 97
[2024-01-27 07:00] VITALS: BP 156/78; PULSE 88; RESP 18; TEMP 36.89184; O2SAT 94
[2024-01-27 07:04] LABS: CARBON DIOXIDE 27 mEq/L (21-32); CHLORIDE 99 mEq/L (98-107); POTASSIUM 4.3 mEq/L (3.5-5.1); SODIUM 133 mEq/L (136-145)
[2024-01-27 07:05] LABS: CALCIUM 7.8 mg/dL (8.7-10.4)
[2024-01-27 07:09] LABS: GLUCOSE 78 mg/dL (70-105)
[2024-01-27 07:10] LABS: UREA NITROGEN BLOOD 30 mg/dL (9-23)
[2024-01-27 07:12] LABS: PHOSPHORUS 2.7 mg/dL (2.5-4.9)
[2024-01-27 07:20] LABS: HEMATOCRIT 27.5 % (36.0-48.0); MEAN CORPUSCULAR HEMOGLOBIN 29.8 pg (28.0-32.0); MEAN CORPUSCULAR HGB CONC 32.5 g/dL (31.0-37.0); MEAN CORPUSCULAR VOLUME 91.6 fL (81.0-99.0); PLATELET 163 x1000/uL (130-400); RED BLOOD CELL COUNT 3.01 mill/uL (4.2-5.4); RED CELL DISTRIBUTION WIDTH 17.7 % (11.6-14.6); WHITE BLOOD COUNT 6.1 x1000/uL (4.5-11.0)
[2024-01-27 12:00] VITALS: BP 145/61; PULSE 84; RESP 10; TEMP 36.78072; O2SAT 90
[2024-01-27] MEDS ORDERED: BLOO-1613 MC (14:47)
[2024-01-27 16:00] VITALS: BP 136/72; PULSE 85; RESP 14; TEMP 36.6696; TEMP 36.66960; O2SAT 96
[2024-01-27] MEDS: MAGNESIUM OXIDE 400MG TABLET PO SCH (16:21)
[2024-01-27 17:43] VITALS: BP 132/63; PULSE 87; TEMP 98.1; O2SAT 97
[2024-01-28] MEDS ORDERED: FAMOTIDINE 20MG/2ML VIAL IV SCH (09:00)
[2024-02-02 10:09] LABS: C-PEPTIDE 5.9 ng/mL (1.1-4.4)
[2024-02-08 13:07] LABS: PRO INSULIN 3.2 pmol/L (0.0-10.0)
== END 2024-01-27 19:00 | disposition home or self-care (01) | DRG 280 ==
LOC: ER 12:36 → 5WST 14:29 → EDBEDREQ 14:35 → 3WST 23:15
PROVIDERS: ADMIT Internal Medicine; ATTEND Internal Medicine
PROC: 02HV33Z Insertion of Infusion Device into Superior Vena Cava, Percutaneous Approach (ICD-10-PCS; principal; 2024-01-23)
PROC: B548ZZA Ultrasonography of Superior Vena Cava, Guidance (ICD-10-PCS; 2024-01-23)
PROC: B5181ZA Fluoroscopy of Superior Vena Cava using Low Osmolar Contrast, Guidance (ICD-10-PCS; 2024-01-23)
PROC: 5A1D70Z Performance of Urinary Filtration, Intermittent, Less than 6 Hours Per Day (ICD-10-PCS; 2024-01-23)
PROC: 5A1D70Z Performance of Urinary Filtration, Intermittent, Less than 6 Hours Per Day (ICD-10-PCS; 2024-01-25)
DX: K70.31 Alcoholic cirrhosis of liver with ascites (principal); I13.2 Hypertensive heart and chronic kidney disease with heart failure and with stage 5 chronic kidney disease, or end stage renal disease; E11.649 Type 2 diabetes mellitus with hypoglycemia without coma; I27.20 Pulmonary hypertension, unspecified; E87.1 Hypo-osmolality and hyponatremia; D63.1 Anemia in chronic kidney disease; N39.0 Urinary tract infection, site not specified; N18.6 End stage renal disease; K83.8 Other specified diseases of biliary tract; E11.22 Type 2 diabetes mellitus with diabetic chronic kidney disease; K57.30 Diverticulosis of large intestine without perforation or abscess without bleeding; I16.0 Hypertensive urgency; K50.90 Crohn's disease, unspecified, without complications; Z99.2 Dependence on renal dialysis; I50.9 Heart failure, unspecified; K86.89 Other specified diseases of pancreas; D72.819 Decreased white blood cell count, unspecified; E03.9 Hypothyroidism, unspecified; E11.51 Type 2 diabetes mellitus with diabetic peripheral angiopathy without gangrene; F10.20 Alcohol dependence, uncomplicated; Z98.51 Tubal ligation status; Z90.49 Acquired absence of other specified parts of digestive tract; Y90.9 Presence of alcohol in blood, level not specified; G43.909 Migraine, unspecified, not intractable, without status migrainosus; I07.1 Rheumatic tricuspid insufficiency; I35.1 Nonrheumatic aortic (valve) insufficiency; E07.9 Disorder of thyroid, unspecified; I37.1 Nonrheumatic pulmonary valve insufficiency; M71.22 Synovial cyst of popliteal space [Baker], left knee; N25.81 Secondary hyperparathyroidism of renal origin; Z79.01 Long term (current) use of anticoagulants; Z79.899 Other long term (current) drug therapy; Z82.49 Family history of ischemic heart disease and other diseases of the circulatory system; Z83.3 Family history of diabetes mellitus; Z86.73 Personal history of transient ischemic attack (TIA), and cerebral infarction without residual deficits; Z91.81 History of falling
CPT/HCPCS: 36415; 36573; 74177; 76700; 80048; 80053; 80061; 80076; 80305; 81003; 82024; 82533; 82947; 82962; 83036; 83525; 83735; 84100; 84206; 84439; 84443; 84681; 85025; 85027; 86337; 86376; 86705; 86709; 87340; 90935; 93005; 99291; C1725; J0696; J0885; J1610; J2270; J2405; J2470; J2765; J3490; J7060; Q0162; Q0163; Q9967

== ENCOUNTER 2024-02-16 13:39 | Inpatient (IN) | payer OTHER ==
[~2024-02-16] VITALS: Ht 154.9 cm; Wt 54.9 kg
[~2024-02-16 13:39] MED LIST changes: +BLOO-1613 MC
[2024-02-16 14:32] LABS: BASOPHILS % 1.4 % (0.0-2.0); EOSINOPHILS % 0.7 % (0.0-5.0); HEMOGLOBIN. 8.2 g/dL (12.0-16.0); MEAN CORPUSCULAR HGB CONC 31.5 g/dL (31.0-37.0); MEAN CORPUSCULAR VOLUME 92.1 fL (81.0-99.0); MEAN PLATELET VOLUME 6.7 fl (7.4-10.4); NEUTROPHILS % 61.9 % (40.0-76.0); PLATELET 288 x1000/uL (130-400); RED BLOOD CELL COUNT 2.83 mill/uL (4.2-5.4); WHITE BLOOD COUNT 3.9 x1000/uL (4.5-11.0)
[2024-02-16 14:38] LABS: CALCIUM 8.5 mg/dL (8.7-10.4)
[2024-02-16 14:55] LABS: POTASSIUM 6.3 mEq/L (3.5-5.1)
[2024-02-16 14:56] LABS: CREATININE 7.7 mg/dL (0.6-1.0)
[2024-02-16] MEDS: DEXTROSE 50% WATER 50ML SYRINGE IV ONE ×3 (15:46→18:01)
[2024-02-16] MEDS: CALCIUM CHLORIDE 1,000 MG in DEXT 5% WATER 100 ML IV ONE (15:46)
[2024-02-16] MEDS: INSULIN REGULAR (HUMULIN R) 1000UNITS/10ML VIAL IV ONE (15:47)
[2024-02-16 15:58] VITALS: PULSE 84; RESP 18; O2SAT 95
[2024-02-16] MEDS: ALBUTEROL (0.083%) 2.5MG/3ML NEB HHN SCH (15:59)
[2024-02-16 16:26] VITALS: PULSE 74; RESP 18; O2SAT 95
[2024-02-16] MEDS: ONDANSETRON HCL 4MG/2ML INJ IV ONE (16:27)
[2024-02-16] MEDS: MORPHINE SULFATE 4 MG/ML INJ (FOR IV/IM USE) IV ONE (16:28)
[2024-02-16 18:31] LABS: HEPATITIS B SURFACE ANTIGEN NEGATIVE (Negative)
[2024-02-16 18:51] LABS: HEPATITIS A AB IGM NEGATIVE (Negative)
[2024-02-16 18:52] LABS: HEPATITIS B CORE AB IGM NEGATIVE (Negative); HEPATITIS C AB NON REACTIVE (Neg) (Negative)
[2024-02-16 20:27] LABS: CHLORIDE 98 mEq/L (98-107); POTASSIUM 5.4 mEq/L (3.5-5.1); SODIUM 134 mEq/L (136-145)
[2024-02-16 20:28] LABS: CARBON DIOXIDE 23 mEq/L (21-32)
[2024-02-16 20:33] LABS: GLUCOSE 77 mg/dL (70-105)
[2024-02-16 20:34] LABS: UREA NITROGEN BLOOD 45 mg/dL (9-23)
[2024-02-16 20:35] LABS: ALANINE AMINOTRANSFERASE 39 IU/L (10-49); ALBUMIN 3.5 g/dL (3.2-4.8); ASPARTATE AMINOTRANSFERASE 46 IU/L (<34)
[2024-02-16 20:36] LABS: BILIRUBIN TOTAL 0.4 mg/dL (0.1-1.0); PROTEIN TOTAL 7.7 g/dL (6.0-8.3)
[2024-02-16 21:01] LABS: CREATININE 7.7 mg/dL (0.6-1.0)
[2024-02-16 21:11] VITALS: BP 168/78; PULSE 85; RESP 19; TEMP 36.0288
[2024-02-16] MEDS ORDERED: SODIUM ZIRCONIUM CYCLOSILICATE 10GM/PACKET PO NR (22:15)
[2024-02-16] MEDS ORDERED: HYDRALAZINE HCL 25MG TABLET PO SCH (22:30)
[2024-02-16 23:10] VITALS: BP 152/89; PULSE 95; RESP 18; TEMP 36.61404; O2SAT 92
[2024-02-16] MEDS: APIXABAN 2.5 MG TABLET PO SCH (23:11)
[2024-02-16] MEDS: CARVEDILOL 12.5MG TABLET PO SCH (23:12)
[2024-02-16] MEDS: BLOOD SUGAR DIAGNOSTIC STRIP TEST SCH (23:15)
[2024-02-17] VITALS (14 sets, daily range): BP systolic 121–202; BP diastolic 51–95; PULSE 64–71; RESP 16–19; TEMP 36.44736–37.11408; O2SAT 96–99
[2024-02-17] MEDS ORDERED: NALOXONE HCL 0.4MG/ML VIAL IV PRN (02:45)
[2024-02-17] MEDS: ONDANSETRON HCL 4MG/2ML INJ IV PRN (02:46)
[2024-02-17] MEDS: HYDROCODONE/ACETAMINOPHEN 10/325MG TABLET PO PRN (02:50)
[2024-02-17] MEDS: CLONIDINE 0.1MG TABLET PO PRN (05:30)
[2024-02-17] MEDS: INSULIN LISPRO 100 UNITS/ML SUBCUT SCH (06:52)
[2024-02-17] MEDS: HYDRALAZINE HCL 25MG TABLET PO SCH (09:21)
[2024-02-17] MEDS: PANTOPRAZOLE 40MG DR TABLET PO SCH (09:21)
[2024-02-17] MEDS ORDERED: IOHEXOL-350 100 ML BOTTLE ONE (12:41)
[2024-02-18] VITALS: BP 91/55; PULSE 72; RESP 17; TEMP 36.61404; O2SAT 100
[2024-02-18 04:00] VITALS: BP 117/75; PULSE 65; RESP 18; TEMP 36.61404; O2SAT 97
[2024-02-18 08:00] VITALS: BP 161/73; PULSE 60; RESP 18; TEMP 36.16956; O2SAT 98
[2024-02-18] MEDS: DEXTROSE 50% WATER 50ML SYRINGE IV PRN (11:52)
[2024-02-18 12:00] VITALS: BP 156/65; PULSE 62; RESP 20; TEMP 36.22512; O2SAT 98
[2024-02-18 16:00] VITALS: BP 127/35; PULSE 59; RESP 18; TEMP 36.33624; O2SAT 97
[2024-02-18 20:00] VITALS: BP 136/64; PULSE 57; RESP 18; TEMP 36.50292; O2SAT 97
[2024-02-19] VITALS (14 sets, daily range): BP systolic 104–197; BP diastolic 49–70; PULSE 60–70; RESP 16–19; TEMP 36.05844–36.6696; O2SAT 96–98
[2024-02-19 05:58] LABS: POTASSIUM 5.5 mEq/L (3.5-5.1)
[2024-02-19 05:59] LABS: CALCIUM 8.1 mg/dL (8.7-10.4)
[2024-02-19 06:18] LABS: BASOPHILS % 0.7 % (0.0-2.0); EOSINOPHILS % 2.8 % (0.0-5.0); HEMATOCRIT. 28.3 % (36.0-48.0); HEMOGLOBIN. 9.2 g/dL (12.0-16.0); LYMPHOCYTES % 30.5 % (20.0-50.0); MEAN CORPUSCULAR HEMOGLOBIN 29.7 pg (28.0-32.0); MEAN CORPUSCULAR HGB CONC 32.4 g/dL (31.0-37.0); MEAN CORPUSCULAR VOLUME 91.6 fL (81.0-99.0); MEAN PLATELET VOLUME 6.9 fl (7.4-10.4); MONOCYTES % 11.9 % (2.0-8.0); NEUTROPHILS % 54.1 % (40.0-76.0); PLATELET 274 x1000/uL (130-400); RED BLOOD CELL COUNT 3.09 mill/uL (4.2-5.4); RED CELL DISTRIBUTION WIDTH 15.7 % (11.6-14.6); WHITE BLOOD COUNT 4.1 x1000/uL (4.5-11.0)
[2024-02-19 11:58] LABS: PHOSPHORUS 6.1 mg/dL (2.5-4.9)
[2024-02-20] VITALS: BP 158/62; PULSE 64; RESP 18; TEMP 36.28068; O2SAT 97
[2024-02-20 04:00] VITALS: BP 155/52; PULSE 65; RESP 20; TEMP 36.114; O2SAT 97
[2024-02-20 06:15] LABS: HEMATOCRIT 29.1 % (36.0-48.0); HEMOGLOBIN 9.4 g/dL (12.0-16.0)
[2024-02-20 06:30] LABS: CALCIUM 8.3 mg/dL (8.7-10.4); POTASSIUM 4.8 mEq/L (3.5-5.1)
[2024-02-20 06:38] LABS: PHOSPHORUS 4.4 mg/dL (2.5-4.9)
[2024-02-20 06:51] LABS: CREATININE 5.4 mg/dL (0.6-1.0)
[2024-02-20 08:00] VITALS: BP 160/55; PULSE 65; RESP 22; TEMP 37.00296; O2SAT 97
[2024-02-20 12:00] VITALS: BP 143/58; PULSE 70; RESP 20; TEMP 37.05852; O2SAT 99
[2024-02-20 15:16] VITALS: BP 143/58; PULSE 59; TEMP 98.7; O2SAT 96
[2024-02-21] MEDS ORDERED: EPOETIN ALFA-EPBX 4,000 UNIT/ML VIAL SUBCUT SCH (09:00)
== END 2024-02-20 15:40 | disposition home health service (06) | DRG 425 ==
LOC: ER 13:39 → 7EST 19:08 → EDBEDREQ 19:12 → EDBEDREQTM 19:12
PROVIDERS: ADMIT Internal Medicine; ATTEND Internal Medicine
PROC: 5A1D70Z Performance of Urinary Filtration, Intermittent, Less than 6 Hours Per Day (ICD-10-PCS; principal; 2024-02-17)
PROC: 5A1D70Z Performance of Urinary Filtration, Intermittent, Less than 6 Hours Per Day (ICD-10-PCS; 2024-02-17)
DX: E87.5 Hyperkalemia (principal); I13.2 Hypertensive heart and chronic kidney disease with heart failure and with stage 5 chronic kidney disease, or end stage renal disease; N18.6 End stage renal disease; R18.8 Other ascites; E11.22 Type 2 diabetes mellitus with diabetic chronic kidney disease; K74.60 Unspecified cirrhosis of liver; D64.9 Anemia, unspecified; K50.90 Crohn's disease, unspecified, without complications; I50.9 Heart failure, unspecified; Z99.2 Dependence on renal dialysis; Z91.158 Patient's noncompliance with renal dialysis for other reason; Z86.73 Personal history of transient ischemic attack (TIA), and cerebral infarction without residual deficits; Z82.49 Family history of ischemic heart disease and other diseases of the circulatory system; Z83.3 Family history of diabetes mellitus; Z79.899 Other long term (current) drug therapy
CPT/HCPCS: 36415; 71045; 76705; 80048; 80053; 82962; 83735; 84100; 85014; 85018; 85025; 86705; 86709; 87340; 90935; 93005; 94640; 97162; 97535; 99291; J1815; J2270; J2405; J3490; J7060; Q9967

== ENCOUNTER 2024-04-16 09:08 | Inpatient (IN) | payer OTHER ==
[~2024-04-16] VITALS: Ht 162.6 cm; Wt 57.6 kg
[~2024-04-16 09:08] MED LIST changes: -ASPI1TAB8 PO; +AZAT50TA24 MT; -CARV12.545 PO; +FOLI0.8T53 MT; +GABA-1180 PO; -GABA-532 PO; -HYDR25TA78 PO; +NIFE-33 PO; -PREG50CA PO; -UBRO100T PO
[2024-04-16 10:09] LABS: BASOPHILS % 0.6 % (0.0-2.0); EOSINOPHILS % 2.7 % (0.0-5.0); HEMATOCRIT. 28.4 % (36.0-48.0); HEMOGLOBIN. 8.8 g/dL (12.0-16.0); LYMPHOCYTES % 27.7 % (20.0-50.0); MEAN CORPUSCULAR HEMOGLOBIN 29.2 pg (28.0-32.0); MEAN CORPUSCULAR HGB CONC 31.1 g/dL (31.0-37.0); MEAN CORPUSCULAR VOLUME 93.9 fL (81.0-99.0); MEAN PLATELET VOLUME 6.9 fl (7.4-10.4); MONOCYTES % 5.3 % (2.0-8.0); NEUTROPHILS % 63.7 % (40.0-76.0); PLATELET 295 x1000/uL (130-400); RED BLOOD CELL COUNT 3.02 mill/uL (4.2-5.4); RED CELL DISTRIBUTION WIDTH 17.2 % (11.6-14.6); WHITE BLOOD COUNT 5.3 x1000/uL (4.5-11.0)
[2024-04-16 10:14] LABS: CARBON DIOXIDE 27 mEq/L (21-32); CHLORIDE 92 mEq/L (98-107); POTASSIUM 4.7 mEq/L (3.5-5.1); SODIUM 133 mEq/L (136-145)
[2024-04-16 10:20] LABS: UREA NITROGEN BLOOD 51 mg/dL (9-23)
[2024-04-16 10:22] LABS: PHOSPHORUS 6.9 mg/dL (2.5-4.9)
[2024-04-16 10:37] LABS: INR 1.1; PROTHROMBIN TIME 12.4 sec (9.6-11.0)
[2024-04-16 10:39] LABS: GLUCOSE 36 mg/dL (70-105)
[2024-04-16 10:41] LABS: CREATININE 7.2 mg/dL (0.6-1.0)
[2024-04-16] MEDS: MORPHINE SULFATE 4 MG/ML INJ (FOR IV/IM USE) IV NR (10:53)
[2024-04-16] MEDS: DEXTROSE 50% WATER 50ML SYRINGE IV NR (10:57)
[2024-04-16] MEDS: MAGNESIUM 2 G PREMIX 50 ML IV NR (10:57)
[2024-04-16 12:34] LABS: TROPONIN I HIGH SENSITIVITY 22 ng/L (3.0-34)
[2024-04-16] MEDS ORDERED: ACETAMINOPHEN 325MG TABLET PO PRN (14:30)
[2024-04-16 16:00] VITALS: BP 153/81; PULSE 78; RESP 16; TEMP 35.11392; O2SAT 95
[2024-04-16] MEDS: BLOOD SUGAR DIAGNOSTIC STRIP TEST SCH (17:50)
[2024-04-16] MEDS: AMLODIPINE 5MG TABLET PO NR (18:07)
[2024-04-16 19:04] VITALS: BP 166/75; PULSE 78; RESP 16; TEMP 36.9184
[2024-04-16 20:00] VITALS: BP 157/82; PULSE 78; RESP 18; TEMP 36.28068; O2SAT 96
[2024-04-16 20:30] VITALS: BP 149/74; PULSE 78; RESP 20; TEMP 36.16956; O2SAT 100
[2024-04-16] MEDS: HYDROCODONE/ACETAMINOPHEN 5/325MG TABLET PO PRN (20:30)
[2024-04-16] MEDS ORDERED: NALOXONE HCL 0.4MG/ML VIAL IV PRN (20:45)
[2024-04-16] MEDS: ONDANSETRON HCL 4MG/2ML INJ IV PRN (21:19)
[2024-04-16 21:51] VITALS: BP 149/74; PULSE 78; RESP 20; TEMP 36.5848
[2024-04-16] MEDS ORDERED: *PATIENT'S OWN MEDICATION STORAGE XX SCH (23:45)
[2024-04-17] VITALS: BP 157/70; PULSE 71; RESP 18; TEMP 36.33624; O2SAT 99
[2024-04-17 04:00] VITALS: BP 140/73; PULSE 75; RESP 20; TEMP 36.22512; O2SAT 96
[2024-04-17 08:00] VITALS: BP 127/68; PULSE 71; RESP 18; TEMP 36.44736; O2SAT 100
[2024-04-17] MEDS: AMLODIPINE 10MG TABLET PO SCH (09:43)
[2024-04-17 12:00] VITALS: BP 143/74; PULSE 76; RESP 19; TEMP 36.33624; O2SAT 98
[2024-04-17 16:00] VITALS: BP 119/70; PULSE 74; RESP 18; TEMP 36.28068; O2SAT 96
[2024-04-17 20:00] VITALS: BP 122/70; PULSE 76; RESP 20; TEMP 36.78072; O2SAT 100
[2024-04-17] MEDS: APIXABAN 2.5 MG TABLET PO SCH (21:10)
[2024-04-17 22:45] LABS: CHLORIDE 92 mEq/L (98-107); SODIUM 128 mEq/L (136-145)
[2024-04-17 22:46] LABS: CARBON DIOXIDE 23 mEq/L (21-32)
[2024-04-17 22:51] LABS: GLUCOSE 74 mg/dL (70-105); UREA NITROGEN BLOOD 43 mg/dL (9-23)
[2024-04-17 22:53] LABS: ALANINE AMINOTRANSFERASE 14 IU/L (10-49); ALBUMIN 3.4 g/dL (3.2-4.8); ASPARTATE AMINOTRANSFERASE 29 IU/L (<34); BILIRUBIN TOTAL 0.4 mg/dL (0.1-1.0); PROTEIN TOTAL 7.9 g/dL (6.0-8.3)
[2024-04-17 22:57] LABS: CREATININE 8.1 mg/dL (0.6-1.0); POTASSIUM 7.5 mEq/L (3.5-5.1)
[2024-04-17] MEDS ORDERED: ALBUTEROL (0.083%) 2.5MG/3ML NEB HHN NR (23:30)
[2024-04-18] VITALS (20 sets, daily range): BP systolic 115–156; BP diastolic 58–110; PULSE 73–106; RESP 14–38; TEMP 36.28068–37.16964; O2SAT 92–100
[2024-04-18] MEDS: DEXTROSE 50% WATER 50ML SYRINGE IV NR (00:26)
[2024-04-18] MEDS: CALCIUM GLUCONATE 1GM PREMIX 50 ML IV NR (00:26)
[2024-04-18] MEDS: SODIUM BICARBONATE 8.4% 50MEQ/50ML SYR IV NR (00:27)
[2024-04-18] MEDS: INSULIN REGULAR (HUMULIN R) 1000UNITS/10ML VIAL IV NR (00:28)
[2024-04-18] MEDS ORDERED: IPRATROPIUM/ALBUTEROL 0.5-3(2.5)MG/3ML NEB HHN PRN (05:30)
[2024-04-18] MEDS: SEVELAMER CARBONATE 800 MG TABLET PO SCH (08:00)
[2024-04-18] MEDS: GUAIFENESIN 600MG ER TABLET PO SCH (09:00)
[2024-04-18] MEDS ORDERED: DEXTROSE 50% WATER 50ML SYRINGE IV PRN (09:00)
[2024-04-18] MEDS: DEXTROSE 50% WATER 50ML SYRINGE IV PRN (09:45)
[2024-04-18] MEDS: IPRATROPIUM/ALBUTEROL 0.5-3(2.5)MG/3ML NEB HHN SCH (13:39)
[2024-04-18 16:28] LABS: CALCIUM 7.7 mg/dL (8.7-10.4)
[2024-04-18 16:36] LABS: HEMATOCRIT. 24.4 % (36.0-48.0); HEMOGLOBIN. 7.7 g/dL (12.0-16.0); MEAN CORPUSCULAR HEMOGLOBIN 29.4 pg (28.0-32.0); MEAN CORPUSCULAR HGB CONC 31.6 g/dL (31.0-37.0); MEAN CORPUSCULAR VOLUME 93.1 fL (81.0-99.0); MEAN PLATELET VOLUME 6.6 fl (7.4-10.4); PLATELET 233 x1000/uL (130-400); RED BLOOD CELL COUNT 2.63 mill/uL (4.2-5.4); RED CELL DISTRIBUTION WIDTH 17.3 % (11.6-14.6); WHITE BLOOD COUNT 5.5 x1000/uL (4.5-11.0)
[2024-04-18 16:37] LABS: DIFFERENTIAL COMMENT 1
[2024-04-18 16:45] LABS: CREATININE 5.7 mg/dL (0.6-1.0); POTASSIUM 3.5 mEq/L (3.5-5.1)
[2024-04-18 19:08] LABS: PLATELET ESTIMATE NORMAL
[2024-04-18 19:09] LABS: ANISOCYTOSIS 1+
[2024-04-18 19:10] LABS: HYPOCHROMASIA 1+
[2024-04-19] VITALS (13 sets, daily range): BP systolic 125–150; BP diastolic 63–76; PULSE 86–98; RESP 9–23; TEMP 36.72516–37.16964; O2SAT 95–100
[2024-04-19] MEDS: LEVOTHYROXINE SODIUM 25MCG TABLET PO SCH (06:35)
[2024-04-23 17:06] LABS: INSULIN 2.1 uIU/mL (2.6-24.9)
[2024-04-24 09:06] LABS: C-PEPTIDE 2.6 ng/mL (1.1-4.4)
== END 2024-04-19 17:12 | disposition home or self-care (01) | DRG 425 ==
LOC: ER 09:08 → CANBEDREQ 11:53 → 5WST 12:13 → 7EST 20:39 → 5EST 04-18 05:55
PROVIDERS: ADMIT Internal Medicine; ATTEND Internal Medicine
PROC: 5A1D70Z Performance of Urinary Filtration, Intermittent, Less than 6 Hours Per Day (ICD-10-PCS; principal; 2024-04-18)
DX: E87.5 Hyperkalemia (principal); I13.2 Hypertensive heart and chronic kidney disease with heart failure and with stage 5 chronic kidney disease, or end stage renal disease; N18.6 End stage renal disease; E11.649 Type 2 diabetes mellitus with hypoglycemia without coma; D63.1 Anemia in chronic kidney disease; E11.22 Type 2 diabetes mellitus with diabetic chronic kidney disease; R07.89 Other chest pain; E03.9 Hypothyroidism, unspecified; G89.29 Other chronic pain; I48.91 Unspecified atrial fibrillation; K50.90 Crohn's disease, unspecified, without complications; K74.60 Unspecified cirrhosis of liver; I50.32 Chronic diastolic (congestive) heart failure; Z91.158 Patient's noncompliance with renal dialysis for other reason; Z79.01 Long term (current) use of anticoagulants; Z86.73 Personal history of transient ischemic attack (TIA), and cerebral infarction without residual deficits; Z99.2 Dependence on renal dialysis; Z76.5 Malingerer [conscious simulation]
CPT/HCPCS: 36415; 71045; 71046; 71100; 80048; 80053; 82024; 82533; 82962; 83036; 83525; 83605; 83735; 83880; 84100; 84145; 84206; 84484; 84681; 85025; 86705; 86709; 87340; 90935; 93005; 94640; 99285; J0610; J1815; J2270; J2405; J3475; J3490

== ENCOUNTER 2024-05-20 13:55 | Emergency (ER) | payer OTHER ==
[~2024-05-20] VITALS: Ht 160 cm; Wt 55.0 kg
[~2024-05-20 13:55] MED LIST changes: +LEVO250T74 MT
[2024-05-20 14:06] VITALS: O2SAT 99
[2024-05-20] MEDS ORDERED: ONDANSETRON HCL 4MG/2ML INJ IV STA (16:27)
[2024-05-20] MEDS ORDERED: MORPHINE SULFATE 4 MG/ML INJ (FOR IV/IM USE) IV STA (16:27)
[2024-05-20 19:50] LABS: BASOPHILS % 0.8 % (0.0-2.0); EOSINOPHILS % 2.5 % (0.0-5.0); HEMATOCRIT. 24.6 % (36.0-48.0); HEMOGLOBIN. 8.2 g/dL (12.0-16.0); LYMPHOCYTES % 22.1 % (20.0-50.0); MEAN CORPUSCULAR HEMOGLOBIN 30.8 pg (28.0-32.0); MEAN CORPUSCULAR HGB CONC 33.2 g/dL (31.0-37.0); MEAN CORPUSCULAR VOLUME 92.9 fL (81.0-99.0); MEAN PLATELET VOLUME 6.9 fl (7.4-10.4); MONOCYTES % 7.4 % (2.0-8.0); NEUTROPHILS % 67.2 % (40.0-76.0); PLATELET 300 x1000/uL (130-400); RED BLOOD CELL COUNT 2.65 mill/uL (4.2-5.4); RED CELL DISTRIBUTION WIDTH 15.3 % (11.6-14.6); WHITE BLOOD COUNT 5.5 x1000/uL (4.5-11.0)
[2024-05-20 19:57] LABS: CHLORIDE 100 mEq/L (98-107); POTASSIUM 4.4 mEq/L (3.5-5.1); SODIUM 139 mEq/L (136-145)
[2024-05-20 19:58] LABS: CARBON DIOXIDE 26 mEq/L (21-32)
[2024-05-20 20:03] LABS: GLUCOSE 75 mg/dL (70-105); INR 1.2; PROTHROMBIN TIME 12.9 sec (9.6-11.0); UREA NITROGEN BLOOD 52 mg/dL (9-23)
[2024-05-20 20:04] LABS: TROPONIN I HIGH SENSITIVITY 18 ng/L (3.0-34)
[2024-05-20 20:05] LABS: ALANINE AMINOTRANSFERASE 10 IU/L (10-49); ALBUMIN 3.4 g/dL (3.2-4.8); ASPARTATE AMINOTRANSFERASE 11 IU/L (<34); BILIRUBIN DIRECT 0.1 mg/dL (<=3.0)
[2024-05-20 20:06] LABS: BILIRUBIN TOTAL 0.3 mg/dL (0.1-1.0)
[2024-05-20] MEDS: MORPHINE SULFATE 4 MG/ML INJ (FOR IV/IM USE) IV NR (20:13)
[2024-05-20] MEDS: ONDANSETRON HCL 4MG/2ML INJ IV NR (20:13)
[2024-05-20 20:16] LABS: CREATININE 8.1 mg/dL (0.6-1.0)
[2024-05-20 21:44] VITALS: BP 148/50; PULSE 80; RESP 18; TEMP 36.66960; O2SAT 96
[2024-06-19] MEDS ORDERED: CARV3.1242 MT (15:18)
[2024-06-19] MEDS ORDERED: MEGE40TA5 MT (15:18)
[2024-06-19] MEDS ORDERED: LEVO50TA8 MT (15:18)
[2024-06-19] MEDS ORDERED: ATOR40TA70 MT (15:18)
[2024-06-19] MEDS ORDERED: SEVE2.4P3 PO (15:18)
[2024-06-19] MEDS ORDERED: PANT40SU PO (15:27)
== END 2024-05-21 00:59 | disposition short-term general hospital (02) ==
LOC: ER 14:02
DX: R18.8 Other ascites (principal); R07.9 Chest pain, unspecified; I50.9 Heart failure, unspecified; I13.2 Hypertensive heart and chronic kidney disease with heart failure and with stage 5 chronic kidney disease, or end stage renal disease; N18.6 End stage renal disease; K74.60 Unspecified cirrhosis of liver; Z79.01 Long term (current) use of anticoagulants; Z79.624 Long term (current) use of inhibitors of nucleotide synthesis; Z79.631 Long term (current) use of antimetabolite agent; Z79.899 Other long term (current) drug therapy; Z86.73 Personal history of transient ischemic attack (TIA), and cerebral infarction without residual deficits; Z90.49 Acquired absence of other specified parts of digestive tract; Z98.51 Tubal ligation status; Z99.2 Dependence on renal dialysis
CPT/HCPCS: 80076; 80048; 83690; 83735; 85025; 85610; 84484; 36415; 71045; 76705; 93005; 96374; 96375; 99285; J2405; J2270; Z7610 ×4; A4606

== ENCOUNTER 2024-07-05 13:25 | Emergency (ER) | payer OTHER ==
[~2024-07-05] VITALS: Ht 167.6 cm; Wt 50.0 kg
[~2024-07-05 13:25] MED LIST changes: +ATOR40TA70 MT; +CARV3.1242 MT; -GABA-1180 PO; -GALC120S SQ; +LEVO50TA8 MT; +MEGE40TA5 MT; +PANT40SU PO; +SEVE2.4P3 PO
[2024-07-05 13:36] VITALS: O2SAT 98
[2024-07-05] MEDS ORDERED: ONDANSETRON HCL 4MG/2ML INJ IV STA (14:17)
[2024-07-05] MEDS ORDERED: MORPHINE SULFATE 4 MG/ML INJ (FOR IV/IM USE) IV STA (14:17)
[2024-07-05] MEDS ORDERED: OXYCODONE HCL/ACETAMINOPHEN 5/325MG TABLET PO ONE (14:45)
[2024-07-05] MEDS ORDERED: OXYC-100 MT (16:24)
[2024-07-05] MEDS: OXYCODONE HCL/ACETAMINOPHEN 5/325MG TABLET PO NR (16:28)
[2024-07-05 16:36] VITALS: BP 141/77; PULSE 75; RESP 18; O2SAT 98
== END 2024-07-05 17:40 | disposition home or self-care (01) ==
LOC: ER 13:25 → CANBEDREQ 16:57 → ER 17:40
DX: S86.912A Strain of unspecified muscle(s) and tendon(s) at lower leg level, left leg, initial encounter (principal); E11.22 Type 2 diabetes mellitus with diabetic chronic kidney disease; I13.2 Hypertensive heart and chronic kidney disease with heart failure and with stage 5 chronic kidney disease, or end stage renal disease; N18.6 End stage renal disease; I50.9 Heart failure, unspecified; I48.91 Unspecified atrial fibrillation; Z79.01 Long term (current) use of anticoagulants; Z79.624 Long term (current) use of inhibitors of nucleotide synthesis; Z79.631 Long term (current) use of antimetabolite agent; Z86.73 Personal history of transient ischemic attack (TIA), and cerebral infarction without residual deficits; Z79.899 Other long term (current) drug therapy; Z99.2 Dependence on renal dialysis; X58.XXXA Exposure to other specified factors, initial encounter; Y93.89 Activity, other specified; Y92.89 Other specified places as the place of occurrence of the external cause; Y99.8 Other external cause status
CPT/HCPCS: 99283; 73552; A4663

== ENCOUNTER 2024-12-12 11:53 | Inpatient (IN) | payer OTHER ==
[~2024-12-12] VITALS: Ht 162.6 cm; Wt 52.6 kg
[~2024-12-12 11:53] MED LIST changes: -ATOR40TA70 MT; -AZAT50TA24 MT; +AZAT50TA24 PO; -BLOO-1613 MC; -FOLI0.8T53 MT; +HYDR100T31 PO; -LEVO250T74 MT; +LIP40 PO; -MEGE40TA5 MT; -METH-773 PO; -NIFE-33 PO; -PANT40SU PO; -PROT40 MT; -SEVE2.4P3 PO; +[UNRECOGNIZED DRUG - CODE] MC
[2024-12-12] MEDS ORDERED: ASPIRIN 81MG TABLET PO ONE (12:15)
[2024-12-12] MEDS ORDERED: MORPHINE SULFATE 4 MG/ML INJ (FOR IV/IM USE) IV ONE (12:15)
[2024-12-12] MEDS ORDERED: ONDANSETRON HCL 4MG/2ML INJ IV ONE (12:15)
[2024-12-12 13:11] LABS: BASOPHILS % 0.7 % (0.0-2.0); EOSINOPHILS % 1.0 % (0.0-5.0); HEMATOCRIT. 32.9 % (36.0-48.0); HEMOGLOBIN. 9.9 g/dL (12.0-16.0); LYMPHOCYTES % 33.2 % (20.0-50.0); MEAN PLATELET VOLUME 7.3 fl (7.4-10.4); MONOCYTES % 3.9 % (2.0-8.0); NEUTROPHILS % 61.2 % (40.0-76.0); PLATELET 274 x1000/uL (130-400); RED BLOOD CELL COUNT 3.65 mill/uL (4.2-5.4); RED CELL DISTRIBUTION WIDTH 17.2 % (11.6-14.6)
[2024-12-12 13:29] LABS: TROPONIN I HIGH SENSITIVITY 19 ng/L (3.0-34); UREA NITROGEN BLOOD 69 mg/dL (9-23)
[2024-12-12 13:31] LABS: ASPARTATE AMINOTRANSFERASE 15 IU/L (<34); BILIRUBIN DIRECT 0.1 mg/dL (<=3.0); BILIRUBIN TOTAL 0.3 mg/dL (0.1-1.0); PHOSPHORUS 7.2 mg/dL (2.5-4.9); PROTEIN TOTAL 6.9 g/dL (6.0-8.3)
[2024-12-12 13:36] LABS: CREATININE 8.5 mg/dL (0.6-1.0)
[2024-12-12] MEDS ORDERED: ONDANSETRON HCL 4MG/2ML INJ IV SCH (14:30)
[2024-12-12] MEDS ORDERED: MORPHINE SULFATE 4 MG/ML INJ (FOR IV/IM USE) IV SCH (14:30)
[2024-12-12] MEDS: ASPIRIN 81MG TABLET PO SCH (14:45)
[2024-12-12 14:48] LABS: INR 1.1
[2024-12-12] MEDS: MORPHINE SULFATE 4 MG/ML INJ (FOR IV/IM USE) IM ONE (16:36)
[2024-12-12] MEDS ORDERED: IPRATROPIUM/ALBUTEROL 0.5-3(2.5)MG/3ML NEB HHN PRN (21:15)
[2024-12-12] MEDS ORDERED: DOCUSATE SODIUM 100MG CAPSULE PO PRN (21:15)
[2024-12-12] MEDS ORDERED: CLONIDINE 0.1MG TABLET PO PRN (21:15)
[2024-12-12] MEDS ORDERED: ACETAMINOPHEN 325MG TABLET PO PRN ×2 (21:15)
[2024-12-12 22:04] VITALS: BP 142/75; PULSE 77; RESP 19; TEMP 36.3068
[2024-12-13] VITALS (13 sets, daily range): BP systolic 117–152; BP diastolic 61–77; PULSE 75–87; RESP 16–19; TEMP 36.114–36.8; O2SAT 96–100
[2024-12-13 00:01] LABS: TROPONIN I HIGH SENSITIVITY 16 ng/L (3.0-34)
[2024-12-13] MEDS: INSULIN LISPRO 100 UNITS/ML SUBCUT SCH (06:09)
[2024-12-13] MEDS: BLOOD SUGAR DIAGNOSTIC STRIP TEST SCH (06:09)
[2024-12-13] MEDS: ENOXAPARIN 30MG/0.3ML SYR SUBCUT SCH (08:50)
[2024-12-13] MEDS: ONDANSETRON HCL 4MG/2ML INJ IV PRN (11:16)
[2024-12-13] MEDS: MORPHINE SULFATE 2 MG/ML INJ (NOT FOR IM USE) IV PRN (12:00)
[2024-12-13 12:17] LABS: BASOPHILS % 0.7 % (0.0-2.0); EOSINOPHILS % 1.3 % (0.0-5.0); HEMATOCRIT. 30.1 % (36.0-48.0); HEMOGLOBIN. 9.4 g/dL (12.0-16.0); LYMPHOCYTES % 33.2 % (20.0-50.0); MEAN PLATELET VOLUME 7.4 fl (7.4-10.4); MONOCYTES % 6.2 % (2.0-8.0); NEUTROPHILS % 58.6 % (40.0-76.0); PLATELET 288 x1000/uL (130-400); RED BLOOD CELL COUNT 3.38 mill/uL (4.2-5.4); RED CELL DISTRIBUTION WIDTH 17.2 % (11.6-14.6)
[2024-12-13 12:33] LABS: UREA NITROGEN BLOOD 84.0 mg/dL (9-23)
[2024-12-13 12:36] LABS: CREATININE 9.6 mg/dL (0.6-1.0)
[2024-12-13] MEDS: DEXTROSE 50% WATER 50ML SYRINGE IV PRN (12:37)
[2024-12-13] MEDS: HYDRALAZINE HCL 100MG TABLET PO SCH (13:18)
[2024-12-13] MEDS: CARVEDILOL 3.125 MG TABLET PO SCH (21:56)
[2024-12-13] MEDS: ATORVASTATIN CALCIUM 40MG TABLET PO SCH (21:56)
[2024-12-13] MEDS: APIXABAN 2.5 MG TABLET PO SCH (21:56)
[2024-12-14] VITALS (8 sets, daily range): BP systolic 124–146; BP diastolic 66–76; PULSE 71–83; RESP 18–20; TEMP 36.2–36.7; O2SAT 96–100
[2024-12-14] MEDS: LEVOTHYROXINE SODIUM 50MCG TABLET PO SCH (14:26)
[2024-12-14 18:28] LABS: BASOPHILS % 0.7 % (0.0-2.0); EOSINOPHILS % 1.5 % (0.0-5.0); HEMATOCRIT. 33.3 % (36.0-48.0); HEMOGLOBIN. 10.5 g/dL (12.0-16.0); LYMPHOCYTES % 19.8 % (20.0-50.0); MEAN PLATELET VOLUME 7.3 fl (7.4-10.4); MONOCYTES % 7.5 % (2.0-8.0); NEUTROPHILS % 70.5 % (40.0-76.0); PLATELET 314 x1000/uL (130-400); RED BLOOD CELL COUNT 3.82 mill/uL (4.2-5.4); RED CELL DISTRIBUTION WIDTH 16.9 % (11.6-14.6)
[2024-12-14 18:42] LABS: UREA NITROGEN BLOOD 52.0 mg/dL (9-23)
[2024-12-14 18:46] LABS: CREATININE 6.8 mg/dL (0.6-1.0)
[2024-12-15] VITALS (17 sets, daily range): BP systolic 110–142; BP diastolic 57–79; PULSE 65–80; RESP 11–25; TEMP 36.3918–36.7; O2SAT 95–100
[2024-12-15] MEDS: BLOOD SUGAR DIAGNOSTIC STRIP TEST SCH
[2024-12-15] MEDS: METOCLOPRAMIDE HCL 10MG/2ML VIAL IV SCH (00:03)
[2024-12-15] MEDS: DEXT 5%/0.9% NACL 1,000 ML IV SCH (05:08)
[2024-12-15 06:54] LABS: BASOPHILS % 0.4 % (0.0-2.0); EOSINOPHILS % 1.4 % (0.0-5.0); HEMATOCRIT. 28.4 % (36.0-48.0); HEMOGLOBIN. 9.1 g/dL (12.0-16.0); LYMPHOCYTES % 26.2 % (20.0-50.0); MEAN PLATELET VOLUME 7.4 fl (7.4-10.4); MONOCYTES % 10.2 % (2.0-8.0); NEUTROPHILS % 61.8 % (40.0-76.0); PLATELET 253 x1000/uL (130-400); RED BLOOD CELL COUNT 3.31 mill/uL (4.2-5.4); RED CELL DISTRIBUTION WIDTH 16.2 % (11.6-14.6)
[2024-12-15 07:03] LABS: UREA NITROGEN BLOOD 59.0 mg/dL (9-23)
[2024-12-15 08:01] LABS: CREATININE 7.5 mg/dL (0.6-1.0)
[2024-12-16] VITALS (11 sets, daily range): BP systolic 104–144; BP diastolic 51–70; PULSE 74–91; RESP 12–22; TEMP 36.5–36.9; O2SAT 97–100
[2024-12-16 07:43] LABS: BASOPHILS % 0.6 % (0.0-2.0); EOSINOPHILS % 1.1 % (0.0-5.0); HEMATOCRIT. 26.9 % (36.0-48.0); HEMOGLOBIN. 8.7 g/dL (12.0-16.0); LYMPHOCYTES % 25.0 % (20.0-50.0); MEAN PLATELET VOLUME 7.1 fl (7.4-10.4); MONOCYTES % 9.9 % (2.0-8.0); NEUTROPHILS % 63.4 % (40.0-76.0); PLATELET 273 x1000/uL (130-400); RED BLOOD CELL COUNT 3.13 mill/uL (4.2-5.4); RED CELL DISTRIBUTION WIDTH 16.6 % (11.6-14.6)
[2024-12-16 07:52] LABS: UREA NITROGEN BLOOD 38 mg/dL (9-23)
[2024-12-16 07:54] LABS: CREATININE 5.9 mg/dL (0.6-1.0)
[2024-12-16 07:56] LABS: FOLIC ACID (FOLATE) SERUM 5.46 ng/mL (>5.38); VITAMIN B12 SERUM 616 pg/mL (211-911)
[2024-12-16] MEDS ORDERED: NALOXONE HCL 0.4MG/ML VIAL IV PRN (09:45)
[2024-12-16] MEDS: LIDOCAINE HCL 1% 10 MG/ML 10ML VIAL ONE (10:53)
[2024-12-16] MEDS: SODIUM BICARBONATE 4.2% 2.5MEQ/5ML VIAL IV ONE (10:53)
[2024-12-16] MEDS: INSULIN LISPRO 100 UNITS/ML SUBCUT SCH (13:00)
[2024-12-16] MEDS: FOLIC ACID/VITAMIN B COMP W-C TABLET PO SCH (13:24)
[2024-12-16] MEDS: DEXT 5%/0.45% NACL 1000ML 1,000 ML IV SCH (13:26)
[2024-12-16 15:21] LABS: BODY FLUID MONOCYTES 19 %
[2024-12-16 15:22] LABS: BODY FLUID RBC 71500 /cu mm (0-2000); BODY FLUID WBC 605 /cu mm (0-200)
[2024-12-16] MEDS: ASCORBIC ACID 250 MG TABLET PO SCH (17:23)
[2024-12-16] MEDS: FERROUS SULFATE 325MG TABLET PO SCH (17:23)
[2024-12-16] MEDS ORDERED: CARV3.1242 PO (19:13)
[2024-12-16] MEDS ORDERED: LEVO50TA8 PO (19:20)
[2024-12-17] VITALS (19 sets, daily range): BP systolic 96–151; BP diastolic 52–66; PULSE 63–97; RESP 12–18; TEMP 36.3–37.2; O2SAT 97–100
[2024-12-17] MEDS: LOPERAMIDE HCL 2MG CAPSULE PO PRN (01:50)
[2024-12-17] MEDS: VANCOMYCIN 1.5GM PMX (XELLIA) 300 ML IV SCH (09:26)
[2024-12-17] MEDS: PIPERACILLIN/TAZO 3.375G/50ML 50 ML IV SCH (09:26)
[2024-12-17 13:09] LABS: T4 FREE 1.0 ng/dL (0.89-1.76)
[2024-12-18] VITALS (12 sets, daily range): BP systolic 122–153; BP diastolic 54–69; PULSE 78–102; RESP 12–18; TEMP 36.1–37.2; O2SAT 100
[2024-12-18 07:32] LABS: BASOPHILS % 0.6 % (0.0-2.0); EOSINOPHILS % 1.7 % (0.0-5.0); HEMATOCRIT. 28.7 % (36.0-48.0); HEMOGLOBIN. 9.1 g/dL (12.0-16.0); LYMPHOCYTES % 14.4 % (20.0-50.0); MEAN PLATELET VOLUME 7.1 fl (7.4-10.4); MONOCYTES % 7.6 % (2.0-8.0); NEUTROPHILS % 75.7 % (40.0-76.0); PLATELET 253 x1000/uL (130-400); RED BLOOD CELL COUNT 3.34 mill/uL (4.2-5.4); RED CELL DISTRIBUTION WIDTH 16.5 % (11.6-14.6)
[2024-12-18 07:43] LABS: INR 1.2
[2024-12-18 07:58] LABS: UREA NITROGEN BLOOD 33 mg/dL (9-23)
[2024-12-18 08:03] LABS: BILIRUBIN DIRECT 0.2 mg/dL (<=3.0)
[2024-12-18 08:04] LABS: BILIRUBIN TOTAL 0.3 mg/dL (0.1-1.0); PHOSPHORUS 4.7 mg/dL (2.5-4.9); PROTEIN TOTAL 5.3 g/dL (6.0-8.3)
[2024-12-18 09:07] LABS: ASPARTATE AMINOTRANSFERASE < 8 IU/L (<34); CREATININE 5.2 mg/dL (0.6-1.0)
[2024-12-18] MEDS: LEVOTHYROXINE SODIUM 75MCG TABLET PO SCH (09:12)
[2024-12-18] MEDS: MORPHINE SULFATE 2 MG/ML INJ (NOT FOR IM USE) IV PRN (11:17)
[2024-12-19] VITALS (12 sets, daily range): BP systolic 103–150; BP diastolic 47–80; PULSE 80–92; RESP 14–21; TEMP 36.6–37; O2SAT 98–100
[2024-12-19] MEDS ORDERED: LIDOCAINE HCL 1% 10 MG/ML 10ML VIAL ONE (10:25)
[2024-12-19 10:37] LABS: BASOPHILS % 0.6 % (0.0-2.0); EOSINOPHILS % 2.4 % (0.0-5.0); HEMATOCRIT. 30.6 % (36.0-48.0); HEMOGLOBIN. 9.6 g/dL (12.0-16.0); LYMPHOCYTES % 16.7 % (20.0-50.0); MEAN PLATELET VOLUME 7.4 fl (7.4-10.4); MONOCYTES % 8.1 % (2.0-8.0); NEUTROPHILS % 72.2 % (40.0-76.0); PLATELET 314 x1000/uL (130-400); RED BLOOD CELL COUNT 3.54 mill/uL (4.2-5.4); RED CELL DISTRIBUTION WIDTH 16.7 % (11.6-14.6)
[2024-12-19 10:55] LABS: UREA NITROGEN BLOOD 39.0 mg/dL (9-23)
[2024-12-19 11:26] LABS: CREATININE 5.8 mg/dL (0.6-1.0)
[2024-12-20] VITALS (22 sets, daily range): BP systolic 83–160; BP diastolic 42–99; PULSE 66–91; RESP 13–19; TEMP 36.4–37.3; O2SAT 97–100
[2024-12-20 09:48] LABS: BASOPHILS % 0.7 % (0.0-2.0); EOSINOPHILS % 2.4 % (0.0-5.0); HEMATOCRIT. 25.2 % (36.0-48.0); HEMOGLOBIN. 8.0 g/dL (12.0-16.0); LYMPHOCYTES % 16.8 % (20.0-50.0); MEAN PLATELET VOLUME 7.1 fl (7.4-10.4); MONOCYTES % 9.4 % (2.0-8.0); NEUTROPHILS % 70.7 % (40.0-76.0); PLATELET 258 x1000/uL (130-400); RED BLOOD CELL COUNT 2.94 mill/uL (4.2-5.4); RED CELL DISTRIBUTION WIDTH 16.3 % (11.6-14.6)
[2024-12-20 10:18] LABS: UREA NITROGEN BLOOD 46.0 mg/dL (9-23)
[2024-12-20] MEDS ORDERED: FOLI0.8T53 MT (10:28)
[2024-12-20] MEDS ORDERED: FERR-63 PO (10:28)
[2024-12-20] MEDS ORDERED: ASCO-494 PO (10:28)
[2024-12-20] MEDS ORDERED: LEVO75TA7 PO (10:28)
[2024-12-20] MEDS ORDERED: METO5TAB2 MT (10:28)
[2024-12-20] MEDS ORDERED: DEXT1TAB49 PO (10:29)
[2024-12-20 10:42] LABS: CREATININE 6.6 mg/dL (0.6-1.0)
[2024-12-20] MEDS ORDERED: CEFP200T13 PO (17:41)
[2024-12-20] MEDS ORDERED: METR-167 MT (17:41)
[2024-12-22 13:09] LABS: PRO INSULIN 1.7 pmol/L (0.0-10.0)
[2024-12-22 17:10] LABS: C-PEPTIDE 1.2 ng/mL (1.1-4.4); INSULIN < 0.4 uIU/mL (2.6-24.9)
[2024-12-24 13:12] LABS: INSULIN AUTOANTIBODIES 7.9 uU/mL (.)
== END 2024-12-20 19:54 | disposition home or self-care (01) | DRG 194 ==
LOC: ER 11:53 → EDBEDREQ 17:57 → EDBEDREQTM 17:57 → ENRESERV 18:54 → 8WST 22:54 → 5EST 12-14 21:15
PROVIDERS: ADMIT Internal Medicine; ATTEND Internal Medicine
PROC: 5A1D70Z Performance of Urinary Filtration, Intermittent, Less than 6 Hours Per Day (ICD-10-PCS; principal; 2024-12-13)
PROC: 5A1D70Z Performance of Urinary Filtration, Intermittent, Less than 6 Hours Per Day (ICD-10-PCS; 2024-12-15)
PROC: 0W9G3ZZ Drainage of Peritoneal Cavity, Percutaneous Approach (ICD-10-PCS; 2024-12-16)
PROC: 5A1D70Z Performance of Urinary Filtration, Intermittent, Less than 6 Hours Per Day (ICD-10-PCS; 2024-12-17)
PROC: 02HV33Z Insertion of Infusion Device into Superior Vena Cava, Percutaneous Approach (ICD-10-PCS; 2024-12-19)
PROC: B548ZZA Ultrasonography of Superior Vena Cava, Guidance (ICD-10-PCS; 2024-12-19)
PROC: B5181ZA Fluoroscopy of Superior Vena Cava using Low Osmolar Contrast, Guidance (ICD-10-PCS; 2024-12-19)
PROC: 5A1D70Z Performance of Urinary Filtration, Intermittent, Less than 6 Hours Per Day (ICD-10-PCS; 2024-12-20)
DX: I13.2 Hypertensive heart and chronic kidney disease with heart failure and with stage 5 chronic kidney disease, or end stage renal disease (principal); A41.9 Sepsis, unspecified organism; K65.2 Spontaneous bacterial peritonitis; E46 Unspecified protein-calorie malnutrition; E11.649 Type 2 diabetes mellitus with hypoglycemia without coma; I42.9 Cardiomyopathy, unspecified; E11.22 Type 2 diabetes mellitus with diabetic chronic kidney disease; D64.9 Anemia, unspecified; K70.31 Alcoholic cirrhosis of liver with ascites; N18.6 End stage renal disease; I48.91 Unspecified atrial fibrillation; I50.43 Acute on chronic combined systolic (congestive) and diastolic (congestive) heart failure; N25.81 Secondary hyperparathyroidism of renal origin; D25.9 Leiomyoma of uterus, unspecified; E11.43 Type 2 diabetes mellitus with diabetic autonomic (poly)neuropathy; K31.84 Gastroparesis; E03.9 Hypothyroidism, unspecified; E78.5 Hyperlipidemia, unspecified; Y90.9 Presence of alcohol in blood, level not specified; E87.5 Hyperkalemia; I16.0 Hypertensive urgency; G89.29 Other chronic pain; I70.0 Atherosclerosis of aorta; E53.8 Deficiency of other specified B group vitamins; K57.30 Diverticulosis of large intestine without perforation or abscess without bleeding; H54.61 Unqualified visual loss, right eye, normal vision left eye; R97.1 Elevated cancer antigen 125 [CA 125]; F10.20 Alcohol dependence, uncomplicated; K50.90 Crohn's disease, unspecified, without complications; Z99.2 Dependence on renal dialysis; Z86.73 Personal history of transient ischemic attack (TIA), and cerebral infarction without residual deficits; Z98.51 Tubal ligation status; Z79.01 Long term (current) use of anticoagulants; Z79.82 Long term (current) use of aspirin; Z68.1 Body mass index [BMI] 19.9 or less, adult; H40.9 Unspecified glaucoma
CPT/HCPCS: 36415; 36573; 49083; 71045; 76705; 78580; 80048; 80076; 80202; 82024; 82040; 82105; 82150; 82270; 82533; 82607; 82728; 82746; 82962; 83036; 83525; 83540; 83550; 83615; 83735; 83880; 84100; 84145; 84206; 84439; 84443; 84484; 84681; 85025; 85044; 85379; 86337; 90935; 93005; 93970; 99285; A4606; A6449; C1725; J1650; J1815; J2003; J2270; J2405; J2543; J2765; J3373; J3490

== ENCOUNTER 2025-01-31 09:54 | Inpatient (IN) | payer OTHER ==
[~2025-01-31] VITALS: Ht 165.1 cm; Wt 48.1 kg
[~2025-01-31 09:54] MED LIST changes: -APIX2.5T PO; +APIX5TAB MT; +ASCO-494 PO; -CARV3.1242 MT; +CARV3.1242 PO; +DEXT1TAB49 PO; +FERR-63 PO; +FOLI0.8T53 MT; -LEVO50TA8 MT; +LEVO75TA7 PO; +METO5TAB2 MT; +MIRT-89 PO; +PANT40TA51 PO; +SEVE800T8 PO; -[UNRECOGNIZED DRUG - CODE] MC
[2025-01-31 09:58] VITALS: O2SAT 99
[2025-01-31 10:33] LABS: BASOPHILS % 0.7 % (0.0-2.0); EOSINOPHILS % 4.9 % (0.0-5.0); LYMPHOCYTES % 22.5 % (20.0-50.0); MEAN PLATELET VOLUME 6.9 fl (7.4-10.4); MONOCYTES % 3.7 % (2.0-8.0); NEUTROPHILS % 68.2 % (40.0-76.0); PLATELET 181 x1000/uL (130-400); RED BLOOD CELL COUNT 2.28 mill/uL (4.2-5.4); RED CELL DISTRIBUTION WIDTH 24.9 % (11.6-14.6)
[2025-01-31 10:35] LABS: ADD RBC MORPHOLOGY YES; HEMATOCRIT. 20.7 % (36.0-48.0); HEMOGLOBIN. 6.6 g/dL (12.0-16.0)
[2025-01-31 10:43] LABS: INR 1.3
[2025-01-31] MEDS: SODIUM CHLORIDE 0.9% 250 ML IV ONE (10:46)
[2025-01-31 11:06] LABS: PLATELET ESTIMATE NORMAL
[2025-01-31 11:22] LABS: ASPARTATE AMINOTRANSFERASE 29 IU/L (<34); BILIRUBIN DIRECT 0.1 mg/dL (<=3.0); BILIRUBIN TOTAL 0.2 mg/dL (0.1-1.0); PROTEIN TOTAL 5.9 g/dL (6.0-8.3); UREA NITROGEN BLOOD 46 mg/dL (9-23)
[2025-01-31 11:32] LABS: CREATININE 10.5 mg/dL (0.6-1.0)
[2025-01-31] MEDS: DEXTROSE 50% WATER 50ML SYRINGE IV ONE (12:18)
[2025-01-31 16:30] VITALS: BP 181/92; PULSE 92; RESP 16; TEMP 35.7; O2SAT 98
[2025-01-31 16:50] VITALS: BP 181/80; PULSE 95; RESP 16; TEMP 35.6952
[2025-01-31] MEDS: BLOOD SUGAR DIAGNOSTIC STRIP TEST SCH (17:20)
[2025-01-31] MEDS: SEVELAMER CARBONATE 800 MG TABLET PO SCH (17:29)
[2025-01-31] MEDS: FERROUS SULFATE 325MG TABLET PO SCH (17:30)
[2025-01-31] MEDS: ASCORBIC ACID 250 MG TABLET PO SCH (17:30)
[2025-01-31] MEDS: ACETAMINOPHEN 325MG TABLET PO PRN (17:30)
[2025-01-31] MEDS: HYDRALAZINE HCL 100MG TABLET PO SCH (17:30)
[2025-01-31] MEDS: INSULIN LISPRO 100 UNITS/ML SUBCUT SCH (17:50)
[2025-01-31 20:00] VITALS: BP 137/64; PULSE 85; RESP 18; TEMP 36.3; O2SAT 98
[2025-01-31] MEDS ORDERED: APIXABAN 5 MG TABLET PO SCH (21:00)
[2025-01-31] MEDS: MIRTAZAPINE 15MG TABLET PO SCH (21:31)
[2025-01-31] MEDS: CARVEDILOL 3.125 MG TABLET PO SCH (21:32)
[2025-01-31] MEDS: ATORVASTATIN CALCIUM 40MG TABLET PO SCH (21:32)
[2025-01-31 22:03] LABS: BASOPHILS % 0.4 % (0.0-2.0); EOSINOPHILS % 2.4 % (0.0-5.0); HEMATOCRIT. 29.9 % (36.0-48.0); HEMOGLOBIN. 10.0 g/dL (12.0-16.0); LYMPHOCYTES % 14.4 % (20.0-50.0); MEAN PLATELET VOLUME 7.2 fl (7.4-10.4); MONOCYTES % 3.7 % (2.0-8.0); NEUTROPHILS % 79.1 % (40.0-76.0); PLATELET 189 x1000/uL (130-400); RED BLOOD CELL COUNT 3.28 mill/uL (4.2-5.4); RED CELL DISTRIBUTION WIDTH 21.2 % (11.6-14.6)
[2025-01-31] MEDS: DEXTROSE 50% WATER 50ML SYRINGE IV PRN (23:57)
[2025-02-01] VITALS (13 sets, daily range): BP systolic 121–150; BP diastolic 46–69; PULSE 67–79; RESP 14–20; TEMP 24.4464–37.3; O2SAT 96–100
[2025-02-01] MEDS: ONDANSETRON HCL 4MG/2ML INJ IV PRN (04:28)
[2025-02-01] MEDS ORDERED: NALOXONE HCL 0.4MG/ML VIAL IV PRN (06:30)
[2025-02-01 07:48] LABS: BASOPHILS % 0.6 % (0.0-2.0); EOSINOPHILS % 2.8 % (0.0-5.0); HEMATOCRIT. 26.0 % (36.0-48.0); HEMOGLOBIN. 8.6 g/dL (12.0-16.0); LYMPHOCYTES % 14.7 % (20.0-50.0); MEAN PLATELET VOLUME 7.5 fl (7.4-10.4); MONOCYTES % 3.6 % (2.0-8.0); NEUTROPHILS % 78.3 % (40.0-76.0); PLATELET 180 x1000/uL (130-400); RED BLOOD CELL COUNT 2.87 mill/uL (4.2-5.4); RED CELL DISTRIBUTION WIDTH 21.8 % (11.6-14.6)
[2025-02-01 07:53] LABS: UREA NITROGEN BLOOD 33.0 mg/dL (9-23)
[2025-02-01 08:15] LABS: CREATININE 10.6 mg/dL (0.6-1.0)
[2025-02-01] MEDS: FOLIC ACID/VITAMIN B COMP W-C TABLET PO SCH (09:05)
[2025-02-01] MEDS: AZATHIOPRINE 50MG TABLET PO SCH (09:05)
[2025-02-01] MEDS: HYDROCODONE/ACETAMINOPHEN 10/325MG TABLET PO PRN (09:09)
[2025-02-01] MEDS: FAMOTIDINE 20MG/2ML VIAL IV SCH (09:20)
[2025-02-01] MEDS: MORPHINE SULFATE 4 MG/ML INJ (FOR IV/IM USE) IV SCH (12:52)
[2025-02-01 13:01] LABS: PHOSPHORUS 4.5 mg/dL (2.5-4.9)
[2025-02-01 13:34] LABS: HEPATITIS A AB IGM NEGATIVE (Negative)
[2025-02-01 13:35] LABS: HEPATITIS B CORE AB IGM NEGATIVE (Negative)
[2025-02-01 13:36] LABS: HEPATITIS C AB NON REACTIVE (Neg) (Negative)
[2025-02-01] MEDS: PANTOPRAZOLE 40MG DR TABLET PO SCH (20:27)
[2025-02-02] VITALS: BP 122/55; PULSE 67; RESP 20; TEMP 36.1; O2SAT 98
[2025-02-02 04:00] VITALS: BP 119/58; PULSE 67; RESP 18; TEMP 36.7; O2SAT 98
[2025-02-02 08:00] VITALS: BP 110/53; PULSE 65; RESP 17; TEMP 36.1; O2SAT 96
[2025-02-02 10:27] LABS: BASOPHILS % 0.8 % (0.0-2.0); EOSINOPHILS % 4.8 % (0.0-5.0); HEMATOCRIT. 28.0 % (36.0-48.0); HEMOGLOBIN. 9.2 g/dL (12.0-16.0); LYMPHOCYTES % 29.0 % (20.0-50.0); MEAN PLATELET VOLUME 7.8 fl (7.4-10.4); MONOCYTES % 4.7 % (2.0-8.0); NEUTROPHILS % 60.7 % (40.0-76.0); PLATELET 175 x1000/uL (130-400); RED BLOOD CELL COUNT 3.02 mill/uL (4.2-5.4); RED CELL DISTRIBUTION WIDTH 22.7 % (11.6-14.6)
[2025-02-02 10:42] LABS: INR 1.2
[2025-02-02 10:44] LABS: UREA NITROGEN BLOOD 37.0 mg/dL (9-23)
[2025-02-02] MEDS ORDERED: DEXTROSE 10% WATER 500 ML IV ONE (11:00)
[2025-02-02 11:02] LABS: CREATININE 9.2 mg/dL (0.6-1.0)
[2025-02-02] MEDS: DEXT 10% WATER 1,000 ML IV SCH (11:58)
[2025-02-02 12:00] VITALS: BP_SYST 125; BP_SYST 97; BP_DIAS 45; BP_DIAS 53; PULSE 64; RESP 16; TEMP 36.2; O2SAT 97
[2025-02-02] MEDS ORDERED: ONDANSETRON HCL 4MG/2ML INJ IV PRN (13:30)
[2025-02-02] MEDS ORDERED: FENTANYL CITRATE/PF 50MCG/ML 2ML VIAL IV PRN (13:30)
[2025-02-02] MEDS ORDERED: PROPOFOL 200MG/20ML VIAL IV ONE (13:41)
[2025-02-02] MEDS ORDERED: LIDOCAINE HCL 1% 20ML VIAL ONE (13:46)
[2025-02-02 16:00] VITALS: BP 129/60; PULSE 70; RESP 16; TEMP 35.6; O2SAT 96
[2025-02-02 20:00] VITALS: BP 139/62; PULSE 75; RESP 19; TEMP 36.4; O2SAT 99
[2025-02-02] MEDS: LEVOTHYROXINE SODIUM 100MCG TABLET PO SCH (22:27)
[2025-02-03] VITALS (12 sets, daily range): BP systolic 110–170; BP diastolic 48–105; PULSE 68–81; RESP 16–19; TEMP 35.9–36.44736; O2SAT 95–100
[2025-02-03 08:42] LABS: BASOPHILS % 0.5 % (0.0-2.0); EOSINOPHILS % 4.0 % (0.0-5.0); HEMATOCRIT. 26.4 % (36.0-48.0); HEMOGLOBIN. 8.6 g/dL (12.0-16.0); LYMPHOCYTES % 31.2 % (20.0-50.0); MEAN PLATELET VOLUME 7.5 fl (7.4-10.4); MONOCYTES % 6.1 % (2.0-8.0); NEUTROPHILS % 58.2 % (40.0-76.0); PLATELET 200 x1000/uL (130-400); RED BLOOD CELL COUNT 2.87 mill/uL (4.2-5.4); RED CELL DISTRIBUTION WIDTH 22.4 % (11.6-14.6)
[2025-02-03 08:44] LABS: ADD RBC MORPHOLOGY NO
[2025-02-03 08:59] LABS: UREA NITROGEN BLOOD 43.0 mg/dL (9-23)
[2025-02-03 09:10] LABS: CREATININE 9.1 mg/dL (0.6-1.0)
[2025-02-03] MEDS ORDERED: DEXTROSE 10% WATER 500 ML IV ONE (11:00)
[2025-02-04] VITALS: BP 127/56; PULSE 73; RESP 18; TEMP 36.4; O2SAT 98
[2025-02-04 04:00] VITALS: BP 119/32; PULSE 68; RESP 18; TEMP 35.8; O2SAT 97
[2025-02-04 08:00] VITALS: BP 122/55; PULSE 72; RESP 16; TEMP 36.2; O2SAT 96
[2025-02-04 09:10] LABS: C-PEPTIDE 2.7 ng/mL (1.1-4.4); INSULIN < 0.4 uIU/mL (2.6-24.9)
[2025-02-04 12:00] VITALS: BP 117/51; PULSE 72; RESP 17; TEMP 36.2; O2SAT 96
[2025-02-04 14:36] LABS: BODY FLUID MONOCYTES 12 %; BODY FLUID RBC 234 /cu mm (0-2000); BODY FLUID WBC 146 /cu mm (0-200)
[2025-02-04 16:00] VITALS: BP 110/65; PULSE 75; RESP 17; TEMP 36.3; O2SAT 96
[2025-02-04 20:00] VITALS: BP 133/64; PULSE 79; RESP 18; TEMP 36.1; O2SAT 97
[2025-02-05] VITALS (15 sets, daily range): BP systolic 102–144; BP diastolic 50–73; PULSE 71–86; RESP 16–18; TEMP 36.1–36.3918; O2SAT 95–98
[2025-02-05 12:33] LABS: BASOPHILS % 0.8 % (0.0-2.0); EOSINOPHILS % 2.7 % (0.0-5.0); HEMATOCRIT. 25.0 % (36.0-48.0); HEMOGLOBIN. 8.2 g/dL (12.0-16.0); LYMPHOCYTES % 23.9 % (20.0-50.0); MEAN PLATELET VOLUME 7.4 fl (7.4-10.4); MONOCYTES % 8.8 % (2.0-8.0); NEUTROPHILS % 63.8 % (40.0-76.0); PLATELET 227 x1000/uL (130-400); RED BLOOD CELL COUNT 2.74 mill/uL (4.2-5.4); RED CELL DISTRIBUTION WIDTH 22.3 % (11.6-14.6)
[2025-02-05 12:40] LABS: ADD RBC MORPHOLOGY NO
[2025-02-05 12:48] LABS: CREATININE 7.2 mg/dL (0.6-1.0)
[2025-02-05 12:49] LABS: UREA NITROGEN BLOOD 35.0 mg/dL (9-23)
[2025-02-05] MEDS: SODIUM ZIRCONIUM CYCLOSILICATE 10GM/PACKET ONE (13:41)
[2025-02-05] MEDS: SODIUM ZIRCONIUM CYCLOSILICATE 10GM/PACKET PO SCH (13:47)
[2025-02-05] MEDS: GLUCAGON,HUMAN RECOMBINANT 1MG/VIAL IM PRN (18:16)
[2025-02-06] VITALS: BP 120/52; PULSE 75; RESP 18; TEMP 36.3; O2SAT 97
[2025-02-06 04:00] VITALS: BP 125/77; PULSE 73; RESP 19; TEMP 36; O2SAT 98
[2025-02-06 08:00] VITALS: BP 115/47; PULSE 75; RESP 18; TEMP 36.4; O2SAT 100
[2025-02-06 10:11] LABS: PRO INSULIN 2.6 pmol/L (0.0-10.0)
[2025-02-06 12:00] VITALS: BP 144/55; PULSE 85; RESP 19; TEMP 36.5; O2SAT 100
[2025-02-06 13:33] LABS: BASOPHILS % 0.6 % (0.0-2.0); EOSINOPHILS % 2.8 % (0.0-5.0); HEMATOCRIT. 26.1 % (36.0-48.0); HEMOGLOBIN. 8.6 g/dL (12.0-16.0); LYMPHOCYTES % 25.4 % (20.0-50.0); MEAN PLATELET VOLUME 7.2 fl (7.4-10.4); MONOCYTES % 9.2 % (2.0-8.0); NEUTROPHILS % 62.0 % (40.0-76.0); PLATELET 246 x1000/uL (130-400); RED BLOOD CELL COUNT 2.84 mill/uL (4.2-5.4); RED CELL DISTRIBUTION WIDTH 24.2 % (11.6-14.6)
[2025-02-06 14:21] LABS: UREA NITROGEN BLOOD 24.0 mg/dL (9-23)
[2025-02-06 14:26] LABS: CREATININE 5.2 mg/dL (0.6-1.0)
[2025-02-06 16:00] VITALS: BP 139/57; PULSE 85; RESP 19; TEMP 36.4; O2SAT 97
[2025-02-06 16:54] VITALS: BP 139/57; PULSE 85; RESP 19; TEMP 97.6
[2025-02-14 15:10] LABS: INSULIN AUTOANTIBODIES 5.8 uU/mL (.)
== END 2025-02-06 17:15 | disposition home health service (06) | DRG 194 ==
LOC: ER 10:00 → EDBEDREQ 10:15 → CANBEDREQ 12:10 → 6WST 12:11 → ENRESERV 14:41
PROVIDERS: ADMIT Internal Medicine; ATTEND Internal Medicine
PROC: 30233N1 Transfusion of Nonautologous Red Blood Cells into Peripheral Vein, Percutaneous Approach (ICD-10-PCS; 2025-01-31)
PROC: 5A1D70Z Performance of Urinary Filtration, Intermittent, Less than 6 Hours Per Day (ICD-10-PCS; 2025-02-01)
PROC: 0DB78ZX Excision of Stomach, Pylorus, Via Natural or Artificial Opening Endoscopic, Diagnostic (ICD-10-PCS; 2025-02-02)
PROC: 5A1D70Z Performance of Urinary Filtration, Intermittent, Less than 6 Hours Per Day (ICD-10-PCS; 2025-02-03)
PROC: 0W9G3ZZ Drainage of Peritoneal Cavity, Percutaneous Approach (ICD-10-PCS; principal; 2025-02-04)
PROC: 5A1D70Z Performance of Urinary Filtration, Intermittent, Less than 6 Hours Per Day (ICD-10-PCS; 2025-02-05)
DX: I13.2 Hypertensive heart and chronic kidney disease with heart failure and with stage 5 chronic kidney disease, or end stage renal disease (principal); K56.609 Unspecified intestinal obstruction, unspecified as to partial versus complete obstruction; E46 Unspecified protein-calorie malnutrition; J91.8 Pleural effusion in other conditions classified elsewhere; I82.621 Acute embolism and thrombosis of deep veins of right upper extremity; K70.31 Alcoholic cirrhosis of liver with ascites; N25.81 Secondary hyperparathyroidism of renal origin; K56.7 Ileus, unspecified; N18.6 End stage renal disease; K86.89 Other specified diseases of pancreas; I48.91 Unspecified atrial fibrillation; D64.9 Anemia, unspecified; E11.22 Type 2 diabetes mellitus with diabetic chronic kidney disease; Z99.2 Dependence on renal dialysis; I50.33 Acute on chronic diastolic (congestive) heart failure; Z79.01 Long term (current) use of anticoagulants; E53.8 Deficiency of other specified B group vitamins; K57.30 Diverticulosis of large intestine without perforation or abscess without bleeding; I70.0 Atherosclerosis of aorta; H40.9 Unspecified glaucoma; I42.9 Cardiomyopathy, unspecified; D25.9 Leiomyoma of uterus, unspecified; E03.9 Hypothyroidism, unspecified; K29.50 Unspecified chronic gastritis without bleeding; D72.819 Decreased white blood cell count, unspecified; E11.40 Type 2 diabetes mellitus with diabetic neuropathy, unspecified; E11.649 Type 2 diabetes mellitus with hypoglycemia without coma; E78.00 Pure hypercholesterolemia, unspecified; E87.5 Hyperkalemia; F10.20 Alcohol dependence, uncomplicated; Y90.8 Blood alcohol level of 240 mg/100 ml or more; G43.909 Migraine, unspecified, not intractable, without status migrainosus; H54.61 Unqualified visual loss, right eye, normal vision left eye; I35.1 Nonrheumatic aortic (valve) insufficiency; K20.90 Esophagitis, unspecified without bleeding; K44.9 Diaphragmatic hernia without obstruction or gangrene; Z86.73 Personal history of transient ischemic attack (TIA), and cerebral infarction without residual deficits; Z82.49 Family history of ischemic heart disease and other diseases of the circulatory system; Z68.1 Body mass index [BMI] 19.9 or less, adult; Z83.3 Family history of diabetes mellitus; Z91.199 Patient's noncompliance with other medical treatment and regimen due to unspecified reason
CPT/HCPCS: 36415; 49083; 71045; 74181; 80048; 80076; 82010; 82024; 82040; 82150; 82270; 82533; 82962; 83036; 83525; 83540; 83550; 83615; 83735; 84100; 84206; 84425; 84681; 85025; 85044; 86337; 86705; 86709; 86850; 86900; 86920; 87340; 88108; 88305; 88312; 88313; 90935; 93005; 93970; 97162; 99285; J1308; J1610; J2003; J2270; J2405; J2704; J7030; J7500; P9016

== ENCOUNTER 2025-03-24 08:00 | Inpatient (IN) | payer OTHER ==
[~2025-03-24] VITALS: Ht 160 cm; Wt 51.3 kg
[2025-03-24] VITALS (7 sets, daily range): BP systolic 88–136; BP diastolic 34–75; PULSE 50–97; RESP 16–18; TEMP 35.5–35.78064; O2SAT 100
[~2025-03-24 08:00] MED LIST changes: -AZAT50TA24 PO; -CARV3.1242 PO; -DEXT1TAB49 PO; -FOLI0.8T53 MT; -LIP40 PO; -METO5TAB2 MT; +METO5TAB2 PO; +VANC125C11 MT
[2025-03-24] MEDS: SODIUM CHLORIDE 0.9% 1,000 ML IV ONE (08:30)
[2025-03-24] MEDS ORDERED: DEXTROSE 50% WATER 50ML SYRINGE IV NR (08:34)
[2025-03-24] MEDS: DEXTROSE 50% WATER 50ML SYRINGE IV ONE (08:39)
[2025-03-24 09:30] LABS: HEMATOCRIT. 25.9 % (36.0-48.0); HEMOGLOBIN. 8.4 g/dL (12.0-16.0); MEAN PLATELET VOLUME 7.9 fl (7.4-10.4); PLATELET 208 x1000/uL (130-400); RED BLOOD CELL COUNT 2.77 mill/uL (4.2-5.4); RED CELL DISTRIBUTION WIDTH 18.0 % (11.6-14.6)
[2025-03-24 09:38] LABS: INR 1.1
[2025-03-24 09:40] LABS: UREA NITROGEN BLOOD 25 mg/dL (9-23)
[2025-03-24 09:41] LABS: ASPARTATE AMINOTRANSFERASE 52 IU/L (<34)
[2025-03-24 09:42] LABS: BILIRUBIN DIRECT 0.1 mg/dL (<=3.0); BILIRUBIN TOTAL 0.2 mg/dL (0.1-1.0); PROTEIN TOTAL 6.1 g/dL (6.0-8.3)
[2025-03-24 09:48] LABS: CREATININE 6.8 mg/dL (0.6-1.0)
[2025-03-24] MEDS: PIPERACILLIN/TAZO 3.375G/50ML 50 ML IV ONE (10:37)
[2025-03-24] MEDS: SODIUM CHLORIDE 0.9% (SEPSIS BOLUS) IV ONE (10:37)
[2025-03-24 11:11] LABS: TROPONIN I HIGH SENSITIVITY 10 ng/L (3.0-34)
[2025-03-24 11:25] LABS: BG BASE EXCESS -11.3 mmol/L (-2.0-3.0); BG CARBOXYHEMOGLOBIN 0.5 % (0.5-1.5); BG DEOXYHEMOGLOBIN 0.5 % (0.0-5.0); BG FRACTION INSPIRED OXYGEN 40; BG HCO3 ACT 13.5 mmol/L (21.0-28.0); BG METHEMOGLOBIN 0.3 % (0.5-1.5); BG OXYGEN SATURATION 99.5 % (94.0-98.0); BG OXYHEMOGLOBIN 98.7 % (94.0-98.0); BG PCO2 26.1 mmHg (32.0-45.0); BG PH 7.332 (7.350-7.450); BG PO2 213.8 mmHg (83.0-108.0); BG SAMPLE SITE RIGHT BRACHIAL; BG TOTAL HEMOGLOBIN 6.4 g/dL (12.0-16.0); BG VENT MODE NASAL CANNULA
[2025-03-24] MEDS: VANCOMYCIN 1G PREMIX 200 ML IV ONE (11:25)
[2025-03-24 11:27] LABS: EOSINOPHILS % MANUAL 1.0 % (0.0-5.0); LYMPHOCYTES % MANUAL 76.0 % (20.0-60.0); MONOCYTES % MANUAL 8.0 % (2.0-8.0); NEUTROPHILS % MANUAL 15.0 % (45.0-75.0); PLATELET ESTIMATE NORMAL
[2025-03-24] MEDS ORDERED: MAGNESIUM/ALUMINUM HYDROXIDE/SIMETHICONE 30ML UDC PO PRN (12:30)
[2025-03-24] MEDS ORDERED: ZOLPIDEM TARTRATE 5MG TABLET PO PRN (12:30)
[2025-03-24] MEDS ORDERED: ACETAMINOPHEN 325MG TABLET PO PRN (12:30)
[2025-03-24] MEDS ORDERED: MORPHINE SULFATE 2 MG/ML INJ (NOT FOR IM USE) IV PRN (12:30)
[2025-03-24] MEDS ORDERED: ONDANSETRON HCL 4MG/2ML INJ IV PRN ×2 (12:30→20:00)
[2025-03-24] MEDS ORDERED: HYDROCODONE/ACETAMINOPHEN 5/325MG TABLET PO PRN (12:30)
[2025-03-24] MEDS ORDERED: CLONIDINE 0.1MG TABLET PO PRN (12:30)
[2025-03-24] MEDS ORDERED: NALOXONE HCL 0.4MG/ML VIAL IV PRN (12:45)
[2025-03-24] MEDS ORDERED: MORPHINE SULFATE 10 MG/ML INJ (NOT FOR IM USE) IV PRN (15:00)
[2025-03-24] MEDS: HYDROMORPHONE HCL/PF 2MG/ML INJ IV SCH (17:56)
[2025-03-24] MEDS ORDERED: POLYMYXIN B SULFATE 500000 UNITS/VIAL ONE (18:27)
[2025-03-24] MEDS ORDERED: HEPARIN SODIUM 1,000 UNIT/1ML VIAL IV ONE (18:28)
[2025-03-24] MEDS ORDERED: LIDOCAINE HCL 1% 10 MG/ML 10ML VIAL ONE (18:28)
[2025-03-24] MEDS ORDERED: BUPIVACAINE HCL/PF 0.5% (5MG/ML) 10ML ONE (18:28)
[2025-03-24] MEDS ORDERED: THROMBIN (BOVINE) 5000 UNITS/VIAL TOP ONE (18:28)
[2025-03-24] MEDS ORDERED: BACITRACIN 14GM TUBE TOP ONE (18:28)
[2025-03-24] MEDS ORDERED: ROCURONIUM BROMIDE 10MG/ML VIAL 5ML IV ONE (19:17)
[2025-03-24] MEDS ORDERED: PROPOFOL 200MG/20ML VIAL IV ONE (19:17)
[2025-03-24] MEDS ORDERED: HYDRALAZINE 20MG/ML VIAL IV PRN ×2 (20:00)
[2025-03-24] MEDS ORDERED: FAMOTIDINE 20MG/2ML VIAL IV PRN (20:00)
[2025-03-24] MEDS ORDERED: HYDROMORPHONE HCL/PF 1MG/ML INJ IV PRN (20:00)
[2025-03-24] MEDS ORDERED: LABETALOL 5MG/ML 4ML INJ IV PRN (20:00)
[2025-03-24] MEDS ORDERED: ACETAMINOPHEN 1000MG/100ML 100 ML IV ONE (20:05)
[2025-03-24] MEDS ORDERED: PHENYLEPHRINE 50MG/250ML PMX 250 ML IV ONE (20:09)
[2025-03-24] MEDS ORDERED: HYDROMORPHONE HCL/PF 1MG/ML INJ ONE (21:01)
[2025-03-24] MEDS ORDERED: NEOSTIGMINE METHYLSULFATE 1MG/ML 10 ML VIAL ONE (21:16)
[2025-03-24] MEDS ORDERED: GLYCOPYRROLATE 0.2 MG/ML 2ML VIAL ONE ×2 (21:16)
[2025-03-24] MEDS ORDERED: DEXAMETHASONE 4MG/ML 1ML VIAL ONE (21:23)
[2025-03-24] MEDS ORDERED: ONDANSETRON HCL 4MG/2ML INJ ONE (21:23)
[2025-03-24] MEDS ORDERED: PROTAMINE SULFATE 10MG/ML VIAL 5ML IV ONE (21:26)
[2025-03-24] MEDS ORDERED: DEXTROSE 50% WATER 50ML SYRINGE IV ONE (21:55)
[2025-03-24] MEDS: ALBUMIN HUMAN 12.5G/250ML (5%) IV NR (23:10)
[2025-03-24 23:16] LABS: PLATELET 106 x1000/uL (130-400); RED BLOOD CELL COUNT 3.68 mill/uL (4.2-5.4); RED CELL DISTRIBUTION WIDTH 16.2 % (11.6-14.6)
[2025-03-24 23:19] LABS: UREA NITROGEN BLOOD 24.0 mg/dL (9-23)
[2025-03-24 23:24] LABS: CREATININE 6.4 mg/dL (0.6-1.0)
[2025-03-24 23:57] LABS: HEPATITIS A AB IGM NEGATIVE (Negative)
[2025-03-25] VITALS: BP 120/56; PULSE 90; RESP 17; TEMP 36.4; O2SAT 100
[2025-03-25] LABS: HEPATITIS B CORE AB IGM NEGATIVE (Negative)
[2025-03-25 00:01] LABS: HEPATITIS C AB NON REACTIVE (Neg) (Negative)
[2025-03-25] MEDS: PIPERACILLIN/TAZO 3.375G/50ML 50 ML IV SCH (00:18)
[2025-03-25 04:00] VITALS: BP 114/49; PULSE 76; RESP 16; TEMP 36.3; O2SAT 97
[2025-03-25 07:51] LABS: HEMATOCRIT. 31.0 % (36.0-48.0); MEAN PLATELET VOLUME 7.8 fl (7.4-10.4); PLATELET 98 x1000/uL (130-400); RED BLOOD CELL COUNT 3.48 mill/uL (4.2-5.4); RED CELL DISTRIBUTION WIDTH 16.6 % (11.6-14.6)
[2025-03-25 07:54] LABS: UREA NITROGEN BLOOD 24.0 mg/dL (9-23)
[2025-03-25 08:00] VITALS: BP 137/58; PULSE 75; RESP 18; TEMP 36.6; O2SAT 98
[2025-03-25 08:17] LABS: HEMOGLOBIN. 10.1 g/dL (12.0-16.0)
[2025-03-25] MEDS: MORPHINE SULFATE 4 MG/ML INJ (FOR IV/IM USE) IV PRN (09:33)
[2025-03-25] MEDS: PANTOPRAZOLE SODIUM 40 MG/VIAL IV SCH (09:33)
[2025-03-25 09:36] LABS: CREATININE 6.4 mg/dL (0.6-1.0)
[2025-03-25 12:00] VITALS: BP 127/52; PULSE 72; RESP 18; TEMP 37.2; O2SAT 98
[2025-03-25] MEDS ORDERED: CEFEPIME 1GM IN DEXT 5% 50ML IV SCH (15:00)
[2025-03-25 16:00] VITALS: BP 131/53; PULSE 68; RESP 17; TEMP 35.8; O2SAT 99
[2025-03-25 16:38] LABS: LYMPHOCYTES % MANUAL 9.0 % (20.0-60.0); MONOCYTES % MANUAL 2.0 % (2.0-8.0); NEUTROPHILS % MANUAL 89.0 % (45.0-75.0); PLATELET ESTIMATE SLIGHTLY DECREASED
[2025-03-25] MEDS: CEFEPIME 2GM/100ML 100 ML IV SCH (16:58)
[2025-03-25 20:00] VITALS: BP 140/45; PULSE 63; RESP 18; TEMP 35.8; O2SAT 92
[2025-03-26] VITALS (27 sets, daily range): BP systolic 97–152; BP diastolic 34–70; PULSE 56–95; RESP 12–18; TEMP 35.6–36.6; O2SAT 93–100
[2025-03-26 06:57] LABS: INR 1.1
[2025-03-26 07:07] LABS: UREA NITROGEN BLOOD 27.0 mg/dL (9-23)
[2025-03-26 07:10] LABS: BASOPHILS % 0.6 % (0.0-2.0); EOSINOPHILS % 0.4 % (0.0-5.0); HEMATOCRIT. 25.8 % (36.0-48.0); HEMOGLOBIN. 8.5 g/dL (12.0-16.0); LYMPHOCYTES % 19.3 % (20.0-50.0); MEAN PLATELET VOLUME 7.7 fl (7.4-10.4); MONOCYTES % 6.4 % (2.0-8.0); NEUTROPHILS % 73.3 % (40.0-76.0); PLATELET 95 x1000/uL (130-400); RED BLOOD CELL COUNT 2.90 mill/uL (4.2-5.4); RED CELL DISTRIBUTION WIDTH 17.5 % (11.6-14.6)
[2025-03-26 07:26] LABS: CREATININE 6.9 mg/dL (0.6-1.0)
[2025-03-26] MEDS ORDERED: LIDOCAINE HCL 1% 20ML VIAL ONE (10:23)
[2025-03-26] MEDS ORDERED: LIDOCAINE HCL 1% 10 MG/ML 10ML VIAL ONE (10:25)
[2025-03-26] MEDS ORDERED: FENTANYL CITRATE/PF 50MCG/ML 2ML VIAL ONE (10:42)
[2025-03-26] MEDS ORDERED: IOHEXOL-300 50 ML BOTTLE IV ONE (11:03)
[2025-03-26] MEDS ORDERED: FENTANYL CITRATE/PF 50MCG/ML 2ML VIAL IV SCH (11:45)
[2025-03-27] VITALS: BP 152/74; PULSE 95; RESP 19; TEMP 36.3; O2SAT 98
[2025-03-27 04:00] VITALS: BP 137/59; PULSE 85; RESP 15; TEMP 36.3; O2SAT 100
[2025-03-27 07:30] LABS: BASOPHILS % 0.5 % (0.0-2.0); EOSINOPHILS % 1.1 % (0.0-5.0); HEMATOCRIT. 27.6 % (36.0-48.0); HEMOGLOBIN. 9.0 g/dL (12.0-16.0); LYMPHOCYTES % 20.0 % (20.0-50.0); MEAN PLATELET VOLUME 8.0 fl (7.4-10.4); MONOCYTES % 5.4 % (2.0-8.0); NEUTROPHILS % 73.0 % (40.0-76.0); PLATELET 82 x1000/uL (130-400); RED BLOOD CELL COUNT 3.12 mill/uL (4.2-5.4); RED CELL DISTRIBUTION WIDTH 17.3 % (11.6-14.6)
[2025-03-27 07:41] LABS: UREA NITROGEN BLOOD 16.0 mg/dL (9-23)
[2025-03-27 08:00] VITALS: BP 149/54; PULSE 78; RESP 16; TEMP 36.7; O2SAT 95
[2025-03-27 08:44] LABS: CREATININE 3.9 mg/dL (0.6-1.0)
[2025-03-27] MEDS: DEXT 5%/0.9% NACL 1,000 ML IV SCH (11:21)
[2025-03-27 12:00] VITALS: BP 138/56; PULSE 87; RESP 16; TEMP 36.5; O2SAT 96
[2025-03-27] MEDS: BLOOD SUGAR DIAGNOSTIC STRIP TEST SCH (12:00)
[2025-03-27] MEDS ORDERED: LEVO250T74 MT (13:24)
[2025-03-27 16:00] VITALS: BP 137/54; PULSE 82; RESP 16; TEMP 36.6; O2SAT 95
[2025-03-27 18:38] VITALS: BP 155/52; PULSE 87; RESP 18; TEMP 98.2
== END 2025-03-27 18:35 | disposition home health service (06) | DRG 182 ==
LOC: ER 08:00 → 5WST 10:50 → EDBEDREQTM 11:35 → EDBEDREQ 11:35
PROVIDERS: ADMIT Internal Medicine; ATTEND Internal Medicine
PROC: 30233N1 Transfusion of Nonautologous Red Blood Cells into Peripheral Vein, Percutaneous Approach (ICD-10-PCS; principal; 2025-03-24)
PROC: 03BA0ZZ Excision of Left Ulnar Artery, Open Approach (ICD-10-PCS; 2025-03-24)
PROC: 03CA0ZZ Extirpation of Matter from Left Ulnar Artery, Open Approach (ICD-10-PCS; 2025-03-24)
PROC: 03R Upper Arteries, Replacement (ICD-10-PCS; 2025-03-24)
PROC: 5A1D70Z Performance of Urinary Filtration, Intermittent, Less than 6 Hours Per Day (ICD-10-PCS; 2025-03-26)
PROC: 0JH63XZ Insertion of Tunneled Vascular Access Device into Chest Subcutaneous Tissue and Fascia, Percutaneous Approach (ICD-10-PCS; 2025-03-26)
PROC: 02HV33Z Insertion of Infusion Device into Superior Vena Cava, Percutaneous Approach (ICD-10-PCS; 2025-03-26)
PROC: B5181ZA Fluoroscopy of Superior Vena Cava using Low Osmolar Contrast, Guidance (ICD-10-PCS; 2025-03-26)
PROC: B548ZZA Ultrasonography of Superior Vena Cava, Guidance (ICD-10-PCS; 2025-03-26)
DX: T82.838A Hemorrhage due to vascular prosthetic devices, implants and grafts, initial encounter (principal); G93.41 Metabolic encephalopathy; A41.9 Sepsis, unspecified organism; J18.9 Pneumonia, unspecified organism; I13.2 Hypertensive heart and chronic kidney disease with heart failure and with stage 5 chronic kidney disease, or end stage renal disease; D69.6 Thrombocytopenia, unspecified; E87.20 Acidosis, unspecified; N18.6 End stage renal disease; T82.898A Other specified complication of vascular prosthetic devices, implants and grafts, initial encounter; D62 Acute posthemorrhagic anemia; I50.32 Chronic diastolic (congestive) heart failure; D64.9 Anemia, unspecified; E11.22 Type 2 diabetes mellitus with diabetic chronic kidney disease; E03.9 Hypothyroidism, unspecified; E11.649 Type 2 diabetes mellitus with hypoglycemia without coma; Y84.1 Kidney dialysis as the cause of abnormal reaction of the patient, or of later complication, without mention of misadventure at the time of the procedure; E21.3 Hyperparathyroidism, unspecified; E86.1 Hypovolemia; K50.90 Crohn's disease, unspecified, without complications; K74.60 Unspecified cirrhosis of liver; E78.00 Pure hypercholesterolemia, unspecified; I48.91 Unspecified atrial fibrillation; D72.819 Decreased white blood cell count, unspecified; Z99.2 Dependence on renal dialysis; Z86.73 Personal history of transient ischemic attack (TIA), and cerebral infarction without residual deficits
CPT/HCPCS: 36415; 36558; 36600; 71045; 80048; 80076; 80202; 80320; 82375; 82805; 82962; 83605; 83735; 83880; 84145; 84443; 84484; 85014; 85018; 85025; 85027; 86705; 86709; 86850; 86900; 86920; 87340; 88304; 90935; 93005; 93970; 99152; 99153; 99291; A4606; A6449; C1769; C1887; J0665; J0692; J1100; J1171; J1642; J1644; J2003; J2270; J2371; J2405; J2470; J2543; J2704; J2710; J2720; J3010; J3373; J3490; J7030; J7042; P9016; P9041; Q9967; C1768; G0480; G0500; J0131

== ENCOUNTER 2025-03-29 06:56 | Inpatient (IN) | payer OTHER ==
[~2025-03-29] VITALS: Ht 154.9 cm; Wt 46.3 kg
[~2025-03-29 06:56] MED LIST changes: +LEVO250T74 MT; -VANC125C11 MT
[2025-03-29 06:58] VITALS: O2SAT 99
[2025-03-29 09:16] LABS: BASOPHILS % 0.6 % (0.0-2.0); EOSINOPHILS % 2.3 % (0.0-5.0); HEMATOCRIT. 30.7 % (36.0-48.0); HEMOGLOBIN. 10.0 g/dL (12.0-16.0); LYMPHOCYTES % 19.0 % (20.0-50.0); MEAN PLATELET VOLUME 7.8 fl (7.4-10.4); MONOCYTES % 7.6 % (2.0-8.0); NEUTROPHILS % 70.5 % (40.0-76.0); PLATELET 104 x1000/uL (130-400); RED BLOOD CELL COUNT 3.35 mill/uL (4.2-5.4); RED CELL DISTRIBUTION WIDTH 18.2 % (11.6-14.6)
[2025-03-29 10:08] LABS: INR 1.2
[2025-03-29 11:13] LABS: ASPARTATE AMINOTRANSFERASE 23 IU/L (<34); UREA NITROGEN BLOOD 15 mg/dL (9-23)
[2025-03-29 11:14] LABS: BILIRUBIN DIRECT 0.2 mg/dL (<=3.0); BILIRUBIN TOTAL 0.3 mg/dL (0.1-1.0); PROTEIN TOTAL 6.7 g/dL (6.0-8.3)
[2025-03-29 11:21] LABS: CREATININE 5.0 mg/dL (0.6-1.0)
[2025-03-29] MEDS: DEXTROSE 50% WATER 50ML SYRINGE IV ONE (11:35)
[2025-03-29] MEDS: IOHEXOL-350 100 ML BOTTLE ONE (12:04)
[2025-03-29] MEDS ORDERED: ONDANSETRON HCL 4MG/2ML INJ IV PRN (15:15)
[2025-03-29 16:06] VITALS: BP 144/76; PULSE 76; RESP 16; TEMP 36.3; O2SAT 98
[2025-03-29 16:07] VITALS: BP 144/76; PULSE 76; RESP 16; TEMP 36.3624
[2025-03-29] MEDS: DEXTROSE 50% WATER 50ML SYRINGE IV PRN (16:44)
[2025-03-29] MEDS: BLOOD SUGAR DIAGNOSTIC STRIP TEST SCH (16:48)
[2025-03-29] MEDS: INSULIN LISPRO 100 UNITS/ML SUBCUT SCH (17:40)
[2025-03-29] MEDS: ASCORBIC ACID 250 MG TABLET PO SCH (18:22)
[2025-03-29] MEDS: SEVELAMER CARBONATE 800 MG TABLET PO SCH (18:22)
[2025-03-29] MEDS: FERROUS SULFATE 325MG TABLET PO SCH (18:22)
[2025-03-29] MEDS: DEXT 10% WATER 1,000 ML IV SCH (18:35)
[2025-03-29 20:00] VITALS: BP 148/71; PULSE 82; RESP 20; TEMP 36.8; O2SAT 98
[2025-03-29] MEDS: APIXABAN 5 MG TABLET PO SCH (21:31)
[2025-03-29] MEDS: MIRTAZAPINE 15MG TABLET PO SCH (21:31)
[2025-03-29] MEDS: HYDRALAZINE HCL 100MG TABLET PO SCH (21:35)
[2025-03-29] MEDS: METOCLOPRAMIDE HCL 5MG TABLET PO SCH (23:50)
[2025-03-30] VITALS: BP 138/68; PULSE 80; RESP 18; TEMP 37; O2SAT 97
[2025-03-30 04:00] VITALS: BP 134/60; PULSE 77; RESP 20; TEMP 36.7; O2SAT 98
[2025-03-30 07:04] LABS: BASOPHILS % 0.6 % (0.0-2.0); EOSINOPHILS % 2.4 % (0.0-5.0); HEMATOCRIT. 23.5 % (36.0-48.0); HEMOGLOBIN. 7.9 g/dL (12.0-16.0); LYMPHOCYTES % 27.2 % (20.0-50.0); MEAN PLATELET VOLUME 8.4 fl (7.4-10.4); MONOCYTES % 8.1 % (2.0-8.0); NEUTROPHILS % 61.7 % (40.0-76.0); PLATELET 91 x1000/uL (130-400); RED BLOOD CELL COUNT 2.68 mill/uL (4.2-5.4); RED CELL DISTRIBUTION WIDTH 17.2 % (11.6-14.6)
[2025-03-30 07:28] LABS: UREA NITROGEN BLOOD 22.0 mg/dL (9-23)
[2025-03-30 07:29] LABS: CREATININE 5.2 mg/dL (0.6-1.0)
[2025-03-30 08:00] VITALS: PULSE 77; RESP 18
[2025-03-30] MEDS: PANTOPRAZOLE SODIUM 40 MG/VIAL IV SCH (08:27)
[2025-03-30 12:00] VITALS: BP 147/74; PULSE 83; RESP 18; TEMP 35.8; O2SAT 100
[2025-03-30] MEDS: BLOOD SUGAR DIAGNOSTIC STRIP TEST SCH (12:12)
[2025-03-30] MEDS ORDERED: LORAZEPAM 2MG/ML UD SYRINGE IV PRN (13:30)
[2025-03-30] MEDS: LEVOTHYROXINE SODIUM 75MCG TABLET PO SCH (13:44)
[2025-03-30] MEDS: CALCIUM GLUCONATE 1GM PREMIX 50 ML IV NR (15:18)
[2025-03-30 16:00] VITALS: BP 128/60; PULSE 81; RESP 18; TEMP 36.5; O2SAT 96
[2025-03-30] MEDS: ACETAMINOPHEN 325MG TABLET PO PRN (17:12)
[2025-03-30] MEDS: LORAZEPAM 2MG/ML UD SYRINGE IV NR (17:22)
[2025-03-30 20:00] VITALS: BP 99/56; PULSE 79; RESP 20; TEMP 36.7; O2SAT 98
[2025-03-31] VITALS (17 sets, daily range): BP systolic 89–155; BP diastolic 50–80; PULSE 78–95; RESP 14–20; TEMP 36.33624–37; O2SAT 95–100
[2025-03-31] MEDS: LEVOTHYROXINE SODIUM 100MCG TABLET PO SCH (06:47)
[2025-03-31] MEDS: DEXTROSE 50% WATER 50ML SYRINGE IV PRN (07:28)
[2025-03-31] MEDS ORDERED: LIDOCAINE HCL 1% 10 MG/ML 10ML VIAL ONE ×2 (09:52→14:07)
[2025-03-31 15:30] LABS: BASOPHILS % 0.9 % (0.0-2.0); EOSINOPHILS % 1.8 % (0.0-5.0); HEMATOCRIT. 25.4 % (36.0-48.0); HEMOGLOBIN. 8.3 g/dL (12.0-16.0); LYMPHOCYTES % 31.5 % (20.0-50.0); MEAN PLATELET VOLUME 8.1 fl (7.4-10.4); MONOCYTES % 5.2 % (2.0-8.0); NEUTROPHILS % 60.6 % (40.0-76.0); PLATELET 103 x1000/uL (130-400); RED BLOOD CELL COUNT 2.86 mill/uL (4.2-5.4); RED CELL DISTRIBUTION WIDTH 17.8 % (11.6-14.6)
[2025-03-31 15:52] LABS: CREATININE 3.8 mg/dL (0.6-1.0); UREA NITROGEN BLOOD 17.0 mg/dL (9-23)
[2025-03-31 16:33] LABS: HEPATITIS A AB IGM NEGATIVE (Negative)
[2025-03-31 16:34] LABS: HEPATITIS B CORE AB IGM NEGATIVE (Negative); HEPATITIS C AB NON REACTIVE (Neg) (Negative)
== END 2025-03-31 21:50 | disposition short-term general hospital (02) | DRG 420 ==
LOC: ER 06:56 → EDBEDREQTM 11:38 → EDBEDREQ 11:38 → ENRESERV 14:50 → 8WST 15:32
PROVIDERS: ADMIT Internal Medicine; ATTEND Internal Medicine
PROC: 5A1D70Z Performance of Urinary Filtration, Intermittent, Less than 6 Hours Per Day (ICD-10-PCS; principal; 2025-03-31)
DX: E11.649 Type 2 diabetes mellitus with hypoglycemia without coma (principal); J96.01 Acute respiratory failure with hypoxia; I13.2 Hypertensive heart and chronic kidney disease with heart failure and with stage 5 chronic kidney disease, or end stage renal disease; G93.40 Encephalopathy, unspecified; J18.9 Pneumonia, unspecified organism; E44.0 Moderate protein-calorie malnutrition; E87.20 Acidosis, unspecified; N18.6 End stage renal disease; E11.52 Type 2 diabetes mellitus with diabetic peripheral angiopathy with gangrene; D72.819 Decreased white blood cell count, unspecified; Z99.2 Dependence on renal dialysis; J44.0 Chronic obstructive pulmonary disease with (acute) lower respiratory infection; D64.9 Anemia, unspecified; E03.9 Hypothyroidism, unspecified; K70.31 Alcoholic cirrhosis of liver with ascites; I70.0 Atherosclerosis of aorta; I42.9 Cardiomyopathy, unspecified; I48.91 Unspecified atrial fibrillation; E11.22 Type 2 diabetes mellitus with diabetic chronic kidney disease; H40.9 Unspecified glaucoma; D25.9 Leiomyoma of uterus, unspecified; E53.8 Deficiency of other specified B group vitamins; I50.32 Chronic diastolic (congestive) heart failure; K50.90 Crohn's disease, unspecified, without complications; K57.30 Diverticulosis of large intestine without perforation or abscess without bleeding; N25.81 Secondary hyperparathyroidism of renal origin; Z79.01 Long term (current) use of anticoagulants; Z79.899 Other long term (current) drug therapy; Z86.73 Personal history of transient ischemic attack (TIA), and cerebral infarction without residual deficits; Z91.199 Patient's noncompliance with other medical treatment and regimen due to unspecified reason; Z68.1 Body mass index [BMI] 19.9 or less, adult; Z87.01 Personal history of pneumonia (recurrent)
CPT/HCPCS: 36415; 70496; 70498; 70551; 71045; 80048; 80076; 80320; 82962; 83036; 85025; 86705; 86709; 87340; 90935; 92610; 93005; 96374; 99291; J0612; J2003; J2060; J2470; J8597; Q9967; G0480

== ENCOUNTER 2025-04-24 11:14 | Inpatient (IN) | payer OTHER ==
[~2025-04-24] VITALS: Ht 165.1 cm; Wt 44.0 kg
[2025-04-24] VITALS (12 sets, daily range): BP systolic 120–151; BP diastolic 68–91; PULSE 85–91; RESP 16–21; TEMP 36.1956–36.55848; O2SAT 99–100
[2025-04-24] MEDS ORDERED: DEXT 10% WATER 500 ML IV SCH (12:00)
[2025-04-24] MEDS: GLUCAGON,HUMAN RECOMBINANT 1MG/VIAL IM ONE (12:22)
[2025-04-24 12:46] LABS: BASOPHILS % 1.0 % (0.0-2.0); EOSINOPHILS % 2.1 % (0.0-5.0); HEMATOCRIT. 25.5 % (36.0-48.0); HEMOGLOBIN. 8.2 g/dL (12.0-16.0); LYMPHOCYTES % 25.0 % (20.0-50.0); MEAN PLATELET VOLUME 7.3 fl (7.4-10.4); MONOCYTES % 5.7 % (2.0-8.0); NEUTROPHILS % 66.2 % (40.0-76.0); PLATELET 173 x1000/uL (130-400); RED BLOOD CELL COUNT 2.72 mill/uL (4.2-5.4); RED CELL DISTRIBUTION WIDTH 18.9 % (11.6-14.6)
[2025-04-24 12:52] LABS: UREA NITROGEN BLOOD 57 mg/dL (9-23)
[2025-04-24 12:54] LABS: ASPARTATE AMINOTRANSFERASE 26 IU/L (<34); BILIRUBIN DIRECT < 0.1 mg/dL (<=3.0); BILIRUBIN TOTAL < 0.2 mg/dL (0.1-1.0); PROTEIN TOTAL 6.1 g/dL (6.0-8.3)
[2025-04-24 12:57] LABS: CREATININE 9.1 mg/dL (0.6-1.0)
[2025-04-24 13:03] LABS: INR 1.1
[2025-04-24] MEDS: DEXTROSE 50% WATER 50ML SYRINGE IV ONE (13:09)
[2025-04-24] MEDS: CEFTRIAXONE 1GM/50ML 50 ML IV ONE (13:15)
[2025-04-24 13:22] LABS: TROPONIN I HIGH SENSITIVITY 13 ng/L (3.0-34)
[2025-04-24] MEDS: SODIUM CHLORIDE 0.9% 500 ML IV ONE (13:30)
[2025-04-24] MEDS ORDERED: DEXT 10% WATER 1,000 ML IV SCH ×2 (17:30→18:40)
[2025-04-24] MEDS: BLOOD SUGAR DIAGNOSTIC STRIP TEST SCH (17:33)
[2025-04-24] MEDS ORDERED: DEXT 10% WATER 250 ML IV SCH (18:30)
[2025-04-24] MEDS ORDERED: DEXTROSE 10% WATER 250 ML IV SCH (18:45)
[2025-04-24] MEDS: DEXTROSE 10% WATER 250 ML IV SCH (18:58)
[2025-04-24] MEDS: SEVELAMER CARBONATE 800 MG TABLET PO SCH (19:05)
[2025-04-24 22:15] LABS: TROPONIN I HIGH SENSITIVITY 16 ng/L (3.0-34)
[2025-04-24] MEDS: VANCOMYCIN 1GM/200ML PMX (BAXTER) IV SCH (22:18)
[2025-04-25] VITALS: BP 142/61; PULSE 93; RESP 19; TEMP 36.5; O2SAT 100
[2025-04-25 04:00] VITALS: BP 140/59; PULSE 100; RESP 19; TEMP 36.5; O2SAT 100
[2025-04-25 07:40] LABS: UREA NITROGEN BLOOD 37 mg/dL (9-23)
[2025-04-25 07:42] LABS: ASPARTATE AMINOTRANSFERASE 26 IU/L (<34); BILIRUBIN TOTAL 0.2 mg/dL (0.1-1.0); PROTEIN TOTAL 6.5 g/dL (6.0-8.3)
[2025-04-25] MEDS ORDERED: NALOXONE HCL 0.4MG/ML VIAL IV PRN (08:45)
[2025-04-25 09:09] LABS: CREATININE 6.8 mg/dL (0.6-1.0)
[2025-04-25] MEDS: ENOXAPARIN 30MG/0.3ML SYR SUBCUT SCH (09:15)
[2025-04-25] MEDS: FOLIC ACID/VITAMIN B COMP W-C TABLET PO SCH (09:15)
[2025-04-25] MEDS: CEFTRIAXONE 1GM/50ML 50 ML IV SCH (09:16)
[2025-04-25 12:13] VITALS: BP 111/79; PULSE 87; RESP 18; TEMP 36.5; O2SAT 100
[2025-04-25] MEDS: ONDANSETRON HCL 4MG/2ML INJ IV PRN (14:23)
[2025-04-25] MEDS ORDERED: DOCUSATE SODIUM 100MG CAPSULE PO PRN (15:00)
[2025-04-25] MEDS: POLYETHYLENE GLYCOL 3350 (17GM) 1 DOSE PACK PO SCH (15:00)
[2025-04-25] MEDS ORDERED: CLONIDINE 0.1MG TABLET PO PRN (15:00)
[2025-04-25] MEDS ORDERED: ACETAMINOPHEN 325MG TABLET PO PRN ×2 (15:00)
[2025-04-25] MEDS ORDERED: SENNOSIDES/DOCUSATE SOD 8.6/50MG TABLET PO PRN (15:00)
[2025-04-25] MEDS ORDERED: IPRATROPIUM/ALBUTEROL 0.5-3(2.5)MG/3ML NEB HHN PRN (15:00)
[2025-04-25 16:31] VITALS: BP 103/72; PULSE 92; RESP 18; TEMP 37.1; O2SAT 100
[2025-04-25] MEDS: METOCLOPRAMIDE HCL 10MG/2ML VIAL IV SCH (18:31)
[2025-04-25 20:00] VITALS: BP 119/47; PULSE 86; RESP 17; TEMP 36.6; O2SAT 100
[2025-04-25] MEDS: HYDROCODONE/ACETAMINOPHEN 5/325MG TABLET PO PRN (23:19)
[2025-04-26] VITALS: BP 113/66; PULSE 76; RESP 17; TEMP 36.8; O2SAT 100
[2025-04-26 04:00] VITALS: BP 123/53; PULSE 86; RESP 16; TEMP 36.2; O2SAT 100
[2025-04-26 08:09] VITALS: BP 142/73; PULSE 80; RESP 18; TEMP 35.6; O2SAT 99
[2025-04-26] MEDS: DEXTROSE 50% WATER 50ML SYRINGE IV PRN (08:51)
[2025-04-26] MEDS: PANTOPRAZOLE SODIUM 40 MG/VIAL IV SCH (08:57)
[2025-04-26 16:00] VITALS: BP 142/73; PULSE 78; RESP 20; TEMP 36.8; O2SAT 97
[2025-04-26 20:00] VITALS: BP 140/76; PULSE 85; RESP 20; TEMP 36.3; O2SAT 100
[2025-04-26] MEDS: ATORVASTATIN CALCIUM 40MG TABLET PO SCH (21:58)
[2025-04-27] VITALS (12 sets, daily range): BP systolic 100–143; BP diastolic 45–74; PULSE 72–88; RESP 18–20; TEMP 36.1–36.6696; O2SAT 100
[2025-04-27] MEDS: SODIUM CHLORIDE IV SCH (16:11)
[2025-04-27] MEDS: WATER IV SCH (16:11)
[2025-04-27] MEDS: DEXT 10% IV SCH (16:11)
[2025-04-27] MEDS: VANCOMYCIN 125MG/2.5ML ORAL SYR PO SCH (21:42)
[2025-04-28] VITALS (9 sets, daily range): BP systolic 112–164; BP diastolic 44–78; PULSE 75–88; RESP 18–20; TEMP 36–36.50292; O2SAT 95–100
[2025-04-28] MEDS ORDERED: LIDOCAINE HCL 1% 10 MG/ML 10ML VIAL ONE (07:52)
[2025-04-29] VITALS (8 sets, daily range): BP systolic 111–161; BP diastolic 54–67; PULSE 77–105; RESP 18–20; TEMP 35.9–36.50292; O2SAT 98–100
[2025-04-29 00:27] LABS: UREA NITROGEN BLOOD 30 mg/dL (9-23)
[2025-04-29 00:31] LABS: CREATININE 6.1 mg/dL (0.6-1.0)
[2025-04-29 01:04] LABS: HEPATITIS A AB IGM NEGATIVE (Negative)
[2025-04-29 01:05] LABS: HEPATITIS B CORE AB IGM NEGATIVE (Negative); HEPATITIS C AB NON REACTIVE (Neg) (Negative)
[2025-04-29] MEDS ORDERED: VANC125C18 MT (12:44)
== END 2025-04-29 19:47 | disposition home or self-care (01) | DRG 380 ==
LOC: ER 11:32 → 7WST 14:10 → EDBEDREQ 14:21 → EDBEDREQTM 14:21 → ENRESERV 14:43
PROVIDERS: ADMIT Internal Medicine; ATTEND Internal Medicine
PROC: 5A1D70Z Performance of Urinary Filtration, Intermittent, Less than 6 Hours Per Day (ICD-10-PCS; 2025-04-24)
PROC: 0W9G3ZZ Drainage of Peritoneal Cavity, Percutaneous Approach (ICD-10-PCS; principal; 2025-04-26)
PROC: 5A1D70Z Performance of Urinary Filtration, Intermittent, Less than 6 Hours Per Day (ICD-10-PCS; 2025-04-27)
PROC: 02HV33Z Insertion of Infusion Device into Superior Vena Cava, Percutaneous Approach (ICD-10-PCS; 2025-04-28)
PROC: B548ZZA Ultrasonography of Superior Vena Cava, Guidance (ICD-10-PCS; 2025-04-28)
PROC: 5A1D70Z Performance of Urinary Filtration, Intermittent, Less than 6 Hours Per Day (ICD-10-PCS; 2025-04-28)
DX: E11.649 Type 2 diabetes mellitus with hypoglycemia without coma (principal); L89.626 Pressure-induced deep tissue damage of left heel; L89.616 Pressure-induced deep tissue damage of right heel; G93.40 Encephalopathy, unspecified; I13.2 Hypertensive heart and chronic kidney disease with heart failure and with stage 5 chronic kidney disease, or end stage renal disease; A04.72 Enterocolitis due to Clostridium difficile, not specified as recurrent; E87.20 Acidosis, unspecified; N18.6 End stage renal disease; K56.7 Ileus, unspecified; J18.9 Pneumonia, unspecified organism; Z99.2 Dependence on renal dialysis; J44.0 Chronic obstructive pulmonary disease with (acute) lower respiratory infection; Z79.01 Long term (current) use of anticoagulants; D64.9 Anemia, unspecified; E03.9 Hypothyroidism, unspecified; K74.60 Unspecified cirrhosis of liver; F10.10 Alcohol abuse, uncomplicated; E11.43 Type 2 diabetes mellitus with diabetic autonomic (poly)neuropathy; E87.5 Hyperkalemia; R18.8 Other ascites; I50.42 Chronic combined systolic (congestive) and diastolic (congestive) heart failure; E21.3 Hyperparathyroidism, unspecified; L98.A3 Non-pressure chronic ulcer of hand; K50.90 Crohn's disease, unspecified, without complications; L85.3 Xerosis cutis; K31.84 Gastroparesis; F41.9 Anxiety disorder, unspecified; S51.811A Laceration without foreign body of right forearm, initial encounter; X58.XXXA Exposure to other specified factors, initial encounter; I48.91 Unspecified atrial fibrillation; E11.22 Type 2 diabetes mellitus with diabetic chronic kidney disease; Z79.899 Other long term (current) drug therapy; Z86.73 Personal history of transient ischemic attack (TIA), and cerebral infarction without residual deficits; Z90.49 Acquired absence of other specified parts of digestive tract; Y93.89 Activity, other specified; Y92.89 Other specified places as the place of occurrence of the external cause; Y99.8 Other external cause status
CPT/HCPCS: 36415; 36573; 49083; 71045; 74018; 74176; 76604; 80048; 80053; 80076; 82962; 83605; 83735; 84145; 84484; 85025; 86705; 86709; 87340; 87493; 90935; 93005; 99285; A4606; C1725; J0696; J1610; J1650; J2003; J2405; J2470; J2765; J3373; J7040; J7131

== ENCOUNTER 2025-05-02 12:15 | Inpatient (IN) | payer OTHER ==
[~2025-05-02] VITALS: Ht 167.6 cm; Wt 43.7 kg
[~2025-05-02 12:15] MED LIST changes: +VANC125C18 MT
[2025-05-02 12:37] VITALS: O2SAT 98
[2025-05-02] MEDS: MIDAZOLAM HCL 2 MG/2 ML VIAL IM ONE (12:37)
[2025-05-02] MEDS: DEXTROSE 50% WATER 50ML SYRINGE IV ONE ×4 (12:55→17:36)
[2025-05-02 13:16] LABS: BASOPHILS % 0.4 % (0.0-2.0); EOSINOPHILS % 2.3 % (0.0-5.0); HEMATOCRIT. 29.0 % (36.0-48.0); HEMOGLOBIN. 9.2 g/dL (12.0-16.0); LYMPHOCYTES % 33.0 % (20.0-50.0); MEAN PLATELET VOLUME 8.5 fl (7.4-10.4); MONOCYTES % 5.1 % (2.0-8.0); NEUTROPHILS % 59.2 % (40.0-76.0); PLATELET 86 x1000/uL (130-400); RED BLOOD CELL COUNT 3.07 mill/uL (4.2-5.4); RED CELL DISTRIBUTION WIDTH 19.3 % (11.6-14.6)
[2025-05-02 13:22] LABS: ETHANOL BLOOD < 10 mg/dL (<10); PROTEIN TOTAL 6.5 g/dL (6.0-8.3); UREA NITROGEN BLOOD 33 mg/dL (9-23)
[2025-05-02 13:23] LABS: ASPARTATE AMINOTRANSFERASE 18 IU/L (<34); BILIRUBIN DIRECT < 0.1 mg/dL (<=3.0)
[2025-05-02 13:24] LABS: BILIRUBIN TOTAL 0.2 mg/dL (0.1-1.0)
[2025-05-02 13:34] LABS: CREATININE 9.4 mg/dL (0.6-1.0)
[2025-05-02 14:17] LABS: INR 1.3
[2025-05-02 15:15] VITALS: BP 125/63; PULSE 71; RESP 17; TEMP 35.7; O2SAT 92; O2SAT 98
[2025-05-02 16:10] VITALS: BP 125/63; PULSE 71; RESP 13; TEMP 35.6952
[2025-05-02] MEDS: GLUCAGON,HUMAN RECOMBINANT 1MG/VIAL ONE (17:31)
[2025-05-02] MEDS ORDERED: CALCIUM CHLORIDE 1GM/10ML SYR IV ONE (17:45)
[2025-05-02 18:32] LABS: BG BASE EXCESS -19.8 mmol/L (-2.0-3.0); BG CARBOXYHEMOGLOBIN 0.2 % (0.5-1.5); BG DEOXYHEMOGLOBIN 1.1 % (0.0-5.0); BG FLOW(L/min) 4.00 L/min; BG FRACTION INSPIRED OXYGEN 36; BG HCO3 ACT 6.7 mmol/L (21.0-28.0); BG METHEMOGLOBIN 0.0 % (0.5-1.5); BG OXYGEN SATURATION 98.9 % (94.0-98.0); BG OXYHEMOGLOBIN 98.7 % (94.0-98.0); BG PCO2 18.6 mmHg (32.0-45.0); BG PH 7.177 (7.350-7.450); BG PO2 200.4 mmHg (83.0-108.0); BG SAMPLE SITE RIGHT RADIAL; BG TOTAL HEMOGLOBIN 9.9 g/dL (12.0-16.0); BG VENT MODE NASAL CANNULA
[2025-05-02] MEDS: DEXTROSE 50% WATER 50ML SYRINGE IV PRN ×2 (20:51→20:52)
[2025-05-02] MEDS: CALCIUM CHLORIDE 1,000 MG in DEXT 5% WATER 90 ML IV NR (20:52)
[2025-05-02] MEDS: SODIUM BICARBONATE 8.4% 50MEQ/50ML SYR IV NR ×2 (20:53→23:00)
[2025-05-03] VITALS (57 sets, daily range): BP systolic 42–96; BP diastolic 22–76; PULSE 80–158; RESP 7–22; TEMP 36.114–37.2; O2SAT 95–100
[2025-05-03] MEDS ORDERED: HYDROCODONE/ACETAMINOPHEN 5/325MG TABLET PO PRN ×2 (00:15→00:30)
[2025-05-03] MEDS: MORPHINE SULFATE 2 MG/ML INJ (NOT FOR IM USE) IV PRN (01:48)
[2025-05-03] MEDS: NOREPINEPHRINE 8MG/250ML PMX 250 ML IV PRN (02:58)
[2025-05-03] MEDS: DEXT 10% WATER 1,000 ML IV SCH (08:22)
[2025-05-03] MEDS ORDERED: PHENYLEPHRINE 50MG/250ML PMX 250 ML IV PRN ×2 (08:45→21:15)
[2025-05-03] MEDS: AMLODIPINE 5MG TABLET PO SCH (09:00)
[2025-05-03] MEDS: FOLIC ACID/VITAMIN B COMP W-C TABLET PO SCH (09:00)
[2025-05-03] MEDS: FERROUS SULFATE 325MG TABLET PO SCH ×2 (09:00→18:00)
[2025-05-03] MEDS ORDERED: SODIUM CHLORIDE 0.9% 250 ML IV SCH (09:00)
[2025-05-03] MEDS: PHENYLEPHRINE 50 MG in SODIUM CHLORIDE 0.9% 245 ML IV PRN (09:08)
[2025-05-03] MEDS: SODIUM BICARBONATE 8.4% 50MEQ/50ML SYR IV NR ×2 (09:51→21:26)
[2025-05-03] MEDS: ALBUMIN HUMAN 25GM/100ML (25%) IV SCH (10:00)
[2025-05-03] MEDS ORDERED: NALOXONE HCL 0.4MG/ML VIAL IV PRN (12:15)
[2025-05-03] MEDS: SODIUM CHLORIDE 0.9% 500 ML IV ONE (12:45)
[2025-05-03] MEDS ORDERED: ACETAMINOPHEN 325MG TABLET PO PRN (12:45)
[2025-05-03] MEDS ORDERED: ONDANSETRON HCL 4MG/2ML INJ IV PRN (12:45)
[2025-05-03] MEDS: PHENYLEPHRINE 100 MG in DEXT 5% WATER 240 ML IV PRN (13:32)
[2025-05-03] MEDS: VASOPRESSIN 20 UNIT in SODIUM CHLORIDE 0.9% 99 ML IV PRN (16:46)
[2025-05-03] MEDS: ASCORBIC ACID 250 MG TABLET PO SCH (18:00)
[2025-05-03] MEDS ORDERED: MIDODRINE HCL 5MG TABLET PO SCH ×2 (18:15→20:00)
[2025-05-03] MEDS ORDERED: CALCIUM GLUCONATE 1GM PREMIX 50 ML IV ONE (21:15)
[2025-05-03 21:16] LABS: BG BASE EXCESS -10.6 mmol/L (-2.0-3.0); BG CARBOXYHEMOGLOBIN 1.2 % (0.5-1.5); BG DEOXYHEMOGLOBIN 0.1 % (0.0-5.0); BG FRACTION INSPIRED OXYGEN 100; BG HCO3 ACT 15.5 mmol/L (21.0-28.0); BG METHEMOGLOBIN 0.3 % (0.5-1.5); BG OXYGEN SATURATION 99.9 % (94.0-98.0); BG OXYHEMOGLOBIN 98.4 % (94.0-98.0); BG PCO2 34.9 mmHg (32.0-45.0); BG PEEP (cmH2O) 5.0 cmH2O; BG PH 7.264 (7.350-7.450); BG PO2 361.9 mmHg (83.0-108.0); BG SAMPLE SITE LEFT BRACHIAL; BG TIDAL VOLUME(mL) 350.0 mL; BG TOTAL HEMOGLOBIN 5.9 g/dL (12.0-16.0); BG TOTAL RESPIRATORY RATE 28 b/min; BG VENT MODE VENT - AC; BG VENT RATE 18.0 set
[2025-05-03] MEDS ORDERED: CALCIUM GLUCONATE 100MG/ML 10ML VIAL IV NR (21:30)
[2025-05-03] MEDS ORDERED: DEXMEDETOMIDINE 100 ML IV PRN (22:30)
[2025-05-03] MEDS: EPINEPHRINE 5 MG in SODIUM CHLORIDE 0.9% 245 ML IV PRN (22:42)
[2025-05-03] MEDS ORDERED: NOREPINEPHRINE 32 MG in DEXT 5% WATER 218 ML IV PRN (23:00)
[2025-05-03] MEDS: DOPAMINE 400MG/250ML PREMIX 250 ML IV PRN (23:33)
[2025-05-03] MEDS: SODIUM BICARBONATE 150 MEQ in DEXTROSE 5% WATER 850 ML IV SCH (23:33)
[2025-05-04] MEDS ORDERED: MIDODRINE HCL 5MG TABLET PO SCH (09:00)
[2025-05-04] MEDS ORDERED: PANTOPRAZOLE SODIUM 40 MG/VIAL IV SCH (09:00)
== END 2025-05-04 00:16 | DRG 52 ==
LOC: ER 12:37 → 4WST 14:06 → EDBEDREQTM 14:08 → EDBEDREQ 14:08 → 5EST 18:20
PROVIDERS: ADMIT Internal Medicine; ATTEND Internal Medicine
PROC: 0BH17EZ Insertion of Endotracheal Airway into Trachea, Via Natural or Artificial Opening (ICD-10-PCS; principal; 2025-05-03)
PROC: 5A12012 Performance of Cardiac Output, Single, Manual (ICD-10-PCS; 2025-05-03)
PROC: 5A1D70Z Performance of Urinary Filtration, Intermittent, Less than 6 Hours Per Day (ICD-10-PCS; 2025-05-03)
DX: G93.41 Metabolic encephalopathy (principal); I46.9 Cardiac arrest, cause unspecified; R57.9 Shock, unspecified; I13.2 Hypertensive heart and chronic kidney disease with heart failure and with stage 5 chronic kidney disease, or end stage renal disease; E87.20 Acidosis, unspecified; D69.6 Thrombocytopenia, unspecified; J18.9 Pneumonia, unspecified organism; I27.20 Pulmonary hypertension, unspecified; N18.6 End stage renal disease; Z99.2 Dependence on renal dialysis; K74.60 Unspecified cirrhosis of liver; E11.22 Type 2 diabetes mellitus with diabetic chronic kidney disease; E03.9 Hypothyroidism, unspecified; D64.9 Anemia, unspecified; R18.8 Other ascites; E11.649 Type 2 diabetes mellitus with hypoglycemia without coma; E87.5 Hyperkalemia; K50.90 Crohn's disease, unspecified, without complications; E21.3 Hyperparathyroidism, unspecified; I50.42 Chronic combined systolic (congestive) and diastolic (congestive) heart failure; I48.91 Unspecified atrial fibrillation; Z86.73 Personal history of transient ischemic attack (TIA), and cerebral infarction without residual deficits; Z91.158 Patient's noncompliance with renal dialysis for other reason; Z79.899 Other long term (current) drug therapy
CPT/HCPCS: 31500; 31720; 36415; 36600; 71045; 80048; 80076; 80320; 82375; 82805; 82962; 83735; 85025; 90935; 92950; 93005; 94002; 94070; 94664; 96372; 96374; 98960; 99291; A4606; J0612; J1610; J2250; J2270; J2371; J3490; J7050; J7060; J7070; P9047; G0480